=== PATIENT | female | born 1970 | race Caucasian/White ===

== ENCOUNTER 2020-03-01 10:09 | Emergency (ER) | payer SELFPAY ==
[2020-03-01 10:17] VITALS: BP 196/114; PULSE 119; RESP 18; TEMP 36.6; O2SAT 99; BMI 36.3
--- NOTE | 2020-03-01 10:23 | W.ED.BACK ---
HPI - Back Pain/Injury General: Chief Complaint: Back Pain/Injury Stated Complaint: back pain Time Seen by Provider: 03/01/20 10:15 History of Present Illness: HPI Narrative: 49 yo femae with complaint of back pain. Patient has been helping her daughter move lifted some heavy objects and strained her back she is tried several [id number] pain medications some CBD oil and Gummies with no significant relief of pain she does not have any radicular pain. No other symptoms no recent illness MD elicited complaint: back pain Associated symptoms: Deny abdominal pain, chills, dysuria, fatigue, fever(s), nausea, urinary urgency or vomiting Review of Systems Const: Denies: fever(s), chills, body aches, change in appetite, fatigue or malaise ENMT: Denies: throat pain, ear or mastoid pain, nasal discharge or nasal congestion Card: Denies: chest pain, edema, dyspnea on exertion or orthopnea Resp: Denies: dyspnea, productive cough or non-productive cough GI: Denies: abdominal pain, nausea, vomiting, hematemesis, coffee ground emesis, diarrhea, constipation, bloating, hematochezia or melena : Denies: flank pain, difficulty voiding, dysuria, urinary frequency or urinary urgency Skin/Breast: Denies: rash or pruritus PFSH ED PFSH: Social History Smoking and tobacco status: current every day smoker Physical Exam Const: COMMON NORMALS: no acute distress GENERAL APPEARANCE: cooperative and comfortable ORIENTATION/CONSCIOUSNESS: Yes awake, Yes oriented to person, Yes oriented to place and Yes oriented to time HENMT: COMMON NORMALS: normocephalic, atraumatic, hearing grossly normal bilaterally, external ears normal, EAC's normal, TM's normal bilaterally, Normal nasal mucous membranes and turbinates present, moist oral mucous membranes and oropharynx normal HEAD & SCALP: normocephalic and atraumatic NOSE: Normal nasal mucous membranes and turbinates present EXTERNAL EAR: Yes external ears normal EXTERNAL AUDITORY CANAL: EAC's normal TYMPANIC MEMBRANE: TM's normal bilaterally Eye: COMMON NORMALS: Equal, round and reactive pupils present, EOMs intact bilaterally, conjunctivae normal and no scleral icterus CONJUNCTIVA: Yes conjunctivae normal PUPIL: Yes Equal, round and reactive pupils present Neck/C-Spine: COMMON NORMALS: full ROM, no lymphadenopathy, supple and no JVD Lymph: LYMPHATIC: no lymphadenopathy noted and no lymphedema noted Resp: COMMON NORMALS: normal respiratory effort, No retractions, No use of accessory muscles and clear to auscultation bilaterally AUSCULTATION: clear to auscultation bilaterally Cardio: COMMON NORMALS: no JVD, regular rate, regular rhythm and No murmurs present (Cardio) RATE: regular rate RHYTHM: regular rhythm GI: COMMON NORMALS: Soft to palpation and No hepatosplenomegaly present AUSCULTATION: Yes normoactive bowel sounds PALPATION: Yes Soft to palpation, No Tenderness to palpation present (GI), No Guarding due to palpation present (GI) and Yes No hepatosplenomegaly present Extremity: COMMON NORMALS: normal to inspection, capillary refill normal, no clubbing, cyanosis or edema, no calf tenderness and no pedal edema Neuro: SENSORIUM/ORIENTATION: Yes oriented to person, Yes oriented to place and Yes oriented to time Skin: COMMON NORMALS: no rashes or lesions noted GENERAL SKIN EXAM: no rashes or lesions noted Course Vital Signs: Vital signs: Vital Signs Temperature 97.8 F 03/01/20 10:17 Pulse Rate 71 03/01/20 12:10 Respiratory Rate 16 03/01/20 12:10 Blood Pressure 144/86 03/01/20 12:10 Pulse Oximetry 95 03/01/20 12:10 MDM - Back Pain/Injury MDM Narrative: Medical decision making narrative: Discharge home with pain medications and Medrol Dosepak denies any symptoms return unable to control pain return. Follow-up with primary care doctor if persists. Discharge Plan Discharge Patient Disposition: Home, Self-Care Clinical Impression: Strain of lumbar region Condition: Stable Prescriptions: New hydrocodone-acetaminophen 5-325 mg tablet 1 tab PO Q6H PRN (Reason: pain) Qty: 20 RF: 0 Medrol (Royce) 4 mg tablets,dose pack See Rx Instructions .ROUTE .COMPLEX Qty: 21 RF: 0 tizanidine 4 mg capsule 4 mg PO Q6H PRN (Reason: muscle spasticity) Qty: 20 RF: 0 diclofenac sodium 75 mg tablet,delayed release (DR/EC) 75 mg PO Q12H PRN (Reason: pain) Qty: 20 RF: 0 Discharge Orders: Discharge Order (Routine); Ordered 03/01/20 Ordered By: Shayne Freeman Discharge Diet: Usual diet Discharge Activity: Increase activity as tolerated Activity Restrictions/Additional Instructions: Follow-up with your primary care doctor for further evaluation of your back possible referral to PT or other medications. Discharge Date/Time: 03/01/20 12:10 Coding Level of Care Code ED Maintainer [employer] for Tayla Wooten
[2020-03-01] MEDS: ondansetron 2 mg/ML SDV 2 mL 4 MG IVP (11:14)
[2020-03-01] MEDS: ketorolac 30 mg/mL INJ IVP (11:15)
[2020-03-01] MEDS: orphenadrine 30 mg/mL Inj 2 mL 60 MG IVP (11:16)
[2020-03-01 11:17] VITALS: RESP 18; O2SAT 97
[2020-03-01] MEDS: morphine 4 mg/mL SDV 1 mL 6 MG IVP (11:17)
[2020-03-01 11:22] VITALS: BP 162/94; PULSE 101; RESP 16; O2SAT 96
[2020-03-01 12:10] VITALS: BP 144/86; PULSE 71; RESP 16; O2SAT 95
== END 2020-03-01 12:10 | disposition home or self-care (01) ==
PROVIDERS: Absent Provider Nurse Practitioner Family; Emergency Provider Family Medicine
DX: S39.012A Strain of muscle, fascia and tendon of lower back, initial encounter (principal); X50.0XXA Overexertion from strenuous movement or load, initial encounter; F17.210 Nicotine dependence, cigarettes, uncomplicated
CPT/HCPCS: 12345; 96374; 96375; 99282; 99283; J1885; J2270; J2360; J2405

== ENCOUNTER 2020-09-24 11:38 | Emergency (ER) | payer SELFPAY ==
--- NOTE | 2020-09-24 11:42 | ED_ITS ---
HPI - Back Pain/Injury General: Chief Complaint: Back Pain/Injury Stated Complaint: Back Pain Time Seen by Provider: 09/24/20 11:41 History of Present Illness: HPI Narrative: 50-year-old female presents emergency room with complaint of low back pain that began after she is doing some heavy lifting this morning. She has not had any loss of bowel control she still been able to urinate she has severe left back pain with numbness going into her right leg. She still is able to stand and walk. She is not really taken anything for prior to arrival. She was here in the emergency room in February 2020 for similar complaint. MD elicited complaint: back pain Pertinent past history: prior back pain Onset (ago): minute(s) Timing: constant Severity: severe Similar Symptoms Previously: Yes Quality: sharp and tingling Location: lumbar spine and right lower back Radiation: right upper leg Exacerbating factors: none Associated symptoms: Deny abdominal pain, chills, dysuria, fatigue, fever(s), nausea, urinary urgency or vomiting Review of Systems Const: Denies: fever(s), chills, body aches, change in appetite, fatigue or malaise ENMT: Denies: throat pain, ear or mastoid pain, nasal discharge or nasal congestion Card: Denies: chest pain, edema, dyspnea on exertion or orthopnea Resp: Denies: dyspnea, productive cough or non-productive cough GI: Denies: abdominal pain, nausea, vomiting, hematemesis, coffee ground emesis, diarrhea, constipation, bloating, hematochezia or melena : Denies: flank pain, difficulty voiding, dysuria, urinary frequency or uri nary urgency Skin/Breast: Denies: rash or pruritus PFSH ED PFSH: Social History Smoking and tobacco status: current every day smoker Physical Exam Const: COMMON NORMALS: no acute distress GENERAL APPEARANCE: cooperative and comfortable ORIENTATION/CONSCIOUSNESS: Yes awake, Yes oriented to person, Yes oriented to place and Yes oriented to time HENMT: COMMON NORMALS: normocephalic, atraumatic and hearing grossly normal bilaterally HEAD & SCALP: normocephalic and atraumatic Neck/C-Spine: COMMON NORMALS: no JVD Resp: COMMON NORMALS: normal respiratory effort, No retractions, No use of accessory muscles and clear to auscultation bilaterally AUSCULTATION: clear to auscultation bilaterally Cardio: COMMON NORMALS: no JVD, regular rate, regular rhythm and No murmurs present (Cardio) RATE: regular rate RHYTHM: regular rhythm GI: COMMON NORMALS: Soft to palpation and No hepatosplenomegaly present AUSCULTATION: Yes normoactive bowel sounds PALPATION: Yes Soft to palpation, No Tenderness to palpation present (GI), No Guarding due to palpation present (GI) and Yes No hepatosplenomegaly present Extremity: COMMON NORMALS: normal to inspection, capillary refill normal, no clubbing, cyanosis or edema, no calf tenderness and no pedal edema Neuro: SENSORIUM/ORIENTATION: Yes oriented to person, Yes oriented to place and Yes oriented to time OTHER: Straight leg raising negative dorsum plantar flex strength 4/4, deep tendon reflexes +2/4 at the patellar tendon Course Vital Signs: Vital signs: Vital Signs Temperature 97.8 F 09/24/20 11:43 Pulse Rate 81 09/24/20 13:32 Respiratory Rate 16 09/24/20 13:32 Blood Pressure 161/92 09/24/20 13:32 Pulse Oximetry 98 09/24/20 13:32 MDM - Back Pain/Injury MDM Narrative: Medical decision making narrative: Pain improved. Will discharge home on muscle relaxer steroid taper anti-inflammatories and hydrocodo ne as needed set her up for an outpatient MRI and referral to Dr. Soares. Discharge Plan Discharge Patient Disposition: Home Clinical Impression: Lumbar radiculopathy Condition: Stable Prescriptions: New hydrocodone-acetaminophen 5-325 mg tablet 1 tab PO Q6H PRN (Reason: pain) Qty: 25 RF: 0 Medrol (Royce) 4 mg tablets,dose pack See Rx Instructions .ROUTE .COMPLEX Qty: 21 RF: 0 tizanidine 4 mg capsule 4 mg PO Q8H PRN (Reason: muscle spasticity) Qty: 30 RF: 0 diclofenac sodium 75 mg tablet,delayed release (DR/EC) 75 mg PO Q12H PRN (Reason: pain) Qty: 20 RF: 0 No Action hydrocodone-acetaminophen 5-325 mg tablet 1 tab PO Q6H PRN (Reason: pain) Qty: 20 RF: 0 Medrol (Royce) 4 mg tablets,dose pack See Rx Instructions .ROUTE .COMPLEX Qty: 21 RF: 0 tizanidine 4 mg capsule 4 mg PO Q6H PRN (Reason: muscle spasticity) Qty: 20 RF: 0 diclofenac sodium 75 mg tablet,delayed release (DR/EC) 75 mg PO Q12H PRN (Reason: pain) Qty: 20 RF: 0 Discharge Orders: Discharge ED (Routine); Ordered 09/24/20 Ordered By: Shayne Freeman Discharge Diet: Usual diet Discharge Activity: Increase activity as tolerated Activity Restrictions/Additional Instructions: Case management will call with an appointment for an MRI of your lumbar spine and then a follow-up appointment with Dr. Soares after that. Coding Level of Care Code ED Brim Shaper for Tavaresg Fwd Exam Detailed
[2020-09-24 11:43] VITALS: BP 185/108; PULSE 99; RESP 18; TEMP 36.6; O2SAT 100; BMI 28.3
[2020-09-24 12:19] VITALS: RESP 20; O2SAT 99
[2020-09-24] MEDS: morphine 4 mg/mL SDV 1 mL 6 MG IVP (12:19)
[2020-09-24] MEDS: orphenadrine 30 mg/mL Inj 2 mL 60 MG IVP (12:26)
[2020-09-24] MEDS: dexamethasone 4 mg/mL INJ 10 MG IVP (12:29)
[2020-09-24 13:32] VITALS: BP 161/92; PULSE 81; RESP 16; O2SAT 98
--- NOTE | 2020-09-26 14:55 | DCPLANNER ---
project manager interior design had message to schedule an outpatient MRI, mattress spring encaser faxed order for MRI to centralized scheduling. After MRI is scheduled, mattress spring encaser will schedule a follow up appointment for patient with Dr. Soares at [facility].
--- NOTE | 2020-10-04 07:44 | DCPLANNER ---
Addendum entered by Patricia Whalen 10/04/20 09:46: testing manager called the ortho clinic, spoke with Crorie, gave patients information and date of the MRI so that a follow up appointment can be scheduled for patient. Original Note: Patient has an outpatient MRI scheduled for Saturday, October 18, 2020 at 8:45. testing manager will call the ortho clinic and get a followup appointment scheduled for patient after the MRI.
--- NOTE | 2020-10-05 09:45 | DCPLANNER ---
Patient has a follow up appointment scheduled for October at 1:[address] at [facility]. Clinic will call patient with appointment information.
--- NOTE | 2020-12-07 11:27 | DCPLANNER ---
Patient had an outpatient MRI scheduled for 10.17.20 - patient did attend appointment Patient also had an appointment with ortho scheduled for 10.20.[address] Soares - patient did attend appointment.
== END 2020-09-24 13:35 | disposition home or self-care (01) ==
PROVIDERS: Emergency Provider Family Medicine
DX: M54.16 Radiculopathy, lumbar region (principal); F17.210 Nicotine dependence, cigarettes, uncomplicated
CPT/HCPCS: 12345; 96374; 96375; 99282; 99283; J1100; J2270; J2360

== ENCOUNTER 2020-10-01 13:31 | Emergency (ER) | payer SELFPAY ==
[2020-10-01 13:35] VITALS: BP 166/114; PULSE 120; RESP 22; TEMP 37.1; O2SAT 98; BMI 31.8
--- NOTE | 2020-10-01 13:47 | W.ED.BACK ---
HPI - Back Pain/Injury General: Chief Complaint: Back Pain/Injury Stated Complaint: SEVERE BACK PAIN Time Seen by Provider: 10/01/20 13:38 History of Present Illness: HPI Narrative: Patient complaining of severe low back pain consistent with what she had at her previous visit. She lifted a tree earlier and this is what caused her pain originally hydrocodone was helps some but the pain is back again. Scheduled for MRI on the 12th MD elicited complaint: back pain and back injury Pertinent past history: prior back pain Onset (ago): week(s) Timing: constant Severity: severe Similar Symptoms Previously: Yes Quality: dull and aching Location: lumbar spine Associated symptoms: Deny abdominal pain, chills, fever(s), nausea or vomiting Review of Systems Const: Denies: fever(s), chills or body aches Eyes: Denies: change in vision or blurry vision ENMT: Denies: throat pain or nasal congestion Card: Denies: chest pain or dyspnea on exertion Resp: Denies: dyspnea, productive cough or non-productive cough GI: Denies: abdominal pain, nausea or vomiting Musc: Reports: back pain; Denies: extremity pain Skin/Breast: Denies: rash Neuro: Denies: headache(s) Psych: Denies: anxiety or depression Isael/Lymph: Denies: easy bruising PFSH ED PFSH: Social History Smoking and tobacco status: current every day smoker Physical Exam Const: COMMON NORMALS: no acute distress, average body habitus and patient oriented x3 HENMT: COMMON NORMALS: normocephalic HEAD & SCALP: normal to inspection and normocephalic FACE & SINUS: normal facial exam Eye: COMMON NORMALS: conjunctivae normal GENERAL EYE: appearance normal, both eyes and all related structures CONJUNCTIVA: Yes conjunctivae normal Neck/C-Spine: COMMON NORMALS: no JVD Chest: COMMONS NORMALS: normal inspection of the chest Resp: COMMON NORMALS: normal respiratory effort Cardio: COMMON NORMALS: no JVD and regular rhythm RATE: tachycardic RHYTHM: regular rhythm GI: COMMON NORMALS: Normal to inspection, nondistended, normoactive bowel sounds present Back/Pelvis: LUMBAR SPINE/LOWER BACK: Yes ROM limited (Limited due to pain), No lumbar spinal tenderness and Yes bend over test abnormal (Helps relieve pain in back when bent over the bed) Extremity: COMMON NORMALS: normal to inspection and full ROM Neuro: COMMON NORMALS: patient oriented x3 Course Vital Signs: Vital signs: Vital Signs Temperature 98.7 F 10/01/20 14:30 Pulse Rate 120 H 10/01/20 13:35 Respiratory Rate 22 H 10/01/20 14:30 Blood Pressure 166/114 10/01/20 13:35 Pulse Oximetry 98 10/01/20 14:30 MDM - Back Pain/Injury MDM Narrative: Medical decision making narrative: Patient has a history of low back pain consistent with what she had a day. Patient is scheduled for MRI. Patient instructed not to do any heavy lifting ice and heat to the low back and follow-up for her scheduled MRI Discharge Plan Discharge Patient Disposition: Home Clinical Impression: Lumbar radiculopathy Condition: Stable Prescriptions: New tramadol 50 mg tablet 50 mg PO TID PRN (Reason: pain) Qty: 20 RF: 0 Neurontin 300 mg capsule 300 mg PO TID Qty: 21 RF: 0 No Action hydrocodone-acetaminophen 5-325 mg tablet 1 tab PO Q6H PRN (Reason: pain) Qty: 20 RF: 0 Medrol (Royce) 4 mg tablets,dose pack See Rx Instructions .ROUTE .COMPLEX Qty: 21 RF: 0 tizanidine 4 mg capsule 4 mg PO Q6H PRN (Reason: muscle spasticity) Qty: 20 RF: 0 diclofenac sodium 75 mg tablet,delayed release (DR/EC) 75 mg PO Q12H PRN (Reason: pain) Qty: 20 RF: 0 hydrocodone-acetaminophen 5-325 mg tablet 1 tab PO Q6H PRN (Reason: pain) Qty: 25 RF: 0 Medrol (Royce) 4 mg tablets,dose pack See Rx Instructions .ROUTE .COMPLEX Qty: 21 RF: 0 tizanidine 4 mg capsule 4 mg PO Q8H PRN (Reason: muscle spasticity) Qty: 30 RF: 0 diclofenac sodium 75 mg tablet,delayed release (DR/EC) 75 mg PO Q12H PRN (Reason: pain) Qty: 20 RF: 0 Discharge Orders: Discharge ED (Routine); Ordered 10/01/20 Ordered By: Aung Miles Discharge Diet: Usual diet Discharge Activity: Limit activity as instructed Patient Instructions: Lumbar Radiculopathy (ED) Activity Restrictions/Additional Instructions: Follow-up with medical provider as directed. Take medications as prescribed. Return to the ER or your medical provider if condition worsens. Please read and understand discharge instructions. If any questions ask please. Coding Level of Care Code ED Bundle Tier And Labeler for Tayla Fwd Exam Comprehensive
[2020-10-01] MEDS: ketorolac 60 mg/2 mL INJ IM (14:22)
[2020-10-01 14:30] VITALS: RESP 22; TEMP 37.1; O2SAT 98
== END 2020-10-01 14:30 | disposition home or self-care (01) ==
PROVIDERS: Emergency Provider Nurse Practitioner Family
DX: M54.16 Radiculopathy, lumbar region (principal); F17.210 Nicotine dependence, cigarettes, uncomplicated
CPT/HCPCS: 12345; 96372; 99281; 99283; J1885

== ENCOUNTER 2020-10-17 08:28 | Outpatient (CLI) | payer SELFPAY ==
--- NOTE | 2020-10-17 08:32 | MR_ITS ---
WS: [id number] MRI LUMBAR SPINE NONCONTRAST HISTORY: BACK Pain; right LEG RADICULOPATHY COMPARISON: 02/25/2016 CT lumbar spine. MRI lumbar spine 07/25/2015. TECHNIQUE: Sagittal and axial multisequence imaging is submitted. Patient was unable to tolerate post contrast imaging. Mild encroachment upon the ventral cervical cord at C5-C6 due to disc osteophyte disease. There is an additional small disc protrusion at T6-7 which is encroaching upon the ventral to RIGHT thecal sac. No severe compression of the cord. T11 hemangioma. Very mild straightening of the normal lumbar lordosis. No marrow edema or fracture. Disc spaces and vertebral body heights are well-preserved. Conus terminates normally at L1. L1-L2: Normal. L2-L3: Very minimal facet and ligamentum flavum hypertrophy. No stenosis. L3-L4: Very mild osteophytic ridging with mild ligamentum flavum disease and facet arthritis. No sten osis. L4-L5: Mild annular disc bulging with mild facet and ligamentum flavum hypertrophy. No significant st enosis. L5-S1: No stenosis or disc protrusions. Mild facet and ligamentum flavum arthritis. LEFT renal cysts. The largest measures 2.4 cm. MR/MR lumbar spine wo con* [id number] IMPRESSION: 1. Patient was unable to tolerate postcontrast imaging due to pain. 2. No significant stenosis or disc protrusions or canal contact on the nerve r oots. 3. 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 4. Disc protrusion at T6-7 seen on the survey image may be contacting the RIGH T lateral thecal sac.
== END 2020-10-17 08:29 | disposition home or self-care (01) ==
LOC: RADSHAW 08:29
PROVIDERS: Visit Provider Family Medicine
DX: M54.16 Radiculopathy, lumbar region (principal); M51.24 Other intervertebral disc displacement, thoracic region; M47.816 Spondylosis without myelopathy or radiculopathy, lumbar region; M47.817 Spondylosis without myelopathy or radiculopathy, lumbosacral region
CPT/HCPCS: 72148

== ENCOUNTER → 2020-10-20 13:08 | Outpatient (BNVA) | payer SELFPAY | PROVIDERS: Referring Provider Nurse Practitioner Family; Visit Provider Orthopaedic Surgery | DX: M54.9 Dorsalgia, unspecified (principal) | CPT/HCPCS: 72110 ==

== ENCOUNTER 2020-11-05 12:22 | Emergency (ER) | payer SELFPAY ==
[2020-11-05 12:54] VITALS: BP 162/95; PULSE 105; RESP 15; TEMP 36.7; O2SAT 99; BMI 32.1
--- NOTE | 2020-11-05 13:14 | W.ED.BACK ---
HPI - Back Pain/Injury General: Chief Complaint: Back Pain/Injury Stated Complaint: chronic back pain Time Seen by Provider: 11/05/20 13:07 Source: patient Mode of arrival: ambulatory Limitations: no limitations History of Present Illness: HPI Narrative: Patient comes in for increasing low back pain. Patient has been to Dr. Soares for evaluation and has been recommended to have injections in the back. Review of the MRI noted no significant spinal stenosis but did question there may be a nerve impingement in the lower lumbar. Patient comes in due to aggravating pain in in distress from the pain. Patient appears well. Patient appears in moderate pain. Review of Systems General: Reports: 10 or more systems reviewed and unremarkable except in HPI and below Musc: Reports: back pain PFS ED PFSH: Social History (Updated 11/05/20 @ 13:00 by Nahun Naranjo RN) Smoking and tobacco status: current every day smoker Alcohol intake: never Substance/Drug Use: never Physical Exam Const: COMMON NORMALS: no acute distress and patient oriented x3 GENERAL APPEARANCE: cooperative HENMT: COMMON NORMALS: normocephalic and Normal external nose present HEAD & SCALP: normal to inspection and normocephalic NOSE: Normal external nose present MOUTH: Normal oral and palatal mucosa present Eye: GENERAL EYE: appearance normal, both eyes and all related structures Neck/C-Spine: COMMON NORMALS: full ROM Chest: COMMONS NORMALS: normal inspection of the chest Resp: COMMON NORMALS: normal respiratory effort EFFORT & INSPECTION: Yes able to speak in complete sentences Cardio: COMMON NORMALS: regular rate and regular rhythm RATE: regular rate RHYTHM: regular rhythm GI: COMMON NORMALS: non-tender Back/Pelvis: OTHER: Soft tissue tenderness of the left lower back. Extremity: COMMON NORMALS: normal to inspection Neuro: COMMON NORMALS: patient oriented x3 and moves all extremities Psych: COMMON NORMALS: mental status grossly normal and cooperative Skin: COMMON NORMALS: no rashes or lesions noted GENERAL SKIN EXAM: no rashes or lesions noted Course Vital Signs: Vital signs: Vital Signs Temperature 98.1 F 11/05/20 12:54 Pulse Rate 105 H 11/05/20 12:54 Respiratory Rate 15 11/05/20 12:54 Blood Pressure 162/95 11/05/20 12:54 Pulse Oximetry 99 11/05/20 12:54 MDM - Back Pain/Injury MDM Narrative: Medical decision making narrative: Patient presents with acute exacerbation of chronic back pain. On exam patient has muscle tenderness to the left lower back. Patient moves all extremities well. No signs of cauda equina syndrome. Differential diagnosis includes muscle strain, acute on chronic back pain, intervertebral disc disease, facet arthropathy. Reviewed exam with patient with recommendations for treatment and follow-up. Patient reported understanding agreed to plan. Discharge Plan Discharge Patient Disposition: Home Clinical Impression: Low back pain Qualifiers: Chronicity: unspecified Back pain laterality: left Sciatica presence: without sciatica Qualified Code(s): M54.5 - Low back pain Condition: Stable Prescriptions: New hydrocodone-acetaminophen 5-325 mg tablet 1 tab PO Q6H PRN (Reason: pain) Qty: 14 RF: 0 naproxen 500 mg tablet 500 mg PO BID Qty: 20 RF: 0 Discontinued tramadol 50 mg tablet 50 mg PO Q6H PRN (Reason: pain) Qty: 30 RF: 0 diclofenac sodium 75 mg tablet,delayed release (DR/EC) 75 mg PO Q12H PRN (Reason: pain) Qty: 20 RF: 0 Discharge Orders: Discharge ED (Routine); Ordered 11/05/20 Ordered By: Jann Thurston Discharge Diet: Usual diet Discharge Activity: Increase activity as tolerated Patient Instructions: Back Pain (ED), Opioid Safety Activity Restrictions/Additional Instructions: It is best to maintain activity as much as possible. Gentle stretching and range of motion exercises. Drink plenty of water with medication. Do not use hydrocodone when operating a vehicle or when you may harm yourself or others with use of equipment or machinery. Follow-up with primary care for further treatment. Return to the emergency department for new concerns. Coding Level of Care Code ED Cylinder Press Feeder for Tayla Wooten
[2020-11-05] MEDS: ketorolac 30 mg/mL INJ IM (13:19)
[2020-11-05] MEDS: HYDROcodone-acetaminophen 7.5-325 mg Tablet 1 TAB PO (13:19)
== END 2020-11-05 13:50 | disposition home or self-care (01) ==
PROVIDERS: Emergency Provider Nurse Practitioner Family
DX: M54.5 Low back pain (principal); F17.210 Nicotine dependence, cigarettes, uncomplicated
CPT/HCPCS: 96372; 99283; J1885

== ENCOUNTER 2021-02-24 17:47 | Emergency (ER) | payer SELFPAY ==
[2021-02-24 17:57] VITALS: BP 180/94; PULSE 94; RESP 18; TEMP 36.9; O2SAT 97; BMI 33.8
--- NOTE | 2021-02-24 22:45 | CTR_ITS ---
PROCEDURE INFORMATION: Exam: CT Head Without Contrast Exam date and time: 02/24/2021 10:45 PM Age: 50 years old Clinical indication: Pain; Headache; Vascular; Patient HX: Occipital WHEELER with hypertension. TECHNIQUE: Imaging protocol: Computed tomography of the head without contrast. Radiation optimization: All CT scans at this facility use at least one of these dose optimization techniques: automated exposure control; mA and/or kV adjustment per patient size (includes targeted exams where dose is matched to clinical indication); or iterative reconstruction. COMPARISON: No relevant prior studies available. RADIATION DOSE METRICS: Total DLP (mGy-cm): 836.23 FINDINGS: Brain: Normal. No hemorrhage. Unremarkable white matter. No mass effect. Cerebral ventricles: No ventriculomegaly. Paranasal sinuses: Visualized sinuses are unremarkable. No fluid levels. Mastoid air cells: Visualized mastoid air cells are well aerated. Bones/joints: Unremarkable. No acute fracture. Soft tissues: Unremarkable. CT/CT head wo con* [id number] IMPRESSION: No acute intracranial abnormality. Radiation Dose CTDIVOL = (mGy): DLP = 836.23 (mGy-cm)
[2021-02-24 22:46] VITALS: BP 180/113; PULSE 72; RESP 16; TEMP 36.9; O2SAT 98
--- NOTE | 2021-02-24 23:00 | W.ED.HA ---
HPI - Headache General: Chief Complaint: Headache Stated Complaint: Head Pain, Numb/Tingly Feeling in Head Time Seen by Provider: 02/24/21 22:34 Source: patient Mode of arrival: ambulatory Limitations: no limitations History of Present Illness: HPI Narrative: 50-year-old female states she been having intermittent headaches over the last 4 days. States it is along her posterior scalp and some tenderness along her occipital region as well. States the headache is sharp and rates it a 6 out of 10. She denies any nausea or vomiting. She denies this being the worst headache of her life. She denies any fevers. Denies any pain with movement of her neck. Denies any photophobia. MD elicited complaint: headache Associated symptoms: Deny chest pain, fever(s), nausea, rash or vomiting Review of Systems Const: Denies: fever(s), chills, body aches or change in appetite Eyes: Denies: blurry vision or eye discomfort ENMT: Denies: throat pain or dental pain Card: Denies: chest pain Resp: Denies: dyspnea GI: Denies: abdominal pain, nausea, vomiting or diarrhea : Denies: dysuria Musc: Denies: neck pain or back pain Skin/Breast: Denies: rash Neuro: Reports: headache(s) Psych: Denies: depression Isael/Lymph: Denies: easy bruising All/Imm: Denies: urticaria PFSH ED PFSH: Social History (Updated 11/05/20 @ 13:00 by Nahun Naranjo RN) Smoking and tobacco status: current every day smoker Alcohol intake: never Physical Exam Const: COMMON NORMALS: no acute distress, patient oriented x3 and healthy appearing HENMT: COMMON NORMALS: normocephalic and atraumatic HEAD & SCALP: normocephalic and atraumatic Eye: COMMON NORMALS: Equal, round and reactive pupils present and EOMs intact bilaterally PUPIL: Yes Equal, round and reactive pupils present Neck/C-Spine: COMMON NORMALS: full ROM and supple Chest: COMMONS NORMALS: normal inspection of the chest and normal palpation of entire chest wall Resp: COMMON NORMALS: normal respiratory effort, No retractions, No use of accessory muscles and clear to auscultation bilaterally AUSCULTATION: clear to auscultation bilaterally Cardio: COMMON NORMALS: regular rate, regular rhythm and No murmurs present (Cardio) RATE: regular rate RHYTHM: regular rhythm GI: COMMON NORMALS: Normal to inspection, nondistended, normoactive bowel sounds present, Soft to palpation, non-tender and no masses PALPATION: Yes Soft to palpation Extremity: COMMON NORMALS: normal to inspection and full ROM Neuro: COMMON NORMALS: patient oriented x3, moves all extremities and no focal motor deficits Psych: COMMON NORMALS: mental status grossly normal, Normal thought process present and cooperative THOUGHT PROCESS: Normal thought process present Skin: COMMON NORMALS: no rashes or lesions noted and no wounds GENERAL SKIN EXAM: no rashes or lesions noted Course Vital Signs: Vital signs: Vital Signs Temperature 98.5 F 02/24/21 22:46 Pulse Rate 65 02/25/21 00:09 Respiratory Rate 17 02/25/21 00:09 Blood Pressure 150/94 02/25/21 00:09 Pulse Oximetry 98 02/25/21 00:09 MDM - Headache MDM Narrative: Medical decision making narrative: Patient presents here with headache that is likely tension headache. She is well-appearing here no signs of meningitis or subarachnoid hemorrhage or aortic dissection. Patient's head CT here is normal and her headache is resolved. She is stable for discharge and she is return if worsening. Lab Data: Labs: Lab Results 02/24/21 02/24/21 Range/Units 23:01 23:01 WBC 8.4 (4.0-10.0) 10^3/ uL RBC 4.71 (4.1-5.3) 10^6/u L Hgb 14.7 (11.5-15.3) g/dL Hct 42.2 (37.0-47.0) % MCV 89.6 (81-99) fL MCH 31.2 (28.0-34.0) pg MCHC 34.8 (30.0-36.0) g/dL RDW 11.9 L (12.1-15.1) % Plt Count 291 (130-400) 10^3/c mm MPV 10.0 (7.4-10.4) fL Neut % (Auto) 51.6 % Lymph % (Auto) 40.1 % [place] % (Auto) 5.1 % Eos % (Auto) 2.3 % Baso % (Auto) 0.7 % Neut # (Auto) 4.32 (1.8-7.7) 10^3/u L Lymph # (Auto) 3.4 (0.8-4.8) 10^3/u L [place] # (Auto) 0.4 (0.2-0.9) 10^3/u L Eos # (Auto) 0.2 (0.0-0.8) 10^3/u L Baso # (Auto) 0.1 (0.0-0.1) 10^3/u L Nucleated RBC % (a uto) 0 % Nucleated RBCs # 0.0 /100WBC Sodium 139 (136-145) mmol/L Potassium 3.4 L (3.5-5.1) mmol/L Chloride 101 (98-107) mmol/L Carbon Dioxide 25 (22-29) mmol/L Anion Gap 16.4 (5-19) BUN 8 (6-20) mg/dL Creatinine 0.5 (0.5-0.9) mg/dL GFR Calculation 129.6 (90-130) mL/min Glucose 104 (65-115) mg/dL Calculated Osmolal ity 287 (285-295) mOsm/k g Calcium 8.9 (8.5-10.5) mg/dL Total Bilirubin 0.3 (0.15-1.2) mg/dL AST 11 (0-32) U/L ALT 8 (0-33) U/L Alkaline Phosphata se 68 (35-105) IU/L Total Protein 7.2 (6.6-8.7) g/dL Albumin 4.6 (3.5-5.2) g/dL Globulin 2.6 (1.3-4.6) g/dL Discharge Plan Discharge Patient Disposition: Home Clinical Impression: Headache Qualifiers: Headache type: unspecified Headache chronicity pattern: unspecified pattern Intractability: not intractable Qualified Code(s): R51.9 - Headache, unspecified Condition: Stable Prescriptions: No Action hydrocodone-acetaminophen 5-325 mg tablet 1 tab PO Q6H PRN (Reason: pain) Qty: 14 RF: 0 naproxen 500 mg tablet 500 mg PO BID Qty: 20 RF: 0 Discharge Orders: Discharge ED (Routine); Ordered 02/24/21 Ordered By: Tayla Nazario Referrals: [facility], [Primary Care Provider] - Discharge Diet: Advance as tolerated Discharge Activity: Resume usual activity Patient Instructions: Headache Coding Level of Care Code ED [place] Attendant for Chg Fwd Exam Comprehensive
[2021-02-24] MEDS: metoclopramide 5 mg/mL SDV 2 mL 10 MG IVP (23:07)
[2021-02-24] MEDS: ketorolac 30 mg/mL INJ 15 MG IVP (23:07)
[2021-02-24 23:09] LABS: Basophils # 0.1 10^3/uL (0.0-0.1); Basophils % 0.7 %; Eosinophils # 0.2 10^3/uL (0.0-0.8); Eosinophils % 2.3 %; Hematocrit 42.2 % (37.0-47.0); Hemoglobin 14.7 g/dL (11.5-15.3); Lymphocytes # 3.4 10^3/uL (0.8-4.8); Lymphocytes % 40.1 %; Mean Corpuscular HGB Conc 34.8 g/dL (30.0-36.0); Mean Corpuscular Hemoglobin 31.2 pg (28.0-34.0); Mean Corpuscular Volume 89.6 fL (81-99); Monocytes # 0.4 10^3/uL (0.2-0.9); Monocytes % 5.1 %; Neutrophils # 4.32 10^3/uL (1.8-7.7); Neutrophils % 51.6 %; Nucleated Red Blood Cells % 0 %; Platelet Count 291 10^3/cmm (130-400); Red Blood Count 4.71 10^6/uL (4.1-5.3); Red Cell Distribution Width 11.9 % (12.1-15.1); White Blood Count 8.4 10^3/uL (4.0-10.0)
[2021-02-24] MEDS: diphenhydrAMINE 50 mg/mL SDV 1mL IVP (23:26)
[2021-02-24 23:34] LABS: Alanine Aminotransferase 8 U/L (0-33); Albumin Level 4.6 g/dL (3.5-5.2); Alkaline Phosphatase 68 IU/L (35-105); Anion Gap 16.4 (5-19); Aspartate Amino Transferase 11 U/L (0-32); Blood Urea Nitrogen 8 mg/dL (6-20); Calcium 8.9 mg/dL (8.5-10.5); Carbon Dioxide 25 mmol/L (22-29); Chloride 101 mmol/L (98-107); Globulin 2.6 g/dL (1.3-4.6); Glomerular Filtration Rate 129.6 mL/min (90-130); Glucose 104 mg/dL (65-115); Osmolality Calculated 287 mOsm/kg (285-295); Potassium 3.4 mmol/L (3.5-5.1); Sodium 139 mmol/L (136-145); Total Bilirubin 0.3 mg/dL (0.15-1.2); Total Protein 7.2 g/dL (6.6-8.7)
[2021-02-25 00:09] VITALS: BP 150/94; PULSE 65; RESP 17; O2SAT 98
== END 2021-02-25 00:09 | disposition home or self-care (01) ==
PROVIDERS: Emergency Provider Emergency Medicine
DX: R51.9 Headache, unspecified (principal); F17.210 Nicotine dependence, cigarettes, uncomplicated
CPT/HCPCS: 70450; 80053; 85025; 96374; 96375; 99284; J1200; J1885; J2765

== ENCOUNTER 2021-06-11 10:20 | Emergency (ER) | payer SELFPAY ==
--- NOTE | 2021-06-11 10:32 | ED_ITS ---
HPI - Back Pain/Injury General: Chief Complaint: Back Pain/Injury Stated Complaint: BACK PAIN, LIFTING STRAW Time Seen by Provider: 06/11/21 10:32 Source: patient Mode of arrival: ambulatory Limitations: no limitations History of Present Illness: HPI Narrative: 50-year-old female with a history of back problems presents to the ER today for worsening symptoms x3 days. Patient reports she was lifting straw jose about 3 days ago and felt a pull in her left low back. She reports pain has persisted since that time, radiating down to the knee in the anterior thigh. Patient denies any sciatic radiation at this time. She has seen Ortho recently for the back pain and was recommended she see a painter set for injections however has not had the insurance to get seen. Patient denies any loss of bowel or bladder control. She reports being unable to get comfortable in any position. She is able to go from sitting to standing to walking but unable to do anything for any extended period of time. Patient rates pain a 10 out of 10 today in the ER. She has been alternating Tylenol and Motrin for pain at home. Most recently she had ibuprofen this amichelle JOSHI elicited complaint: back pain Pertinent past history: neurological deficit and incontinence Onset (ago): day(s) (3) Timing: constant Severity: severe Similar Symptoms Previously: Yes Quality: sharp and aching Location: lumbar spine and left lower back Radiation: left upper leg Exacerbating factors: movement and walking Relieving factors: none Context: while lifting (hay jose) Associated symptoms: Deny abdominal pain, chills, change in bowel habits, fatigue, fever(s), nausea or vomiting Treatments prior to arrival: NSAIDS and acetaminophen Review of Systems Const: Denies: fever(s), chills or fatigue ENMT: Denies: throat pain, nasal discharge or nasal congestion Card: Denies: chest pain or palpitations Resp: Denies: dyspnea, productive cough or wheezing GI: Denies: abdominal pain, nausea, vomiting, diarrhea, constipation or change in bowel habits : Denies: flank pain Musc: Reports: back pain (left low back) and limited range of motion Skin/Breast: Denies: rash Neuro: Denies: headache(s) or numbness in extremities PFS ED PFSH: Social History Smoking and tobacco status: current every day smoker Alcohol intake: never Physical Exam Const: COMMON NORMALS: average body habitus and patient oriented x3; apparent distress (pt is in moderate distress, unable to find a comfortable position) GENERAL APPEARANCE: cooperative and in distress; not comfortable Neck/C-Spine: COMMON NORMALS: full ROM Resp: COMMON NORMALS: normal respiratory effort, No retractions and clear to auscultation bilaterally AUSCULTATION: clear to auscultation bilaterally Cardio: COMMON NORMALS: regular rate, regular rhythm and No murmurs present (Cardio) RATE: regular rate RHYTHM: regular rhythm GI: COMMON NORMALS: Normal to inspection, nondistended, normoactive bowel sounds present, Soft to palpation and non-tender PALPATION: Yes Soft to palpation Back/Pelvis: COMMON NORMALS: thoracic and lumbar spine normal to inspection LUMBAR SPINE/LOWER BACK: Yes ROM limited (secondary to pain), Yes pain with ROM, Yes paraspinal muscle spasm (left side) and Yes straight leg raise positive right SACROILIAC JOINTS: Yes SI joints normal Extremity: COMMON NORMALS: normal to inspection and full ROM Neuro: COMMON NORMALS: patient oriented x3 and moves all extremities Psych: COMMON NORMALS: mental status grossly normal and Normal thought process present THOUGHT PROCESS: Normal thought process present Skin: COMMON NORMALS: no rashes or lesions noted GENERAL SKIN EXAM: no rashes or lesions noted Course ED course: Patient presents to the ER today for new onset left low back pain with a history of chronic back pain. Patient was lifting a heavy bale and likely twisted wrong. She has been alternating Tylenol Motrin at home with no improvement. We will do hydrocodone, Norflex, and Kenalog here for the pain. Unlikely needs no imaging as she has had imaging recently. Patient is supposed to be seeing pain management at this time. Reevaluation(s): Reevaluation #1: Patient reports significant improvement in pain with the hydrocodone and muscle relaxer. She reports the edge has been taken off but she still appears uncomfortable. Her blood pressure has slightly improved along with heart rate. Waiting on the steroid to be given and then patient can go home. Time: 11:44 Vital Signs: Vital signs: Vital Signs Pulse Rate 122 H 06/11/21 10:55 Respiratory Rate 22 H 06/11/21 10:55 Blood Pressure 155/111 06/11/21 10:55 Pulse Oximetry 98 06/11/21 10:55 MDM - Back Pain/Injury MDM Narrative: Medical decision making narrative: 50-year-old female presents to the ER today for new onset left low back pain however has a history of chronic back pain. Patient has been seeing Ortho and has been referred to pain management for possible injections but is awaiting insurance. Patient has been alternating Tylenol Motrin at home with no improvement. Patient given [place], Norflex, and steroid here in ER. Will send patient home with anti-inflammatory and muscle relaxer at this time. Patient should follow-up this week with PCP or specialist if pain not improving in 3 to 5 days. Patient has no neuro deficits, no loss of bowel or bladder control. I do not feel imaging will change the course of this treatment as patient has had recent imaging. Patient's blood pressure is elevated in ER however she reports this is due to pain and anxiety. Patient reports a history of this. Patient will be sent home with hydrocodone, Robaxin, and Toradol. Patient reports she is able to follow-up on with the [facility], [place] in [facility]. Critical Care Time Critical Care Time: Critical Care Time: No Discharge Plan Discharge Patient Disposition: Home Clinical Impression: Acute exacerbation of chronic low back pain Strain of lumbar region Qualifiers: Encounter type: initial encounter Qualified Code(s): S39.012A - Strain of muscle, fascia and tendon of lower back, initial encounter Condition: Stable Prescriptions: New ketorolac 10 mg tablet 10 mg PO Q8H PRN (Reason: pain) 3 Days Qty: 9 RF: 0 methocarbamol 750 mg tablet 750 mg PO Q8H Qty: 21 RF: 0 hydrocodone-acetaminophen 5-325 mg tablet 1 tab PO Q8H PRN (Reason: pain) Qty: 9 RF: 0 Held naproxen 500 mg tablet 500 mg PO BID Qty: 20 RF: 0 Hold Instructions: Resume on 06/15/21. hold until finished with Toradol No Action hydrocodone-acetaminophen 5-325 mg tablet 1 tab PO Q6H PRN (Reason: pain) Qty: 14 RF: 0 Discharge Orders: Discharge ED (Routine); Ordered 06/11/21 Ordered By: Matilda Agosto Referrals: [facility], [Primary Care Provider] - Discharge Diet: Usual diet Discharge Activity: Increase activity as tolerated Patient Instructions: Opioid Safety Activity Restrictions/Additional Instructions: Take hydrocodone as needed for severe pain. Take Toradol as prescribed. Take Robaxin as prescribed. Follow-up with PCP in 3 to 5 days if no improvement. Warm heat alternating with ice, topical muscle rubs, and stretching recommended. Return to the ER with any new or worsening symptoms. Coding Level of Care Code ED Paintings Conservator for Tayla Fwjose a Exam Comprehensive
[2021-06-11 10:47] VITALS: BP 155/111; PULSE 122; RESP 22; O2SAT 98; BMI 32.9
[2021-06-11 10:55] VITALS: BP 155/111; PULSE 122; RESP 22; O2SAT 98
[2021-06-11] MEDS: HYDROcodone-acetaminophen 5-325 mg Tablet 1 TAB PO (11:09)
[2021-06-11] MEDS: orphenadrine 30 mg/mL Inj 2 mL 60 MG IM (11:10)
== END 2021-06-11 12:21 | disposition home or self-care (01) ==
PROVIDERS: Emergency Provider Physician Assistant
DX: S39.012A Strain of muscle, fascia and tendon of lower back, initial encounter (principal); G89.29 Other chronic pain; X50.0XXA Overexertion from strenuous movement or load, initial encounter; F17.210 Nicotine dependence, cigarettes, uncomplicated
CPT/HCPCS: 96372; 99283; J2360

== ENCOUNTER 2021-07-12 16:35 | Emergency (ER) | payer SELFPAY ==
[2021-07-12 17:04] VITALS: BP 166/105; PULSE 113; RESP 16; TEMP 36.6; O2SAT 97; BMI 31.8
--- NOTE | 2021-07-12 17:09 | ED_ITS ---
HPI - Back Pain/Injury General: Chief Complaint: Back Pain/Injury Stated Complaint: LOWER BACK PAIN Time Seen by Provider: 07/12/21 17:08 History of Present Illness: HPI Narrative: 50-year-old female comes in today for complaints of low back pain. Patient has a history of chronic back pain. Patient states that usually she does not have to use pain relievers for her pain. Patient states that 3 days ago before it was starting to range he moved some lumbar off the back of her pickup into a dry area. Patient stated that evening she started having worsening pain. Over the last 3 days she has had persistent discomfort. She comes in today for treatment of her exacerbation of chronic back pain. Patient denies any falls or new injury, fever, or difficulty with urination or bowel movements. MD elicited complaint: back pain Review of Systems General: Reports: 10 or more systems reviewed and unremarkable except in HPI and below Musc: Reports: back pain [facility] ED PFSH: Social History Smoking and tobacco status: current every day smoker Alcohol intake: never Physical Exam Const: COMMON NORMALS: no acute distress and patient oriented x3 GENERAL APPEARANCE: cooperative HENMT: COMMON NORMALS: normocephalic and Normal external nose present HEAD & SCALP: normal to inspection and normocephalic NOSE: Normal external nose present Eye: GENERAL EYE: appearance normal, both eyes and all related structures Neck/C-Spine: COMMON NORMALS: full ROM Lymph: LYMPHATIC: no lymphadenopathy noted Chest: COMMONS NORMALS: normal inspection of the chest Resp: COMMON NORMALS: normal respiratory effort EFFORT & INSPECTION: Yes able to speak in complete sentences Cardio: COMMON NORMALS: regular rate and regular rhythm RATE: regular rate RHYTHM: regular rhythm GI: COMMON NORMALS: non-tender : COMMON NORMALS: Yes no CVA tenderness BLADDER/KIDNEY EXAM: Yes no CVA tenderness Back/Pelvis: COMMON NORMALS: no CVA tenderness THORACIC SPINE/UPPER BACK: Yes normal to inspection LUMBAR SPINE/LOWER BACK: Yes lumbar spinal tenderness Lumbar spinal tenderness location: L5 and Yes paraspinal muscle tenderness Lumbar paraspinal muscle tenderness: bilateral Bilateral lumbar paraspinal muscle tenderness: L4 and L5 Extremity: COMMON NORMALS: normal to inspection Neuro: COMMON NORMALS: patient oriented x3 and moves all extremities Psych: COMMON NORMALS: mental status grossly normal and cooperative Skin: COMMON NORMALS: no rashes or lesions noted GENERAL SKIN EXAM: no rashes or lesions noted Course Vital Signs: Vital signs: Vital Signs Temperature 97.8 F 07/12/21 17:04 Pulse Rate 118 H 07/12/21 17:13 Respiratory Rate 16 07/12/21 17:04 Blood Pressure 173/85 07/12/21 17:13 Pulse Oximetry 97 07/12/21 17:13 MDM - Back Pain/Injury MDM Narrative: Medical decision making narrative: 50-year-old female with history of chronic back pain comes in today for complaints exacerbation of low back pain. Patient states that 3 days ago she had to move some lumbar into a dry area before it drained. Patient states that during this time she exacerbated her low back pain. Patient states no falls or other injury. On exam patient is in moderate pain. Vital signs noted some elevation in blood pressure and pulse. Skin is warm and dry. No edema is noted in the extremities. Tenderness is noted along L5-S1 area of the lumbar back. Patient does also have some muscle tightness and tenderness in the same area. Differential diagnosis includes intervertebral disc disease, facet arthropathy, muscle strain. Patient was given a dose of dexamethasone 10 mg, 30 mg ketorolac, and 60 mg orphenadrine in the ER for her pain. Patient was written prescriptions for hydrocodone 5/325 number 9 tablets, methocarbamol 750, and naproxen 500. Review of the record notes that patient has had a prescription of hydrocodone acetaminophen prescribed in May of this year for 14 tablets. Reviewed exam with patient with recommendations for follow-up with primary care for further instruction. Patient reported understanding and agreed to plan. Discharge Plan Discharge Patient Disposition: Home Clinical Impression: Strain of lumbar region Qualifiers: Encounter type: initial encounter Qualified Code(s): S39.012A - Strain of muscle, fascia and tendon of lower back, initial encounter Condition: Stable Prescriptions: Continued hydrocodone-acetaminophen 5-325 mg tablet 1 tab PO Q8H PRN (Reason: pain) Qty: 9 RF: 0 methocarbamol 750 mg tablet 750 mg PO Q8H Qty: 21 RF: 0 naproxen 500 mg tablet 500 mg PO BID Qty: 20 RF: 0 Discontinued hydrocodone-acetaminophen 5-325 mg tablet 1 tab PO Q6H PRN (Reason: pain) Qty: 14 RF: 0 Discharge Orders: Discharge ED (Routine); Ordered 07/12/21 Ordered By: Jann Thurston Referrals: [facility], [Primary Care Provider] - Discharge Diet: Usual diet Discharge Activity: Increase activity as tolerated Patient Instructions: Low Back Strain (ED), Opioid Safety Activity Restrictions/Additional Instructions: Home and rest. Activity as tolerated. Is important to stay as active as possible. Drink plenty of water with medication. Monitor for fever greater than 100.4 or loss of bowel or bladder control. Follow-up with primary care in 3 days for recheck. Return to the ED for new concerns or worsening symptoms. Coding Level of Care Code ED Digital Artist for Tayla Wooten
[2021-07-12 17:13] VITALS: BP 173/85; PULSE 118; O2SAT 97
[2021-07-12] MEDS: dexamethasone 10 mg/mL INJ IM (17:29)
[2021-07-12] MEDS: orphenadrine 30 mg/mL Inj 2 mL 60 MG IM (17:29)
[2021-07-12] MEDS: ketorolac 30 mg/mL INJ IM (17:29)
== END 2021-07-12 17:44 | disposition home or self-care (01) ==
PROVIDERS: Emergency Provider Nurse Practitioner Family
DX: S39.012A Strain of muscle, fascia and tendon of lower back, initial encounter (principal); X50.0XXA Overexertion from strenuous movement or load, initial encounter; F17.200 Nicotine dependence, unspecified, uncomplicated; Z79.891 Long term (current) use of opiate analgesic
CPT/HCPCS: 96372; 99283; J1100; J1885; J2360

== ENCOUNTER 2021-08-17 13:06 | Emergency (ER) | payer SELFPAY ==
[2021-08-17 13:26] VITALS: BP 158/88; PULSE 104; RESP 22; TEMP 36.6; O2SAT 99; BMI 31.1
[2021-08-17 13:48] VITALS: BP 157/97; PULSE 114; RESP 18; O2SAT 97
[2021-08-17] MEDS: methylPREDNISolone (DEPO) 80 MG/ML INJ 1 mL IM (13:58)
--- NOTE | 2021-08-17 13:58 | W.ED.BACK ---
HPI - Back Pain/Injury General: Chief Complaint: Back Pain/Injury Stated Complaint: BACK PAIN/R LEG NUMBNESS Time Seen by Provider: 08/17/21 13:30 History of Present Illness: HPI Narrative: Patient complains about low back pain radiating down to the right hip after she carried a chair up some stairs yesterday. Patient's had a history of back pain has been seen by Dr. Soares recommended pain clinic evaluation for mild stenosis. MD elicited complaint: back pain Pertinent past history: prior back pain Onset (ago): hour(s) Timing: constant and progressively worsening Severity: moderate Quality: sharp Location: lumbar spine Radiation: right upper leg Exacerbating factors: movement Context: while lifting and turning/twisting Associated symptoms: Reports no associated symptoms; Deny abdominal pain, chills, fever(s), nausea or vomiting Review of Systems Const: Denies: fever(s), chills or body aches Eyes: Denies: change in vision or blurry vision ENMT: Denies: throat pain or nasal congestion Card: Denies: chest pain or dyspnea on exertion Resp: Denies: dyspnea, productive cough or non-productive cough GI: Denies: abdominal pain, nausea or vomiting Musc: Reports: back pain; Denies: extremity pain Skin/Breast: Denies: rash Neuro: Denies: headache(s) Psych: Denies: anxiety or depression Isael/Lymph: Denies: easy bruising PFSH ED PFSH: Social History Smoking and tobacco status: current every day smoker Alcohol intake: never Physical Exam Const: GENERAL APPEARANCE: cooperative Cardio: RATE: tachycardic (Patient crying) Back/Pelvis: LUMBAR SPINE/LOWER BACK: No lumbar spinal tenderness, Yes paraspinal muscle tenderness and No paraspinal muscle spasm OTHER: Sciatic nerve root tender right buttock Course Vital Signs: Vital signs: Vital Signs Temperature 97.9 F 08/17/21 13:26 Pulse Rate 114 H 08/17/21 13:48 Respiratory Rate 18 08/17/21 13:48 Blood Pressure 157/97 08/17/21 13:48 Pulse Oximetry 97 08/17/21 13:48 MDM - Back Pain/Injury MDM Narrative: Medical decision making narrative: Patient's ongoing intermittent radiculopathy was relieved with Toradol and Depo shot. Patient left her ambulating well. Discharge Plan Discharge Patient Disposition: Home Clinical Impression: Lumbar radiculopathy Condition: Stable Prescriptions: Discontinued hydrocodone-acetaminophen 5-325 mg tablet 1 tab PO Q8H PRN (Reason: pain) Qty: 9 RF: 0 naproxen 500 mg tablet 500 mg PO BID Qty: 20 RF: 0 No Action methocarbamol 750 mg tablet 750 mg PO Q8H Qty: 21 RF: 0 Discharge Orders: Discharge ED (Routine); Ordered 08/17/21 Ordered By: Aung Miles Discharge Diet: Usual diet Discharge Activity: Limit activity as instructed Patient Instructions: Lumbar Radiculopathy (ED) Activity Restrictions/Additional Instructions: Follow-up with medical provider as directed. Take medications as prescribed. Return to the ER or your medical provider if condition worsens. Please read and understand discharge instructions. If any questions ask please. No lifting over 10 pounds. Use proper lifting techniques. Can apply ice to your low back for the first 24 hours and alternate with heat and ice. Recommend possible visit with chiropractor. Coding Level of Care Code ED Lead Generation Specialist for Tayla Fwd Exam Expanded Problem Focused
[2021-08-17] MEDS: ketorolac 60 mg/2 mL INJ IM (13:59)
--- NOTE | 2021-08-17 15:24 | PC.SOCIAL ---
spoke with patient regarding establishing a pcp. pt states she doesn't have insurance until 09-16-21. she has to wait until open enrollment. pt is in extreme pain. she is getting her medication filled and currently has ice on her back. pt states i think i will have to come back to the ER pt reports she doesn't have the money for a chiropractor and doctor. signwriter will follow up with patient again tomorrow.
--- NOTE | 2021-08-18 12:07 | PC.SOCIAL ---
film writer called to check on patient since filling medications yesterday. pt reports she is some what better. the meds are working enough she doesn't have to return to the ED. film writer's # given to patient for any needs.
== END 2021-08-17 14:23 | disposition home or self-care (01) ==
PROVIDERS: Emergency Provider Nurse Practitioner Family
DX: M54.16 Radiculopathy, lumbar region (principal); F17.210 Nicotine dependence, cigarettes, uncomplicated
CPT/HCPCS: 96372; 99283; J1040; J1885

== ENCOUNTER 2021-10-06 09:20 | Emergency (ER) | payer SELFPAY ==
[2021-10-06 09:27] VITALS: BP 165/94; PULSE 98; RESP 14; TEMP 36.5; O2SAT 100; BMI 30.9
--- NOTE | 2021-10-06 10:09 | ED_ITS ---
Documented by User: NAZARIO Gomez 10/06/21 13:46 HPI - Extremity Problem General: Chief complaint: Extremity Injury, Lower Stated complaint: LEFT LEG AND FOOT INJURY Time Seen by Provider: 10/06/21 09:38 Source: patient Mode of arrival: ambulatory Limitations: no limitations History of Present Illness: HPI Narrative: Patient is a 51-year-old female presents to ED today with complaint of left lower leg and ankle pain. Patient states over the past few days she has noticed her left lower leg feeling achy mainly when she walks upstairs. She states this morning she woke up and noticed a small erythematous patch to her lateral left ankle and states ankle is very tender to the touch. Patient does not have a history of gout. She denies any injury or trauma. Has not noticed any swelling to the leg. No calf pain. She does state her legs/feet are always cold. MD Complaint: extremity pain and joint pain Location: left and lower extremity Radiation: none Relieving factors: rest Exacerbating factors: exertion Associated symptoms: Reports no associated symptoms; Deny chest pain or fever(s) Review of Systems Const: Denies: fever(s), chills, body aches, fatigue or malaise Card: Denies: chest pain Resp: Denies: dyspnea Musc: Reports: extremity pain (none now except to ankle; reports achiness with walking) and joint pain (L ankle); Denies: neck pain, back pain, extremity swelling, joint swelling, joint warmth, joint stiffness, limited range of motion or decrease in muscle mass Neuro: Denies: numbness in extremities, weakness in extremities or sensory changes [facility] ED PFSH: Medical History (Updated 10/09/21 @ 00:01 by ) Dyslipidemia Fibromyalgia HTN (hypertension) Migraine Surgical History H/O: hysterectomy Family History Other Rheumatoid arthritis Social History Smoking and tobacco status: current every day smoker Alcohol intake: never Housing: House Physical Exam Const: COMMON NORMALS: no acute distress, patient oriented x3, no limitations and alert GENERAL APPEARANCE: cooperative and anxious ORIENTATIO N/CONSCIOUSNESS: Yes awake, Yes oriented to person, Yes oriented to place and Yes oriented to time Extremity: LEFT LOWER EXTREMITY: Yes ankle joint OTHER: pt has a small area of erythema (about 1cm) to L lateral ankle overlying malleolus; no breaks in the skin; area does not appear like an insect bite or cellulitic; area is not swollen or warm; she does have some duskiness to distal tips of toes; bilateral feet/toes are equal temp; I am not readily able to palpate DP/PT pulses although I don't feel obvious pulses on R LE either and she is asymptomatic to that extremity Neuro: COMMON NORMALS: patient oriented x3, moves all extremities, no focal motor deficits, no sensory deficits noted and gait normal SENS ORIUM/ORIENTATION: Yes alert, Yes oriented to person, Yes oriented to place and Yes oriented to time Skin: NARRATIVE SKIN EXAM: see extremity assessment for pertinent skin findings Course Consultations: Consultation #1: Dr. Reynaga-will evaluate patient in ED, recommend CTA with run off, and heparin bolus/drip Vital Signs: Vital signs: Vital Signs Temperature 98.4 F 10/06/21 12:22 Pulse Rate 68 10/06/21 12:22 Respiratory Rate 18 10/06/21 12:22 Blood Pressure 156/94 10/06/21 12:22 Pulse Oximetry 98 10/06/21 12:22 MDM - Extremity (Nontraumatic) MDM Narrative Medical decision making narrative: Patient states she has a small dog in her truck and it is freezing temps outside and she must leave to go take her dog home. She states she will take dog home and immediately return to ED to be admitted. I tried to plead to see if patient had a friend/family/neighbor/acquaintance that could come and take the dog however patient states she does not have anybody she could call. Discussed with patient that the delay in care could cause further ischemia to her left lower leg and could increase the chance of complications including increased clot burden, muscle necrosis, amputation. Patient verbalized understanding but states she must leave shortly. Lab Data Result diagrams: 10/06/21 15:20 10/06/21 15:20 Labs: Lab Results 10/06/21 10/06/21 15:20 15:20 WBC Cancelled Corrected WBC Cancelled RBC Cancelled Hgb Cancelled Hct Cancelled MCV Cancelled MCH Cancelled MCHC Cancelled RDW Cancelled Plt Count Cancelled MPV Cancelled Gran % Cancelled Neut % (Auto) Cancelled Lymph % (Auto) Cancelled Long % (Auto) Cancelled Eos % (Auto) Cancelled Baso % (Auto) Cancelled Neut # (Auto) Cancelled Lymph # (Auto) Cancelled Long # (Auto) Cancelled Eos # (Auto) Cancelled Baso # (Auto) Cancelled Absolute Gran (auto) Cancelled Nucleated RBC % (auto) Cancelled Nucleated RBCs # Cancelled Sodium Cancelled Potassium Cancelled Chloride Cancelled Carbon Dioxide Cancelled Anion Gap Cancelled BUN Cancelled Creatinine Cancelled GFR Calculation Cancelled Glucose Cancelled Calculated Osmolality Cancelled Calcium Cancelled Total Bilirubin Cancelled AST Cancelled ALT Cancelled Alkaline Phosphatase Cancelled Total Protein Cancelled Albumin Cancelled Globulin Cancelled Imaging Data^ US arterial L LE: Radiologist's impression: [place], [place] [address]Ultrasound ReportSigned Patient: Wendy Calderon RUnit #: [id number]: [id number]#:[id number]/Sex: 51 / FADM Date: 10/06/21Loc: ERRoom/Bed:Attending Dr: Ordering Provider/Ordering MD: Beth Mancuso Date of Service: 10/06/21 Procedure(s): [place] [address] Accession Number(s): [id number] Report Number: [id number] Wendy Calderon Age: 51 Gender: F : 1970 Exam Date: 10/06/2021 11:02 Ordering Phys: Beth Mancuso Technologist: Miriam Santiago [place] [facility] [place] [facility] [place]: BRUISE ON LAT ANKLE. NO PULSES FELT Risk Factors: SMOKER Previous Vascular Surgery: None RIGHT LEFT BP: 150.0 / BP: 160.0/ 0 0 Waveform Velocity (cm/s) Velocity (cm/s) Waveform Iliac Prox 128.7 Triphasic Iliac Mid 95.0 Triphasic Iliac Distal Triphasic 87.3 DOCTOR OF NURSING PRACTICE 73.1 Triphasic SFA Prox 20.1 Monophasic POP 9.5 DIRECTOR OF AGRICULTURE 6.5 DPA 6.9 MARICRUZ 0.0 FINDINGS LT DIRECTOR OF AGRICULTURE 6.5 LT DPA 6.9 SO FAINT COULD NOT USE FOR MARICRUZ Mild to moderate diffuse plaques in the iliac and common femoral artery on the left side Normal Doppler flow signals in the left iliac and common femoral artery. Monophasic Doppler flow signals in the proximal to mid SFA. No Doppler flow signals were noted in the mid to distal SFA. Very faint low velocity Doppler signals were noted in the popliteal and infrapopliteal vessels. MARICRUZ could not be recorded. The mid to distal SFA was found to be hypoechoic CONCLUSIONS 1. Features of total occlusion of the mid to distal superficial femoral artery on the left side, possibly recent. 2. Very faint Doppler flow signals in the popliteal infrapopliteal vessels 3. Mild to moderate diffuse plaques in the iliac and common femoral artery on the left side NAZARIO Gomez was informed about these findings. Dr Rashi Melendrez MD [facility] (Electronically Signed) Final Date: 06 October 2021 12:51 S Discharge Plan Discharge Patient Disposition: Left Against Medical Advice Clinical Impression: Obstruction of artery of left lower extremity Condition: Stable Prescriptions: No Action Eliquis 5 mg tablet 5 mg PO BID@0900,2100 Qty: 60 3RF aspirin 325 mg tablet 325 mg PO DAILY Qty: 90 3RF atorvastatin 40 mg Tablet 80 mg PO DAILY Qty: 30 4RF Protonix 40 mg tablet,delayed release (DR/EC) 40 mg PO DAILY 56 Days Qty: 60 4RF Coding Level of Care Code ED Construction And Maintenance Inspector for Chg Fwd Exam Expanded Problem Focused Documented by User: Mauro Curry MD 10/11/21 21:59 HPI - Extremity Problem General: Chief complaint: Extremity Injury, Lower Stated complaint: LEFT LEG AND FOOT INJURY Time Seen by Provider: 10/06/21 09:38 PFS ED PFSH: Medical History (Updated 10/09/21 @ 00:01 by ) Dyslipidemia Fibromyalgia HTN (hypertension) Migraine Surgical History H/O: hysterectomy Family History Other Rheumatoid arthritis Social History Smoking and tobacco status: current every day smoker Alcohol intake: never Housing: House Course Vital Signs: Vital signs: Vital Signs Temperature 98.4 F 10/06/21 12:22 Pulse Rate 68 10/06/21 12:22 Respiratory Rate 18 10/06/21 12:22 Blood Pressure 156/94 10/06/21 12:22 Pulse Oximetry 98 10/06/21 12:22 MDM - Extremity (Nontraumatic) MDM Narrative Medical decision making narrative: I reviewed documentation regarding this patient's case. I discussed the case with NAZARIO Gomez. I reviewed laboratory studies and imaging due to computer error or recent update with integration problem this note appears blank however I reviewed Beth Mancuso's note is separate. Mauro Curry MD Emergency Medicine Lab Data Result diagrams: 10/06/21 15:20 10/06/21 15:20 Labs: Lab Results 10/06/21 10/06/21 15:20 15:20 WBC Cancelled Corrected WBC Cancelled RBC Cancelled Hgb Cancelled Hct Cancelled MCV Cancelled MCH Cancelled MCHC Cancelled RDW Cancelled Plt Count Cancelled MPV Cancelled Gran % Cancelled Neut % (Auto) Cancelled Lymph % (Auto) Cancelled Long % (Auto) Cancelled Eos % (Auto) Cancelled Baso % (Auto) Cancelled Neut # (Auto) Cancelled Lymph # (Auto) Cancelled Long # (Auto) Cancelled Eos # (Auto) Cancelled Baso # (Auto) Cancelled Absolute Gran (auto) Cancelled Nucleated RBC % (auto) Cancelled Nucleated RBCs # Cancelled Sodium Cancelled Potassium Cancelled Chloride Cancelled Carbon Dioxide Cancelled Anion Gap Cancelled BUN Cancelled Creatinine Cancelled GFR Calculation Cancelled Glucose Cancelled Calculated Osmolality Cancelled Calcium Cancelled Total Bilirubin Cancelled AST Cancelled ALT Cancelled Alkaline Phosphatase Cancelled Total Protein Cancelled Albumin Cancelled Globulin Cancelled Discharge Plan Discharge Patient Disposition: Left Against Medical Advice Clinical Impression: Obstruction of artery of left lower extremity Condition: Stable Prescriptions: No Action Eliquis 5 mg tablet 5 mg PO BID@0900,2100 Qty: 60 3RF aspirin 325 mg tablet 325 mg PO DAILY Qty: 90 3RF atorvastatin 40 mg Tablet 80 mg PO DAILY Qty: 30 4RF Protonix 40 mg tablet,delayed release (DR/EC) 40 mg PO DAILY 56 Days Qty: 60 4RF Coding Level of Care Code ED Construction And Maintenance Inspector for Tayla Fwjose a Exam Expanded Problem Focused
--- NOTE | 2021-10-06 10:51 | USCV_ITS ---
Wendy Calderon Age: 51 Gender: F : 1970 Exam Date: 10/06/2021 11:02 Ordering Phys: Beth Mancuso Technologist: Miriam Santiago [place] [facility] [place]: BRUISE ON LAT ANKLE. NO PULSES FELT Risk Factors: SMOKER Previous Vascular Surgery: None RIGHT LEFT BP: 150.0 / BP: 160.0/ 0 0 Waveform Velocity (cm/s) Velocity (cm/s) Waveform Iliac Prox 128.7 Triphasic Iliac Mid 95.0 Triphasic Iliac Distal Triphasic 87.3 AUTOMATIC LEHR OPERATOR 73.1 Triphasic SFA Prox 20.1 Monophasic POP 9.5 STORE SALES MANAGER 6.5 DPA 6.9 MARICRUZ 0.0 FINDINGS LT STORE SALES MANAGER 6.5 LT DPA 6.9 SO FAINT COULD NOT USE FOR MARICRUZ Mild to moderate diffuse plaques in the iliac and common femoral artery on the left side Normal Doppler flow signals in the left iliac and common femoral artery. Monophasic Doppler flow signals in the proximal to mid SFA. No Doppler flow signals were noted in the mid to distal SFA. Very faint low velocity Doppler signals were noted in the popliteal and infrapopliteal vessels. MARICRUZ could not be recorded. The mid to distal SFA was found to be hypoechoic CONCLUSIONS 1. Features of total occlusion of the mid to distal superficial femoral artery on the left side, possibly recent. 2. Very faint Doppler flow signals in the popliteal infrapopliteal vessels 3. Mild to moderate diffuse plaques in the iliac and common femoral artery on the left side NAZARIO Gomez was informed about these findings. Dr Rashi Melendrez MD [facility] (Electronically Signed) Final Date: 06 October 2021 12:51 S
--- NOTE | 2021-10-06 12:19 | PC.NURSE ---
Pt c/o pain in left ankle at this time that pt noticed 6 days ago. 156/94 BP 98.4 temp 68 HR and 18RR at this time.
[2021-10-06 12:22] VITALS: BP 156/94; PULSE 68; RESP 18; TEMP 36.9; O2SAT 98
== END 2021-10-06 14:00 | disposition left against medical advice (07) ==
PROVIDERS: Emergency Provider Physician Assistant
DX: I70.202 Unspecified atherosclerosis of native arteries of extremities, left leg (principal); L53.9 Erythematous condition, unspecified; E78.5 Hyperlipidemia, unspecified; I10 Essential (primary) hypertension; F17.200 Nicotine dependence, unspecified, uncomplicated; Z53.29 Procedure and treatment not carried out because of patient's decision for other reasons
CPT/HCPCS: 85025; 93926; 99282

== ENCOUNTER 2021-10-06 14:34 | Inpatient (IN) | payer OTHER, SELFPAY ==
[2021-10-06] VITALS (7 sets, daily range): BP systolic 106–174; BP diastolic 70–108; PULSE 62–110; RESP 14–24; TEMP 36.6–36.8; O2SAT 96–98; BMI 30.9
--- NOTE | 2021-10-06 14:35 | CTR_ITS ---
PROCEDURE INFORMATION: Exam: CTA Angiogram of the Abdominal Aorta and Bilateral Lower Extremities (Run-off) With IV Contrast Exam date and time: 10/06/2021 2:35 PM Age: 51 years old Clinical indication: Patient HX: C/O lle pain w abn doppler; Additional info: L le sfa occulsion TECHNIQUE: Imaging protocol: CT angiogram of the abdominal aorta, pelvis and bilateral lower extremities with IV iodinated contrast. 3D rendering (Not supervised by radiologist): MIP and/or 3D reconstructed images were created by the technologist. Total images: 1264 Radiation optimization: All CT scans at this facility use at least one of these dose optimization techniques: automated exposure control; mA and/or kV adjustment per patient size (includes targeted exams where dose is matched to clinical indication); or iterative reconstruction. Contrast material: OMNI 350; Contrast volume: 95 ml; Contrast route: INTRAVENOUS (IV); COMPARISON: CT abdomen pelvis wo con [id number] 11/26/2015 1:46 PM RADIATION DOSE METRICS: Total DLP (mGy-cm): 1621.58 FINDINGS: Aorta: The abdominal aorta is nonaneurysmal. No intimal flap or dissection. Mild to moderate in arterial sclerotic disease. Celiac trunk and mesenteric arteries: No occlusion or hemodynamically significant stenosis. Renal arteries: No occlusion or hemodynamically significant stenosis. Right iliac arteries: Moderate arterial sclerotic disease. No occlusion or hemodynamically significant stenosis. Right femoral/popliteal arteries: No occlusion or hemodynamically significant stenosis. Right infrapopliteal arteries: No occlusion or hemodynamically significant stenosis. Three-vessel runoff to the ankle. Left iliac arteries: No occlusion or hemodynamically significant stenosis. Moderate arterial sclerotic disease. Left femoral/popliteal arteries: Examination reveals complete occlusion of the left superficial femoral artery approximately 5.5 cm from its origin. Hemodynamically significant stenosis of the left superficial femoral artery of at least 80% occurs 12.6 mm from its ostium. Occlusion appears secondary to soft thrombus. Left profundal artery remains patent. Reconstitution of the distal left superficial femoral artery via geniculate and collaterals approximately 11.7 cm from the left knee joint. Left infrapopliteal arteries: No occlusion or hemodynamically significant stenosis. Three-vessel runoff to the ankles. Lungs: Limited assessment of the lung bases fails to reveal evidence for active cardiopulmonary process. Liver: No visible hepatic mass or cystic structure. Gallbladder and bile ducts: Status post cholecystectomy. Pancreas: Pancreas is unremarkable. No visible pancreatic ductal ectasia. Spleen: Spleen unremarkable. Adrenals: The adrenal glands unremarkable. Kidneys and ureters: No hydronephrosis or perinephric fluid. No visible nephrolithiasis or visible ureterolithiasis. Small bilateral simple renal cortical cysts the largest equator left kidney measuring 26 mm in diameter. No follow-up recommended. No visible renal mass. Stomach and bowel: Mild diverticulosis coli without visible evidence for acute diverticulitis. Nonobstructive bowel pattern. No visible significant adynamic or reactive ileus. Heavy fecal residue consistent with constipation. Appendix: The appendix is visualized and appears noninflamed. Urinary bladder: Urinary bladder unremarkable. Reproductive: Status post hysterectomy. Intraperitoneal space: No visible evidence of mesenteric lymphadenitis or active mesenteritis/panniculitis. No visible pneumoperitoneum or intraperitoneal ascites. Lymph nodes: No current visible evidence of active mesenteric or retroperitoneal lymphadenopathy. Bones/joints: No visible acute osseous abnormality. Mild scoliotic curvature of the spine. Soft tissues: Unremarkable. CT/CT angio abd aorta runof [id number] IMPRESSION: 1. 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 2. Hemodynamically significant stenosis of the left superficial femoral artery of at least 80% occurs 12.6 mm from its ostium. Occlusion appears secondary to soft thrombus. 3. Left profundal artery remains patent. 4. Reconstitution of the distal left superficial femoral artery via geniculate and collaterals approximately 11.7 cm from the left knee joint.
--- NOTE | 2021-10-06 14:50 | W.ED.EXTPRO ---
Documented by User: NAZARIO Gomez 10/10/21 07:08 HPI - Extremity Problem General: Chief complaint: ER Hold Stated complaint: left foot injury Time Seen by Provider: 10/06/21 14:35 Source: patient Mode of arrival: ambulatory Limitations: no limitations History of Present Illness: HPI Narrative: Patient is a 51-year-old female who returns to the ED after she left AMA briefly to take her dog home. Patient on her previous visit was found to have a left SFA occlusion and plan was to be admitted. She states she had a dog in the car that she could not get a family/friend to come get so had to run home. Please refer to previous documentation but essentially she has had left lower leg pain worse with exertion over the past 3 to 4 days and some concerns about some discoloration to the lateral aspect of her ankle. PMH is significant for untreated hypertension, hyperlipidemia, anxiety, and PTSD. Patient is an everyday smoker. MD Complaint: extremity pain and joint pain Onset (ago): day(s) Location: left and lower extremity Exacerbating factors: walking and exertion Associated symptoms: Reports no associated symptoms Review of Systems General: Reports: Other (please refer to documentation earlier today for same complaint) [facility] ED PFSH: Medical History (Updated 10/09/21 @ 00:01 by ) Dyslipidemia Fibromyalgia HTN (hypertension) Migraine Surgical History H/O: hysterectomy Family History Other Rheumatoid arthritis Social History Smoking and tobacco status: current every day smoker Alcohol intake: never Housing: House Physical Exam Narrative: EXAM NARRATIVE: please refer to documentation earlier today for same complaint Course Consultations: Consultation #1: Dr. Reynaga-will see pt in ED Dr. Duran-accepts hospitalization Vital Signs: Vital signs: Vital Signs Temperature 98.3 F 10/08/21 07:29 Pulse Rate 78 10/08/21 14:04 Respiratory Rate 25 H 10/08/21 14:04 Blood Pressure 118/75 10/08/21 14:04 Pulse Oximetry 94 10/08/21 14:04 MDM - Extremity (Nontraumatic) MDM Narrative Medical decision making narrative: Dr. Reynaga will come evaluate in ED and she will be an admit to the hospitalist. Would like CTA with runoff imaging and IV heparin started. Lab Data Result diagrams: 10/08/21 05:50 10/08/21 05:50 Labs: Lab Results 10/06/21 10/06/21 10/06/21 15:20 15:20 15:20 WBC 8.6 10^3/uL 10^3/uL (4.0-10.0) RBC 4.86 10^6/uL 10^6/uL (4.1-5.3) Hgb 15.3 g/dL g/dL (11.5-15.3) Hct 45.4 % % (37.0-47.0) MCV 93.4 fl fl (81-99) MCH 31.5 pg pg (28.0-34.0) MCHC 33.7 g/dL g/dL (30.0-36.0) RDW 12.0 % L % (12.1-15.1) Plt Count 316 10^3/cmm 10^3/cmm (130-400) MPV 9.9 fL fL (7.4-10.4) Neut % (Auto) 69.1 % % Lymph % (Auto) 24.5 % % [place] % (Auto) 4.9 % % Eos % (Auto) 0.7 % % Baso % (Auto) 0.5 % % Neut # (Auto) 5.95 10^3/uL 10^3/uL (1.8-7.7) Lymph # (Auto) 2.1 10^3/uL 10^3/uL (0.8-4.8) [place] # (Auto) 0.4 10^3/uL 10^3/uL (0.2-0.9) Eos # (Auto) 0.1 10^3/uL 10^3/uL (0.0-0.8) Baso # (Auto) 0.0 10^3/uL 10^3/uL (0.0-0.1) Nucleated RBC % (auto) 0 % % Nucleated RBCs # 0.0 /100WBC /100WBC Sodium 137 mmol/L mmol/L (136-145) Potassium 3.6 mmol/L mmol/L (3.5-5.1) Chloride 100 mmol/L mmol/L (98-107) Carbon Dioxide 26 mmol/L mmol/L (22-29) Anion Gap 14.6 (5-19) BUN 7 mg/dL mg/dL (6-20) Creatinine 0.5 mg/dL mg/dL (0.5-0.9) GFR Calculation 129.1 mL/min mL/min (90-130) Glucose 97 mg/dL mg/dL (65-115) Estimat Average Glucose 100 Hemoglobin A1c 5.1 % % (4.0-6.0) Calculated Osmolality 282 mOsm/kg L mOsm/kg (285-295) Calcium 8.8 mg/dL mg/dL (8.5-10.5) Total Bilirubin 0.5 mg/dL mg/dL (0.15-1.2) AST 14 U/L U/L (0-32) ALT 9 U/L U/L (0-33) Alkaline Phosphatase 86 IU/L IU/L (35-105) Total Protein 7.4 g/dL g/dL (6.6-8.7) Albumin 4.3 g/dL g/dL (3.5-5.2) Globulin 3.1 g/dL g/dL (1.3-4.6) Triglycerides Cholesterol LDL Cholesterol, Calc HDL Cholesterol LDL/HDL Ratio Cholesterol/HDL Ratio 10/06/21 15:20 WBC RBC Hgb Hct MCV MCH MCHC RDW Plt Count MPV Neut % (Auto) Lymph % (Auto) Col[place] % (Auto) Eos % (Auto) Baso % (Auto) Neut # (Auto) Lymph # (Auto) [place] # (Auto) Eos # (Auto) Baso # (Auto) Nucleated RBC % (auto) Nucleated RBCs # Sodium Potassium Chloride Carbon Dioxide Anion Gap BUN Creatinine GFR Calculation Glucose Estimat Average Glucose Hemoglobin A1c Calculated Osmolality Calcium Total Bilirubin AST ALT Alkaline Phosphatase Total Protein Albumin Globulin Triglycerides 241 mg/dL H mg/dL (0-150) Cholesterol 271 mg/dL H mg/dL (0-200) LDL Cholesterol, Calc 191 mg/dL H mg/dL (50-129) HDL Cholesterol 32 mg/dL L mg/dL (60-100) LDL/HDL Ratio 5.97 RATIO H RATIO (0.00-3.22) Cholesterol/HDL Ratio 8.47 mg/dL H mg/dL (0.0-4.40) Discharge Plan Discharge Patient Disposition: Admitted As Inpatient Admit Provider: Shelly Duran Clinical Impression: Acute occlusion of artery of lower extremity Condition: Stable Discharge Diet: Cardiac Discharge Activity: Increase activity as tolerated Coding Level of Care Code ED Sales Support Rep for [facility] Fwd Documented by User: Mauro Curry MD 10/11/21 22:00 HPI - Extremity Problem General: Chief complaint: ER Hold Stated complaint: left foot injury Time Seen by Provider: 10/06/21 14:35 [facility] ED PFSH: Medical History (Updated 10/09/21 @ 00:01 by ) Dyslipidemia Fibromyalgia HTN (hypertension) Migraine Surgical History H/O: hysterectomy Family History Other Rheumatoid arthritis Social History Smoking and tobacco status: current every day smoker Alcohol intake: never Housing: House Course Vital Signs: Vital signs: Vital Signs Temperature 98.3 F 10/08/21 07:29 Pulse Rate 78 10/08/21 14:04 Respiratory Rate 25 H 10/08/21 14:04 Blood Pressure 118/75 10/08/21 14:04 Pulse Oximetry 94 10/08/21 14:04 MDM - Extremity (Nontraumatic) MDM Narrative Medical decision making narrative: I reviewed documentation regarding this patient's case. I discussed the case with NAZARIO Gomez. I reviewed laboratory studies and imaging due to computer error or recent update with integration problem this note appears blank however I reviewed Beth Mancuso's note that is separate. This is a separate ED encounters the patient left AGAINST MEDICAL ADVICE as she had to let her dog out of her car prior to returning. Mauro Curry MD Emergency Medicine Lab Data Result diagrams: 10/08/21 05:50 10/08/21 05:50 Labs: Lab Results 10/06/21 10/06/21 10/06/21 15:20 15:20 15:20 WBC 8.6 10^3/uL 10^3/uL (4.0-10.0) RBC 4.86 10^6/uL 10^6/uL (4.1-5.3) Hgb 15.3 g/dL g/dL (11.5-15.3) Hct 45.4 % % (37.0-47.0) MCV 93.4 fl fl (81-99) MCH 31.5 pg pg (28.0-34.0) MCHC 33.7 g/dL g/dL (30.0-36.0) RDW 12.0 % L % (12.1-15.1) Plt Count 316 10^3/cmm 10^3/cmm (130-400) MPV 9.9 fL fL (7.4-10.4) Neut % (Auto) 69.1 % % Lymph % (Auto) 24.5 % % [place] % (Auto) 4.9 % % Eos % (Auto) 0.7 % % Baso % (Auto) 0.5 % % Neut # (Auto) 5.95 10^3/uL 10^3/uL (1.8-7.7) Lymph # (Auto) 2.1 10^3/uL 10^3/uL (0.8-4.8) [place] # (Auto) 0.4 10^3/uL 10^3/uL (0.2-0.9) Eos # (Auto) 0.1 10^3/uL 10^3/uL (0.0-0.8) Baso # (Auto) 0.0 10^3/uL 10^3/uL (0.0-0.1) Nucleated RBC % (auto) 0 % % Nucleated RBCs # 0.0 /100WBC /100WBC Sodium 137 mmol/L mmol/L (136-145) Potassium 3.6 mmol/L mmol/L (3.5-5.1) Chloride 100 mmol/L mmol/L (98-107) Carbon Dioxide 26 mmol/L mmol/L (22-29) Anion Gap 14.6 (5-19) BUN 7 mg/dL mg/dL (6-20) Creatinine 0.5 mg/dL mg/dL (0.5-0.9) GFR Calculation 129.1 mL/min mL/min (90-130) Glucose 97 mg/dL mg/dL (65-115) Estimat Average Glucose 100 Hemoglobin A1c 5.1 % % (4.0-6.0) Calculated Osmolality 282 mOsm/kg L mOsm/kg (285-295) Calcium 8.8 mg/dL mg/dL (8.5-10.5) Total Bilirubin 0.5 mg/dL mg/dL (0.15-1.2) AST 14 U/L U/L (0-32) ALT 9 U/L U/L (0-33) Alkaline Phosphatase 86 IU/L IU/L (35-105) Total Protein 7.4 g/dL g/dL (6.6-8.7) Albumin 4.3 g/dL g/dL (3.5-5.2) Globulin 3.1 g/dL g/dL (1.3-4.6) Triglycerides Cholesterol LDL Cholesterol, Calc HDL Cholesterol LDL/HDL Ratio Cholesterol/HDL Ratio 10/06/21 15:20 WBC RBC Hgb Hct MCV MCH MCHC RDW Plt Count MPV Neut % (Auto) Lymph % (Auto) [place] % (Auto) Eos % (Auto) Baso % (Auto) Neut # (Auto) Lymph # (Auto) [place] # (Auto) Eos # (Auto) Baso # (Auto) Nucleated RBC % (auto) Nucleated RBCs # Sodium Potassium Chloride Carbon Dioxide Anion Gap BUN Creatinine GFR Calculation Glucose Estimat Average Glucose Hemoglobin A1c Calculated Osmolality Calcium Total Bilirubin AST ALT Alkaline Phosphatase Total Protein Albumin Globulin Triglycerides 241 mg/dL H mg/dL (0-150) Cholesterol 271 mg/dL H mg/dL (0-200) LDL Cholesterol, Calc 191 mg/dL H mg/dL (50-129) HDL Cholesterol 32 mg/dL L mg/dL (60-100) LDL/HDL Ratio 5.97 RATIO H RATIO (0.00-3.22) Cholesterol/HDL Ratio 8.47 mg/dL H mg/dL (0.0-4.40) Discharge Plan Discharge Patient Disposition: Admitted As Inpatient Admit Provider: Shelly Duran Clinical Impression: Acute occlusion of artery of lower extremity Condition: Stable Discharge Diet: Cardiac Discharge Activity: Increase activity as tolerated Coding Level of Care Code ED Sales Support Rep for Tayla Wooten
--- NOTE | 2021-10-06 15:19 | PM.CONSULT ---
Providers/Reason For Consult Consulting Physician/Specialty*: Interventional cardiology Reason for Consult*: Critical limb ischemia History of Present Illness History of Present Illness Wendy Calderon is a 51 year old female past medical history significant tobacco abuse hypertension with prior history of claudication for the last 1 week has been getting progressively worse in her left leg and foot. Now she is to the point whenever she walks she can barely put her foot on the floor as she started hurting. She denies any pain at rest she has faint dopplerable AT and PT of the left foot. She has good palpable right foot and leg pulses. She came to the ER but then left AMA as she has to drop her dog home she came back again. She is being getting admitted. CTA with runoff was suggestive of occlusion of left SFA in its proximal segment with possible thrombus, left SFA reconstitute in his distal segment she has been admitted we will continue IV heparin. We will proceed with peripheral angiogram and angioplasty if requires tomorrow. If he gets worse in the night we can always proceed with early invasive strategy. Her left foot is warm and moist. Left foot color is normal. Patient has dopplerable faint anterior posterior tibial pulse in the left foot. Review of Systems General: Reports: Other (please refer to documentation earlier today for same complaint) Const: Denies: chills Eyes: Denies: change in vision ENMT: Denies: throat pain Card: Denies: chest pain Resp: Denies: dyspnea GI: Denies: abdominal pain : Denies: flank pain Musc: Denies: joint warmth Skin/Breast: Reports: rash, skin swelling and sores Neuro: Denies: headache(s) Psych: Denies: anxiety Endo: Denies: polyuria Isael/Lymph: Denies: easy bruising All/Imm: Denies: urticaria Medications/Allergies Home Medications Medication Instructions Recorded Confirmed Last Taken Type ibuprofen [Advil] 200 mg PO Q6H PRN 10/06/21 10/06/21 10/06/21 History Allergies Allergy/AdvReac Type Severity Reaction Status Date / Time naproxen [From Aleve] Allergy ADR-Vomitin Verified 10/06/21 17:20 g PFSH Acute PFSH: Medical History (Updated 10/06/21 @ 19:05 by Shelly Reynaga MD) Dyslipidemia Fibromyalgia HTN (hypertension) Migraine Surgical History H/O: hysterectomy Family History Other Rheumatoid arthritis Social History Smoking and tobacco status: current every day smoker Alcohol intake: never Substance/Drug Use: never Housing: House Vitals/I&O/Wt Last Vital Signs Temp 98.2 F 10/06/21 14:51 Pulse 110 H 10/06/21 14:51 Resp 14 10/06/21 14:51 BP 174/108 10/06/21 14:51 Pulse Ox 96 10/06/21 14:51 Weight last 48 hrs Weight 175 lb Physical Exam Narrative: EXAM NARRATIVE: GENERAL: Patient is alert, awake and oriented x3. NECK: No jugular vein distension. HEENT: No cyanosis. No icterus. No pallor. HEART: Regular S1 and S2. No murmur, rub or gallop. LUNGS: Clear to auscultate bilaterally. ABDOMEN: Soft, nontender and nondistended. Positive bowel sounds. No guarding, rebound or tenderness. CENTRAL NERVOUS SYSTEM: Grossly nonfocal. EXTREMITIES: Lower extremities without edema bilaterally. Pulses dopplerable in the left foot which is faint, left foot and leg appear to be warm, no discoloration A&P Assessment and plan (1) Critical lower limb ischemia: Patient underwent peripheral angiogram noted to have thrombotically occluded proximal SFA while mid to distal SFA has highly calcified chronic occlusion. Patient has faint collaterals no significant flow was noted below the left knee. After crossing with a Glidewire and seeker multiple balloon angioplasty was performed in the SFA which did not restore the flow. Due to thrombus burden in the proximal segment multiple passes of penumbra was used which restore the flow. Mid to distal SFA was noted to have ulcerated plaque distal to it was calcified chronic occlusion. We then took short balloon and performed angioplasty of the mid to distal lesion. After balloon angioplasty of mid to distal left SFA reocclusion of distal vessel was noted at the same time we noted profundofemoral artery has thrombus. Primary catheter was used to extract clot from the profundofemoral. During an movement of the catheter some of the clot went into SFA. We then performed thrombectomy of SFA and all the way to tibioperoneal trunk. Repeat angiogram showed that still we have ulcerated plaque in the mid to distal left SFA, I then decided to perform stenting. Due to nonavailability of the size I have to overlap 3 stents measuring 6.0 x 100 mm, 6.0 x 60 mm and 6.0 x 60 mm. Repeat angiogram showed excellent angiographic result with good flow all the way to the foot. We will load patient with Plavix Aggrastat was given. I will keep ACT on the higher side. I am planning to start patient on Eliquis as well once complete the bedrest. Patient has been advised to quit smoking Status: Acute (2) HTN (hypertension): Well-controlled continue medicine. Status: Acute Qualifiers: Hypertension type: primary hypertension Qualified Code(s): I10 - Essential (primary) hypertension (3) Dyslipidemia: Patient is on statin will continue Status: Acute Consult Attestations Medical Necessity Statement: Patient require continuation hospitalization for above defined care Coding Level of Care Code Established Pt Acute Tariff Inspector for [facility] Fwd Patient Type Established History Detailed Exam Detailed Medical Decision Making Moderate Complexity Diagnoses Critical lower limb ischemia I70.229 HTN (hypertension) I10 Hypertension type: primary hypertension Dyslipidemia E78.5
[2021-10-06 15:38] LABS: Basophils % 0.5 %; Eosinophils # 0.1 10^3/uL (0.0-0.8); Eosinophils % 0.7 %; Hematocrit 45.4 % (37.0-47.0); Hemoglobin 15.3 g/dL (11.5-15.3); Lymphocytes # 2.1 10^3/uL (0.8-4.8); Lymphocytes % 24.5 %; Mean Corpuscular HGB Conc 33.7 g/dL (30.0-36.0); Mean Corpuscular Hemoglobin 31.5 pg (28.0-34.0); Mean Corpuscular Volume 93.4 fl (81-99); Mean Platelet Volume 9.9 fL (7.4-10.4); Monocytes # 0.4 10^3/uL (0.2-0.9); Monocytes % 4.9 %; Neutrophils # 5.95 10^3/uL (1.8-7.7); Neutrophils % 69.1 %; Nucleated Red Blood Cells % 0 %; Platelet Count 316 10^3/cmm (130-400); Red Blood Count 4.86 10^6/uL (4.1-5.3); White Blood Count 8.6 10^3/uL (4.0-10.0)
--- NOTE | 2021-10-06 15:47 | P.HP_ITS ---
Providers/Chief Complaint Chief Complaint: left foot injury History of Present Illness Wendy Calderon is a 51 year old female who has been smoking 1 pack/day since she was 14 years old, has history of hypertension, dyslipidemia presented today with chief complaint of left leg pain. Patient is stating that her pain started roughly 10 days ago when she was trying to climb up stairs. At that time she did not fall or suffer from any injury. In next 1 week or so her pain was intermittent, this pain got worse after bruise appeared around her left ankle, it was red and very tender to touch, pain would get worse on ambulation and slightly get better on rest. She is not vaccinated for COVID-19. She was seen twice in the ER she left AMA earlier today stating that her dog was in the car and she wanted to drop her dog off She came back to the ER because of worsening of pain, arterial duplex as follows CONCLUSIONS 1. Features of total occlusion of the mid to distal superficial femoral artery on the left side, possibly recent. 2. Very faint Doppler flow signals in the popliteal infrapopliteal vessels 3. Mild to moderate diffuse plaques in the iliac and common femoral artery on the left side Heparin started Abdominal aorta with runoff requested, Dr. Reynaga consulted Review of Systems Const: Denies: chills Eyes: Denies: change in vision ENMT: Denies: throat pain Card: Denies: chest pain Resp: Denies: dyspnea GI: Denies: abdominal pain : Denies: flank pain Musc: Denies: neck pain Skin/Breast: Reports: rash, skin swelling and sores Neuro: Denies: headache(s) Psych: Denies: anxiety Endo: Denies: polyuria Isael/Lymph: Denies: easy bruising All/Imm: Denies: urticaria Medications/Allergies Home Medications Medication Instructions Recorded Confirmed Last Taken Type methocarbamol 750 mg PO Q8H #21 tab 07/12/21 Unknown Rx Allergies Allergy/AdvReac Type Severity Reaction Status Date / Time naproxen [From Aleve] Allergy ADR-Vomitin Verified 10/06/21 14:51 g PFSH Acute PFSH: Medical History Dyslipidemia Fibromyalgia HTN (hypertension) Migraine Surgical History H/O: hysterectomy Family History Other Rheumatoid arthritis Social History Smoking and tobacco status: current every day smoker Alcohol intake: never Substance/Drug Use: never Housing: House Vitals/I&O/Wt Last Vital Signs Temp 98.2 F 10/06/21 14:51 Pulse 110 H 10/06/21 14:51 Resp 14 10/06/21 14:51 BP 174/108 10/06/21 14:51 Pulse Ox 96 10/06/21 14:51 Weight last 48 hrs Weight 79.379 kg Physical Exam Narrative: EXAM NARRATIVE: Patient is sitting comfortably in her chair Saturating well on room air S1, S2 Abdomen soft No audible stridor or wheezing Hypertensive Patient's conjunctive are hyperemic No signs of edema of legs bilaterally Left ankle swollen with hyperemic area, tender to touch, mild dusky appearance around left great toe, ingrown nail Faint pulses Data : 10/06/21 15:20 10/06/21 15:20 A&P Assessment and plan (1) Obstruction of artery of left lower extremity: Status: Acute (2) Acute occlusion of artery of lower extremity: Status: Acute Additional A&P Information Subacute limb ischemia Start heparin drip Dr. Reynaga is consulted She is going for abdominal aorta/angiogram with runoff Aspirin, high-dose statin Will check A1c level and lipid profile Patient counseled We will keep her n.p.o. until she is evaluated by Dr. Reynaga Full code N.p.o. for now DVT prophylaxis currently on heparin gtt For hypertension: Amlodipine, hydrochlorothiazide and lisinopril combination will be used for her hypertensive urgency, at this point I would allow slightly high blood pressure to allow perfusion of her leg, I will control her pain first and then recheck blood pressure to optimize antihypertensive Attestations Medical Necessity Statement*: More than 2 midnights Time Spent in Patient Care: Greater than 35 minutes Coding Level of Care Code Acute Auricular Detoxification Specialist for [facility] Fwd Diagnoses Obstruction of artery of left lower extremity I70.202 Acute occlusion of artery of lower extremity I70.209
[2021-10-06] MEDS: LORazepam 2 mg/mL INJ 1 mL 1 MG IVP (15:50)
[2021-10-06] MEDS: morphine 4 mg/mL SDV 1 mL IVP ×2 (15:51→19:33)
[2021-10-06] MEDS: ondansetron 2 mg/ML SDV 2 mL 4 MG IVP ×2 (15:52→19:33)
[2021-10-06 15:54] LABS: Alanine Aminotransferase 9 U/L (0-33); Albumin Level 4.3 g/dL (3.5-5.2); Alkaline Phosphatase 86 IU/L (35-105); Anion Gap 14.6 (5-19); Aspartate Amino Transferase 14 U/L (0-32); Blood Urea Nitrogen 7 mg/dL (6-20); Calcium 8.8 mg/dL (8.5-10.5); Carbon Dioxide 26 mmol/L (22-29); Chloride 100 mmol/L (98-107); Creatinine Clr Calc Pharmacy 129.8061; Globulin 3.1 g/dL (1.3-4.6); Glomerular Filtration Rate 129.1 mL/min (90-130); Glucose 97 mg/dL (65-115); Osmolality Calculated 282 mOsm/kg (285-295); Potassium 3.6 mmol/L (3.5-5.1); Sodium 137 mmol/L (136-145); Total Bilirubin 0.5 mg/dL (0.15-1.2); Total Protein 7.4 g/dL (6.6-8.7)
[2021-10-06] MEDS: iohexol 350 mg/mL 100 mL Btl IV (16:14)
[2021-10-06] MEDS: heparin 5,000 unit/mL INJ 1 mL 4000 UNIT IVP (16:33)
[2021-10-06 16:39] LABS: Chol HDL Ratio 8.47 mg/dL (0.0-4.40); Cholesterol 271 mg/dL (0-200); HDL Cholesterol 32 mg/dL (60-100); LDL Cholesterol Calculated 191 mg/dL (50-129); LDL HDL Ratio 5.97 RATIO (0.00-3.22); Triglycerides 241 mg/dL (0-150)
[2021-10-06 16:44] LABS: Estmated Average Glucose 100; Hemoglobin A1C 5.1 % (4.0-6.0)
[2021-10-06] MEDS: heparin drip 25,000 UNIT/500 ML PREMIX 34.93 UNIT IV (17:44)
[2021-10-06] MEDS: hyDRALAzine 20 mg/mL INJ 1 mL 5 MG IVP (17:57)
[2021-10-06] MEDS: sodium chloride 0.9% 1,000 ML 50 ML IV (20:21)
--- NOTE | 2021-10-06 20:30 | PC.NURSE ---
Pt. left foot at site of clot is cool to touch. From the ankle up , the leg is warm to the touch.
[2021-10-06] MEDS: sodium chloride 0.9% 1,000 ML 75 ML IV (22:34)
[2021-10-06 23:06] LABS: Glucose Point of Care 120 mg/dL (70-110)
[2021-10-07] VITALS (36 sets, daily range): BP systolic 57–136; BP diastolic 40–89; PULSE 59–96; RESP 8–22; TEMP 36.7–36.9; O2SAT 86–98; BMI 31.5
--- NOTE | 2021-10-07 00:18 | PC.NURSE ---
Pt. complaint of left arm hurting around the iv site . I have removed coban dressing and stopped IV to see if the irritation goes away. No redness, or swelling noted.
[2021-10-07 00:20] LABS: SARS Covid-2 Antigen Negative (Negative)
--- NOTE | 2021-10-07 00:53 | PC.NURSE ---
2nd iv site on left AC removed due to patient irritation.
--- NOTE | 2021-10-07 01:52 | PC.NURSE ---
During report it was noticed that the patient's initial PTT/INR was not drawn when heparin was started. PTT/INR ordered and incident report filed.
[2021-10-07 01:59] LABS: INR 1.08 (0.8-1.2)
[2021-10-07 02:00] LABS: Partial Thromboplastin Time 47.2 SECONDS (23.9-36.7)
--- NOTE | 2021-10-07 02:58 | PC.NURSE ---
ADMIT NOTE Pt received to floor from ER at 0220. Is alert and oriiented. Says she started having aching in her left calf about a week and half ago then 2 days ago she stopped being able to feel pulse and foot has been painful asim to touch or wt bearing. L foot is cold to touch. Says she was told was a trickle of blood flow to foot. Is to have peripheral angiogram this am. Is NPO for procedure. Has a Heparin Drip infusing from ER at 23ml/hr rate. Was initiated there around 3 in the afternoon. When nurse called report I was told no PTT's had been drawn. He ordered one before bringing pt to room and drip was increased by result. Will continue drip per protocol starting now. VS check done and RN completing admission assessment
--- NOTE | 2021-10-07 05:33 | PC.NURSE ---
PULSES Left foot warm this morning compared to on arrival to floor. Tells me it usually is warmer in the mornings. Able to get dorsallis pedis as well as posterior tibial pulse easily with doppler this am for marking for procedure. Pt heard pulses and stated yesterday they were very hard to find and hear. Bilat groins shaved. Remains NPO. Heparin drip infusing.
[2021-10-07 06:28] LABS: Basophils # 0.1 10^3/uL (0.0-0.1); Basophils % 0.7 %; Eosinophils # 0.1 10^3/uL (0.0-0.8); Eosinophils % 1.7 %; Hematocrit 41.2 % (37.0-47.0); Hemoglobin 14.1 g/dL (11.5-15.3); Lymphocytes # 2.8 10^3/uL (0.8-4.8); Lymphocytes % 37.4 %; Mean Corpuscular HGB Conc 34.2 g/dL (30.0-36.0); Mean Corpuscular Hemoglobin 32.3 pg (28.0-34.0); Mean Corpuscular Volume 94.5 fl (81-99); Monocytes # 0.5 10^3/uL (0.2-0.9); Monocytes % 6.1 %; Neutrophils # 4.06 10^3/uL (1.8-7.7); Neutrophils % 53.8 %; Nucleated Red Blood Cells % 0 %; Platelet Count 282 10^3/cmm (130-400); Red Blood Count 4.36 10^6/uL (4.1-5.3); Red Cell Distribution Width 12.2 % (12.1-15.1); White Blood Count 7.5 10^3/uL (4.0-10.0)
[2021-10-07 06:50] LABS: Glucose Point of Care 103 mg/dL (70-110)
[2021-10-07 06:53] LABS: Anion Gap 14.7 (5-19); Blood Urea Nitrogen 8 mg/dL (6-20); Calcium 8.1 mg/dL (8.5-10.5); Carbon Dioxide 26 mmol/L (22-29); Chloride 102 mmol/L (98-107); Glomerular Filtration Rate 129.1 mL/min (90-130); Glucose 89 mg/dL (65-115); Osmolality Calculated 286 mOsm/kg (285-295); Potassium 3.7 mmol/L (3.5-5.1); Sodium 139 mmol/L (136-145)
[2021-10-07] MEDS: diphenhydrAMINE 50 mg Capsule PO (07:56)
[2021-10-07] MEDS: LORazepam 0.5 mg Tablet PO (08:06)
[2021-10-07] MEDS: HYDROmorphone 1 mg/mL INJ 1 mL 0.4 MG IVP (08:06)
--- NOTE | 2021-10-07 08:35 | P.PN_ITS ---
Subjective Subjective: Interval history: Patient is n.p.o., complaining of anxiety and pain at rest Family at the bedside Going for angiogram this morning Vitals/I&O/Wt Last Vital Signs Temp 98.2 F 10/07/21 07:15 Pulse 76 10/07/21 07:15 Resp 18 10/07/21 08:06 BP 124/79 10/07/21 07:15 Pulse Ox 98 10/07/21 07:15 10/06/21 10/07/21 10/07/21 22:59 06:59 14:59 Intake Total 289.337 / 289.337 Balance 289.337 / 289.337 Weight last 48 hrs Weight 80.694 kg Weight 79.379 kg Physical Exam Narrative: EXAM NARRATIVE: Patient was awake and alert S1, S2 Family at the bedside Looks euvolemic Weak dorsalis pedis pulse of left foot No active exam ischemic ulcer Hyperemia of left ankle slightly improved Abdomen soft No audible stridor or wheezing Saturating well on room air Data : 10/07/21 06:05 10/07/21 06:05 A&P Assessment and plan (1) Dyslipidemia: Status: Acute (2) HTN (hypertension): Status: Acute Qualifiers: Hypertension type: primary hypertension Qualified Code(s): I10 - Essential (primary) hypertension (3) Critical lower limb ischemia: Status: Acute (4) Obstruction of artery of left lower extremity: Status: Acute (5) Acute occlusion of artery of lower extremity: Status: Acute Additional A&P Information Peripheral vascular disease Subacute occlusion Dyslipidemia Hemoglobin A1c 5.1 Plan for angiogram today We will give her 1 dose of Xanax and opioids before surgery COVID antigen negative Patient is n.p.o. going for angiogram Heparin drip Patient was started on Imdur along lisinopril for hypertension and hydrochlorothiazide Continue Doc senna APTT is pending this morning Glucose 89, will give her 1 amp of D50 Attestations Medical Necessity Statement*: Angiogram today Time Spent in Patient Care: less than 15 minutes Coding Level of Care Code Acute Knowledge Manager for [facility] Fwd Diagnoses Dyslipidemia E78.5 HTN (hypertension) I10 Hypertension type: primary hypertension Critical lower limb ischemia I70.229 Obstruction of artery of left lower extremity I70.202 Acute occlusion of artery of lower extremity I70.209
[2021-10-07 08:48] LABS: Partial Thromboplastin Time 55.4 SECONDS (23.9-36.7)
[2021-10-07] MEDS: hydroCHLOROthiazide 25 mg Tablet PO (09:09)
[2021-10-07] MEDS: atorvastatin 40 mg Tablet 80 MG PO (09:09)
[2021-10-07] MEDS: isosorbide mononitrate ER 30 mg Tablet PO (09:10)
[2021-10-07] MEDS: amlodipine 10 mg Tablet PO (09:10)
[2021-10-07] MEDS: aspirin 81 mg EC Tablet PO (09:10)
[2021-10-07] MEDS: sennosides-docusate Tablet 1 TAB PO (09:10)
--- NOTE | 2021-10-07 09:17 | XACV_ITS ---
Ht: 157 cm Wt: 79 kg BSA: 1.90 m2 Gender: Female : 1970 Exam Type: Invasive Peripheral Vascular Procedure(s): Procedure Description: Diagnostic procedure Procedure Description: Peripheral Cath Diagnostic Procedure Procedure Description: Abdominal aortic angiography Procedure Description: Lower extremities' angiography Procedure Description: Peripheral vascular Intervention Procedure Description: PV Balloon Procedure Description: PV Stent Procedure Description: Miscellaneous Procedure Description: Perclose Procedure Description: ACT Procedure Description: PV Thrombectomy Exam Priority: Routine Ronnell WARD; Lower Extremity Interventional Findings Intervention of left SFA, popliteal artery and anterior tibial posterior tibial vessels. After difficulty we were able to cross the mid calcified chronically occluded SFA. It also appeared to me that proximal to mid SFA there is a ruptured plaque. Balloon angioplasty was performed in the SFA. We were not able to restore the flow, widespread thrombus were seen in the SFA and below the knee. CAT 8 penumbra was taken. Multiple runs of thrombectomy were performed in the left SFA tibioperoneal trunk up to anterior and posterior tibial vessels upto proximal segment. After that we were able to restore the flow however mid to distal left SFA despite of multiple balloon angioplasty were noted to have significant stenosis and ruptured plaque. It was treated with stent placement. With the help of command wire posterior tibial was treated with balloon angioplasty in the distal segment. Multiple injection of IV nitro glycerin were performed. Thrombus was noted in left profunda femoris. It was also treated with penumbra CAT 8 thrombectomy catheter. At the end excellent flow was noted in the proximal SFA all the way to the left foot. Three-vessel runoff was noted. Clinically left foot leg was improved. Good anterior posterior pulses noted in the foot.. Conclusions Indication for peripheral angiogram and percutaneous angioplasty/atherectomy. Critical limb ischemia.Due to worsening of left leg pain from lifestyle limiting claudication to critical limb ischemia patient presented with pain in left foot upon walking. She was not able to put her left foot on the floor. Motor and sensory are intact. Patient was placed on IV heparin and taken to the Dermatology Specialist next morning. She was noted to have occluded proximal to distal SFA no significant supply except faint collaterals was seen below the knee.. Abdominal aortogram: Abdominal aorta no significant stenosis or aneurysm noted. Bilateral common external and internal iliac no significant stenosis or thrombus noted. Bilateral common femoral no significant stenosis or thrombus is noted, right profunda femoral and SFA no significant stenosis or thrombus noted. Left profunda femoris no significant stenosis or thrombus noted. Left SFA occluded in the proximal segment reconstituted faintly towards popliteal. Sluggish flow noted in the tibioperoneal trunk and faint filling of proximal anterior tibial and posterior tibial vessels. No flow was noted in left lower leg. . For inventory please see the main body of the note. null was treated with three Balloon and three Undefined. Recommendations Continue current medical management and risk factor modification. Follow up with PCP as directed. Hemodynamic Data Phase:Rest AO : 143.0 / 81.0 ( 101.0 ) @ 8:59:00 AM 153.0 / 85.0 ( 112.0 ) @ 9:06:00 AM 128.0 / 72.0 ( 94.0 ) @ 9:26:00 AM 103.0 / 70.0 ( 83.0 ) @ 9:56:00 AM Access Site Site: Right Femoral artery Sheath Size: 6 Fr Hemost... Method: Suture Hemost... Success: Successful Procedure Details Findings Procedure Consent Obtained. Admit Source: In Patient. Pre-Procedure Time Out. Identified patient by full name and date of as verbalized by the patient/guarantor. Does the consent match the physician's order: Yes. Accurate & Complete Informed Consent: Yes. Inpatient/Outpatient History & Physical on Chart: Yes. Visualize and Verify Site with Patient/Guarantor: N/A. Relevant Radiology Images available: N/A. Pre-op teaching completed and patient verbalized understanding. The risks, benefits, and alternatives of sedation and/or procedure were discussed by physician. The patient agrees to continue. Procedure started. Current diagnosis: Critical Limb ischemia. PERRLA. 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 Lungs clear x 5 lobes. IV Site on Arrival: 20 gauge in the right anticubital. IV Fluids: 0.9% NaCl at KVO. 0 mL infused prior to pathology laboratory technologist. Pre Procedural Pulses: bilateral dorsalis pedis was Doppled. Oxygen started at 2liters/min via nasal canula. left groin was prepped with chloroprep then draped in the usual sterile fashion. right groin was prepped with chloroprep then draped in the usual sterile fashion. Physician notified. Baseline sample Acquired. HR: 105 BPM. Physician arrived. Physician scrubbed in. Time out performed with cath team. Lidocaine 1% infiltrated to the right groin. Arterial access obtained with micropuncture set. A 5F UF catheter in over wire. Abdominal aortogram performed in HERNANDEZ @ 10 mL/sec for a total of 30 mL. Glidewire inserted. 6Fr short sheath exchanged for 6Fr 45cm Flexor sheath. Catheter out. Seeker catheter inserted over the wire. Glidewire removed. Support catheter positioned in the popliteal to better visualize the distal vessels. ACT drawn. Results 175 seconds. Therapeutic limits - pre-heparin administration 90-150 seconds and monitoring heparin during a vascular procedure >250 seconds. Seeker catheter removed. Balloon inserted over the wire to the superficial femoral. Inflation number : 1 A AB Natalia 35 NEONATAL DOCTOR Catheter [id number] was prepped and advanced across the Mid Superficial Femoral, Left , then inflated to 8 MICHEAL for 1:00 seconds. Inflation number: 2 The AB Natalia 35 NEONATAL DOCTOR Catheter [id number] was reinflated across the Mid Superficial Femoral, Left, to 8 MICHEAL for 1:00 seconds. Balloon out over wire. Results checked. 6Fr Flexor Sheath removed and 8Fr Terumo Desination sheath inserted. Lightning 7 thrombectomy catheter inserted to ostial SFA. Thrombectomy performed. Glidewire removed. Glidewire inserted. Thrombectomy device removed. Lightning 7 device reinserted to osial SFA. Glidewire removed. Thrombectomy performed. Thrombectomy device removed. Glidewire inserted. Seeker catheter inserted over the wire. Glidewire removed. Glidewire inserted. Seeker removed over the Glidewire. Balloon inserted over the wire to the superficial femoral. Inflation number : 3 A AB ARMADA 35 OTW [id number] was prepped and advanced across the Mid Superficial Femoral, Left , then inflated to 12 MICHEAL for 2:00 seconds. Balloon out. Results checked. Glidewire redirected to the profunda. Glidewire removed. Lightning 7 thrombectomy device inserted into the profunda. Thrombectomy performed. Thrombectomy device removed. Results checked. Glidewire inserted. Lightning 7 catheter inserted to the proximal SFA. Glidewire removed. Thrombectomy performed to ostial SFA. Thrombectomy device removed. Results checked. ACT drawn. Results 241 seconds. Therapeutic limits - pre-heparin administration 90-150 seconds and monitoring heparin during a vascular procedure >250 seconds. Glidewire inserted. Lightning 7 thrombectomy device inserted into posterior tibial. Glidewire removed. Thrombectomy performed. Thrombectomy device removed. Results checked. Glidewire inserted. AB ABSOLUTE PRO SE STENT [id number] was deployed across Mid Superficial Femoral, Left. Lot # [id number] Exp 05/16/2024. AB ABSOLUTE PRO SE STENT [id number] was deployed across Mid Superficial Femoral, Left. Lot # [id number] Exp 10/26/2020. AB ABSOLUTE PRO SE STENT [id number] was deployed across Mid Superficial Femoral, Left. Lot #[id number] Exp 06/16/2021. Balloon inserted over the wire to the superficial femoral. Inflation number : 4 A [employer] Natalia 35 NEONATAL DOCTOR Catheter [id number] was prepped and advanced across the Mid Superficial Femoral, Left , then inflated to 8 MICHEAL for 1:00 seconds. Balloon out over wire. Results checked. Glidewire removed. Digital subtraction image taken. Glidewire inserted. 8F Destination sheath exchanged for 8Fr short sheath. A Left femoral angiogram was performed to determine safe placement of closure device. Lidocaine 1% infiltrated to the left groin. A Suture was successful obtaining hemostatsis at the Right Femoral artery insertion site. Perclose partially successful. 8Fr Short sheath reinserted into L femoral access. 8Fr short sheath exchanged for 9Fr Pennicle sheath due to oozing at insertion site. Post Procedure: left dorsalis pedis pulse 1+. PERRLA. 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 No VTE prophylaxis required. Medication's Wasted: Nitro = 48.2 mg. Total IV fluids: 500 mL. Post-op diagnosis: Critical limb ischemia. Complications: none. Estimated blood loss: 400 ml. Responsiveness - Normal response to verbal stimuli; alert and oriented, PERRLA. Airway - Unaffected, no intervention required; spontaneous ventilation. Circulation: W/N/L, pulses unchanged. Nausea/Vomiting: No. Procedure completed. Patient transferred by bed to 1st floor. Sheath upsized to a 9 Fr, sutured to pressure bag. Vital chart was stopped. Procedure Medications Start: 9:53 AM Stop: 9:53 AM Medication: Versed Amount: 1 mg Route: I.V. Start: 9:53 AM Stop: 9:53 AM Medication: Fentanyl Amount: 50 mcg Route: I.V. Start: 9:58 AM Stop: 9:58 AM Medication: Versed Amount: 1 mg Route: I.V. Start: 9:58 AM Stop: 9:58 AM Medication: Fentanyl Amount: 50 mcg Route: I.V. Start: 10:00 AM Stop: 10:00 AM Medication: Versed Amount: 1 mg Route: I.V. Start: 10:00 AM Stop: 10:00 AM Medication: Fentanyl Amount: 50 mcg Route: I.V. Start: 10:13 AM Stop: 10:13 AM Medication: Versed Amount: 1 mg Route: I.V. Start: 10:14 AM Stop: 10:14 AM Medication: Fentanyl Amount: 50 mcg Route: I.V. Start: 10:25 AM Stop: 10:25 AM Medication: Heparin Amount: 5000 units Route: I.V. Start: 10:26 AM Stop: 10:26 AM Medication: Versed Amount: 1 mg Route: I.V. Start: 10:26 AM Stop: 10:26 AM Medication: Fentanyl Amount: 50 mcg Route: I.V. Start: 10:30 AM Stop: 10:30 AM Medication: Nitrogylcerin Amount: 500 mcg Route: I.A. Start: 10:46 AM Stop: 10:46 AM Medication: Versed Amount: 1 mg Route: I.V. Start: 10:46 AM Stop: 10:46 AM Medication: Fentanyl Amount: 50 mcg Route: I.V. Start: 10:53 AM Stop: 10:53 AM Medication: Nitrogylcerin Amount: 500 mcg Route: I.A. Start: 10:58 AM Stop: 10:58 AM Medication: Diphendryamine Amount: 50 mg Route: I.V. Start: 11:02 AM Stop: 11:02 AM Medication: Aggrastat 12.5 mg/250 mL Amount: 40 ml Start: 11:05 AM Stop: 11:05 AM Medication: Heparin Amount: 3000 units Route: I.V. Start: 11:21 AM Stop: 11:21 AM Medication: Heparin Amount: 2000 units Route: I.V. Start: 11:41 AM Stop: 11:41 AM Medication: Nitrogylcerin Amount: 400 mcg Route: I.A. Start: 11:44 AM Stop: 11:44 AM Medication: Versed Amount: 2 mg Route: I.V. Start: 11:53 AM Stop: 11:53 AM Medication: Aggrastat 12.5 mg/250 mL Amount: 14.4 ml/hr Route: I.V. drip Start: 11:54 AM Stop: 11:54 AM Medication: Fentanyl Amount: 50 mcg Route: I.V. Start: 11:54 AM Stop: 11:54 AM Medication: Nitrogylcerin Amount: 400 mcg Route: I.A. Start: 12:03 PM Stop: 12:03 PM Medication: Fentanyl Amount: 50 mcg Route: I.V. Start: 12:08 PM Stop: 12:08 PM Medication: Heparin Amount: 4000 units Route: I.V. I, the attending physician, have reviewed and verified all procedure medications. Yes, all medications given per verbal order History/Risk Factors Hypertension: Yes Dyslipidemia: Yes Peripheral Arterial Disease (PAD): Yes Obesity: Yes Renal Disease: No Tobacco Use: Current/Recent(w/in 1 year) Prior Interventions PCI: No CABG: No Valve Surgery: No Report Signatures Finalized by Shelly Reynaga MD on 10/22/2021 07:07 PM
[2021-10-07 14:11] LABS: Hematocrit 35.4 % (37.0-47.0); Hemoglobin 11.7 g/dL (11.5-15.3)
[2021-10-07] MEDS: clopidogrel 300 mg Tablet 600 MG PO (14:26)
[2021-10-07] MEDS: morphine 4 mg/mL SDV 1 mL 2 MG IVP (14:26)
--- NOTE | 2021-10-07 15:55 | PC.NURSE ---
blood glucose 165
[2021-10-07 16:12] LABS: Glucose Point of Care 165 mg/dL (70-110)
[2021-10-07 16:38] LABS: Partial Thromboplastin Time 57.6 SECONDS (23.9-36.7)
[2021-10-07] MEDS: sodium chloride 0.9% 1,000 ML 100 ML IV (18:41)
[2021-10-07 20:20] LABS: Glucose Point of Care 151 mg/dL (70-110)
[2021-10-07] MEDS: temazepam 15 mg Capsule PO (20:54)
--- NOTE | 2021-10-07 22:12 | PC.NURSE ---
Received report from AMAN Dosih. Patient is s/p peripheral angiogram with right femoral access. Dressing in place at this time. Dressing remains c,d,i with no s/s of bleeding or hematoma formation observed. Instructed patient on site care and restrictions. Patient verbalized complete understanding. Patient c/o mild tenderness to groin site with touch. Patient denies other needs or discomforts. No distress observed. Will continue to monitor.
--- NOTE | 2021-10-07 23:18 | PC.NURSE ---
Patient up to bathroom x2 assist. Dressing to right groin remains c,d,i with no s/s of bleeding or hematoma formation observed. Patient reports feeling stiff all over from lying in bed all day in one position. No other complaints or needs. No distress observed.
[2021-10-08] VITALS (7 sets, daily range): BP systolic 99–126; BP diastolic 52–75; PULSE 63–95; RESP 15–27; TEMP 36.8; O2SAT 93–99
--- NOTE | 2021-10-08 00:05 | PC.NURSE ---
Unable to keep patient's O2 greater than 85%. She has gone from room air at shift change to a non-rebreather and holding at 87%. She is also abdominal breathing at about 40 bpm. Respiratory in to assist patient. Informed Dr Perkins. Doctor to come visit with patient.
[2021-10-08] MEDS: apixaban 5 mg Tablet 2.5 MG PO ×2 (00:57→08:59)
[2021-10-08] MEDS: HYDROcodone-acetaminophen 5-325 mg Tablet 1 TAB PO ×3 (03:24→14:09)
--- NOTE | 2021-10-08 03:27 | PC.NURSE ---
Patient up to bathroom. Dressing to right groin remains c,d,i with no s/s of bleeding or hematoma formation observed. Patient does c/o pain to bilateral legs. Instructed on re-perfusion to affected extremity. Patient verbalized complete understanding. Administered pain medication as ordered and documented. Patient expressed thanks. Denies other needs. No distress observed. Will continue to monitor.
--- NOTE | 2021-10-08 05:25 | PC.NURSE ---
Dressing to right groin remains c,d,i with no s/s of bleeding or hematoma formation observed. Site spinning machine tender to palpation. Patient denies other needs. No distress observed. Will continue to monitor.
[2021-10-08 06:27] LABS: Basophils # 0.1 10^3/uL (0.0-0.1); Basophils % 0.5 %; Eosinophils # 0.1 10^3/uL (0.0-0.8); Eosinophils % 0.9 %; Hematocrit 36.1 % (37.0-47.0); Hemoglobin 12.1 g/dL (11.5-15.3); Lymphocytes # 1.9 10^3/uL (0.8-4.8); Lymphocytes % 18.3 %; Mean Corpuscular HGB Conc 33.5 g/dL (30.0-36.0); Mean Corpuscular Hemoglobin 31.8 pg (28.0-34.0); Mean Corpuscular Volume 94.8 fl (81-99); Mean Platelet Volume 10.2 fL (7.4-10.4); Monocytes # 0.6 10^3/uL (0.2-0.9); Monocytes % 5.9 %; Neutrophils # 7.89 10^3/uL (1.8-7.7); Neutrophils % 74.2 %; Nucleated Red Blood Cells % 0 %; Platelet Count 289 10^3/cmm (130-400); Red Blood Count 3.81 10^6/uL (4.1-5.3); Red Cell Distribution Width 12.2 % (12.1-15.1); White Blood Count 10.6 10^3/uL (4.0-10.0)
[2021-10-08 06:41] LABS: Glucose Point of Care 111 mg/dL (70-110)
[2021-10-08 06:56] LABS: Anion Gap 14.5 (5-19); Blood Urea Nitrogen 6 mg/dL (6-20); Calcium 8.1 mg/dL (8.5-10.5); Carbon Dioxide 26 mmol/L (22-29); Chloride 99 mmol/L (98-107); Glomerular Filtration Rate 129.1 mL/min (90-130); Glucose 105 mg/dL (65-115); Osmolality Calculated 280 mOsm/kg (285-295); Potassium 3.5 mmol/L (3.5-5.1); Sodium 136 mmol/L (136-145)
--- NOTE | 2021-10-08 08:32 | PM.PN ---
Subjective Subjective: Interval history: Patient is feeling pain in her left groin as well as right groin area however no swelling or signs of hematoma development hemoglobin stable this morning, hemodynamically stable, she is afebrile Left leg pain has improved Vitals/I&O/Wt Last Vital Signs Temp 98.3 F 10/08/21 07:29 Pulse 95 10/08/21 07:29 Resp 27 H 10/08/21 07:29 BP 114/72 10/08/21 07:29 Pulse Ox 99 10/08/21 07:29 10/07/21 10/08/21 10/08/21 22:59 06:59 14:59 Intake Total 1000 / 2210.663 1000 / 3210.663 Balance 1000 / 2210.663 1000 / 3210.663 Weight last 48 hrs Weight 80.694 kg Weight 79.379 kg Physical Exam Narrative: EXAM NARRATIVE: Patient was sitting at the bedside I did not see any swelling or signs of hematoma or petechiae around the groin area Good dorsalis pedis pulses 2+ no sign of ischemic ulcer Left ankle not tender S1, S2 Hemodynamically stable Satting well on room air Nonfocal neuro exam Data : 10/08/21 05:50 10/08/21 05:50 A&P Assessment and plan (1) Dyslipidemia: Status: Acute (2) HTN (hypertension): Status: Acute Qualifiers: Hypertension type: primary hypertension Qualified Code(s): I10 - Essential (primary) hypertension (3) Critical lower limb ischemia: Status: Acute (4) Obstruction of artery of left lower extremity: Status: Acute (5) Acute occlusion of artery of lower extremity: Status: Acute Additional A&P Information Artery occlusion of left leg Status post intervention, postop day 1 Continue aspirin and Plavix Eliquis 2.5 twice daily for DVT prophylaxis Blood pressure stable No drop in hemoglobin no sign of hematoma however patient is complaining of bilateral groin pain No swelling around the groin area Plan to keep her here 1 more day for monitoring and possible discharge her tomorrow Smoking cessation counseling Cardiac diet Full code Attestations Medical Necessity Statement*: Discharge tomorrow morning Time Spent in Patient Care: less than 15 minutes Coding Level of Care Code Acute Bit Setter for Tayla Fwd Diagnoses Dyslipidemia E78.5 HTN (hypertension) I10 Hypertension type: primary hypertension Critical lower limb ischemia I70.229 Obstruction of artery of left lower extremity I70.202 Acute occlusion of artery of lower extremity I70.209
[2021-10-08] MEDS: aspirin 81 mg EC Tablet PO (08:55)
[2021-10-08] MEDS: pantoprazole DR 40 mg Tablet PO (08:55)
[2021-10-08] MEDS: clopidogrel 75 mg Tablet PO (08:55)
[2021-10-08] MEDS: hydroCHLOROthiazide 25 mg Tablet PO (08:55)
[2021-10-08] MEDS: atorvastatin 40 mg Tablet 80 MG PO (08:59)
--- NOTE | 2021-10-08 09:41 | PC.NURSE ---
Asking when Dr. Reynaga will come see her so she can go home.
--- NOTE | 2021-10-08 11:04 | PC.NURSE ---
blood glucose 128
[2021-10-08 11:31] LABS: Glucose Point of Care 128 mg/dL (70-110)
--- NOTE | 2021-10-08 13:33 | PM.PN ---
Subjective Subjective: Interval history: Denies any complaint except left groin mild tenderness in right groin tenderness where she was placed. No hematoma no bruising. Patient has good palpable anterior posterior tibial pulses in both feet. Vitals/I&O/Wt Last Vital Signs Temp 98.3 F 10/08/21 07:29 Pulse 78 10/08/21 11:03 Resp 25 H 10/08/21 11:03 BP 99/52 10/08/21 11:03 Pulse Ox 94 10/08/21 11:03 10/07/21 10/08/21 10/08/21 22:59 06:59 14:59 Intake Total 1000 / 2210.663 1000 / 3210.663 480 / 480 Balance 1000 / 2210.663 1000 / 3210.663 480 / 480 Weight last 48 hrs Weight 177 lb 14.4 oz Weight 175 lb Physical Exam Narrative: EXAM NARRATIVE: GENERAL: Patient is alert, awake and oriented x3. NECK: No jugular vein distension. HEENT: No cyanosis. No icterus. No pallor. HEART: Regular S1 and S2. No murmur, rub or gallop. LUNGS: Clear to auscultate bilaterally. ABDOMEN: Soft, nontender and nondistended. Positive bowel sounds. No guarding, rebound or tenderness. CENTRAL NERVOUS SYSTEM: Grossly nonfocal. EXTREMITIES: Lower extremities without edema bilaterally. Pulses palpable in both legs and feet. Good color both feet are warm. Data : 10/08/21 05:50 10/08/21 05:50 A&P Assessment and plan (1) Critical lower limb ischemia: Patient underwent peripheral angiogram noted to have thrombotically occluded proximal SFA while mid to distal SFA has highly calcified chronic occlusion. Patient has faint collaterals no significant flow was noted below the left knee. After crossing with a Glidewire and seeker multiple balloon angioplasty was performed in the SFA which did not restore the flow. Due to thrombus burden in the proximal segment multiple passes of penumbra was used which restore the flow. Mid to distal SFA was noted to have ulcerated plaque distal to it was calcified chronic occlusion. We then took short balloon and performed angioplasty of the mid to distal lesion. After balloon angioplasty of mid to distal left SFA reocclusion of distal vessel was noted at the same time we noted profundofemoral artery has thrombus. Primary catheter was used to extract clot from the profundofemoral. During an movement of the catheter some of the clot went into SFA. We then performed thrombectomy of SFA and all the way to tibioperoneal trunk. Repeat angiogram showed that still we have ulcerated plaque in the mid to distal left SFA, I then decided to perform stenting. Due to nonavailability of the size I have to overlap 3 stents measuring 6.0 x 100 mm, 6.0 x 60 mm and 6.0 x 60 mm. Repeat angiogram showed excellent angiographic result with good flow all the way to the foot. We will load patient with Plavix Aggrastat was given. I will keep ACT on the higher side. I am planning to start patient on Eliquis as well once complete the bedrest. Patient has been advised to quit smoking. On today's visit dated 10/08/2021 Status post percutaneous angioplasty stenting of mid left SFA along with multiple passes for thrombectomy using penumbra , excellent angiographic result with good flow was restored all the way to the left foot. 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 Due to high clot burden I will consider to discharge patient on Plavix Eliquis and aspirin. Eliquis will be 2.5 mg twice a day and plan needing to continue all these 3 medicines for next 1 month. Then we will drop aspirin after 1 month we will continue Eliquis and Plavix for next 3-month. After that we will continue Plavix for 3 more month along with aspirin 81 mg. Patient has been advised quitting smoking. Patient need to be assessed for coronary artery disease. Patient has been given instruction for groin care. Status: Acute (2) HTN (hypertension): Well-controlled continue medicine. Status: Acute Qualifiers: Hypertension type: primary hypertension Qualified Code(s): I10 - Essential (primary) hypertension (3) Dyslipidemia: Patient is on statin will continue Status: Acute Attestations Medical Necessity Statement*: From a vascular perspective patient can be discharged home Coding Level of Care Code Established Pt Acute Ingot Buggy Operator for Tayla Wooten Patient Type Established History Detailed Exam Detailed Medical Decision Making Moderate Complexity Diagnoses Critical lower limb ischemia I70.229 HTN (hypertension) I10 Hypertension type: primary hypertension Dyslipidemia E78.5
--- NOTE | 2021-10-08 14:09 | PM.DCS ---
Discharge Providers Date of Admission: 10/06/21 16:39 Date of Discharge: October 08, 2021 Attending Provider at Admission: Shelly Duran MD Attending Provider at Discharge: Shelly Duran MD Diagnoses at Discharge Discharge Diagnosis (1) Critical lower limb ischemia: Status: Acute (2) HTN (hypertension): Status: Acute Qualifiers: Hypertension type: primary hypertension Qualified Code(s): I10 - Essential (primary) hypertension (3) Dyslipidemia: Status: Acute Reason for Visit Reason for Visit: left foot injury Hospital Course Hospital Course 51-year-old female who was admitted to the hospital with chief complaint of left leg pain. She was diagnosed with ischemic limb. Heparin drip was started in the ER, patient went for the angiogram next day , status post percutaneous angioplasty stenting of mid left SFA along with multiple passes for thrombectomy using penumbra , excellent angiographic result with good flow was restored all the way to the left foot. Patient symptoms improved after the procedure, she was discharged on aspirin, Plavix and Eliquis. Dr. Reynaga is planning to keep this regimen for at least 1 month and then continuing Plavix and Eliquis along with GI protective PPI. Patient was counseled to quit smoking. Please see cardiology note from 10/08 for further details. Patient does have dyslipidemia, her other medical history is significant for hypertension. Considering multiple risk factors for coronary disease she will need close follow-up with cardiology. CT/CT angio abd aorta runof [id number] IMPRESSION: 1. 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 2. Hemodynamically significant stenosis of the left superficial femoral artery of at least 80% occurs 12.6 mm from its ostium. Occlusion appears secondary to soft thrombus. 3. Left profundal artery remains patent. 4. Reconstitution of the distal left superficial femoral artery via geniculate and collaterals approximately 11.7 cm from the left knee joint. Physical Exam Narrative: EXAM NARRATIVE: Patient was sitting at the bedside I did not see any swelling or signs of hematoma or petechiae around the groin area Good dorsalis pedis pulses 2+ no sign of ischemic ulcer Left ankle not tender S1, S2 Hemodynamically stable Satting well on room air Nonfocal neuro exam Discharge Data Data Completed and Pending: Completed Studies During Hospitalization Category Date Time Status CT angio abd aort a runof [id number] Urge nt Cat Scan 10/06/21 14:35 Completed Pending at discharge Category Date Time Status [employer] MANAGER request for service Routin e Exams 10/07/21 09:17 Taken Basic Metabolic P alexey AM LABS Lab 10/09/21 04:00 Ordered Complete Blood Co unt w/Auto AM LABS Lab 10/09/21 04:00 Ordered Labs from last 24 hours 10/08/21 10/08/21 10/08/21 11:01 06:33 05:50 WBC RBC Hgb Hct MCV MCH MCHC RDW Plt Count MPV Neut % (Auto) Lymph % (Auto) [place] % (Auto) Eos % (Auto) Baso % (Auto) Neut # (Auto) Lymph # (Auto) [place] # (Auto) Eos # (Auto) Baso # (Auto) Nucleated RBC % (a uto) Nucleated RBCs # APTT Sodium 136 Potassium 3.5 Chloride 99 Carbon Dioxide 26 Anion Gap 14.5 BUN 6 Creatinine 0.5 GFR Calculation 129.1 Glucose 105 POC Glucose 128 H 111 H Calculated Osmolal ity 280 L Calcium 8.1 L 10/08/21 10/07/21 10/07/21 05:50 19:59 16:19 WBC 10.6 H RBC 3.81 L Hgb 12.1 Hct 36.1 L MCV 94.8 MCH 31.8 MCHC 33.5 RDW 12.2 Plt Count 289 MPV 10.2 Neut % (Auto) 74.2 Lymph % (Auto) 18.3 [place] % (Auto) 5.9 Eos % (Auto) 0.9 Baso % (Auto) 0.5 Neut # (Auto) 7.89 H Lymph # (Auto) 1.9 [place] # (Auto) 0.6 Eos # (Auto) 0.1 Baso # (Auto) 0.1 Nucleated RBC % (a uto) 0 Nucleated RBCs # 0.0 APTT 57.6 H Sodium Potassium Chloride Carbon Dioxide Anion Gap BUN Creatinine GFR Calculation Glucose POC Glucose 151 H Calculated Osmolal ity Calcium 10/07/21 10/07/21 15:52 13:59 WBC RBC Hgb 11.7 Hct 35.4 L MCV MCH MCHC RDW Plt Count MPV Neut % (Auto) Lymph % (Auto) [place] % (Auto) Eos % (Auto) Baso % (Auto) Neut # (Auto) Lymph # (Auto) [place] # (Auto) Eos # (Auto) Baso # (Auto) Nucleated RBC % (a uto) Nucleated RBCs # APTT Sodium Potassium Chloride Carbon Dioxide Anion Gap BUN Creatinine GFR Calculation Glucose POC Glucose 165 H Calculated Osmolal ity Calcium Vitals: Last Vital Signs Temp 98.3 F 10/08/21 07:29 Pulse 78 10/08/21 14:04 Resp 25 H 10/08/21 14:04 BP 118/75 10/08/21 14:04 Pulse Ox 94 10/08/21 14:04 Discharge Plan Discharge Patient Disposition: Home Condition: Stable Prescriptions: New atorvastatin 40 mg Tablet 80 mg PO DAILY Qty: 30 RF: 4 clopidogrel 75 mg Tablet 75 mg PO DAILY Qty: 90 RF: 4 aspirin 81 mg Tablet,Delayed Release (Dr/Ec) 81 mg PO DAILY Qty: 30 RF: 0 Eliquis 5 mg Tablet 2.5 mg PO BID@0900,2100 Qty: 60 RF: 3 Protonix 40 mg tablet,delayed release (DR/EC) 40 mg PO DAILY 56 Days Qty: 60 RF: 4 Discontinued ibuprofen [Advil] 200 mg Tablet 200 mg PO Q6H PRN (Reason: Pain) RF: 0 Discharge Orders: Discharge Order (Routine); Ordered 10/08/21 Ordered By: Shelly Reynaga Referrals: Rashi Melendrez MD [Physician] - 6 Weeks ([facility] will contact you to schedule an follow-up appointment in 4 to 6 weeks. If you haven't heard from them by Saturday. Please call ) Radha Napoles FNP [Nurse Practitioner] - 1 week ([facility] will contact you to schedule an follow-up an appointment in 7 to 10 days. If you haven't heard from them by . Please call ) Discharge Diet: Cardiac Discharge Activity: Increase activity as tolerated Patient Instructions: Clopidogrel (By mouth) (Plavix), Pantoprazole (By mouth) (Protonix), Apixaban (By mouth) (Eliquis), Opioid Safety, Post Angiogram Home Care Instructions Activity Restrictions/Additional Instructions: No lifting of more than a gallon of milk for next 3 days. No driving for next 3 days no more than few steps of stairs for next 3 to 4 days. Follow-up with Ms. Radha Napoles in 7 days. Follow-up with Dr. Melendrez at patient request in 4 to 6 weeks. Discharge Attestations Time Spent in Discharge Care*: less than 30 min Quality Metrics Clinical Quality Measures During this hospital stay, did patient experience: None Coding Level of Care Code Acute g FW DC note Diagnoses Critical lower limb ischemia I70.229 HTN (hypertension) I10 Hypertension type: primary hypertension Dyslipidemia E78.5
== END 2021-10-08 15:00 | disposition home or self-care (01) | DRG 272 ==
LOC: ER 19:14 → MEDSURG 10-07 01:12 → CSU 10-07 11:22
PROVIDERS: Emergency Medicine; Internal Medicine Cardiovascular Disease; Admitting Provider Internal Medicine; Emergency Provider Physician Assistant; Visit Provider Internal Medicine
DX: I70.222 Atherosclerosis of native arteries of extremities with rest pain, left leg (principal); I10 Essential (primary) hypertension; E78.5 Hyperlipidemia, unspecified; F41.9 Anxiety disorder, unspecified; F43.10 Post-traumatic stress disorder, unspecified; F17.210 Nicotine dependence, cigarettes, uncomplicated; M79.7 Fibromyalgia
CPT/HCPCS: 36415; 36416; 37184; 37226; 75625; 75635; 75710; 80048; 80053; 80061; 82962; 83036; 85014; 85018; 85025; 85347; 85610; 85730; 87426; 96365; 96375; 96376; 99285; C1725; C1757; C1760; C1769; C1876; C1887; C1894; J0360; J1170; J1200; J1644; J2060; J2250; J2270; J2405; J3010; J3490; J7030; Q0163; Q9967

== ENCOUNTER → 2021-10-27 09:43 | Outpatient (BNVA) | payer OTHER, SELFPAY | PROVIDERS: PCP Family Medicine; Visit Provider Nurse Practitioner Family | DX: I73.9 Peripheral vascular disease, unspecified (principal) | CPT/HCPCS: 80048 ==

== ENCOUNTER 2021-10-30 22:33 | Emergency (ER) | payer OTHER, SELFPAY ==
[2021-10-30 22:50] VITALS: BP 123/79; PULSE 100; RESP 18; TEMP 36.9; O2SAT 96; BMI 30.9
[2021-10-31 02:55] LABS: Basophils # 0.1 10^3/uL (0.0-0.1); Basophils % 0.5 %; Eosinophils # 0.1 10^3/uL (0.0-0.8); Eosinophils % 1.3 %; Hematocrit 40.1 % (37.0-47.0); Hemoglobin 13.1 g/dL (11.5-15.3); Lymphocytes # 2.9 10^3/uL (0.8-4.8); Lymphocytes % 27.2 %; Mean Corpuscular HGB Conc 32.7 g/dL (30.0-36.0); Mean Corpuscular Hemoglobin 31.1 pg (28.0-34.0); Mean Corpuscular Volume 95.2 fl (81-99); Mean Platelet Volume 9.3 fL (7.4-10.4); Monocytes # 0.5 10^3/uL (0.2-0.9); Monocytes % 4.8 %; Neutrophils % 65.8 %; Nucleated Red Blood Cells % 0 %; Platelet Count 395 10^3/cmm (130-400); Red Blood Count 4.21 10^6/uL (4.1-5.3); Red Cell Distribution Width 12.4 % (12.1-15.1); White Blood Count 10.8 10^3/uL (4.0-10.0)
--- NOTE | 2021-10-31 03:00 | CTR_ITS ---
PROCEDURE INFORMATION: Exam: CT Abdomen And Pelvis With Contrast Exam date and time: 10/31/2021 3:00 AM Age: 51 years old Clinical indication: Other: Bright red blood in stool; Abdominal pain; Periumbilical; Prior surgery; Surgery date: 6+ months; Surgery type: Gb, hyst; Additional info: Abd pain TECHNIQUE: Imaging protocol: Computed tomography of the abdomen and pelvis with contrast. Radiation optimization: All CT scans at this facility use at least one of these dose optimization techniques: automated exposure control; mA and/or kV adjustment per patient size (includes targeted exams where dose is matched to clinical indication); or iterative reconstruction. Contrast material: VISI; Contrast volume: 95 ml; Contrast route: INTRAVENOUS (IV); COMPARISON: CT abdomen pelvis wo con [id number] 11/26/2015 1:46 PM RADIATION DOSE METRICS: Total DLP (mGy-cm): 1743.55 FINDINGS: Lungs: The lung bases are clear. No effusion Liver: Normal. No mass. Gallbladder and bile ducts: There has been a cholecystectomy. Pancreas: Normal. No ductal dilation. Spleen: Normal. No splenomegaly. Adrenal glands: Normal. No mass. Kidneys and ureters: There are multiple bilateral renal cysts, largest measures 2.5 cm Stomach and bowel: There is wall thickening and pericolonic fat stranding of the distal transverse and descending colon consistent with infectious/inflammatory colitis. Appendix: No evidence of appendicitis. Intraperitoneal space: Unremarkable. No free air. No significant fluid collection. Vasculature: There is mild atherosclerotic disease. Lymph nodes: Unremarkable. No enlarged lymph nodes. Urinary bladder: Unremarkable as visualized. Reproductive: There has been a hysterectomy. Bones/joints: Unremarkable. No acute fracture. Soft tissues: Unremarkable. CT/CT abdomen pelvis w con* [id number] IMPRESSION: There is wall thickening and pericolonic fat stranding of the distal transverse and descending colon consistent with infectious/inflammatory colitis. COMMENTS: Consistent with the [employer]'s Incidental Findings Committee white paper (J Am Magdy Radiol 2018): Any incidental renal lesion less than 1 cm or classified as too small to characterize, or any incidental cystic renal lesion characterized as simple-appearing, is likely benign. No follow-up imaging is recommended for these lesions per consensus recommendations based on imaging criteria.
--- NOTE | 2021-10-31 03:01 | ED_ITS ---
HPI - Abdominal Pain General: Chief Complaint: Abdominal Pain Stated Complaint: ABD Bleeding Rectum Time Seen by Provider: 10/31/21 02:48 Source: patient Mode of arrival: ambulatory Limitations: no limitations History of Present Illness: 51-year-old female states that she is having some cramping abdominal pain last night and went had a bowel movement at 8 and states that bowel movement was hard stool that was normal but then states that roughly an hour later she started having bloody bowel movements states she had a 3-4 bowel movements been bright red in nature has not had one last 2 hours states she does some lower abdominal cramping she rates a 4 out of 10 she is on Xarelto no black stool no vomiting. She denies any history of GI bleeds in the past. No history of hemorrhoids. Associated Symptoms: Reports hematochezia; Denies chills, diarrhea, dysuria, fever(s), nausea and vomiting Review of Systems Const: Denies: fever(s), chills, body aches or change in appetite Eyes: Denies: blurry vision or eye discomfort ENMT: Denies: throat pain or dental pain Card: Denies: chest pain Resp: Denies: dyspnea GI: Reports: abdominal pain and hematochezia; Denies: nausea, vomiting or diarrhea : Denies: dysuria Musc: Denies: neck pain or back pain Skin/Breast: Denies: rash Neuro: Denies: headache(s) Psych: Denies: depression Isael/Lymph: Denies: easy bruising All/Imm: Denies: urticaria PFSH ED PFSH: Medical History Dyslipidemia Fibromyalgia HTN (hypertension) Migraine PAD (peripheral artery disease) Surgical History H/O: hysterectomy Family History Other Rheumatoid arthritis Social History Smoking and tobacco status: current every day smoker Alcohol intake: never Housing: House Physical Exam Const: COMMON NORMALS: no acute distress, patient oriented x3 and healthy appearing HENMT: COMMON NORMALS: normocephalic and atraumatic HEAD & SCALP: normocephalic and atraumatic Eye: COMMON NORMALS: Equal, round and reactive pupils present and EOMs intact bilaterally PUPIL: Yes Equal, round and reactive pupils present Neck/C-Spine: COMMON NORMALS: full ROM and supple Chest: COMMONS NORMALS: normal inspection of the chest and normal palpation of entire chest wall Resp: COMMON NORMALS: normal respiratory effort, No retractions, No use of accessory muscles and clear to auscultation bilaterally AUSCULTATION: clear to auscultation bilaterally Cardio: COMMON NORMALS: regular rate, regular rhythm and No murmurs present (Cardio) RATE: regular rate RHYTHM: regular rhythm GI: COMMON NORMALS: Normal to inspection, nondistended, normoactive bowel sounds present, Soft to palpation, non-tender and no masses PALPATION: Yes Soft to palpation RECTAL EXAM: visual inspection normal, normal sphincter tone, No heme positive stool, No External hemorrhoid(s) present and No Internal hemorrhoid(s) present Extremity: COMMON NORMALS: normal to inspection and full ROM Neuro: COMMON NORMALS: patient oriented x3, moves all extremities and no focal motor deficits Psych: COMMON NORMALS: mental status grossly normal, Normal thought process present and cooperative THOUGHT PROCESS: Normal thought process present Skin: COMMON NORMALS: no rashes or lesions noted and no wounds GENERAL SKIN EXAM: no rashes or lesions noted Course Vital Signs: Vital signs: Vital Signs Temperature 98.4 F 10/30/21 22:50 Pulse Rate 100 10/30/21 22:50 Respiratory Rate 18 10/30/21 22:50 Blood Pressure 123/79 10/30/21 22:50 Pulse Oximetry 96 10/30/21 22:50 MDM - Abdominal Pain Medical Decision Making Patient presents here with abdominal pain along with lower GI bleed rectal exam here showed no blood at this time CT scan did show colitis it could be causing some the bleeding will start her on Cipro and Flagyl have her follow-up with marion torres. Her blood count here is normal she is return if worsening she understands and agrees to plan. Lab Data : 10/31/21 02:50 10/31/21 02:50 Labs/Radiology: Radiology Impressions Abdomen/Pelvis CT 10/31/21 03:00 IMPRESSION: There is wall thickening and pericolonic fat stranding of the distal transverse and descending colon consistent with infectious/inflammatory colitis. COMMENTS: Consistent with the [employer]'s Incidental Findings Committee white paper (J Am Magdy Radiol 2018): Any incidental renal lesion less than 1 cm or classified as too small to characterize, or any incidental cystic renal lesion characterized as simple-appearing, is likely benign. No follow-up imaging is recommended for these lesions per consensus recommendations based on imaging criteria. Laboratory Results WBC 10.8 10^3/uL (4.0-10.0) H 10/31/21 02:50 RBC 4.21 10^6/uL (4.1-5.3) 10/31/21 02:50 Hgb 13.1 g/dL (11.5-15.3) 10/31/21 02:50 Hct 40.1 % (37.0-47.0) 10/31/21 02:50 MCV 95.2 fl (81-99) 10/31/21 02:50 MCH 31.1 pg (28.0-34.0) 10/31/21 02:50 MCHC 32.7 g/dL (30.0-36.0) 10/31/21 02:50 RDW 12.4 % (12.1-15.1) 10/31/21 02:50 Plt Count 395 10^3/cmm (130-400) 10/31/21 02:50 MPV 9.3 fL (7.4-10.4) 10/31/21 02:50 Neut % (Auto) 65.8 % 10/31/21 02:50 Lymph % (Auto) 27.2 % 10/31/21 02:50 [place] % (Auto) 4.8 % 10/31/21 02:50 Eos % (Auto) 1.3 % 10/31/21 02:50 Baso % (Auto) 0.5 % 10/31/21 02:50 Neut # (Auto) 7.10 10^3/uL (1.8-7.7) 10/31/21 02:50 Lymph # (Auto) 2.9 10^3/uL (0.8-4.8) 10/31/21 02:50 [place] # (Auto) 0.5 10^3/uL (0.2-0.9) 10/31/21 02:50 Eos # (Auto) 0.1 10^3/uL (0.0-0.8) 10/31/21 02:50 Baso # (Auto) 0.1 10^3/uL (0.0-0.1) 10/31/21 02:50 Nucleated RBC % (auto) 0 % 10/31/21 02:50 Nucleated RBCs # 0.0 /100WBC 10/31/21 02:50 PT 15.70 SECONDS (12.1-14.9) H 10/31/21 03:02 INR 1.21 (0.8-1.2) H 10/31/21 03:02 Sodium 136 mmol/L (136-145) 10/31/21 02:50 Potassium 3.8 mmol/L (3.5-5.1) 10/31/21 02:50 Chloride 99 mmol/L (98-107) 10/31/21 02:50 Carbon Dioxide 26 mmol/L (22-29) 10/31/21 02:50 Anion Gap 14.8 (5-19) 10/31/21 02:50 BUN 9 mg/dL (6-20) 10/31/21 02:50 Creatinine 0.5 mg/dL (0.5-0.9) 10/31/21 02:50 GFR Calculation 129.1 mL/min (90-130) 10/31/21 02:50 Glucose 105 mg/dL (65-115) 10/31/21 02:50 Calculated Osmolality 281 mOsm/kg (285-295) L 10/31/21 02:50 Calcium 9.2 mg/dL (8.5-10.5) 10/31/21 02:50 Total Bilirubin 0.6 mg/dL (0.15-1.2) 10/31/21 02:50 AST 14 U/L (0-32) 10/31/21 02:50 ALT 6 U/L (0-33) 10/31/21 02:50 Alkaline Phosphatase 90 IU/L (35-105) 10/31/21 02:50 Total Protein 7.8 g/dL (6.6-8.7) 10/31/21 02:50 Albumin 4.3 g/dL (3.5-5.2) 10/31/21 02:50 Globulin 3.5 g/dL (1.3-4.6) 10/31/21 02:50 Lipase 17 U/L (13-60) 10/31/21 02:50 Discharge Plan Discharge Patient Disposition: Home Clinical Impression: Colitis, Acute lower GI bleeding Condition: Stable Prescriptions: New Flagyl 500 mg tablet 500 mg PO Q8H 7 Days Qty: 21 0RF Cipro 500 mg tablet 500 mg PO BID Qty: 14 0RF No Action Eliquis 5 mg tablet 5 mg PO BID Qty: 60 3RF aspirin 325 mg tablet 325 mg PO DAILY Qty: 90 3RF Protonix 40 mg tablet,delayed release (DR/EC) 40 mg PO BID Qty: 60 4RF atorvastatin 40 mg Tablet 80 mg PO DAILY Qty: 30 4RF Discharge Orders: Discharge ED (Routine); Ordered 10/31/21 Ordered By: Tayla Nazario Referrals: Chuy Pulliam DO [Primary Care Provider] - Oscar Vera MD [Physician] - 1-3 days Discharge Diet: Advance as tolerated Discharge Activity: Resume usual activity Patient Instructions: Colitis (ED) Coding Level of Care Code ED Labor Economics Professor for Chg Fwd Exam Comprehensive
[2021-10-31 03:11] LABS: Alanine Aminotransferase 6 U/L (0-33); Albumin Level 4.3 g/dL (3.5-5.2); Alkaline Phosphatase 90 IU/L (35-105); Anion Gap 14.8 (5-19); Aspartate Amino Transferase 14 U/L (0-32); Blood Urea Nitrogen 9 mg/dL (6-20); Calcium 9.2 mg/dL (8.5-10.5); Carbon Dioxide 26 mmol/L (22-29); Chloride 99 mmol/L (98-107); Creatinine Clr Calc Pharmacy 129.8061; Globulin 3.5 g/dL (1.3-4.6); Glomerular Filtration Rate 129.1 mL/min (90-130); Glucose 105 mg/dL (65-115); Lipase 17 U/L (13-60); Osmolality Calculated 281 mOsm/kg (285-295); Potassium 3.8 mmol/L (3.5-5.1); Sodium 136 mmol/L (136-145); Total Bilirubin 0.6 mg/dL (0.15-1.2); Total Protein 7.8 g/dL (6.6-8.7)
[2021-10-31] MEDS: iodixanol 320 mg/mL 100mL Btl IV (03:28)
[2021-10-31 03:30] LABS: INR 1.21 (0.8-1.2)
--- NOTE | 2021-10-31 09:38 | DCPLANNER ---
Addendum entered by Patricia Whalen 11/10/21 13:15: Patient had a follow up appointment scheduled for 11.06.21 with general surgery - patient did attend appointment. Addendum entered by Patricia Whalen 11/03/21 13:26: Patient has a follow up appointment scheduled for Saturday, November 06, 2021 at 8:[address] Vera at [facility] General Surgery. Clinic will call patient with appointment information. Original Note: manager contact had message to schedule a follow up appointment for patient with general surgery. manager contact emailed patients information to Gunjan Guido and Angelica at [facility] General Surgery / ENT clinic. Patients information will be printed and reviewed. Clinic will call patient with appointment information.
== END 2021-10-31 04:56 | disposition home or self-care (01) ==
PROVIDERS: Emergency Provider Emergency Medicine; PCP Family Medicine
DX: K52.9 Noninfective gastroenteritis and colitis, unspecified (principal); Z79.01 Long term (current) use of anticoagulants; Z79.82 Long term (current) use of aspirin; E78.5 Hyperlipidemia, unspecified; I10 Essential (primary) hypertension; F17.210 Nicotine dependence, cigarettes, uncomplicated
CPT/HCPCS: 74177; 80053; 83690; 85025; 85610; 99283; Q9967

== ENCOUNTER → 2021-11-30 12:29 | Outpatient (BNVA) | payer OTHER, SELFPAY | PROVIDERS: PCP Family Medicine; Visit Provider Family Medicine | DX: I73.9 Peripheral vascular disease, unspecified (principal); E78.5 Hyperlipidemia, unspecified; Z76.89 Persons encountering health services in other specified circumstances; I74.3 Embolism and thrombosis of arteries of the lower extremities | CPT/HCPCS: 80053; 80061; 85025 ==

== ENCOUNTER 2021-12-07 17:23 | Emergency (ER) | payer OTHER, SELFPAY ==
[2021-12-07 19:12] VITALS: BP 176/87; PULSE 86; RESP 20; TEMP 36.7; O2SAT 98; BMI 31.8
--- NOTE | 2021-12-07 19:55 | W.ED.BACK ---
HPI - Back Pain/Injury General: Chief Complaint: Back Pain/Injury Stated Complaint: Severe lower Back pain Time Seen by Provider: 12/07/21 19:39 Source: patient Mode of arrival: ambulatory Limitations: no limitations History of Present Illness: Patient is a 51-year-old female who presents to ED today with a complaint of lower back pain. Patient states she has had back pain for decades. She states approximately 7 years ago she received some type of what sounds like nerve ablation procedure from pain management and she states this controlled her pain for several years. She states over the past 2 to 3 years it has slowly but gradually worsened. She recently contacted her PCP who placed a referral back into pain management but she has not been contacted regarding this appointment. She states her pain seems to radiate down into her bilateral legs. Patient was seen here at our facility several months ago secondary to an arterial occlusion to her leg. Patient has tremendous anxiety and states she has a fear that her leg pain is secondary to another occlusion. She is not complaining of any pallor, paresthesias, or color changes. She states pain is bilaterally. MD elicited complaint: back pain Pertinent past history: prior back pain Onset (ago): month(s) Timing: constant Severity: severe Pain scale (0-10): 10 Similar Symptoms Previously: Yes Location: lumbar spine Radiation: left leg below the knee and right leg below the knee Exacerbating factors: sitting upright, coughing/sneezing and lifting Associated symptoms: Deny abdominal pain, chills, dysuria, fatigue, fever(s), hematuria, nausea or vomiting Work related injury: No Review of Systems Const: Denies: fever(s), chills, body aches, fatigue or malaise Card: Denies: chest pain Resp: Denies: dyspnea GI: Denies: abdominal pain, nausea or vomiting : Denies: flank pain, dysuria or hematuria Musc: Reports: back pain and extremity pain; Denies: neck pain, extremity swelling, joint pain, joint swelling, joint redness, joint warmth or limited range of motion Skin/Breast: Denies: rash or changes in skin color Neuro: Denies: headache(s), numbness in extremities, weakness in extremities or sensory changes PFS ED PFSH: Medical History Dyslipidemia Fibromyalgia HTN (hypertension) Migraine PAD (peripheral artery disease) Psychiatric care Surgical History H/O: hysterectomy History of x2 History of laparoscopic cholecystectomy S/P peripheral artery angioplasty Left SFA Family History Other Cancer Dementia Diabetes Rheumatoid arthritis Stroke Denies family history of CAD (coronary artery disease) Chronic kidney disease (CKD) Social History Smoking and tobacco status: current every day smoker cigarettes Alcohol intake: never Lives independently: Yes Household members: children Housing: House Physical Exam Const: COMMON NORMALS: patient oriented x3, no limitations and alert GENERAL APPEARANCE: cooperative ORIENTATION/CONSCIOUSNESS: Yes awake, Yes oriented to person, Yes oriented to place and Yes oriented to time OTHER: very anxious HENMT: COMMON NORMALS: normocephalic and atraumatic HEAD & SCALP: normal to inspection, normocephalic and atraumatic Resp: COMMON NORMALS: normal respiratory effort and clear to auscultation bilaterally AUSCULTATION: clear to auscultation bilaterally Cardio: COMMON NORMALS: regular rate and regular rhythm RATE: regular rate RHYTHM: regular rhythm GI: COMMON NORMALS: Normal to inspection, nondistended, normoactive bowel sounds present, Soft to palpation, non-tender, No hepatosplenomegaly present and no masses PALPATION: Yes Soft to palpation and Yes No hepatosplenomegaly present : COMMON NORMALS: Yes no CVA tenderness BLADDER/KIDNEY EXAM: Yes no CVA tenderness Back/Pelvis: COMMON NORMALS: no CVA tenderness THORACIC SPINE/UPPER BACK: Yes normal to inspection, Yes thoracic ROM normal, No thoracic spinal tenderness, No paraspinal muscle tenderness and No paraspinal muscle spasm LUMBAR SPINE/LOWER BACK: Yes pain with ROM, Yes lumbar spinal tenderness (lower L spine), Yes paraspinal muscle tenderness (across lower back), No paraspinal muscle spasm and No mass present PELVIS: Yes buttocks normal SACROILIAC JOINTS: Yes SI joint(s) abnormal SI joint details: tender to palpation (left) Extremity: COMMON NORMALS: normal to inspection, full ROM, capillary refill normal, no joint enlargement, no clubbing, cyanosis or edema, no calf tenderness and no pedal edema GENERAL: Yes normal exam except as noted OTHER: pt has palpable DP/PT pulses bilaterally with normal cap refill; bilateral legs are warm to the touch; sensation normal Neuro: COMMON NORMALS: patient oriented x3, moves all extremities, no focal motor deficits, no sensory deficits noted and gait normal SENSORIUM/ORIENTATION: Yes alert, Yes oriented to person, Yes oriented to place and Yes oriented to time MOTOR EXAM: 5/5 motor strength present throughout Skin: COMMON NORMALS: no rashes or lesions noted GENERAL SKIN EXAM: no rashes or lesions noted TRAUMA: no lacerations or abrasions Course Vital Signs: Vital signs: Vital Signs Temperature 98.0 F 12/07/21 19:12 Pulse Rate 86 12/07/21 19:12 Respiratory Rate 16 12/07/21 20:28 Blood Pressure 176/87 12/07/21 19:12 Pulse Oximetry 98 12/07/21 19:12 MDM - Back Pain/Injury Medical Decision Making Patient here with progressively worsening lower back pain. She has no acute neurologic deficits on today's exam. Back pain is reproducible with palpation. There is no need for emergent imaging today. She already has a referral placed to pain management. As documented in her HPI patient is very anxious as she had some lumbar radiculopathy to her lower extremities. She has a previous history of arterial occlusion and was concerned that her leg pain could be secondary to another occlusion. I saw patient personally during that last visit and diagnosed her with the arterial occlusion. She did not have palpable pulses on that visit. Today she has clearly palpable DP/PT pulses bilaterally. Her bilateral lower extremities are warm to the touch with brisk cap refill. Absolutely no suspicion for acute arterial occlusion on this visit. Patient's pain upon arrival was 10/10. She is down to 4/10 with IM medications and states she feels comfortable going home. Strict return to ED precautions. Recommend she follow-up with PCP in the meantime until she can get her appointment with pain management. Discharge Plan Discharge Patient Disposition: Home Clinical Impression: Acute exacerbation of chronic low back pain Condition: Stable Prescriptions: New ibuprofen 800 mg tablet 800 mg PO Q8H PRN (Reason: pain) Qty: 20 0RF methocarbamol 750 mg tablet 1,500 mg PO Q8H Qty: 30 0RF Medrol (Royce) 4 mg tablets,dose pack See Rx Instructions .ROUTE .COMPLEX Qty: 21 0RF Rx Instructions: orally per package directions No Action gabapentin 800 mg tablet 400 mg PO DAILY PRN0RF Eliquis 5 mg tablet 5 mg PO BID Qty: 60 1RF aspirin 325 mg tablet 325 mg PO DAILY Qty: 90 3RF Protonix 40 mg tablet,delayed release (DR/EC) 40 mg PO BID Qty: 60 4RF atorvastatin 40 mg Tablet 80 mg PO DAILY Qty: 30 4RF Discharge Orders: Discharge ED (Routine); Ordered 12/07/21 Ordered By: Beth Mancuso Referrals: Chuy Pulliam DO [Primary Care Provider] - Coding Level of Care Code ED Central Office Associate for Chg Fwd Exam Comprehensive
[2021-12-07] MEDS: dexamethasone 10 mg/mL INJ 8 MG IM (20:27)
[2021-12-07] MEDS: ketorolac 60 mg/2 mL INJ IM (20:27)
[2021-12-07 20:28] VITALS: RESP 16
[2021-12-07] MEDS: orphenadrine 30 mg/mL Inj 2 mL 60 MG IM (20:28)
[2021-12-07] MEDS: morphine 4 mg/mL SDV 1 mL IM (20:28)
== END 2021-12-07 21:10 | disposition home or self-care (01) ==
PROVIDERS: Emergency Provider Physician Assistant; PCP Family Medicine
DX: G89.29 Other chronic pain (principal); M54.50 Low back pain, unspecified; I73.9 Peripheral vascular disease, unspecified; F17.210 Nicotine dependence, cigarettes, uncomplicated; I10 Essential (primary) hypertension; Z98.62 Peripheral vascular angioplasty status; Z79.01 Long term (current) use of anticoagulants; Z79.82 Long term (current) use of aspirin
CPT/HCPCS: 96372; 99283; J1100; J1885; J2270; J2360

== ENCOUNTER 2021-12-08 13:56 | Emergency (ER) | payer OTHER, SELFPAY ==
[2021-12-08 14:04] VITALS: BP 181/116; PULSE 118; RESP 16; TEMP 37; O2SAT 100; BMI 31.8
--- NOTE | 2021-12-08 14:33 | W.ED.BACK ---
Documented by User: GIOVANA Wynn 12/08/21 15:29 HPI - Back Pain/Injury General: Chief Complaint: Back Pain/Injury Stated Complaint: Back pain, headache, vomiting Time Seen by Provider: 12/08/21 14:10 History of Present Illness: She presents with chronic low back pain exacerbated over the last 2 years. Patient seen in the ER last night given prescription and patient says she left ibuprofen prescription here because she is unable to take ibuprofen due to being on blood thinners. She said the pain was bad enough that she vomited x1. Also has a headache. Denies any other illness. Denies any fever, chills, urinary problems. Is upset that she cannot get in pain clinic for 4 weeks. She needs some stronger for pain. Associated symptoms: Reports vomiting (X1 due to pain); Deny abdominal pain, chills, fever(s) or nausea Review of Systems Const: Denies: fever(s), chills or body aches Eyes: Denies: eye discomfort ENMT: Denies: throat pain Card: Denies: chest pain Resp: Denies: dyspnea GI: Reports: vomiting (X1 due to pain); Denies: abdominal pain or nausea Musc: Reports: back pain Skin/Breast: Denies: rash Neuro: Reports: headache(s) Psych: Denies: depression or suicidal ideation PFSH ED PFSH: Medical History Dyslipidemia Fibromyalgia HTN (hypertension) Migraine PAD (peripheral artery disease) Psychiatric care Surgical History H/O: hysterectomy History of x2 History of laparoscopic cholecystectomy S/P peripheral artery angioplasty Left SFA Family History Other Cancer Dementia Diabetes Rheumatoid arthritis Stroke Denies family history of CAD (coronary artery disease) Chronic kidney disease (CKD) Social History Smoking and tobacco status: current every day smoker cigarettes Alcohol intake: never Lives independently: Yes Household members: children Housing: House Physical Exam Const: COMMON NORMALS: no acute distress, patient oriented x3 and alert HENMT: COMMON NORMALS: normocephalic and external ears normal HEAD & SCALP: normocephalic EXTERNAL EAR: Yes external ears normal Eye: COMMON NORMALS: EOMs intact bilaterally Neck/C-Spine: COMMON NORMALS: no JVD Resp: COMMON NORMALS: normal respiratory effort and No use of accessory muscles Cardio: COMMON NORMALS: no JVD GI: INSPECTION: Yes normal to inspection Back/Pelvis: OTHER: Patient is up ambulating around the room. Says her back hurts for her to lay down. And she does not want to lay down. Extremity: COMMON NORMALS: normal to inspection and full ROM Neuro: COMMON NORMALS: patient oriented x3 SENSORIUM/ORIENTATION: Yes alert Psych: COMMON NORMALS: mental status grossly normal Skin: COMMON NORMALS: no rashes or lesions noted GENERAL SKIN EXAM: no rashes or lesions noted Course Vital Signs: Vital signs: Vital Signs Temperature 98.6 F 12/08/21 14:04 Pulse Rate 74 12/08/21 15:05 Respiratory Rate 16 12/08/21 15:05 Blood Pressure 165/91 12/08/21 15:05 Pulse Oximetry 96 12/08/21 15:05 MDM - Back Pain/Injury Medical Decision Making Patient presents with ongoing chronic low back pain. Patient was in here last night and did not take medication she was given because she said she was on blood thinner. She has an follow-up appointment with [facility] but cannot get in she said for 4 weeks. Would like some stronger for back pain. Patient has a history of hypertension not currently taking medications. Discharge Plan Discharge Patient Disposition: Home Clinical Impression: Chronic low back pain Condition: Stable Prescriptions: New tramadol 50 mg tablet 50 mg PO TID PRN (Reason: pain) Qty: 20 0RF No Action methocarbamol 750 mg tablet 1,500 mg PO Q8H Qty: 30 0RF methylprednisolone [Medrol (Royce)] 4 mg tablets,dose pack See Rx Instructions .ROUTE .COMPLEX Qty: 21 0RF Rx Instructions: orally per package directions atorvastatin 40 mg tablet 80 mg PO DAILY@09 0RF aspirin 325 mg tablet 325 mg PO DAILY@09 0RF Protonix 40 mg tablet,delayed release (DR/EC) 40 mg PO BID@, 0RF Eliquis 5 mg tablet 5 mg PO BID@, 0RF Discharge Orders: Discharge ED (Routine); Ordered 12/08/21 Ordered By: Aung Miles Referrals: Chuy Pulliam, [Primary Care Provider] - Discharge Diet: Usual diet Discharge Activity: Increase activity as tolerated Patient Instructions: Chronic Back Pain (DC), Opioid Safety Activity Restrictions/Additional Instructions: Follow-up with medical provider as directed. Take medications as prescribed. Return to the ER or your medical provider if condition worsens. Please read and understand discharge instructions. If any questions ask please. Coding Level of Care Code ED Electronic Integrated Systems Mechanic for Chg Fwd Exam Comprehensive
[2021-12-08 15:01] VITALS: BP 165/91; PULSE 74; RESP 16; O2SAT 96
[2021-12-08 15:05] VITALS: BP 165/91; PULSE 74; RESP 16; O2SAT 96
== END 2021-12-08 15:01 | disposition home or self-care (01) ==
PROVIDERS: Emergency Provider Nurse Practitioner Family; PCP Family Medicine
DX: G89.29 Other chronic pain (principal); M54.50 Low back pain, unspecified; Z79.82 Long term (current) use of aspirin; Z79.01 Long term (current) use of anticoagulants; E78.5 Hyperlipidemia, unspecified; I10 Essential (primary) hypertension; F17.210 Nicotine dependence, cigarettes, uncomplicated
CPT/HCPCS: 99282

== ENCOUNTER 2021-12-15 18:30 | Emergency (ER) | payer OTHER, MEDICAID, SELFPAY ==
[2021-12-15 18:36] VITALS: BP 167/80; PULSE 96; RESP 16; TEMP 36.7; O2SAT 98; BMI 31.8
[2021-12-15 19:17] LABS: Basophils # 0.1 10^3/uL (0.0-0.1); Basophils % 0.7 %; Eosinophils # 0.2 10^3/uL (0.0-0.8); Eosinophils % 1.7 %; Hematocrit 44.7 % (37.0-47.0); Hemoglobin 14.6 g/dL (11.5-15.3); Lymphocytes # 4.2 10^3/uL (0.8-4.8); Lymphocytes % 33.5 %; Mean Corpuscular HGB Conc 32.7 g/dL (30.0-36.0); Mean Corpuscular Hemoglobin 30.8 pg (28.0-34.0); Mean Corpuscular Volume 94.3 fl (81-99); Mean Platelet Volume 10.4 fL (7.4-10.4); Monocytes # 0.8 10^3/uL (0.2-0.9); Monocytes % 5.9 %; Neutrophils % 57.8 %; Nucleated Red Blood Cells % 0 %; Platelet Count 339 10^3/cmm (130-400); Red Blood Count 4.74 10^6/uL (4.1-5.3); Red Cell Distribution Width 12.5 % (12.1-15.1); White Blood Count 12.6 10^3/uL (4.0-10.0)
[2021-12-15 19:29] LABS: Anion Gap 15.3 (5-19); Blood Urea Nitrogen 15 mg/dL (6-20); Calcium 9.3 mg/dL (8.5-10.5); Carbon Dioxide 26 mmol/L (22-29); Chloride 102 mmol/L (98-107); Glomerular Filtration Rate 87.5 mL/min (90-130); Glucose 107 mg/dL (65-115); Osmolality Calculated 289 mOsm/kg (285-295); Potassium 4.3 mmol/L (3.5-5.1); Sodium 139 mmol/L (136-145)
--- NOTE | 2021-12-15 19:36 | CTR_ITS ---
PROCEDURE INFORMATION: Exam: CT Head Without Contrast Exam date and time: 12/15/2021 8:20 PM Age: 51 years old Clinical indication: Pain; Patient HX: C/O headache with dizziness and n/v. ; Additional info: Headache, dizzy TECHNIQUE: Imaging protocol: Computed tomography of the head without contrast. Radiation optimization: All CT scans at this facility use at least one of these dose optimization techniques: automated exposure control; mA and/or kV adjustment per patient size (includes targeted exams where dose is matched to clinical indication); or iterative reconstruction. COMPARISON: CT head wo con* [id number] 02/24/2021 11:07 PM RADIATION DOSE METRICS: Total DLP (mGy-cm): 813.73 FINDINGS: Brain: Normal. No hemorrhage. Unremarkable white matter. No mass effect. Cerebral ventricles: No ventriculomegaly. Paranasal sinuses: Visualized sinuses are unremarkable. No fluid levels. Mastoid air cells: Visualized mastoid air cells are well aerated. Bones/joints: Unremarkable. No acute fracture. Soft tissues: Unremarkable. CT/CT head wo con* [id number] IMPRESSION: No acute intracranial abnormality.
[2021-12-15 19:38] LABS: INR 1.05 (0.8-1.2)
[2021-12-15 19:57] VITALS: RESP 20
[2021-12-15] MEDS: fentaNYL 50 mcg/mL INJ 2mL 75 MCG IVP (19:57)
[2021-12-15] MEDS: ondansetron 2 mg/ML SDV 2 mL 4 MG IVP (19:58)
[2021-12-15] MEDS: valproic acid inj 500 MG in sodium chloride 0.9% 50 ML 55 MG IV (19:59)
[2021-12-15 20:53] LABS: Bilirubin Urine Neg (Negative); Blood Urine Neg (Negative); Glucose Urine UA Norm (Normal); Ketones Urine Negative (Negative); Nitrate Urine Negative (Negative); Protein Urine Neg (Negative); Urine Appearance SL Hazy (CLEAR); Urine Color Yellow (Yellow); Urobilinogen Urine Norm (Negative); pH Urine 5 (5-7)
[2021-12-15 20:54] LABS: Add Urine Microscopic? YES; Leukocyte Esterase Urine 2+ (Negative)
[2021-12-15 20:55] LABS: Add Urine Culture? No; Bacteria Urine 1+ /hpf; RBC Urine 0-4 /hpf (0-2); WBC Urine 15-25 /hpf (0-5)
[2021-12-15 21:06] VITALS: BP 137/63; PULSE 88; RESP 18; O2SAT 98
--- NOTE | 2021-12-15 21:37 | W.ED.HA ---
HPI - Headache General: Chief Complaint: Headache Stated Complaint: dizzy, weak Time Seen by Provider: 12/15/21 19:08 Source: patient and family History of Present Illness: 51-year-old female with 8 days of symptoms. She complains of left-sided parietal headache, with some light sensitivity. She has a history of migraine, but notes that this is not her normal migraine type of headache. She has been generally weak and fatigued. She has been nauseated. She is trying to hold down liquids. Daughter notes that she was recently put on blood pressure medications, for blood pressures over 200 systolic. Patient notes she felt like this prior to being placed on blood pressure medication. She is on Eliquis, as she has peripheral vascular disease with a stent, and is concerned about bleeding in her brain. MD elicited complaint: headache Pertinent past history: migraines and hypertension Onset (ago): day(s) Onset description: gradually Location: left Severity: moderate Quality & Timing: throbbing Exacerbating factors: movement of head/neck Relieving factors: nothing Context: occurred at rest Associated symptoms: Reports lightheadedness, nausea, photophobia, vomiting and weakness (generalized); Deny chest pain, confusion, cough, diaphoresis, eye pain, eye redness, fever(s), loss of vision, neck stiffness, numbness, paresthesias, seizures, short of breath or syncope Review of Systems Const: Denies: fever(s) or diaphoresis Eyes: Denies: change in vision ENMT: Denies: throat pain Card: Reports: lightheadedness; Denies: chest pain or syncope Resp: Denies: dyspnea, productive cough or non-productive cough GI: Reports: nausea and vomiting Musc: Reports: back pain ( which is normal ); Denies: neck pain Neuro: Reports: headache(s), weakness in extremities (generalized) and dizziness; Denies: numbness in extremities, vertigo, confusion or behavioral changes Psych: Reports: anxiety PFSH ED PFSH: Medical History Dyslipidemia Fibromyalgia HTN (hypertension) Migraine Nicotine dependence, cigarettes, uncomplicated PAD (peripheral artery disease) Post-traumatic stress disorder, chronic Psychiatric care Surgical History H/O: hysterectomy History of x2 History of laparoscopic cholecystectomy S/P peripheral artery angioplasty Left SFA Family History Other Cancer Dementia Diabetes Rheumatoid arthritis Stroke Denies family history of CAD (coronary artery disease) Chronic kidney disease (CKD) Social History Smoking and tobacco status: never smoked Alcohol intake: never Lives independently: Yes Household members: children Housing: House Physical Exam Const: COMMON NORMALS: patient oriented x3 GENERAL APPEARANCE: cooperative; not frail appearing ORIENTATION/CONSCIOUSNESS: Yes oriented to person, Yes oriented to place and Yes oriented to time HENMT: COMMON NORMALS: normocephalic, atraumatic and Normal external nose present HEAD & SCALP: normocephalic and atraumatic; no Temporal artery tenderness present FACE & SINUS: normal facial exam NOSE: Normal external nose present Eye: COMMON NORMALS: Equal, round and reactive pupils present and EOMs intact bilaterally PUPIL: Yes Equal, round and reactive pupils present and Yes Pupil accommodation reflex normal DIRECT OPHTHALMOSCOPY: Yes photophobia Chest: COMMONS NORMALS: normal inspection of the chest Resp: COMMON NORMALS: normal respiratory effort, No use of accessory muscles and clear to auscultation bilaterally AUSCULTATION: clear to auscultation bilaterally Cardio: COMMON NORMALS: regular rate and regular rhythm RATE: regular rate RHYTHM: regular rhythm GI: COMMON NORMALS: Normal to inspection, nondistended, normoactive bowel sounds present and Soft to palpation PALPATION: Yes Soft to palpation Neuro: COMMON NORMALS: patient oriented x3 and no focal motor deficits SENSORIUM/ORIENTATION: Yes oriented to person, Yes oriented to place and Yes oriented to time CRANIAL NERVES: Yes CN normal except as noted COORDINATION/BALANCE: [id number] test normal and [id number]-[id number] test normal SPEECH: speech normal SENSORY EXAM: Yes extremities MOTOR EXAM: Pronator motor function not present COORDINATION: [id number] test normal and [id number] test normal Course Vital Signs: Vital signs: Vital Signs Temperature 98.1 F 12/15/21 18:36 Pulse Rate 88 12/15/21 22:04 Respiratory Rate 18 12/15/21 22:04 Blood Pressure 137/63 12/15/21 21:06 Pulse Oximetry 98 12/15/21 21:06 MDM - Headache Medical Decision Making Symptoms of generalized weakness with headache. Temporal arteries are nontender. She does have some mild left parietal tenderness. Her blood cell count is 12. BMP is normal. Urinalysis is slightly contaminated but does show 50-25 white blood cells 2+ leukocyte esterase and 1+ bacteria. We will treat accordingly. She was counseled on diagnosis, and negative head CT result. She is pleased. She was treated for migraine here, with mild improvement Lab Data : 12/15/21 18:50 12/15/21 18:[address] 12/15/21 19:36 IMPRESSION: No acute intracranial abnormality. Laboratory Results WBC 12.6 10^3/uL (4.0-10.0) H 12/15/21 18:50 RBC 4.74 10^6/uL (4.1-5.3) 12/15/21 18:50 Hgb 14.6 g/dL (11.5-15.3) 12/15/21 18:50 Hct 44.7 % (37.0-47.0) 12/15/21 18:50 MCV 94.3 fl (81-99) 12/15/21 18:50 MCH 30.8 pg (28.0-34.0) 12/15/21 18:50 MCHC 32.7 g/dL (30.0-36.0) 12/15/21 18:50 RDW 12.5 % (12.1-15.1) 12/15/21 18:50 Plt Count 339 10^3/cmm (130-400) 12/15/21 18:50 MPV 10.4 fL (7.4-10.4) 12/15/21 18:50 Neut % (Auto) 57.8 % 12/15/21 18:50 Lymph % (Auto) 33.5 % 12/15/21 18:50 [place] % (Auto) 5.9 % 12/15/21 18:50 Eos % (Auto) 1.7 % 12/15/21 18:50 Baso % (Auto) 0.7 % 12/15/21 18:50 Neut # (Auto) 7.30 10^3/uL (1.8-7.7) 12/15/21 18:50 Lymph # (Auto) 4.2 10^3/uL (0.8-4.8) 12/15/21 18:50 [place] # (Auto) 0.8 10^3/uL (0.2-0.9) 12/15/21 18:50 Eos # (Auto) 0.2 10^3/uL (0.0-0.8) 12/15/21 18:50 Baso # (Auto) 0.1 10^3/uL (0.0-0.1) 12/15/21 18:50 Nucleated RBC % (auto) 0 % 12/15/21 18:50 Nucleated RBCs # 0.0 /100WBC 12/15/21 18:50 PT 14.00 SECONDS (12.1-14.9) 12/15/21 19:17 INR 1.05 (0.8-1.2) 12/15/21 19:17 Sodium 139 mmol/L (136-145) 12/15/21 18:50 Potassium 4.3 mmol/L (3.5-5.1) 12/15/21 18:50 Chloride 102 mmol/L (98-107) 12/15/21 18:50 Carbon Dioxide 26 mmol/L (22-29) 12/15/21 18:50 Anion Gap 15.3 (5-19) 12/15/21 18:50 BUN 15 mg/dL (6-20) 12/15/21 18:50 Creatinine 0.7 mg/dL (0.5-0.9) 12/15/21 18:50 GFR Calculation 87.5 mL/min (90-130) L 12/15/21 18:50 Glucose 107 mg/dL (65-115) 12/15/21 18:50 Calculated Osmolality 289 mOsm/kg (285-295) 12/15/21 18:50 Calcium 9.3 mg/dL (8.5-10.5) 12/15/21 18:50 Urine Color Yellow (Yellow) 12/15/21 20:34 Urine Appearance Sl hazy (CLEAR) 12/15/21 20:34 Urine pH 5 (5-7) 12/15/21 20:34 Ur Specific [place] 1.010 (1.005-1.030) 12/15/21 20:34 Urine Protein Neg (Negative) 12/15/21 20:34 Urine Glucose (UA) Norm (Normal) 12/15/21 20:34 Urine Ketones Negative (Negative) 12/15/21 20:34 Urine Blood Neg (Negative) 12/15/21 20:34 Urine Nitrate Negative (Negative) 12/15/21 20:34 Urine Bilirubin Neg (Negative) 12/15/21 20:34 Urine Urobilinogen Norm mg/dL (Negative) 12/15/21 20:34 Ur Leukocyte Esterase 2+ (Negative) H 12/15/21 20:34 Urine RBC 0-4 /hpf (0-2) H 12/15/21 20:34 Urine WBC 15-25 /hpf (0-5) H 12/15/21 20:34 Ur Squamous Epith Cells 10-15 /hpf (0-5) H 12/15/21 20:34 Amorphous Sediment Not Reportable 12/15/21 20:34 Urine Bacteria 1+ /hpf (NONE) H 12/15/21 20:34 Discharge Plan Discharge Patient Disposition: Home Clinical Impression: Headache, Urinary tract infection Condition: Stable Prescriptions: No Action lisinopril 40 mg tablet 40 mg PO DAILY Qty: 30 2RF gabapentin 300 mg capsule 300 mg PO TID 0RF Label Comments: pt not taking gabapentin 800 mg tablet 400 mg PO BID 0RF Tylenol Sinus Headache 5-325 mg tablet 1 tab PO Q4H 0RF clonazepam 0.5 mg tablet 0.5 mg PO DAILY PRN (Reason: anxiety) Qty: 30 0RF sertraline [Zoloft] 50 mg tablet 50 mg PO DAILY Qty: 30 1RF tizanidine 4 mg tablet 4 mg PO BID PRN (Reason: muscle spasticity) Qty: 60 0RF atorvastatin 40 mg tablet 80 mg PO DAILY@09 0RF aspirin 325 mg tablet 325 mg PO DAILY@09 0RF pantoprazole [Protonix] 40 mg tablet,delayed release (DR/EC) 40 mg PO BID@, 0RF Eliquis 5 mg tablet 5 mg PO BID@,21 0RF Discharge Orders: Discharge ED (Routine); Ordered 12/15/21 Ordered By: Domingo Bai Referrals: Chuy Pulliam DO [Primary Care Provider] - 4-7 days Patient Instructions: Urinary Tract Infection in Women (ED), General Headache (ED), Opioid Safety Activity Restrictions/Additional Instructions: Return for worsening mental status, weakness to 1 side, vision changes, worsening dizziness, any other concerning symptoms. Coding Level of Care Code ED Content Production Specialist for Chg Fwd Exam Comprehensive
[2021-12-15] MEDS: cefTRIAXone 1,000 MG in sodium chloride 0.9% (plus) 50 ML 100 MG IV (21:39)
[2021-12-15] MEDS: oxyCODONE-APAP 5-325 mg Tablet 2 TAB PO (22:03)
[2021-12-15 22:04] VITALS: PULSE 88; RESP 18
== END 2021-12-15 22:05 | disposition home or self-care (01) ==
PROVIDERS: Emergency Provider Emergency Medicine; PCP Family Medicine
DX: N39.0 Urinary tract infection, site not specified (principal); R51.9 Headache, unspecified; Z79.01 Long term (current) use of anticoagulants; F17.210 Nicotine dependence, cigarettes, uncomplicated
CPT/HCPCS: 70450; 80048; 81001; 85025; 85610; 96365; 96367; 96375; 99284; J0696; J2405; J3010

== ENCOUNTER 2021-12-26 17:41 | Emergency (ER) | payer OTHER, SELFPAY ==
[2021-12-26 18:36] VITALS: BP 147/86; PULSE 97; RESP 20; TEMP 36.7; O2SAT 99; BMI 32.5
--- NOTE | 2021-12-26 18:47 | USR_ITS ---
PROCEDURE INFORMATION: Exam: US Duplex Left Lower Extremity Arteries Or Arterial Bypass Grafts Exam date and time: 12/26/2021 7:12 PM Age: 51 years old Clinical indication: Pain; Leg, lower; Left; Additional info: HX of occlusion, pain TECHNIQUE: Imaging protocol: Left Real-time duplex scan of the arteries or arterial bypass grafts of the left lower extremity with 2-D hennessy scale, color Doppler flow and spectral waveform analysis. Images documented and saved. COMPARISON: CT angio abd aorta runof [id number] 10/06/2021 4:15 PM FINDINGS: Left common femoral artery: Lower extremity arterial system appears patent with largely monophasic blood flow seen throughout the lower extremity vessels suggesting a degree of stenosis. Scattered atherosclerotic plaque throughout the lower extremity system. Left superficial femoral artery: See above. Left popliteal artery: See above. Left calf/foot arteries: See above. Other arteries: US/CV arterial duplex [facility] [id number] IMPRESSION: 1. Lower extremity arterial system appears patent with largely monophasic blood flow seen throughout the lower extremity vessels suggesting a degree of stenosis. 2. Scattered atherosclerotic plaque throughout the lower extremity system.
--- NOTE | 2021-12-26 18:50 | ED_ITS ---
Documented by User: GIOVANA Wynn 12/26/21 20:25 HPI - Extremity Problem General: Chief complaint: Extremity Injury, Lower Stated complaint: severe pain on left leg Time Seen by Provider: 12/26/21 18:42 History of Present Illness: Patient presents with a weeklong history of pain to her left lower extremity. Patient was sent here from the cardiology office for ultrasound to rule out possible occlusion of the left lower extremity. Patient is currently on Eliquis. Patient did have stents placed left lower extremity 3 months ago. Patient has no ischemia, does have positive pulses but pain is centered above the left knee and radiates down the lateral aspect of the left calf patient has history chronic low back pain with sciatica more the right than the left. Patient currently under treatment by pain clinic. Associated symptoms: Deny chest pain, fever(s) or rash Review of Systems Const: Denies: fever(s), chills or body aches Eyes: Denies: eye discomfort ENMT: Denies: throat pain Card: Denies: chest pain Resp: Denies: dyspnea GI: Denies: abdominal pain, nausea or vomiting Musc: Reports: extremity pain (Left leg pain evaluated cardiology office today sent here for ultrasound.) Skin/Breast: Denies: rash Neuro: Denies: headache(s) Psych: Denies: depression or suicidal ideation PFSH ED PFSH: Medical History Dyslipidemia Fibromyalgia HTN (hypertension) Migraine Nicotine dependence, cigarettes, uncomplicated PAD (peripheral artery disease) Post-traumatic stress disorder, chronic Psychiatric care Surgical History H/O: hysterectomy History of x2 History of laparoscopic cholecystectomy S/P peripheral artery angioplasty Left SFA Family History Other Cancer Dementia Diabetes Rheumatoid arthritis Stroke Denies family history of CAD (coronary artery disease) Chronic kidney disease (CKD) Social History Smoking and tobacco status: current every day smoker cigarettes [ Other cigarette details: smokes 6 cig's per day] Alcohol intake: never Lives independently: Yes Household members: children Housing: House Physical Exam Const: COMMON NORMALS: no acute distress, patient oriented x3 and alert HENMT: COMMON NORMALS: normocephalic HEAD & SCALP: normocephalic Eye: COMMON NORMALS: EOMs intact bilaterally Neck/C-Spine: COMMON NORMALS: no JVD Resp: COMMON NORMALS: normal respiratory effort and No use of accessory muscles Cardio: COMMON NORMALS: no JVD GI: INSPECTION: Yes normal to inspection Extremity: COMMON NORMALS: normal to inspection and full ROM LEFT LOWER EXTREMITY: Yes upper leg (Tenderness above the knee area. No redness swelling or ischemia noted.), Yes lower leg (Tenderness lateral aspect calf. No swelling are ischemia noted.) and Yes foot & digits Left foot and digits: Yes neurovascular exam (Tach) and Yes other (Distal pulses intact.) Neuro: COMMON NORMALS: patient oriented x3 SENSORIUM/ORIENTATION: Yes alert Psych: COMMON NORMALS: mental status grossly normal Skin: COMMON NORMALS: no rashes or lesions noted GENERAL SKIN EXAM: no rashes or lesions noted Course Vital Signs: Vital signs: Vital Signs Temperature 98.1 F 12/26/21 18:36 Pulse Rate 97 12/26/21 18:36 Respiratory Rate 20 H 12/26/21 18:36 Blood Pressure 147/86 12/26/21 18:36 Pulse Oximetry 99 12/26/21 18:36 MDM - Extremity (Nontraumatic) Medical Decision Making Patient with a left leg pain. Most likely sciatica. Arterial duplex was negative. Patient currently taking Eliquis anyway. Patient said she was sent over here by cardiology but after talk with patient in the visit she was not sent here but chose to come here to get test done sooner. This might have been the suggestions of provider. Patient has a history of chronic low back pain plus sciatica. 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 Lab Data Radiology Impressions Duplex Scan Lower Extremity Artery 12/26/21 18:47 IMPRESSION: 1. Lower extremity arterial system appears patent with largely monophasic blood flow seen throughout the lower extremity vessels suggesting a degree of stenosis. 2. Scattered atherosclerotic plaque throughout the lower extremity system. Discharge Plan Discharge Patient Disposition: Home Clinical Impression: Left leg pain Condition: Stable Prescriptions: New hydrocodone-acetaminophen 5-325 mg tablet 1 tab PO TID PRN (Reason: pain) Qty: 14 0RF prednisone 20 mg tablet 20 mg PO DAILY Qty: 7 0RF No Action lisinopril 40 mg tablet 40 mg PO DAILY Qty: 30 2RF gabapentin 300 mg capsule 300 mg PO TID 0RF Label Comments: pt not taking gabapentin 800 mg tablet 400 mg PO BID 0RF Tylenol Sinus Headache 5-325 mg tablet 1 tab PO Q4H 0RF clonazepam 0.5 mg tablet 0.5 mg PO DAILY PRN (Reason: anxiety) Qty: 30 0RF sertraline [Zoloft] 50 mg tablet 50 mg PO DAILY Qty: 30 1RF tizanidine 4 mg tablet 4 mg PO BID PRN (Reason: muscle spasticity) Qty: 60 0RF atorvastatin 40 mg tablet 80 mg PO DAILY@09 0RF aspirin 325 mg tablet 325 mg PO DAILY@09 0RF pantoprazole [Protonix] 40 mg tablet,delayed release (DR/EC) 40 mg PO BID@, 0RF Eliquis 5 mg tablet 5 mg PO BID@,21 0RF Discharge Orders: Discharge ED (Routine); Ordered 12/26/21 Ordered By: Aung Miles Referrals: Chuy Pulliam DO [Primary Care Provider] - Discharge Diet: Usual diet Discharge Activity: Increase activity as tolerated Patient Instructions: Sciatica (ED) Activity Restrictions/Additional Instructions: Follow-up with medical provider as directed. Take medications as prescribed. Return to the ER or your medical provider if condition worsens. Please read and understand discharge instructions. If any questions ask please. Coding Level of Care Code ED [facility] for Chg Fwd Exam Comprehensive Documented by User: Satya Langford MD 12/30/21 12:31 HPI - Extremity Problem General: Chief complaint: Extremity Injury, Lower Stated complaint: severe pain on left leg Time Seen by Provider: 12/26/21 18:42 PFSH ED PFSH: Medical History Dyslipidemia Fibromyalgia HTN (hypertension) Migraine Nicotine dependence, cigarettes, uncomplicated PAD (peripheral artery disease) Post-traumatic stress disorder, chronic Psychiatric care Surgical History H/O: hysterectomy History of x2 History of laparoscopic cholecystectomy S/P peripheral artery angioplasty Left SFA Family History Other Cancer Dementia Diabetes Rheumatoid arthritis Stroke Denies family history of CAD (coronary artery disease) Chronic kidney disease (CKD) Social History Smoking and tobacco status: current every day smoker cigarettes [ Other cigarette details: smokes 6 cig's per day] Alcohol intake: never Lives independently: Yes Household members: children Housing: House Course Vital Signs: Vital signs: Vital Signs Temperature 98.1 F 12/26/21 18:36 Pulse Rate 97 12/26/21 18:36 Respiratory Rate 20 H 12/26/21 18:36 Blood Pressure 147/86 12/26/21 18:36 Pulse Oximetry 99 12/26/21 18:36 MDM - Extremity (Nontraumatic) Medical Decision Making Patient with a left leg pain. Most likely sciatica. Arterial duplex was negative. Patient currently taking Eliquis anyway. Patient said she was sent over here by cardiology but after talk with patient in the visit she was not sent here but chose to come here to get test done sooner. This might have been the suggestions of provider. Patient has a history of chronic low back pain plus sciatica. 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 Dr. Langford - Patient evaluation, diagnosis, and management was performed independently by Aung Miles. I did not personally see the patient nor staff the patient with patient's provider. I did review the patient's note today and I believe this note is consistent. Lab Data Radiology Impressions Duplex Scan Lower Extremity Artery 12/26/21 18:47 IMPRESSION: 1. Lower extremity arterial system appears patent with largely monophasic blood flow seen throughout the lower extremity vessels suggesting a degree of stenosis. 2. Scattered atherosclerotic plaque throughout the lower extremity system. Discharge Plan Discharge Patient Disposition: Home Clinical Impression: Left leg pain Condition: Stable Prescriptions: New hydrocodone-acetaminophen 5-325 mg tablet 1 tab PO TID PRN (Reason: pain) Qty: 14 0RF prednisone 20 mg tablet 20 mg PO DAILY Qty: 7 0RF No Action lisinopril 40 mg tablet 40 mg PO DAILY Qty: 30 2RF gabapentin 300 mg capsule 300 mg PO TID 0RF Label Comments: pt not taking gabapentin 800 mg tablet 400 mg PO BID 0RF Tylenol Sinus Headache 5-325 mg tablet 1 tab PO Q4H 0RF clonazepam 0.5 mg tablet 0.5 mg PO DAILY PRN (Reason: anxiety) Qty: 30 0RF sertraline [Zoloft] 50 mg tablet 50 mg PO DAILY Qty: 30 1RF tizanidine 4 mg tablet 4 mg PO BID PRN (Reason: muscle spasticity) Qty: 60 0RF atorvastatin 40 mg tablet 80 mg PO DAILY@09 0RF aspirin 325 mg tablet 325 mg PO DAILY@09 0RF pantoprazole [Protonix] 40 mg tablet,delayed release (DR/EC) 40 mg PO BID@09,21 0RF Eliquis 5 mg tablet 5 mg PO BID@,21 0RF Discharge Orders: Discharge ED (Routine); Ordered 12/26/21 Ordered By: Aung Miles Referrals: Chuy Pulliam DO [Primary Care Provider] - Discharge Diet: Usual diet Discharge Activity: Increase activity as tolerated Patient Instructions: Sciatica (ED) Activity Restrictions/Additional Instructions: Follow-up with medical provider as directed. Take medications as prescribed. Return to the ER or your medical provider if condition worsens. Please read and understand discharge instructions. If any questions ask please. Coding Level of Care Code ED [facility] for Tayla Fwd Exam Comprehensive
[2021-12-26] MEDS: HYDROcodone-acetaminophen 7.5-325 mg Tablet 1 TAB PO (19:30)
== END 2021-12-26 20:45 | disposition home or self-care (01) ==
PROVIDERS: Emergency Provider Nurse Practitioner Family; PCP Family Medicine
DX: M79.605 Pain in left leg (principal); I10 Essential (primary) hypertension; I73.9 Peripheral vascular disease, unspecified; F17.210 Nicotine dependence, cigarettes, uncomplicated
CPT/HCPCS: 93926; 99283

== ENCOUNTER 2021-12-27 09:50 | Outpatient (CLI) | payer OTHER, SELFPAY ==
--- NOTE | 2021-12-27 10:15 | USCV_ITS ---
Wendy Calderon Age: 51 Gender: F : 1970 Exam Date: 12/27/2021 10:07 Ordering Phys: Radha Napoles Technologist: [email or web address] Exam Location: [facility] – [place]_ Indication: LLE PAIN HISTORY: Lower extremity pain. PROCEDURES: Venous duplex imaging was performed in only the left lower extremity. The following venous structures were evaluated: common femoral vein, profunda vein, proximal portion of the greater saphenous vein, superficial femoral vein, and the popliteal vein. In addition, the posterior tibial and peroneal trunk were evaluated. Serial compression, augmentation maneuvers, and spectral Doppler flow evaluation were performed. FINDINGS: Normal 2-D Doppler and augmentation and compressibility throughout the lower extremity venous structures. Additional imaging through the proximal calf veins also reveals no thrombus. Limited evaluation of the greater saphenous vein is patent with no thrombus.. CONCLUSIONS No DVT left lower extremity. Dr. Ani Mcgill DO (Electronically Signed) Final Date: 27 December 2021 13:05 S
== END 2021-12-27 09:51 | disposition home or self-care (01) ==
LOC: RAD 09:51
PROVIDERS: PCP Family Medicine; Visit Provider Nurse Practitioner Family
DX: M79.652 Pain in left thigh (principal)
CPT/HCPCS: 93971

== ENCOUNTER 2022-02-20 14:34 | Outpatient (CLI) | payer OTHER, SELFPAY ==
--- NOTE | 2022-02-20 14:30 | USCV_ITS ---
Wendy Calderon Age: 51 Gender: F : 1970 Exam Date: 02/20/2022 14:52 Ordering Phys: Chuy Pulliam DO Technologist: KALEY [place]am [place] [facility] [place] Indication: Lt leg tenderness HISTORY: Lower extremity pain. PROCEDURES: Venous duplex imaging was performed in only the left lower extremity. The following venous structures were evaluated: common femoral vein, profunda vein, proximal portion of the greater saphenous vein, superficial femoral vein, and the popliteal vein. In addition, the posterior tibial and peroneal trunk were evaluated. FINDINGS: Normal 2-D Doppler and augmentation and compressibility throughout the lower extremity venous structures. Additional imaging through the proximal calf veins also reveals no thrombus. Limited evaluation of the greater saphenous vein is patent with no thrombus. CONCLUSIONS No evidence of left lower extremity DVT. James oYon MD (Electronically Signed) Final Date: 20 February 2022 16:12 S
== END 2022-02-20 14:35 | disposition home or self-care (01) ==
LOC: RAD 14:37
PROVIDERS: PCP Family Medicine; Visit Provider Family Medicine
DX: M79.662 Pain in left lower leg (principal); M79.89 Other specified soft tissue disorders
CPT/HCPCS: 93971

== ENCOUNTER → 2022-03-08 15:18 | Outpatient (BNVA) | payer OTHER, SELFPAY | PROVIDERS: PCP Family Medicine; Visit Provider Internal Medicine Cardiovascular Disease | DX: M79.662 Pain in left lower leg (principal); R09.89 Other specified symptoms and signs involving the circulatory and respiratory systems; I70.202 Unspecified atherosclerosis of native arteries of extremities, left leg | CPT/HCPCS: 93926 ==

== ENCOUNTER 2022-04-01 15:17 | Emergency (ER) | payer OTHER, SELFPAY ==
[2022-04-01 15:28] VITALS: BP 175/100; PULSE 99; RESP 16; TEMP 36.8; O2SAT 97
--- NOTE | 2022-04-01 16:19 | CTR_ITS ---
PROCEDURE INFORMATION: Exam: CTA Head With Contrast, Arteries Exam date and time: 04/01/2022 5:15 PM Age: 51 years old Clinical indication: Dizziness and giddiness; Additional info: Vertigo TECHNIQUE: Imaging protocol: Computed tomographic angiography of the head with contrast. 3D rendering (Not supervised by radiologist): MIP and/or 3D reconstructed images were created by the technologist. Radiation optimization: All CT scans at this facility use at least one of these dose optimization techniques: automated exposure control; mA and/or kV adjustment per patient size (includes targeted exams where dose is matched to clinical indication); or iterative reconstruction. Contrast material: OMNI 350; Contrast volume: 95 ml; Contrast route: INTRAVENOUS (IV); COMPARISON: CT head wo con* [id number] 04/01/2022 5:13 PM RADIATION DOSE METRICS: Total DLP (mGy-cm): 435.8 FINDINGS: ANTERIOR CIRCULATION: Right internal carotid artery: Calcified plaque in the cavernous right internal carotid artery without significant stenosis. Right middle cerebral artery: Unremarkable. No occlusion or significant stenosis. No aneurysm. Right anterior cerebral artery: Unremarkable. No occlusion or significant stenosis. No aneurysm. Left internal carotid artery: Calcified plaque in the cavernous left internal carotid artery without significant stenosis. Left middle cerebral artery: Unremarkable. No occlusion or significant stenosis. No aneurysm. 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 No stenosis. POSTERIOR CIRCULATION: Right vertebral artery: Unremarkable. No occlusion or significant stenosis. No aneurysm. Left vertebral artery: Unremarkable. No occlusion or significant stenosis. No aneurysm. Basilar artery: Unremarkable. No occlusion or significant stenosis. No aneurysm. Right posterior cerebral artery: Unremarkable. No occlusion or significant stenosis. No aneurysm. Left posterior cerebral artery: Unremarkable. No occlusion or significant stenosis. No aneurysm. Brain: No definite mass, mass effect, or midline shift. Cerebral ventricles: No ventriculomegaly. Bones/joints: Unremarkable. No acute fracture. Soft tissues: Unremarkable. PROCEDURE INFORMATION: Exam: CTA Neck With Contrast Exam date and time: 04/01/2022 5:15 PM Age: 51 years old Clinical indication: Dizziness and giddiness; Additional info: Vertigo TECHNIQUE: Imaging protocol: Computed tomographic angiography of the neck with contrast. 3D rendering (Not supervised by radiologist): MIP and/or 3D reconstructed images were created by the technologist. Radiation optimization: All CT scans at this facility use at least one of these dose optimization techniques: automated exposure control; mA and/or kV adjustment per patient size (includes targeted exams where dose is matched to clinical indication); or iterative reconstruction. Contrast material: OMNI 350; Contrast volume: 95 ml; Contrast route: INTRAVENOUS (IV); COMPARISON: CT head wo con* [id number] 04/01/2022 5:13 PM RADIATION DOSE METRICS: Total DLP (mGy-cm): 435.8 FINDINGS: Right common carotid artery: No stenosis. No dissection or occlusion. Right internal carotid artery: Calcified plaque in the proximal right internal carotid artery with 40-50% stenosis. Right external carotid artery: No occlusion or stenosis of the origin. Left common carotid artery: No stenosis. No dissection or occlusion. Left internal carotid artery: Calcified plaque in the proximal left internal carotid artery with 40-50% stenosis. Left external carotid artery: No occlusion or stenosis of the origin. Right vertebral artery: No stenosis. No dissection or occlusion. Left vertebral artery: Calcified plaque in the proximal left vertebral artery without significant stenosis. Lymph nodes: Prominent mediastinal and hilar lymph nodes are most likely reactive. Soft tissues: Normal. No significant soft tissue swelling. Bones/joints: No acute fracture. Lungs: Mosaic attenuation in the upper lobes. CT/CT angio headneck* [id number] IMPRESSION: 1. No large artery occlusion or stenosis. IMPRESSION: 1. Calcified plaque in the bilateral proximal internal carotid arteries with 40-50% bilateral stenosis. REFERENCES: NASCET CRITERIA. The degree of internal carotid artery stenosis is based on NASCET criteria. Normal is no stenosis. Mild is less than 50% stenosis. Moderate is 50-69% stenosis. Severe is 70% to 99% stenosis. Total occlusion is no detectable patent lumen.
--- NOTE | 2022-04-01 16:19 | CTR_ITS ---
PROCEDURE INFORMATION: Exam: CT Head Without Contrast Exam date and time: 04/01/2022 5:13 PM Age: 51 years old Clinical indication: Dizziness; Additional info: Vertigo TECHNIQUE: Imaging protocol: Computed tomography of the head without contrast. Radiation optimization: All CT scans at this facility use at least one of these dose optimization techniques: automated exposure control; mA and/or kV adjustment per patient size (includes targeted exams where dose is matched to clinical indication); or iterative reconstruction. COMPARISON: CT head wo con* [id number] 12/15/2021 8:20 PM RADIATION DOSE METRICS: Total DLP (mGy-cm): 1026.76 FINDINGS: Brain: Normal. No hemorrhage. Unremarkable white matter. No mass effect. Cerebral ventricles: No ventriculomegaly. Paranasal sinuses: Visualized sinuses are unremarkable. No fluid levels. Mastoid air cells: Visualized mastoid air cells are well aerated. Bones/joints: Unremarkable. No acute fracture. Soft tissues: Unremarkable. CT/CT head wo con* [id number] IMPRESSION: No acute intracranial abnormality.
--- NOTE | 2022-04-01 16:21 | ED_ITS ---
Documented by User: Arnav Duke DO 04/01/22 18:06 HPI - Dizziness General: Chief Complaint: Dizziness Stated Complaint: stroke like symptoms Time Seen by Provider: 04/01/22 16:03 Source: patient and family Mode of arrival: ambulatory History of Present Illness: HPI Narrative: This patient presents to our emergency department because of concerns about a possible stroke. She apparently was referred here from the urgent care clinic. She states that she was in her normal state of health yesterday and this morning when she rolled over and got a bed and and set up she had persistent lightheadedness and unsteadiness. She also had abnormal gait and is unable to stand or walk normally. She states she has a history of recurrent vertigo but this seems to be a bit different than no symptoms. She has had recent congestion which is thought to be more allergic based. She has been getting a house during remodeling and has a lot of dust and dirt and she seems to have inc reased congestion when she is in that environment. She denies headache. She denies falls or trauma. She denies difficulty with speech, weakness numbness or other associated focal symptoms. She does take antiplatelet medications because of a history of blood clot in her left leg. She denies shortness of breath, chest pain etc. She denies any change in her hearing, change in vision. MD elicited complaint: lightheadedness and disequilibrium Timing: sudden onset Severity: moderate Description: off-balance and difficulty walking Exacerbating factors: movement/ambulation and change in body position Associated symptoms: Reports nasal congestion; Denies change in hearing, chest pain, chills, headache(s), nausea, palpitations or vomiting Associated neuro symptoms: Deny numbness in extremities Review of Systems Const: Denies: fever(s) or chills Eyes: Denies: change in vision, blurry vision or blind spots ENMT: Reports: disequilibrium and nasal congestion; Denies: throat pain, odynophagia, ear or mastoid pain or change in hearing Card: Denies: chest pain, palpitations, irregular heart rhythm or edema Resp: Denies: dyspnea, productive cough or non-productive cough GI: Denies: abdominal pain, nausea or vomiting : Denies: flank pain, difficulty voiding, dysuria or urinary frequency Musc: Denies: neck pain, back pain, extremity pain or extremity swelling Skin/Breast: Denies: rash or pruritus Neuro: Reports: difficulty walking and dizziness; Denies: headache(s), numbness in extremities, weakness in extremities, lack of coordination, frequent falls or Slurred speech present Psych: Reports: anxiety; Denies: depression or mood swings PFSH ED PFSH: Medical History Dyslipidemia Fibromyalgia HTN (hypertension) Migraine PAD (peripheral artery disease) Post-traumatic stress disorder, chronic Psychiatric care Surgical History H/O: hysterectomy History of x2 History of laparoscopic cholecystectomy S/P peripheral artery angioplasty Left SFA Family History Family/Other Anesthesia complication Diabetes Sister CAD (coronary artery disease), Onset Age: 40 triple bypass Diabetes Father CAD (coronary artery disease), Onset Age: 50 Cancer Diabetes Stroke Mother Dementia Brother Diabetes Stroke Other Rheumatoid arthritis Denies family history of Clotting disorder Chronic kidney disease (CKD) Suicide Bleeding disorder Lung disease Social History Smoking and tobacco status: current every day smoker cigarettes Packs smoked per day: 0.5 [ Other cigarette details: smokes 6 cig's per day] Alcohol intake: never Lives independently: Yes Household members: children Housing: House Physical Exam Narrative: EXAM NARRATIVE: The patient is anxious but alert and cooperative. Speaks in a goal-directed f ashion. Const: COMMON NORMALS: no acute distress, no limitations, healthy appearing and alert GENERAL APPEARANCE: anxious NUTRITIONAL APPEARANCE: overweight ORIENTATION/CONSCIOUSNESS: Yes awake HENMT: COMMON NORMALS: normocephalic, atraumatic, EAC's normal, TM's normal bilaterally, Normal external nose present, Normal nasal mucous membranes and turbinates present and oropharynx normal HEAD & SCALP: normocephalic and atraumatic FACE & SINUS: normal facial exam, sinuses nontender and face symmetric NOSE: Normal external nose present and Normal nasal mucous membranes and turbinates present EXTERNAL AUDITORY CANAL: EAC's normal TYMPANIC MEMBRANE: TM's normal bilaterally Eye: COMMON NORMALS: Equal, round and reactive pupils present, EOMs intact bilaterally and conjunctivae normal CONJUNCTIVA: Yes conjunctivae normal PUPIL: Yes Equal, round and reactive pupils present EOM: No Nystagmus present Neck/C-Spine: COMMON NORMALS: full ROM, supple, no meningeal signs, no JVD and No carotid bruits Chest: COMMONS NORMALS: normal inspection of the chest Resp: COMMON NORMALS: normal respiratory effort, No retractions, No use of accessory muscles and clear to auscultation bilaterally AUSCULTATION: clear to auscultation bilaterally Cardio: COMMON NORMALS: no JVD, regular rate, regular rhythm, No murmurs present (Cardio) and Peripheral pulses 2+ throughout RATE: regular rate RHYTHM: regular rhythm PERIPHERAL PULSES: Peripheral pulses 2+ throughout GI: COMMON NORMALS: Soft to palpation and non-tender PALPATION: Yes Soft to palpation : COMMON NORMALS: Yes no CVA tenderness BLADDER/KIDNEY EXAM: Yes no CVA tenderness Back/Pelvis: COMMON NORMALS: no CVA tenderness, thoracic and lumbar spine normal to inspection, no thoracic nor lumbar tenderness and thoraco-lumbar ROM normal Extremity: COMMON NORMALS: normal to inspection, full ROM, no calf tenderness and no pedal edema Neuro: COMMON NORMALS: moves all extremities, no focal motor deficits and no sensory deficits noted SENSORIUM/ORIENTATION: Yes alert MENINGEAL SIGNS: Yes no meningeal signs CRANIAL NERVES: Yes CN normal except as noted COORDINATION/BALANCE: [id number] test normal, [id number]-wc-[id number] test normal, s ways with eyes open and Romberg test positive SPEECH: speech normal COORDINATION: [id number]-[id number] test normal and vehh-ja-lzpe test normal Psych: COMMON NORMALS: mental status grossly normal, Normal thought process present and cooperative MOOD & AFFECT: Yes anxious THOUGHT PROCESS: Normal thought process present Skin: COMMON NORMALS: no rashes or lesions noted and turgor normal GENERAL SKIN EXAM: no rashes or lesions noted and turgor normal Course Reevaluation(s): Reevaluation #1: checked out to DR Bai for dispo after imaging. Time: 18:05 Vital Signs: Vital signs: Vital Signs Temperature 98.3 F 04/01/22 15:28 Pulse Rate 67 04/01/22 20:31 Respiratory Rate 16 04/01/22 20:31 Blood Pressure 127/67 04/01/22 20:31 Pulse Oximetry 96 04/01/22 20:31 [facility] - Dizziness Medical Decision Making Patient who has a history of recurrent vertigo presents with gait abnormality and associated ataxia. 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 She has no other no other focal findings however we will proceed with noncontrasted CT to rule out hemorrhage as well as a CTA head and neck to ensure that there is no other cute vascular changes contributing to her symptoms. Lab Data : 04/01/22 16:50 04/01/22 16:[address] 04/01/22 16:19 IMPRESSION: No acute intracranial abnormality. Head/Neck CTA 04/01/22 16:19 IMPRESSION: 1. No large artery occlusion or stenosis. IMPRESSION: 1. Calcified plaque in the bilateral proximal internal carotid arteries with 40-50% bilateral stenosis. REFERENCES: NASCET CRITERIA. The degree of internal carotid artery stenosis is based on NASCET criteria. Normal is no stenosis. Mild is less than 50% stenosis. Moderate is 50-69% stenosis. Severe is 70% to 99% stenosis. Total occlusion is no detectable patent lumen. Laboratory Results WBC 7.5 10^3/uL (4.0-10.0) 04/01/22 16:50 RBC 3.87 10^6/uL (4.1-5.3) L 04/01/22 16:50 Hgb 12.4 g/dL (11.5-15.3) 04/01/22 16:50 Hct 34.8 % (37.0-47.0) L 04/01/22 16:50 MCV 89.9 fl (81-99) 04/01/22 16:50 MCH 32.0 pg (28.0-34.0) 04/01/22 16:50 MCHC 35.6 g/dL (30.0-36.0) 04/01/22 16:50 RDW 13.1 % (12.1-15.1) 04/01/22 16:50 Plt Count 236 10^3/cmm (130-400) 04/01/22 16:50 MPV 9.8 fL (7.4-10.4) 04/01/22 16:50 Neut % (Auto) 64.5 % 04/01/22 16:50 Lymph % (Auto) 26.7 % 04/01/22 16:50 [place] % (Auto) 6.3 % 04/01/22 16:50 Eos % (Auto) 1.5 % 04/01/22 16:50 Baso % (Auto) 0.7 % 04/01/22 16:50 Neut # (Auto) 4.82 10^3/uL (1.8-7.7) 04/01/22 16:50 Lymph # (Auto) 2.0 10^3/uL (0.8-4.8) 04/01/22 16:50 [place] # (Auto) 0.5 10^3/uL (0.2-0.9) 04/01/22 16:50 Eos # (Auto) 0.1 10^3/uL (0.0-0.8) 04/01/22 16:50 Baso # (Auto) 0.1 10^3/uL (0.0-0.1) 04/01/22 16:50 Nucleated RBC % (auto) 0 % 04/01/22 16:50 Nucleated RBCs # 0.0 /100WBC 04/01/22 16:50 ESR 2 mm/hr (0-15) 04/01/22 16:50 PT 15.80 SECONDS (12.1-14.9) H 04/01/22 16:50 INR 1.23 (0.8-1.2) H 04/01/22 16:50 APTT 29.8 SECONDS (23.9-36.7) 04/01/22 16:50 Sodium 143 mmol/L (136-145) 04/01/22 16:50 Potassium 3.0 mmol/L (3.5-5.1) L 04/01/22 16:50 Chloride 111 mmol/L (98-107) H 04/01/22 16:50 Carbon Dioxide 22 mmol/L (22-29) 04/01/22 16:50 Anion Gap 13.0 (5-19) 04/01/22 16:50 BUN 7 mg/dL (6-20) 04/01/22 16:50 Creatinine 0.5 mg/dL (0.5-0.9) 04/01/22 16:50 GFR Calculation 129.1 mL/min (90-130) 04/01/22 16:50 Glucose 96 mg/dL (65-115) 04/01/22 16:50 POC Glucose 102 mg/dL (70-110) 04/01/22 16:47 Calculated Osmolality 294 mOsm/kg (285-295) 04/01/22 16:50 Calcium 7.7 mg/dL (8.5-10.5) L 04/01/22 16:50 Total Bilirubin 0.3 mg/dL (0.15-1.2) 04/01/22 16:50 AST 11 U/L (0-32) 04/01/22 16:50 ALT 8 U/L (0-33) 04/01/22 16:50 Alkaline Phosphatase 71 IU/L (35-105) 04/01/22 16:50 Total Protein 6.1 g/dL (6.6-8.7) L 04/01/22 16:50 Albumin 3.4 g/dL (3.5-5.2) L 04/01/22 16:50 Globulin 2.7 g/dL (1.3-4.6) 04/01/22 16:50 EKG Data EKG 1: I personally reviewed and interpreted this EKG as follows: EKG interpretation time: 17:08 Interpretation: Resting EKG shows a ventricular rate of 78 bpm. Normal IA interval. QRS duration is normal. Normal cures TC intervals. Normal axis. No acute ST-T wave changes noted. Occasional unifocal PVC is noted. Discharge Plan Discharge Patient Disposition: Home Clinical Impression: Hypokalemia, Acute vestibular neuronitis Condition: Stable Prescriptions: No Action rivaroxaban 2.5 mg tablet 2.5 mg PO BID Qty: 180 3RF amlodipine 5 mg tablet 5 mg PO DAILY Qty: 30 5RF lisinopril 40 mg tablet 40 mg PO DAILY Qty: 90 2RF nicotine 14 mg/24 hr patch 24 hour 1 patch transdermal DAILY Qty: 28 0RF nicotine (polacrilex) 4 mg gum 4 mg buccal Q2H Qty: 100 0RF gabapentin 300 mg capsule 300 mg PO TID 0RF Label Comments: pt not taking Tylenol Sinus Headache 5-325 mg tablet 1 tab PO Q4H 0RF lorazepam 1 mg tablet 1 mg PO ONCE PRN (Reason: anxiety) Qty: 1 0RF Rx Instructions: Please take one hour prior to stress test. sertraline [Zoloft] 100 mg tablet 100 mg PO DAILY Qty: 30 1RF clonazepam 0.5 mg tablet 0.5 mg PO BID PRN (Reason: anxiety) Qty: 60 1RF nicotine (polacrilex) 4 mg lozenge 4 mg buccal Q6H PRN (Reason: nicotine cravings) Qty: 108 1RF atorvastatin 40 mg tablet 80 mg PO DAILY@09 Qty: 180 3RF aspirin 325 mg tablet 325 mg PO DAILY@09 0RF pantoprazole [Protonix] 40 mg tablet,delayed release (DR/EC) 40 mg PO DAILY 0RF Discharge Orders: Discharge ED (Routine); Ordered 04/01/22 Ordered By: Domingo Bai Referrals: Chuy Pulliam DO [Primary Care Provider] - 1-3 days Patient Instructions: Vertigo (ED), Hypokalemia (ED) Activity Restrictions/Additional Instructions: You should have your potassium rechecked by Saturday. Call your doctor tomorrow and let them know you are seen in the ER with vertigo. Medication as directed. Return for worsening vertigo, vomiting liquids, weakness to extremity, vision problems, trouble with language, or any other concerning symptoms. Coding Level of Care Code ED Customer Service Associate for Chg Fwd Exam Comprehensive Documented by User: Domingo Bai DO 04/02/22 01:47 HPI - Dizziness General: Chief Complaint: Dizziness Stated Complaint: stroke like symptoms Time Seen by Provider: 04/01/22 16:03 [facility] ED PFSH: Medical History Dyslipidemia Fibromyalgia HTN (hypertension) Migraine PAD (peripheral artery disease) Post-traumatic stress disorder, chronic Psychiatric care Surgical History H/O: hysterectomy History of x2 History of laparoscopic cholecystectomy S/P peripheral artery angioplasty Left SFA Family History Family/Other Anesthesia complication Diabetes Sister CAD (coronary artery disease), Onset Age: 40 triple bypass Diabetes Father CAD (coronary artery disease), Onset Age: 50 Cancer Diabetes Stroke Mother Dementia Brother Diabetes Stroke Other Rheumatoid arthritis Denies family history of Clotting disorder Chronic kidney disease (CKD) Suicide Bleeding disorder Lung disease Social History Smoking and tobacco status: current every day smoker cigarettes Packs smoked per day: 0.5 [ Other cigarette details: smokes 6 cig's per day] Alcohol intake: never Lives independently: Yes Household members: children Housing: House Course Vital Signs: Vital signs: Vital Signs Temperature 98.3 F 04/01/22 15:28 Pulse Rate 67 04/01/22 20:31 Respiratory Rate 16 04/01/22 20:31 Blood Pressure 127/67 04/01/22 20:31 Pulse Oximetry 96 04/01/22 20:31 MDM - Dizziness Medical Decision Making Patient who has a history of recurrent vertigo presents with gait abnormality and associated ataxia. 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 She has no other no other focal findings however we will proceed with noncontrasted CT to rule out hemorrhage as well as a CTA head and neck to ensure that there is no other cute vascular changes contributing to her symptoms. 51-year-old lady checked out to me at shift change by Dr. Duke. This lady is now resting comfortably. Her daughter notes that anxiety medication has helped her significantly. Her potassium was 3.0, and was repleted. CBC is normal. CT of the head noncontrast is nonacute. CTA shows 40 to 50% internal carotid stenosis bilaterally. No critical stenosis. Differential diagnosis remains peripheral vertigo versus posterior circulation stroke. The patient is already on rivaroxaban for anticoagulation as well as aspirin and atorvastatin. Without any critical narrowing, there is essentially no other treatment if this is a posterior circulation stroke. This was reviewed with the family who understands. They were offered observation admission with MRI and echo, but declined at this point. They will follow-up as an outpatient. They were told she needs her potassium checked in 48 hours or so. Lab Data : 04/01/22 16:50 04/01/22 16:[address] 04/01/22 16:19 IMPRESSION: No acute intracranial abnormality. Head/Neck CTA 04/01/22 16:19 IMPRESSION: 1. No large artery occlusion or stenosis. IMPRESSION: 1. Calcified plaque in the bilateral proximal internal carotid arteries with 40-50% bilateral stenosis. REFERENCES: NASCET CRITERIA. The degree of internal carotid artery stenosis is based on NASCET criteria. Normal is no stenosis. Mild is less than 50% stenosis. Moderate is 50-69% stenosis. Severe is 70% to 99% stenosis. Total occlusion is no detectable patent lumen. Laboratory Results WBC 7.5 10^3/uL (4.0-10.0) 04/01/22 16:50 RBC 3.87 10^6/uL (4.1-5.3) L 04/01/22 16:50 Hgb 12.4 g/dL (11.5-15.3) 04/01/22 16:50 Hct 34.8 % (37.0-47.0) L 04/01/22 16:50 MCV 89.9 fl (81-99) 04/01/22 16:50 MCH 32.0 pg (28.0-34.0) 04/01/22 16:50 MCHC 35.6 g/dL (30.0-36.0) 04/01/22 16:50 RDW 13.1 % (12.1-15.1) 04/01/22 16:50 Plt Count 236 10^3/cmm (130-400) 04/01/22 16:50 MPV 9.8 fL (7.4-10.4) 04/01/22 16:50 Neut % (Auto) 64.5 % 04/01/22 16:50 Lymph % (Auto) 26.7 % 04/01/22 16:50 [place] % (Auto) 6.3 % 04/01/22 16:50 Eos % (Auto) 1.5 % 04/01/22 16:50 Baso % (Auto) 0.7 % 04/01/22 16:50 Neut # (Auto) 4.82 10^3/uL (1.8-7.7) 04/01/22 16:50 Lymph # (Auto) 2.0 10^3/uL (0.8-4.8) 04/01/22 16:50 [place] # (Auto) 0.5 10^3/uL (0.2-0.9) 04/01/22 16:50 Eos # (Auto) 0.1 10^3/uL (0.0-0.8) 04/01/22 16:50 Baso # (Auto) 0.1 10^3/uL (0.0-0.1) 04/01/22 16:50 Nucleated RBC % (auto) 0 % 04/01/22 16:50 Nucleated RBCs # 0.0 /100WBC 04/01/22 16:50 ESR 2 mm/hr (0-15) 04/01/22 16:50 PT 15.80 SECONDS (12.1-14.9) H 04/01/22 16:50 INR 1.23 (0.8-1.2) H 04/01/22 16:50 APTT 29.8 SECONDS (23.9-36.7) 04/01/22 16:50 Sodium 143 mmol/L (136-145) 04/01/22 16:50 Potassium 3.0 mmol/L (3.5-5.1) L 04/01/22 16:50 Chloride 111 mmol/L (98-107) H 04/01/22 16:50 Carbon Dioxide 22 mmol/L (22-29) 04/01/22 16:50 Anion Gap 13.0 (5-19) 04/01/22 16:50 BUN 7 mg/dL (6-20) 04/01/22 16:50 Creatinine 0.5 mg/dL (0.5-0.9) 04/01/22 16:50 GFR Calculation 129.1 mL/min (90-130) 04/01/22 16:50 Glucose 96 mg/dL (65-115) 04/01/22 16:50 POC Glucose 102 mg/dL (70-110) 04/01/22 16:47 Calculated Osmolality 294 mOsm/kg (285-295) 04/01/22 16:50 Calcium 7.7 mg/dL (8.5-10.5) L 04/01/22 16:50 Total Bilirubin 0.3 mg/dL (0.15-1.2) 04/01/22 16:50 AST 11 U/L (0-32) 04/01/22 16:50 ALT 8 U/L (0-33) 04/01/22 16:50 Alkaline Phosphatase 71 IU/L (35-105) 04/01/22 16:50 Total Protein 6.1 g/dL (6.6-8.7) L 04/01/22 16:50 Albumin 3.4 g/dL (3.5-5.2) L 04/01/22 16:50 Globulin 2.7 g/dL (1.3-4.6) 04/01/22 16:50 Discharge Plan Discharge Patient Disposition: Home Clinical Impression: Hypokalemia, Acute vestibular neuronitis Condition: Stable Prescriptions: No Action rivaroxaban 2.5 mg tablet 2.5 mg PO BID Qty: 180 3RF amlodipine 5 mg tablet 5 mg PO DAILY Qty: 30 5RF lisinopril 40 mg tablet 40 mg PO DAILY Qty: 90 2RF nicotine 14 mg/24 hr patch 24 hour 1 patch transdermal DAILY Qty: 28 0RF nicotine (polacrilex) 4 mg gum 4 mg buccal Q2H Qty: 100 0RF gabapentin 300 mg capsule 300 mg PO TID 0RF Label Comments: pt not taking Tylenol Sinus Headache 5-325 mg tablet 1 tab PO Q4H 0RF lorazepam 1 mg tablet 1 mg PO ONCE PRN (Reason: anxiety) Qty: 1 0RF Rx Instructions: Please take one hour prior to stress test. sertraline [Zoloft] 100 mg tablet 100 mg PO DAILY Qty: 30 1RF clonazepam 0.5 mg tablet 0.5 mg PO BID PRN (Reason: anxiety) Qty: 60 1RF nicotine (polacrilex) 4 mg lozenge 4 mg buccal Q6H PRN (Reason: nicotine cravings) Qty: 108 1RF atorvastatin 40 mg tablet 80 mg PO DAILY@09 Qty: 180 3RF aspirin 325 mg tablet 325 mg PO DAILY@09 0RF pantoprazole [Protonix] 40 mg tablet,delayed release (DR/EC) 40 mg PO DAILY 0RF Discharge Orders: Discharge ED (Routine); Ordered 04/01/22 Ordered By: Domingo Bai Referrals: Chuy Pulliam DO [Primary Care Provider] - 1-3 days Patient Instructions: Vertigo (ED), Hypokalemia (ED) Activity Restrictions/Additional Instructions: You should have your potassium rechecked by Saturday. Call your doctor tomorrow and let them know you are seen in the ER with vertigo. Medication as directed. Return for worsening vertigo, vomiting liquids, weakness to extremity, vision problems, trouble with language, or any other concerning symptoms. Coding Level of Care Code ED Customer Service Associate for Tayla Wooten Exam Comprehensive
--- NOTE | 2022-04-01 16:30 | ECG_ITS ---
[facility] Test Date: 2022-04-01 Pat Name: Wendy Calderon Department: Room: Gender: Female Staff Counselor: : 1970 Requested By: Arnav Duke Order Number: [id number] Ryan MD: Jeff Ramirez M.D. Measurements Intervals [place] Rate: 78 P: 41 MO: 168 QRS: 15 QRSD: 89 T: 34 QT: 391 QTc: 446 Interpretive Statements SINUS RHYTHM WITH OCCASIONAL VENTRICULAR PREMATURE COMPLEXES NONSPECIFIC T-WAVE ABNORMALITY Compared to ECG 12/21/2017 19:00:17 T-wave abnormality now present Electronically Signed On 04-02-2022 18:13:35 CDT by Jeff Ramirez M.D. [id number]
[2022-04-01] MEDS: LORazepam 2 mg/mL INJ 1 mL 1 MG IVP (16:39)
[2022-04-01] MEDS: sodium chloride 0.9% 1,000 ML 999 ML IV (16:39)
[2022-04-01 16:58] LABS: Basophils # 0.1 10^3/uL (0.0-0.1); Basophils % 0.7 %; Eosinophils # 0.1 10^3/uL (0.0-0.8); Eosinophils % 1.5 %; Hematocrit 34.8 % (37.0-47.0); Hemoglobin 12.4 g/dL (11.5-15.3); Lymphocytes % 26.7 %; Mean Corpuscular HGB Conc 35.6 g/dL (30.0-36.0); Mean Corpuscular Volume 89.9 fl (81-99); Mean Platelet Volume 9.8 fL (7.4-10.4); Monocytes # 0.5 10^3/uL (0.2-0.9); Monocytes % 6.3 %; Neutrophils # 4.82 10^3/uL (1.8-7.7); Neutrophils % 64.5 %; Nucleated Red Blood Cells % 0 %; Platelet Count 236 10^3/cmm (130-400); Red Blood Count 3.87 10^6/uL (4.1-5.3); Red Cell Distribution Width 13.1 % (12.1-15.1); White Blood Count 7.5 10^3/uL (4.0-10.0)
[2022-04-01 17:00] LABS: Glucose Point of Care 102 mg/dL (70-110)
[2022-04-01 17:14] LABS: Erythrocyte Sedimentation Rate 2 mm/hr (0-15)
[2022-04-01 17:16] LABS: INR 1.23 (0.8-1.2)
[2022-04-01 17:17] LABS: Partial Thromboplastin Time 29.8 SECONDS (23.9-36.7)
[2022-04-01 17:24] LABS: Alanine Aminotransferase 8 U/L (0-33); Albumin Level 3.4 g/dL (3.5-5.2); Alkaline Phosphatase 71 IU/L (35-105); Aspartate Amino Transferase 11 U/L (0-32); Blood Urea Nitrogen 7 mg/dL (6-20); Calcium 7.7 mg/dL (8.5-10.5); Carbon Dioxide 22 mmol/L (22-29); Chloride 111 mmol/L (98-107); Globulin 2.7 g/dL (1.3-4.6); Glomerular Filtration Rate 129.1 mL/min (90-130); Glucose 96 mg/dL (65-115); Osmolality Calculated 294 mOsm/kg (285-295); Sodium 143 mmol/L (136-145); Total Bilirubin 0.3 mg/dL (0.15-1.2); Total Protein 6.1 g/dL (6.6-8.7)
[2022-04-01] MEDS: iohexol 350 mg/mL 100 mL Btl IV (17:25)
[2022-04-01] MEDS: diazePAM 5 mg Tablet PO (18:04)
[2022-04-01] MEDS: potassium bicarb 25 mEq Tablet 50 MEQ PO (18:05)
--- NOTE | 2022-04-01 19:11 | PC.NURSE ---
REPORT GIVEN TO [facility]ARE.
[2022-04-01 20:31] VITALS: BP 127/67; PULSE 67; RESP 16; O2SAT 96
== END 2022-04-01 20:33 | disposition home or self-care (01) ==
PROVIDERS: Emergency Medicine; Emergency Provider Emergency Medicine; PCP Family Medicine
DX: H81.20 Vestibular neuronitis, unspecified ear (principal); E87.6 Hypokalemia; Z79.82 Long term (current) use of aspirin; E78.5 Hyperlipidemia, unspecified; I10 Essential (primary) hypertension; F17.210 Nicotine dependence, cigarettes, uncomplicated
CPT/HCPCS: 36416; 70450; 70496; 70498; 80053; 82962; 85025; 85610; 85651; 85730; 93005; 96374; 99285; J2060; J7030; Q9967

== ENCOUNTER → 2022-04-03 10:27 | Outpatient (BNVA) | payer OTHER, SELFPAY | PROVIDERS: PCP Family Medicine; Visit Provider Family Medicine | DX: F41.8 Other specified anxiety disorders (principal); E87.6 Hypokalemia; K21.9 Gastro-esophageal reflux disease without esophagitis; M79.662 Pain in left lower leg; M47.817 Spondylosis without myelopathy or radiculopathy, lumbosacral region; M54.50 Low back pain, unspecified; F41.1 Generalized anxiety disorder | CPT/HCPCS: 80048 ==

== ENCOUNTER 2022-04-25 11:59 | Emergency (ER) | payer MEDICAID, SELFPAY ==
[2022-04-25 13:08] VITALS: BP 163/89; PULSE 79; RESP 14; TEMP 36.6; O2SAT 97; BMI 31.8
--- NOTE | 2022-04-25 13:55 | ECG_ITS ---
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 Measurements Intervals [place] Rate: 64 P: 43 NM: 163 QRS: 30 QRSD: 98 T: 47 QT: 406 QTc: 419 Interpretive Statements SINUS RHYTHM Compared to ECG 04/01/2022 17:01:41 Ventricular premature complex(es) no longer present T-wave abnormality no longer present Electronically Signed On 04-26-2022 18:46:00 CDT by Mariola Dee M.D. [id number]
--- NOTE | 2022-04-25 13:55 | XR_ITS ---
WS: [id number] XR chest 1V portable [id number] REASON FOR EXAM: dizziness FINDINGS: The chest is unchanged compared to 06/27/2017. Heart and mediastinum are within normal limits. Calcified granulomatous disease in both hemithoraces. No lung mass or significant lung nodule. No acute pulmonary parenchymal or pleural abnormality. Moderate changes of degenerative spondylosis in the mid and lower thoracic spine. XR/XR chest 1V portable [id number] IMPRESSION: No acute chest abnormality.
[2022-04-25 14:04] VITALS: BP 163/89; PULSE 79; RESP 14; TEMP 36.6; O2SAT 97
[2022-04-25 14:14] LABS: Basophils # 0.1 10^3/uL (0.0-0.1); Basophils % 0.7 %; Eosinophils # 0.2 10^3/uL (0.0-0.8); Hematocrit 47.1 % (37.0-47.0); Hemoglobin 15.8 g/dL (11.5-15.3); Lymphocytes # 2.7 10^3/uL (0.8-4.8); Lymphocytes % 35.4 %; Mean Corpuscular HGB Conc 33.5 g/dL (30.0-36.0); Mean Corpuscular Hemoglobin 31.4 pg (28.0-34.0); Mean Corpuscular Volume 93.6 fl (81-99); Mean Platelet Volume 10.2 fL (7.4-10.4); Monocytes # 0.4 10^3/uL (0.2-0.9); Neutrophils # 4.29 10^3/uL (1.8-7.7); Neutrophils % 56.6 %; Nucleated Red Blood Cells % 0 %; Platelet Count 290 10^3/cmm (130-400); Red Blood Count 5.03 10^6/uL (4.1-5.3); Red Cell Distribution Width 12.6 % (12.1-15.1); White Blood Count 7.6 10^3/uL (4.0-10.0)
--- NOTE | 2022-04-25 14:36 | CTR_ITS ---
PROCEDURE INFORMATION: Exam: CT Head Without Contrast Exam date and time: 04/25/2022 3:53 PM Age: 51 years old Clinical indication: Dizziness TECHNIQUE: Imaging protocol: Computed tomography of the head without contrast. Radiation optimization: All CT scans at this facility use at least one of these dose optimization techniques: automated exposure control; mA and/or kV adjustment per patient size (includes targeted exams where dose is matched to clinical indication); or iterative reconstruction. COMPARISON: CT head wo con* [id number] 04/01/2022 5:13 PM RADIATION DOSE METRICS: Total DLP (mGy-cm): 1022.24 FINDINGS: Brain: Subtle hyperdensity in the right frontal lobe (series 3, image 31) suspicious for trace acute subarachnoid hemorrhage. Cerebral ventricles: No ventriculomegaly. Paranasal sinuses: Visualized sinuses are unremarkable. No fluid levels. Mastoid air cells: Visualized mastoid air cells are well aerated. Bones/joints: Unremarkable. No acute fracture. Soft tissues: Unremarkable. Vascular calcifications. There is calcification of the basilar artery. CT/CT head wo con* [id number] IMPRESSION: Subtle hyperdensity in the right frontal lobe suspicious for trace acute subarachnoid hemorrhage. Short-term follow-up is recommended for stability. Vascular calcifications. Calcification of the basilar artery. Atherosclerotic narrowing of the basilar artery is a possibility.
[2022-04-25 14:38] LABS: Alanine Aminotransferase 13 U/L (0-33); Albumin Level 4.5 g/dL (3.5-5.2); Alkaline Phosphatase 103 IU/L (35-105); Anion Gap 18.6 (5-19); Aspartate Amino Transferase 16 U/L (0-32); Blood Urea Nitrogen 9 mg/dL (6-20); Calcium 9.5 mg/dL (8.5-10.5); Carbon Dioxide 26 mmol/L (22-29); Chloride 102 mmol/L (98-107); Globulin 3.2 g/dL (1.3-4.6); Glomerular Filtration Rate 104.6 mL/min (90-130); Glucose 96 mg/dL (65-115); Osmolality Calculated 295 mOsm/kg (285-295); Potassium 3.6 mmol/L (3.5-5.1); Sodium 143 mmol/L (136-145); Total Bilirubin 0.5 mg/dL (0.15-1.2); Total Protein 7.7 g/dL (6.6-8.7)
[2022-04-25 14:57] LABS: Troponin(5th) Baseline 6 ng/L (0-10)
--- NOTE | 2022-04-25 14:59 | ED_ITS ---
Documented by User: NAZARIO Worthington 04/26/22 07:11 HPI - Dizziness General: Chief Complaint: Dizziness Stated Complaint: DIZZY, NAUSEA Time Seen by Provider: 04/25/22 13:51 History of Present Illness: HPI Narrative: Patient is a 51-year-old female comes to the ED with dizziness. Symptoms started last night when she was laying in bed. Dizziness is described as an feeling wobbly and off balance. She denies any room spinning. Symptoms worsen when she gets up and starts walking around. Earlier today she said when she would turn her head a certain way her symptoms would get worse as well but that has resolved. She saw her PCP 3 weeks ago and he told her that she had some fluid behind her ears. She denies any chest pain, shortness of breath, fevers, chills, vomiting. She does endorse feeling some nausea today. She admits to not drinking a lot of water and fluids daily. Denies any recent alcohol use. Denies any headaches, vision changes, numbness or tingling to face or extremities, weakness to 1 side of her body. Associated symptoms: Denies chest pain, chills, headache(s), nausea, nasal congestion, palpitations or vomiting Associated neuro symptoms: Deny numbness in extremities Review of Systems Const: Denies: fever(s), chills or fatigue Eyes: Denies: change in vision or eye discomfort ENMT: Denies: throat pain, odynophagia, nasal discharge or nasal congestion Card: Denies: chest pain, palpitations, edema, swelling of feet/ankles, dyspnea on exertion or orthopnea Resp: Denies: dyspnea, productive cough or non-productive cough GI: Denies: abdominal pain, nausea, vomiting, diarrhea, constipation or hematochezia : Denies: flank pain, dysuria or hematuria Musc: Denies: neck pain, back pain or extremity swelling Skin/Breast: Denies: rash or new lesions Neuro: Reports: dizziness; Denies: headache(s), numbness in extremities or weakness in extremities PFS ED PFSH: Medical History (Updated 04/30/22 @ 11:58 by Danielle Garcia RN) Dyslipidemia Fibromyalgia HTN (hypertension) Migraine PAD (peripheral artery disease) Post-traumatic stress disorder, chronic Psychiatric care Surgical History H/O: hysterectomy History of x2 History of laparoscopic cholecystectomy S/P peripheral artery angioplasty Left SFA Family History Family/Other Anesthesia complication Diabetes Sister CAD (coronary artery disease), Onset Age: 40 triple bypass Diabetes Father CAD (coronary artery disease), Onset Age: 50 Cancer Diabetes Stroke Mother Dementia Brother Diabetes Stroke Other Rheumatoid arthritis Denies family history of Clotting disorder Chronic kidney disease (CKD) Suicide Bleeding disorder Lung disease Social History Smoking and tobacco status: never smoked Alcohol intake: never Lives independently: Yes Household members: children Housing: House Physical Exam Const: COMMON NORMALS: patient oriented x3 HENMT: COMMON NORMALS: normocephalic HEAD & SCALP: normocephalic MOUTH: Normal oral and palatal mucosa present THROAT: posterior oropharynx normal and uvula midline Eye: COMMON NORMALS: Equal, round and reactive pupils present and EOMs intact bilaterally GENERAL EYE: appearance normal, both eyes and all related structures PUPIL: Yes Equal, round and reactive pupils present Neck/C-Spine: COMMON NORMALS: supple GENERAL: Yes normal visual inspection Lymph: LYMPHATIC: no lymphadenopathy noted Resp: COMMON NORMALS: normal respiratory effort, No retractions, No use of accessory muscles and clear to auscultation bilaterally AUSCULTATION: clear to auscultation bilaterally Cardio: COMMON NORMALS: regular rate, regular rhythm, S1 normal heart sound present, S2 normal heart sound present, No gallops present (Cardio), No clicks present (Cardio), No murmurs present (Cardio) and Peripheral pulses 2+ throughout RATE: regular rate RHYTHM: regular rhythm HEART SOUNDS: S1 normal heart sound present and S2 normal heart sound present PERIPHERAL PULSES: Peripheral pulses 2+ throughout GI: COMMON NORMALS: Normal to inspection, nondistended, normoactive bowel sounds present, Soft to palpation, non-tender and no masses PALPATION: Yes Soft to palpation : COMMON NORMALS: Yes no CVA tenderness BLADDER/KIDNEY EXAM: Yes no CVA tenderness Back/Pelvis: COMMON NORMALS: no CVA tenderness Extremity: GENERAL: Yes normal exam except as noted Neuro: COMMON NORMALS: patient oriented x3, CN's II-XII intact bilaterally, moves all extremities, no focal motor deficits and no sensory deficits noted SENSORY EXAM: Yes extremities (intact) MOTOR EXAM: 5/5 motor strength present throughout Skin: COMMON NORMALS: no rashes or lesions noted GENERAL SKIN EXAM: no rashes or lesions noted and dry skin Course Vital Signs: Vital signs: Vital Signs Temperature 97.8 F 04/25/22 14:04 Pulse Rate 79 04/25/22 14:04 Respiratory Rate 14 04/25/22 14:04 Blood Pressure 163/89 04/25/22 14:04 Pulse Oximetry 97 04/25/22 14:04 Oxygen Delivery Me thod 04/25/22 14:04 MDM - Dizziness Lab Data I reviewed the patient's lab results. : 04/25/22 11:47 04/25/22 11:47 Radiology Impressions Chest X-Ray 04/25/22 13:55 IMPRESSION: No acute chest abnormality. Head CT 04/25/22 14:36 IMPRESSION: Subtle hyperdensity in the right frontal lobe suspicious for trace acute subarachnoid hemorrhage. Short-term follow-up is recommended for stability. Vascular calcifications. Calcification of the basilar artery. Atherosclerotic narrowing of the basilar artery is a possibility. ADDENDUM: 04/25/22 1703 This is an addendum to prior report on CT head without contrast dated 04/25/2022 at 3:53 p.m.. Comparison was made with prior CTA head dated 04/01/2022. CTA head demonstrates no basilar artery stenosis at that time with no significant change from prior study. THIS REPORT CONTAINS FINDINGS THAT MAY BE CRITICAL TO PATIENT CARE. The findings were verbally communicated via telephone conference with SUMIT ABDUL at 5:01 PM CDT on 04/25/2022. The findings were acknowledged and understood. Laboratory Results WBC 7.6 10^3/uL (4.0-10.0) 04/25/22 11:47 RBC 5.03 10^6/uL (4.1-5.3) 04/25/22 11:47 Hgb 15.8 g/dL (11.5-15.3) H 04/25/22 11:47 Hct 47.1 % (37.0-47.0) H 04/25/22 11:47 MCV 93.6 fl (81-99) 04/25/22 11:47 MCH 31.4 pg (28.0-34.0) 04/25/22 11:47 MCHC 33.5 g/dL (30.0-36.0) 04/25/22 11:47 RDW 12.6 % (12.1-15.1) 04/25/22 11:47 Plt Count 290 10^3/cmm (130-400) 04/25/22 11:47 MPV 10.2 fL (7.4-10.4) 04/25/22 11:47 Neut % (Auto) 56.6 % 04/25/22 11:47 Lymph % (Auto) 35.4 % 04/25/22 11:47 Elk % (Auto) 5.0 % 04/25/22 11:47 Eos % (Auto) 2.0 % 04/25/22 11:47 Baso % (Auto) 0.7 % 04/25/22 11:47 Neut # (Auto) 4.29 10^3/uL (1.8-7.7) 04/25/22 11:47 Lymph # (Auto) 2.7 10^3/uL (0.8-4.8) 04/25/22 11:47 Elk # (Auto) 0.4 10^3/uL (0.2-0.9) 04/25/22 11:47 Eos # (Auto) 0.2 10^3/uL (0.0-0.8) 04/25/22 11:47 Baso # (Auto) 0.1 10^3/uL (0.0-0.1) 04/25/22 11:47 Nucleated RBC % (auto) 0 % 04/25/22 11:47 Nucleated RBCs # 0.0 /100WBC 04/25/22 11:47 PT 14.70 SECONDS (12.1-14.9) 04/25/22 17:57 INR 1.11 (0.8-1.2) 04/25/22 17:57 APTT 24.1 SECONDS (23.9-36.7) 04/25/22 17:57 Sodium 143 mmol/L (136-145) 04/25/22 11:47 Potassium 3.6 mmol/L (3.5-5.1) 04/25/22 11:47 Chloride 102 mmol/L (98-107) 04/25/22 11:47 Carbon Dioxide 26 mmol/L (22-29) 04/25/22 11:47 Anion Gap 18.6 (5-19) 04/25/22 11:47 BUN 9 mg/dL (6-20) 04/25/22 11:47 Creatinine 0.6 mg/dL (0.5-0.9) 04/25/22 11:47 GFR Calculation 104.6 mL/min (90-130) 04/25/22 11:47 Glucose 96 mg/dL (65-115) 04/25/22 11:47 Calculated Osmolality 295 mOsm/kg (285-295) 04/25/22 11:47 Calcium 9.5 mg/dL (8.5-10.5) 04/25/22 11:47 Total Bilirubin 0.5 mg/dL (0.15-1.2) 04/25/22 11:47 AST 16 U/L (0-32) 04/25/22 11:47 ALT 13 U/L (0-33) 04/25/22 11:47 Alkaline Phosphatase 103 IU/L (35-105) 04/25/22 11:47 Troponin T Baseline 6 ng/L (0-10) 04/25/22 11:47 Troponin T 120 Minute 6.00 ng/L (0-10) 04/25/22 14:19 Delta Troponin T 0 ABS# (0-10) 04/25/22 14:19 Total Protein 7.7 g/dL (6.6-8.7) 04/25/22 11:47 Albumin 4.5 g/dL (3.5-5.2) 04/25/22 11:47 Globulin 3.2 g/dL (1.3-4.6) 04/25/22 11:47 EKG Data EKG 1: EKG interpretation date: 04/25/22 Interpretation: Sinus rhythm, no ST segment elevation or depression seen, 64 bpm Discharge Plan Discharge Patient Disposition: Transfer to ED Clinical Impression: Subarachnoid bleed, Light headedness, Bleeding in brain Condition: Stable Prescriptions: No Action amlodipine 5 mg tablet 5 mg PO DAILY Qty: 30 5RF lisinopril 40 mg tablet 40 mg PO DAILY Qty: 90 2RF nicotine 14 mg/24 hr patch 24 hour 1 patch transdermal DAILY Qty: 28 0RF nicotine (polacrilex) 4 mg lozenge 4 mg buccal Q6H PRN (Reason: nicotine cravings) Qty: 108 1RF atorvastatin 40 mg tablet 80 mg PO DAILY@09 Qty: 180 3RF propranolol 10 mg tablet 10 mg PO BID Qty: 60 5RF pantoprazole [Protonix] 40 mg tablet,delayed release (DR/EC) 40 mg PO DAILY Qty: 30 5RF gabapentin 600 mg tablet 600 mg PO TID Qty: 90 5RF Tylenol Sinus Headache 5-325 mg tablet 1 tab PO Q4H sertraline [Zoloft] 100 mg tablet 100 mg PO DAILY Qty: 30 1RF clonazepam 0.5 mg tablet 0.5 mg PO BID PRN (Reason: anxiety) Qty: 60 1RF Hold Instructions: Adverse Reaction prednisone 20 mg tablet See Rx Instructions .Route .COMPLEX Qty: 20 0RF Rx Instructions: 3 tabs x 3 days, then 2 tabs x 3 days, then 1 tab x 3 days, then 1/2 tab x 3 days. hydrocodone-acetaminophen 5-325 mg tablet 1 tab PO Q8H PRN (Reason: pain) 5 Days Qty: 10 0RF Referrals: Chuy Pulliam DO [Primary Care Provider] - Coding Level of Care Code ED Drill Press Hand for Chg Fwd Exam Comprehensive Documented by User: Satya Langford MD 05/02/22 11:10 HPI - Dizziness General: Chief Complaint: Dizziness Stated Complaint: DIZZY, NAUSEA Time Seen by Provider: 04/25/22 13:51 PFSH ED PFSH: Medical History (Updated 04/30/22 @ 11:58 by Danielle Garcia RN) Dyslipidemia Fibromyalgia HTN (hypertension) Migraine PAD (peripheral artery disease) Post-traumatic stress disorder, chronic Psychiatric care Surgical History H/O: hysterectomy History of x2 History of laparoscopic cholecystectomy S/P peripheral artery angioplasty Left SFA Family History Family/Other Anesthesia complication Diabetes Sister CAD (coronary artery disease), Onset Age: 40 triple bypass Diabetes Father CAD (coronary artery disease), Onset Age: 50 Cancer Diabetes Stroke Mother Dementia Brother Diabetes Stroke Other Rheumatoid arthritis Denies family history of Clotting disorder Chronic kidney disease (CKD) Suicide Bleeding disorder Lung disease Social History Smoking and tobacco status: never smoked Alcohol intake: never Lives independently: Yes Household members: children Housing: House Course Vital Signs: Vital signs: Vital Signs Temperature 97.8 F 04/25/22 14:04 Pulse Rate 79 04/25/22 14:04 Respiratory Rate 14 04/25/22 14:04 Blood Pressure 163/89 04/25/22 14:04 Pulse Oximetry 97 04/25/22 14:04 Oxygen Delivery Me thod 04/25/22 14:04 MDM - Dizziness Medical Decision Making 51-year-old female presents emergency room with sensation of lightheadedness. On CT scan, patient found to have trace subarachnoid bleed. Patient is hemodynamically stable. Blood pressure appears to be mildly elevated at 163 systolic. Patient is currently on a Cardizem drip. Status post Keppra 1 g. Head of bed elevation 30 degrees. Patient will need to be transferred out of for further management of brain bleed. Patient was on xarelto yesterday. Patient received Indexa in the ED for reversal of xarelto. Last dose was 2.5mg yesterday night. Case was discussed with Dr. Weber and Dr. Poole who agreed with the transfer to [facility] for subarachnoid bleed. Disposition: Transfer to outside hospital Lab Data : 04/25/22 11:47 04/25/22 11:47 Radiology Impressions Chest X-Ray 04/25/22 13:55 IMPRESSION: No acute chest abnormality. Head CT 04/25/22 14:36 IMPRESSION: Subtle hyperdensity in the right frontal lobe suspicious for trace acute subarachnoid hemorrhage. Short-term follow-up is recommended for stability. Vascular calcifications. Calcification of the basilar artery. Atherosclerotic narrowing of the basilar artery is a possibility. ADDENDUM: 04/25/22 1703 This is an addendum to prior report on CT head without contrast dated 04/25/2022 at 3:53 p.m.. Comparison was made with prior CTA head dated 04/01/2022. CTA head demonstrates no basilar artery stenosis at that time with no significant change from prior study. THIS REPORT CONTAINS FINDINGS THAT MAY BE CRITICAL TO PATIENT CARE. The findings were verbally communicated via telephone conference with SUMIT ABDUL at 5:01 PM CDT on 04/25/2022. The findings were acknowledged and understood. Laboratory Results WBC 7.6 10^3/uL (4.0-10.0) 04/25/22 11:47 RBC 5.03 10^6/uL (4.1-5.3) 04/25/22 11:47 Hgb 15.8 g/dL (11.5-15.3) H 04/25/22 11:47 Hct 47.1 % (37.0-47.0) H 04/25/22 11:47 MCV 93.6 fl (81-99) 04/25/22 11:47 MCH 31.4 pg (28.0-34.0) 04/25/22 11:47 MCHC 33.5 g/dL (30.0-36.0) 04/25/22 11:47 RDW 12.6 % (12.1-15.1) 04/25/22 11:47 Plt Count 290 10^3/cmm (130-400) 04/25/22 11:47 MPV 10.2 fL (7.4-10.4) 04/25/22 11:47 Neut % (Auto) 56.6 % 04/25/22 11:47 Lymph % (Auto) 35.4 % 04/25/22 11:47 Elk % (Auto) 5.0 % 04/25/22 11:47 Eos % (Auto) 2.0 % 04/25/22 11:47 Baso % (Auto) 0.7 % 04/25/22 11:47 Neut # (Auto) 4.29 10^3/uL (1.8-7.7) 04/25/22 11:47 Lymph # (Auto) 2.7 10^3/uL (0.8-4.8) 04/25/22 11:47 Elk # (Auto) 0.4 10^3/uL (0.2-0.9) 04/25/22 11:47 Eos # (Auto) 0.2 10^3/uL (0.0-0.8) 04/25/22 11:47 Baso # (Auto) 0.1 10^3/uL (0.0-0.1) 04/25/22 11:47 Nucleated RBC % (auto) 0 % 04/25/22 11:47 Nucleated RBCs # 0.0 /100WBC 04/25/22 11:47 PT 14.70 SECONDS (12.1-14.9) 04/25/22 17:57 INR 1.11 (0.8-1.2) 04/25/22 17:57 APTT 24.1 SECONDS (23.9-36.7) 04/25/22 17:57 Sodium 143 mmol/L (136-145) 04/25/22 11:47 Potassium 3.6 mmol/L (3.5-5.1) 04/25/22 11:47 Chloride 102 mmol/L (98-107) 04/25/22 11:47 Carbon Dioxide 26 mmol/L (22-29) 04/25/22 11:47 Anion Gap 18.6 (5-19) 04/25/22 11:47 BUN 9 mg/dL (6-20) 04/25/22 11:47 Creatinine 0.6 mg/dL (0.5-0.9) 04/25/22 11:47 GFR Calculation 104.6 mL/min (90-130) 04/25/22 11:47 Glucose 96 mg/dL (65-115) 04/25/22 11:47 Calculated Osmolality 295 mOsm/kg (285-295) 04/25/22 11:47 Calcium 9.5 mg/dL (8.5-10.5) 04/25/22 11:47 Total Bilirubin 0.5 mg/dL (0.15-1.2) 04/25/22 11:47 AST 16 U/L (0-32) 04/25/22 11:47 ALT 13 U/L (0-33) 04/25/22 11:47 Alkaline Phosphatase 103 IU/L (35-105) 04/25/22 11:47 Troponin T Baseline 6 ng/L (0-10) 04/25/22 11:47 Troponin T 120 Minute 6.00 ng/L (0-10) 04/25/22 14:19 Delta Troponin T 0 ABS# (0-10) 04/25/22 14:19 Total Protein 7.7 g/dL (6.6-8.7) 04/25/22 11:47 Albumin 4.5 g/dL (3.5-5.2) 04/25/22 11:47 Globulin 3.2 g/dL (1.3-4.6) 04/25/22 11:47 Imaging Data Other Imaging: Radiologist's impression: [address] [place] [address] CT Scan Report Signed with Danie Patient: Wendy Calderon Unit #: [id number] : 1970 Age/Sex: 51 / F ADM Date: 04/25/22 Loc: ER Room/Bed: Attending Dr: Ordering Provider/Ordering MD: Sumit Abdul Date of Service: 04/25/22 Procedure(s): CT head wo con* [id number] Accession Number(s): [id number] Report Number: [id number]/CT head wo con* [id number] This is an addendum to prior report on CT head without contrast dated 04/25/2022 at 3:53 p.m.. Comparison was made with prior CTA head dated 04/01/2022. CTA head demonstrates no basilar artery stenosis at that time with no significant change from prior study. THIS REPORT CONTAINS FINDINGS THAT MAY BE CRITICAL TO PATIENT CARE. The findings were verbally communicated via telephone conference with SUMIT ABDUL at 5:01 PM CDT on 04/25/2022. The findings were acknowledged and understood. ? Addendum Dictated By: ?Gordo Leon MD Addendum Signed By: ?Gordo Leon MD Signed Date/Time: 04/25/221702 Addendum Cosigned By: ? PROCEDURE INFORMATION: Exam: CT Head Without Contrast Exam date and time: 04/25/2022 3:53 PM Age: 51 years old Clinical indication: Dizziness TECHNIQUE: Imaging protocol: Computed tomography of the head without contrast. Radiation optimization: All CT scans at this facility use at least one of these dose optimization techniques: automated exposure control; mA and/or kV adjustment per patient size (includes targeted exams where dose is matched to clinical indication); or iterative reconstruction. COMPARISON: CT head wo con* [id number] 04/01/2022 5:13 PM RADIATION DOSE METRICS: Total DLP (mGy-cm): 1022.24 FINDINGS: Brain: Subtle hyperdensity in the right frontal lobe (series 3, image 31) suspicious for trace acute subarachnoid hemorrhage. Cerebral ventricles: No ventriculomegaly. Paranasal sinuses: Visualized sinuses are unremarkable. No fluid levels. Mastoid air cells: Visualized mastoid air cells are well aerated. Bones/joints: Unremarkable. No acute fracture. Soft tissues: Unremarkable. Vascular calcifications.? There is calcification of the basilar artery. CT/CT head wo con* [id number] IMPRESSION: Subtle hyperdensity in the right frontal lobe suspicious for trace acute subarachnoid hemorrhage. Short-term follow-up is recommended for stability. Vascular calcifications. Calcification of the basilar artery.? Atherosclerotic narrowing of the basilar artery is a possibility. ? Dictated By: Gordo Leon MD Signed By: Gordo Leon MD Signed Date/Time: 04/25/22 1645 DD/ [address] [address] XRay Report Signed Patient: Wendy Calderon Unit #: [id number] : 1970 Age/Sex: 51 / F ADM Date: 04/25/22 Loc: ER Room/Bed: Attending Dr: Ordering Provider/Ordering MD: Sumit Abdul Date of Service: 04/25/22 Procedure(s): XR chest 1V portable [id number] Accession Number(s): [id number] Report Number: [id number] WS: [id number] XR chest 1V portable [id number] REASON FOR EXAM: dizziness FINDINGS: The chest is unchanged compared to 06/27/2017. Heart and mediastinum are within normal limits. Calcified granulomatous disease in both hemithoraces. No lung mass or significant lung nodule. No acute pulmonary parenchymal or pleural abnormality. Moderate changes of degenerative spondylosis in the mid and lower thoracic spine. XR/XR chest 1V portable [id number] IMPRESSION: No acute chest abnormality. ? ? Dictated By: Ivan Steven Jr, MD Signed By: Ivan Steven Jr, MD Signed Date/Time: 04/25/221428 DD/ 26 Critical Care Time Critical Care Time: Critical Care Time: Yes Total Critical Care Time: 35 Attestation: The high probability of a clinically significant, sudden or life threatening deterioration of the patient's neurological system(s) required my full and direct attention, intervention and personal management. The critical care time is as shown. This time is in addition to time spent performing any reported procedures but includes the following: [x] Data and vital sign review and interpretation [x] Patient assessment, examination and intervention [x] Documentation [x] Medication orders and management Discharge Plan Discharge Patient Disposition: Transfer to ED Clinical Impression: Subarachnoid bleed, Light headedness, Bleeding in brain Condition: Stable Prescriptions: No Action amlodipine 5 mg tablet 5 mg PO DAILY Qty: 30 5RF lisinopril 40 mg tablet 40 mg PO DAILY Qty: 90 2RF nicotine 14 mg/24 hr patch 24 hour 1 patch transdermal DAILY Qty: 28 0RF nicotine (polacrilex) 4 mg lozenge 4 mg buccal Q6H PRN (Reason: nicotine cravings) Qty: 108 1RF atorvastatin 40 mg tablet 80 mg PO DAILY@09 Qty: 180 3RF propranolol 10 mg tablet 10 mg PO BID Qty: 60 5RF pantoprazole [Protonix] 40 mg tablet,delayed release (DR/EC) 40 mg PO DAILY Qty: 30 5RF gabapentin 600 mg tablet 600 mg PO TID Qty: 90 5RF Tylenol Sinus Headache 5-325 mg tablet 1 tab PO Q4H sertraline [Zoloft] 100 mg tablet 100 mg PO DAILY Qty: 30 1RF clonazepam 0.5 mg tablet 0.5 mg PO BID PRN (Reason: anxiety) Qty: 60 1RF Hold Instructions: Adverse Reaction prednisone 20 mg tablet See Rx Instructions .Route .COMPLEX Qty: 20 0RF Rx Instructions: 3 tabs x 3 days, then 2 tabs x 3 days, then 1 tab x 3 days, then 1/2 tab x 3 days. hydrocodone-acetaminophen 5-325 mg tablet 1 tab PO Q8H PRN (Reason: pain) 5 Days Qty: 10 0RF Referrals: Chuy Pulliam DO [Primary Care Provider] - Coding Level of Care Code ED Drill Press Hand for Chg Fwd Exam Comprehensive
[2022-04-25] MEDS: meclizine 25 mg tablet 50 MG PO (15:27)
[2022-04-25 16:52] LABS: Troponin 5 2HR Delta 0 ABS# (0-10)
[2022-04-25] MEDS: LORazepam 1 mg Tablet PO (17:15)
[2022-04-25] MEDS: nicardipine 20 MG/200 ML PREMIX 50 MG IV (17:56)
[2022-04-25 18:17] LABS: INR 1.11 (0.8-1.2)
[2022-04-25 18:18] LABS: Partial Thromboplastin Time 24.1 SECONDS (23.9-36.7)
[2022-04-25] MEDS: factor xa, inactivated-zhzo 400 MG in empty flexible container 1 EACH, non-DEHP filter ... 180 MG IV (18:48)
[2022-04-25] MEDS: factor xa, inactivated-zhzo 480 MG in empty flexible container 1 EACH, non-DEHP filter ... 24 MG IV (19:27)
== END 2022-04-25 20:00 ==
PROVIDERS: Physician Assistant; Emergency Provider Emergency Medicine; PCP Family Medicine
DX: R42 Dizziness and giddiness (principal); I60.9 Nontraumatic subarachnoid hemorrhage, unspecified; E78.5 Hyperlipidemia, unspecified; I10 Essential (primary) hypertension
CPT/HCPCS: 70450; 71045; 80053; 84484; 85025; 85610; 85730; 93005; 96365; 96366; 96367; 99285; J1953; J7169; J8597

== ENCOUNTER 2022-07-20 17:53 | Emergency (ER) | payer MEDICAID, SELFPAY ==
[2022-07-20 17:55] VITALS: BP 155/88; PULSE 63; RESP 16; TEMP 36.8; O2SAT 97; BMI 33.6
--- NOTE | 2022-07-20 18:23 | W.ED.EXTPRO ---
Documented by User: GIOVANA Madden 07/20/22 19:10 HPI - Extremity Problem General: Chief complaint: Extremity Injury, Lower Stated complaint: swelling in abd Time Seen by Provider: 07/20/22 18:22 History of Present Illness: 51-year-old female comes in today with complaints of tenderness and swelling to the right inguinal area at the site of a Angiocath. Patient had catheterization to check artery stents in the left lower extremity on Saturday. Over the last 2 days patient noticed some tenderness and swelling to the right inguinal area. Patient takes Xarelto routinely, patient appears in nontoxic, patient has a history of atherosclerosis, anxiety, GERD, peripheral artery disease, and nicotine abuse. Associated symptoms: Deny fever(s) Review of Systems Const: Denies: fever(s) Musc: Reports: other (Right inguinal tenderness and swelling) [facility] ED PFSH: Medical History Dyslipidemia Fibromyalgia HTN (hypertension) Migraine PAD (peripheral artery disease) Post-traumatic stress disorder, chronic Psychiatric care Surgical History H/O: hysterectomy History of x2 History of laparoscopic cholecystectomy S/P peripheral artery angioplasty Left SFA Family History Family/Other Anesthesia complication Diabetes Sister CAD (coronary artery disease), Onset Age: 40 triple bypass Diabetes Father CAD (coronary artery disease), Onset Age: 50 Cancer Diabetes Stroke Mother Dementia Brother Diabetes Stroke Other Rheumatoid arthritis Denies family history of Clotting disorder Chronic kidney disease (CKD) Suicide Bleeding disorder Lung disease Social History Smoking and tobacco status: never smoked Alcohol intake: never Lives independently: Yes Household members: children Housing: House Female Reproductive History: Spontaneous abortions: No Physical Exam Const: COMMON NORMALS: alert HENMT: COMMON NORMALS: normocephalic HEAD & SCALP: normocephalic Neck/C-Spine: COMMON NORMALS: full ROM Resp: COMMON NORMALS: normal respiratory effort and clear to auscultation bilaterally AUSCULTATION: clear to auscultation bilaterally Cardio: COMMON NORMALS: regular rate and regular rhythm RATE: regular rate RHYTHM: regular rhythm Extremity: NARRATIVE EXTREMITY EXAM: Distal extremities have prompt capillary refill. RIGHT LOWER EXTREMITY: Yes upper leg (3 cm palpable hematoma right inguinal area) Right upper leg: Yes inspection, Yes palpation and Yes neurovascular exam Neuro: SENSORIUM/ORIENTATION: Yes alert Course Vital Signs: Vital signs: Vital Signs Temperature 97.7 F 07/20/22 19:19 Pulse Rate 60 07/20/22 19:19 Respiratory Rate 20 H 07/20/22 19:19 Blood Pressure 132/70 07/20/22 19:19 Pulse Oximetry 97 07/20/22 19:19 Oxygen Delivery Me thod 07/20/22 19:03 MDM - Extremity (Nontraumatic) Medical Decision Making 51-year-old female comes in today for complaints of right inguinal discomfort and swelling from insertion of Angiocath for procedure done on Saturday. On exam there is a hematoma noted to the right inguinal area. Differential diagnosis includes aneurysm, hematoma, anxiety, peripheral vascular disease. Ultrasound indicated no aneurysm and no leakage from the site. Reviewed exam with patient with recommendations for treatment and follow-up. Patient reported understanding agreed to plan. Lab Data Radiology Impressions Arterial/Peripheral Duplex 07/20/22 18:26 IMPRESSION: Right common femoral artery and posterior tibial arteries appear patent with color blood flow without pseudoaneurysm or abnormality. Discharge Plan Discharge Patient Disposition: Home Clinical Impression: Hematoma Condition: Stable Prescriptions: No Action lisinopril 40 mg tablet 40 mg PO DAILY Qty: 90 2RF nicotine 14 mg/24 hr patch 24 hour 1 patch transdermal DAILY Qty: 28 0RF nicotine (polacrilex) 4 mg lozenge 4 mg buccal Q6H PRN (Reason: nicotine cravings) Qty: 108 1RF atorvastatin 40 mg tablet 80 mg PO DAILY@09 Qty: 180 3RF pantoprazole [Protonix] 40 mg tablet,delayed release (DR/EC) 40 mg PO DAILY Qty: 30 5RF gabapentin 600 mg tablet 600 mg PO TID Qty: 90 5RF hydrocodone-acetaminophen 5-325 mg tablet 1 tab PO Q8H PRN (Reason: pain) 7 Days Qty: 20 0RF prednisone 20 mg tablet See Rx Instructions .Route .COMPLEX Qty: 20 0RF Rx Instructions: 3 tabs x 3 days, then 2 tabs x 3 days, then 1 tab x 3 days, then 1/2 tab x 3 days. tizanidine 4 mg tablet 4 mg PO Q8H PRN (Reason: muscle spasticity) Qty: 60 3RF aspirin 81 mg tablet,chewable 81 mg PO DAILY Xarelto 15 mg tablet 15 mg PO DAILY Rx Instructions: must administer with evening meal diazepam [Valium] 5 mg tablet 5 mg PO BID PRN (Reason: anxiety) Qty: 60 2RF sertraline [Zoloft] 100 mg tablet 100 mg PO DAILY Qty: 30 2RF Discharge Orders: Discharge ED (Routine); Ordered 07/20/22 Ordered By: Jann Thurston Referrals: Chuy Pulliam DO [Primary Care Provider] - Discharge Diet: Usual diet Discharge Activity: Limit activity as instructed Patient Instructions: Hematoma (ED) Activity Restrictions/Additional Instructions: Use ice or heat to the area for comfort. Avoid strenuous activity. Follow-up with primary care or specialist at next appointment. Return to ED for lightheadedness, increasing pain to the area, fever greater than 100.4, redness or warmth to the area. Coding Level of Care Code ED An Employee Sponsor Or Advocate And for Chg Fwd Exam Detailed Documented by User: Domingo Bai DO 07/21/22 02:46 HPI - Extremity Problem General: Chief complaint: Extremity Injury, Lower Stated complaint: swelling in abd Time Seen by Provider: 07/20/22 18:22 [facility] ED PFSH: Medical History Dyslipidemia Fibromyalgia HTN (hypertension) Migraine PAD (peripheral artery disease) Post-traumatic stress disorder, chronic Psychiatric care Surgical History H/O: hysterectomy History of x2 History of laparoscopic cholecystectomy S/P peripheral artery angioplasty Left SFA Family History Family/Other Anesthesia complication Diabetes Sister CAD (coronary artery disease), Onset Age: 40 triple bypass Diabetes Father CAD (coronary artery disease), Onset Age: 50 Cancer Diabetes Stroke Mother Dementia Brother Diabetes Stroke Other Rheumatoid arthritis Denies family history of Clotting disorder Chronic kidney disease (CKD) Suicide Bleeding disorder Lung disease Social History Smoking and tobacco status: never smoked Alcohol intake: never Lives independently: Yes Household members: children Housing: House Course Vital Signs: Vital signs: Vital Signs Temperature 97.7 F 07/20/22 19:19 Pulse Rate 60 07/20/22 19:19 Respiratory Rate 20 H 07/20/22 19:19 Blood Pressure 132/70 07/20/22 19:19 Pulse Oximetry 97 07/20/22 19:19 Oxygen Delivery Me thod 07/20/22 19:03 MDM - Extremity (Nontraumatic) Medical Decision Making 51-year-old female comes in today for complaints of right inguinal discomfort and swelling from insertion of Angiocath for procedure done on Saturday. On exam there is a hematoma noted to the right inguinal area. Differential diagnosis includes aneurysm, hematoma, anxiety, peripheral vascular disease. Ultrasound indicated no aneurysm and no leakage from the site. Reviewed exam with patient with recommendations for treatment and follow-up. Patient reported understanding agreed to plan. This patient was originally seen by GIOVANA Borrego.? I agree with his history, evaluation, and treatment. Lab Data Radiology Impressions Arterial/Peripheral Duplex 07/20/22 18:26 IMPRESSION: Right common femoral artery and posterior tibial arteries appear patent with color blood flow without pseudoaneurysm or abnormality. Discharge Plan Discharge Patient Disposition: Home Clinical Impression: Hematoma Condition: Stable Prescriptions: No Action lisinopril 40 mg tablet 40 mg PO DAILY Qty: 90 2RF nicotine 14 mg/24 hr patch 24 hour 1 patch transdermal DAILY Qty: 28 0RF nicotine (polacrilex) 4 mg lozenge 4 mg buccal Q6H PRN (Reason: nicotine cravings) Qty: 108 1RF atorvastatin 40 mg tablet 80 mg PO DAILY@09 Qty: 180 3RF pantoprazole [Protonix] 40 mg tablet,delayed release (DR/EC) 40 mg PO DAILY Qty: 30 5RF gabapentin 600 mg tablet 600 mg PO TID Qty: 90 5RF hydrocodone-acetaminophen 5-325 mg tablet 1 tab PO Q8H PRN (Reason: pain) 7 Days Qty: 20 0RF prednisone 20 mg tablet See Rx Instructions .Route .COMPLEX Qty: 20 0RF Rx Instructions: 3 tabs x 3 days, then 2 tabs x 3 days, then 1 tab x 3 days, then 1/2 tab x 3 days. tizanidine 4 mg tablet 4 mg PO Q8H PRN (Reason: muscle spasticity) Qty: 60 3RF aspirin 81 mg tablet,chewable 81 mg PO DAILY Xarelto 15 mg tablet 15 mg PO DAILY Rx Instructions: must administer with evening meal diazepam [Valium] 5 mg tablet 5 mg PO BID PRN (Reason: anxiety) Qty: 60 2RF sertraline [Zoloft] 100 mg tablet 100 mg PO DAILY Qty: 30 2RF Discharge Orders: Discharge ED (Routine); Ordered 07/20/22 Ordered By: Jann Thurston Referrals: Chuy Pulliam DO [Primary Care Provider] - Discharge Diet: Usual diet Discharge Activity: Limit activity as instructed Patient Instructions: Hematoma (ED) Activity Restrictions/Additional Instructions: Use ice or heat to the area for comfort. Avoid strenuous activity. Follow-up with primary care or specialist at next appointment. Return to ED for lightheadedness, increasing pain to the area, fever greater than 100.4, redness or warmth to the area. Coding Level of Care Code ED An Employee Sponsor Or Advocate And for Tayla Fwd Exam Detailed
--- NOTE | 2022-07-20 18:26 | USR_ITS ---
PROCEDURE INFORMATION: Exam: US Duplex Right Lower Extremity Arteries Or Arterial Bypass Grafts Exam date and time: 07/20/2022 6:37 PM Age: 51 years old Clinical indication: Pain; Leg, upper; Right; Additional info: Right inguinal probable hematoma, R/O out leaking vessel from angiocath TECHNIQUE: Imaging protocol: Right Real-time duplex scan of the arteries or arterial bypass grafts of the right lower extremity with 2-D hennessy scale, color Doppler flow and spectral waveform analysis. Images documented and saved. COMPARISON: CT angio abd aorta runof [id number] 10/06/2021 4:15 PM FINDINGS: Right common femoral artery and posterior tibial arteries appear patent with color blood flow without pseudoaneurysm or abnormality. Soft tissues: No hematoma or collection. [place] [id number] IMPRESSION: Right common femoral artery and posterior tibial arteries appear patent with color blood flow without pseudoaneurysm or abnormality.
[2022-07-20 19:03] VITALS: BP 134/70; PULSE 85; RESP 12; TEMP 36.5; O2SAT 97
[2022-07-20 19:19] VITALS: BP 132/70; PULSE 60; RESP 20; TEMP 36.5; O2SAT 97
== END 2022-07-20 19:22 | disposition home or self-care (01) ==
PROVIDERS: Emergency Provider Nurse Practitioner Family; PCP Family Medicine
DX: S30.1XXA Contusion of abdominal wall, initial encounter (principal); X58.XXXA Exposure to other specified factors, initial encounter; Z79.82 Long term (current) use of aspirin; E78.5 Hyperlipidemia, unspecified; I10 Essential (primary) hypertension
CPT/HCPCS: 93926; 99284

== ENCOUNTER → 2022-11-15 10:22 | Outpatient (BNVA) | payer MEDICAID, SELFPAY | PROVIDERS: PCP Family Medicine; Visit Provider Registered Nurse Neonatal Intensive Care | DX: M25.512 Pain in left shoulder (principal); S40.012A Contusion of left shoulder, initial encounter; W19.XXXA Unspecified fall, initial encounter; M65.28 Calcific tendinitis, other site | CPT/HCPCS: 73030 ==

== ENCOUNTER 2023-10-09 13:51 | Outpatient (CLI) | payer OTHER, SELFPAY ==
--- NOTE | 2023-10-09 14:45 | USR_ITS ---
PROCEDURE INFORMATION: Exam: US Duplex Left Lower Extremity Arteries Or Arterial Bypass Grafts Exam date and time: 10/09/2023 2:29 PM Age: 53 years old Clinical indication: Other: Worsening claudication, decreased pulse; Prior surgery; Surgery date: 6+ months; Surgery type: Bypass graft; Additional info: Previous vte, worsening claudication, decreased pulses [facility] - [id number] TECHNIQUE: Imaging protocol: Left Real-time duplex scan of the arteries or arterial bypass grafts of the left lower extremity with 2-D hennessy scale, color Doppler flow and spectral waveform analysis. Images documented and saved. COMPARISON: CT angio abd aorta runof [id number] 10/06/2021 4:15 PM FINDINGS: There is a patent left bypass graft extending from the common femoral artery into the peroneal artery. No areas of stenosis are visualized. There is flow in the posterior tibial artery including the dorsalis pedis artery. Left ankle brachial index is normal at 0.96. US/CV arterial duplex [facility] [id number] IMPRESSION: Patent left-sided bypass graft extending from the common femoral artery to the peroneal artery. There is no flow in the [place] vessels in the upper leg. Flow is seen in the posterior tibial artery and dorsalis pedis artery. Normal ankle brachial index.
== END 2023-10-09 13:52 | disposition home or self-care (01) ==
LOC: RAD 13:51
PROVIDERS: PCP Family Medicine; Visit Provider Family Medicine
DX: I74.3 Embolism and thrombosis of arteries of the lower extremities (principal); I73.9 Peripheral vascular disease, unspecified; Z95.820 Peripheral vascular angioplasty status with implants and grafts
CPT/HCPCS: 93926

== ENCOUNTER 2024-03-20 17:29 | Emergency (ER) | payer MEDICAID, SELFPAY ==
--- NOTE | 2024-03-20 17:35 | XRR_ITS ---
PROCEDURE INFORMATION: Exam: XR Left Foot Exam date and time: 03/20/2024 5:54 PM Age: 53 years old Clinical indication: Pain; Ankle and foot; Left; Pain, possible blood clot, leg/foot blue TECHNIQUE: Imaging protocol: Radiologic exam of the left foot. Views: 3 or more views. COMPARISON: CT angio abd aorta runof [id number] 10/06/2021 4:15 PM FINDINGS: Bones/joints: Enthesophytes are present off the os calcis at the Achilles insertion and plantar fascia origin. Soft tissues: There is edema in the soft tissues. There are benign-appearing soft tissue calcifications. XR/XR foot LT min 3V* [id number] IMPRESSION: There is edema in the soft tissues.
--- NOTE | 2024-03-20 17:35 | XRR_ITS ---
PROCEDURE INFORMATION: Exam: XR Left Ankle Exam date and time: 03/20/2024 5:54 PM Age: 53 years old Clinical indication: Pain; Ankle and foot; Left; Additional info: Pain, possible blood clot, leg/foot blue TECHNIQUE: Imaging protocol: Radiologic exam of the left ankle. Views: 3 or more views. COMPARISON: CT angio abd aorta runof [id number] 10/06/2021 4:15 PM FINDINGS: Bones/joints: Enthesophytes are present off the os calcis at the Achilles insertion and plantar fascia origin. Soft tissues: There is edema in the soft tissues. XR/XR ankle LT min 3V* [id number] IMPRESSION: There is edema in the soft tissues.
[2024-03-20 17:39] VITALS: BP 155/87; PULSE 125; RESP 18; TEMP 36.6; O2SAT 99
--- NOTE | 2024-03-20 18:13 | USR_ITS ---
PROCEDURE INFORMATION: Exam: US Duplex Left Lower Extremity Veins, Limited Exam date and time: 03/20/2024 6:57 PM Age: 53 years old Clinical indication: Pain; Leg, lower; Left; Additional info: Pain pallor ischemia HX of stents TECHNIQUE: Imaging protocol: Real-time duplex ultrasound of the left extremity with 2-D hennessy scale, color Doppler flow and spectral waveform analysis including responses to compression and other maneuvers (when performed) with image documentation. Limited exam focused on the left lower extremity veins. COMPARISON: CT angio abd aorta runof [id number] 10/06/2021 4:15 PM FINDINGS: Left deep veins: Unremarkable. The common femoral, femoral, proximal profunda femoral and popliteal veins are patent without thrombus. Normal Doppler waveforms. Normal compressibility and/or augmentation response. Superficial veins: Greater saphenous vein at the saphenofemoral junction is patent without thrombus. Soft tissues: Unremarkable. US/CV venous duplex [facility] [id number] IMPRESSION: No evidence of deep vein thrombosis.
--- NOTE | 2024-03-20 18:13 | USR_ITS ---
PROCEDURE INFORMATION: Exam: US Duplex Left Lower Extremity Arteries Or Arterial Bypass Grafts Exam date and time: 03/20/2024 7:07 PM Age: 53 years old Clinical indication: Pain; Leg, lower; Left; Prior surgery; Surgery date: 6+ months; Surgery type: Unsure of dates. Surgery history explained above. ; Additional info: Pain, pallor, ischemia HX of stents TECHNIQUE: Imaging protocol: Left Real-time duplex scan of the arteries or arterial bypass grafts of the left lower extremity with 2-D hennessy scale, color Doppler flow and spectral waveform analysis. Images documented and saved. COMPARISON: [place] [id number] 03/20/2024 6:57 PM FINDINGS: Left common femoral artery: The left common femoral, superficial femoral, popliteal, posterior tibialis, and dorsalis pedis arteries are occluded. Left superficial femoral artery: Occluded. Left popliteal artery: Occluded. Left calf/foot arteries: Posterior tibialis and dorsalis pedis arteries are occluded. Anterior tibialis and peroneal arteries not visualized. Other findings: The femoropopliteal bypass graft is occluded. US/[place] [id number] IMPRESSION: 1. The femoropopliteal bypass graft is occluded. 2. The left common femoral, superficial femoral, popliteal, posterior tibialis, and dorsalis pedis arteries are occluded.
--- NOTE | 2024-03-20 18:24 | ED_ITS ---
HPI - Extremity Problem 2 General: Chief complaint: Extremity Problem,Nontraumatic Stated complaint: left foot pain cant walk on it Time Seen by Provider: 03/20/24 17:58 History of Present Illness: Patient comes to the ER with complaints of left foot and ankle pain and coldness from the mid calf down. Patient does have a history of peripheral artery disease and needing stents in this leg. This started about the 30 minutes prior to arrival. Patient has had blood clots and is on Xarelto. Patient rates the pain 10 out of 10 and describes it as excruciating. Patient has seen Dr. Reed Hutchinson for the bypass and/or stents in [facility] Review of Systems 2 General: Reports: 10 or more systems reviewed and unremarkable except in HPI and below PFSH ED 2 PFSH: Medical History Post-traumatic stress disorder, chronic PAD (peripheral artery disease) Fibromyalgia Dyslipidemia Migraine HTN (hypertension) Surgical History S/P peripheral artery angioplasty Left SFA History of laparoscopic cholecystectomy History of x2 H/O: hysterectomy Family History Family/Other Anesthesia complication Diabetes Sister CAD (coronary artery disease), Onset Age: 40 triple bypass Diabetes Father CAD (coronary artery disease), Onset Age: 50 Cancer Diabetes Stroke Mother Dementia Brother Diabetes Stroke Other Rheumatoid arthritis Denies family history of Clotting disorder Chronic kidney disease (CKD) Suicide Bleeding disorder Lung disease Social History Smoking and tobacco/nicotine status: never used tobacco/nicotine Alcohol intake: never Substance/Drug Use: never Lives independently: Yes Household members: children Housing: House Female Reproductive History: Spontaneous abortions: No Physical Exam 2 Const: COMMON NORMALS: no acute distress, average body habitus, patient oriented x3, no limitations, healthy appearing, alert and well nourished HENMT: COMMON NORMALS: normocephalic, atraumatic, hearing grossly normal bilaterally, external ears normal, Normal external nose present and moist oral mucous membranes HEAD & SCALP: normocephalic and atraumatic NOSE: Normal external nose present EXTERNAL EAR: Yes external ears normal Neck/C-Spine: COMMON NORMALS: no JVD Chest: COMMONS NORMALS: normal inspection of the chest and normal palpation of entire chest wall Resp: COMMON NORMALS: normal respiratory effort, No retractions, No use of accessory muscles and clear to auscultation bilaterally AUSCULTATION: clear to auscultation bilaterally Cardio: COMMON NORMALS: no JVD, regular rhythm, S1 normal heart sound present, S2 normal heart sound present, No gallops present (Cardio), No clicks present (Cardio), No murmurs present (Cardio) and No rub (Cardio); negative for regular rate (Mildly tachycardic) RATE: abnormal rate (Mildly tachycardic) RHYTHM: regular rhythm HEART SOUNDS: S1 normal heart sound present and S2 normal heart sound present GI: COMMON NORMALS: Normal to inspection, nondistended, normoactive bowel sounds present, Soft to palpation, non-tender, No hepatosplenomegaly present and no masses PALPATION: Yes Soft to palpation and Yes No hepatosplenomegaly present Extremity: NARRATIVE EXTREMITY EXAM: Left lower extremity cool from the mid calf down, markedly increased capillary refill, arterial pulses unable to be dopplered. Very painful with palpation. 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 By ultrasound. Dr. K[facility] Boyce vascular was called he agreed she needed transferred there, he suggested ER to ER, Dr. Martinez ER doc was notified and accepted in transfer. Patient has been given morphine and Ativan and heparin bolus and drip. Patient will be flown weather permitting Differential Diagnosis Unlikely herpes zoster, gout, cellulitis, superficial thrombophlebitis, deep venous thrombosis of upper extremity, lower extremity edema or deep vein thrombosis of lower extremity Medical Records I reviewed the patient's medical records. Lab Data I reviewed the patient's lab results. 03/20/24 17:50 03/20/24 17:50 Radiology Impressions Ankle X-Ray 03/20/24 17:35 IMPRESSION: There is edema in the soft tissues. Foot X-Ray 03/20/24 17:35 IMPRESSION: There is edema in the soft tissues. Duplex Scan Lower Extremity Artery 03/20/24 18:13 IMPRESSION: 1. The femoropopliteal bypass graft is occluded. 2. The left common femoral, superficial femoral, popliteal, posterior tibialis, and dorsalis pedis arteries are occluded. ADDENDUM: 03/20/242003 CRITICAL RESULT: The study was personally discussed on the telephone with Obdulio Anthony on 03/20/2024 8:03 PM CDT. The results were understood and acknowledged. Venous Duplex 03/20/24 18:13 IMPRESSION: No evidence of deep vein thrombosis. Laboratory Results WBC 11.93 10^3/uL (3.29-11.43) H 03/20/24 17:50 RBC 4.93 10^6/uL (3.85-5.65) 03/20/24 17:50 Hgb 14.80 g/dL (11.27-16.99) 03/20/24 17:50 Hct 43.2 % (36-47) 03/20/24 17:50 MCV 87.6 fl (85-98) 03/20/24 17:50 MCH 30.0 pg (27-33) 03/20/24 17:50 MCHC 34.3 g/dL (30-55) 03/20/24 17:50 RDW 12.1 % (12.1-15.1) 03/20/24 17:50 Plt Count 316 10^3/cmm (157-399) 03/20/24 17:50 MPV 10.0 fL (7.4-10.4) 03/20/24 17:50 Neut % (Auto) 57.6 % 03/20/24 17:50 Lymph % (Auto) 32.9 % 03/20/24 17:50 [place] % (Auto) 6.7 % 03/20/24 17:50 Eos % (Auto) 1.6 % 03/20/24 17:50 Baso % (Auto) 0.8 % 03/20/24 17:50 Neut # (Auto) 6.87 10^3/uL (1.8-7.7) 03/20/24 17:50 Lymph # (Auto) 3.9 10^3/uL (0.8-4.8) 03/20/24 17:50 [place] # (Auto) 0.8 10^3/uL (0.2-0.9) 03/20/24 17:50 Eos # (Auto) 0.2 10^3/uL (0.0-0.8) 03/20/24 17:50 Baso # (Auto) 0.1 10^3/uL (0.0-0.1) 03/20/24 17:50 Nucleated RBC % (auto) 0 % 03/20/24 17:50 Nucleated RBCs # 0.0 /100WBC 03/20/24 17:50 PT 14.50 SECONDS (12.1-14.9) 03/20/24 17:50 INR 1.09 (0.8-1.2) 03/20/24 17:50 Sodium 141 mmol/L (136-145) 03/20/24 17:50 Potassium 3.5 mmol/L (3.5-5.1) 03/20/24 17:50 Chloride 102 mmol/L (98-107) 03/20/24 17:50 Carbon Dioxide 24 mmol/L (22-29) 03/20/24 17:50 Anion Gap 18.5 (5-19) 03/20/24 17:50 BUN 11 mg/dL (6-20) 03/20/24 17:50 Creatinine 0.8 mg/dL (0.5-0.9) 03/20/24 17:50 GFR Calculation 74.5 mL/min (90-130) L 03/20/24 17:50 Glucose 115 mg/dL (65-115) 03/20/24 17:50 Calculated Osmolality 292 mOsm/kg (285-295) 03/20/24 17:50 Lactic Acid 2.1 mmol/L (0.5-2.2) 03/20/24 17:50 Calcium 9.4 mg/dL (8.5-10.5) 03/20/24 17:50 Total Bilirubin 0.5 mg/dL (0.15-1.2) 03/20/24 17:50 AST 23 U/L (0-32) 03/20/24 17:50 ALT 22 U/L (0-33) 03/20/24 17:50 Alkaline Phosphatase 82 U/L (35-105) 03/20/24 17:50 Total Protein 8.1 g/dL (6.6-8.7) 03/20/24 17:50 Albumin 4.6 g/dL (3.5-5.2) 03/20/24 17:50 Globulin 3.5 g/dL (1.3-4.6) 03/20/24 17:50 All radiology interpretation(s) finalized by discharge Critical Care Time 2 Critical Care Time: Critical Care Time: Yes Total Critical Care Time: 60 Attestation: The patient was emergently evaluated this patient's presentation and case had a high probability of a clinically significant, sudden, or life-threatening deterioration of the patient's initial critical presentation or condition which required my full and direct attention, intervention and personal management. Discharge Plan Discharge Patient Disposition: Xfer Short-Term Hosp Clinical Impression: Arterial occlusion, lower extremity Condition: Stable Referrals: Chuy Pulliam DO [Primary Care Provider] - Coding Level of Care Code ED Cement Finisher for Tayla Wooten
[2024-03-20 18:25] LABS: Basophils # 0.1 10^3/uL (0.0-0.1); Basophils % 0.8 %; Eosinophils # 0.2 10^3/uL (0.0-0.8); Eosinophils % 1.6 %; Hematocrit 43.2 % (36-47); Lymphocytes # 3.9 10^3/uL (0.8-4.8); Lymphocytes % 32.9 %; Mean Corpuscular HGB Conc 34.3 g/dL (30-55); Mean Corpuscular Volume 87.6 fl (85-98); Monocytes # 0.8 10^3/uL (0.2-0.9); Monocytes % 6.7 %; Neutrophils # 6.87 10^3/uL (1.8-7.7); Neutrophils % 57.6 %; Nucleated Red Blood Cells % 0 %; Platelet Count 316 10^3/cmm (157-399); Red Blood Count 4.93 10^6/uL (3.85-5.65); Red Cell Distribution Width 12.1 % (12.1-15.1); White Blood Count 11.93 10^3/uL (3.29-11.43)
[2024-03-20 18:30] VITALS: BP 144/94; PULSE 104; O2SAT 96
[2024-03-20 18:34] LABS: Lactic Sepsis W/Reflex 2.1 mmol/L (0.5-2.2)
[2024-03-20 18:35] LABS: Alanine Aminotransferase 22 U/L (0-33); Albumin Level 4.6 g/dL (3.5-5.2); Alkaline Phosphatase 82 U/L (35-105); Anion Gap 18.5 (5-19); Aspartate Amino Transferase 23 U/L (0-32); Blood Urea Nitrogen 11 mg/dL (6-20); Calcium 9.4 mg/dL (8.5-10.5); Carbon Dioxide 24 mmol/L (22-29); Chloride 102 mmol/L (98-107); Creatinine Clr Calc Pharmacy 88.3668; Globulin 3.5 g/dL (1.3-4.6); Glomerular Filtration Rate 74.5 mL/min (90-130); Glucose 115 mg/dL (65-115); Osmolality Calculated 292 mOsm/kg (285-295); Potassium 3.5 mmol/L (3.5-5.1); Sodium 141 mmol/L (136-145); Total Bilirubin 0.5 mg/dL (0.15-1.2); Total Protein 8.1 g/dL (6.6-8.7)
[2024-03-20] MEDS: sodium chloride 0.9% 1,000 ML 999 ML IV (18:38)
[2024-03-20] MEDS: ondansetron 2 mg/ML SDV 2 mL 4 MG IVP (18:39)
[2024-03-20 18:43] LABS: INR 1.09 (0.8-1.2)
[2024-03-20] MEDS: morphine 4 mg/mL SDV 1 mL IVP ×3 (18:44→21:18)
[2024-03-20] MEDS: LORazepam 2 mg/mL INJ 1 mL 1 MG IVP ×3 (18:48→21:13)
[2024-03-20 19:39] VITALS: RESP 18
[2024-03-20] MEDS: heparin 5,000 unit/mL INJ 1 mL IV (19:50)
[2024-03-20] MEDS: heparin drip 25,000 UNIT/500 ML PREMIX 27.31 UNIT IV (19:52)
[2024-03-20 19:57] VITALS: BP 129/88; PULSE 92; RESP 18; O2SAT 97
[2024-03-20 20:09] LABS: Reflex Lactate Order REFLEX LACTIC ORDERD
[2024-03-20 20:57] LABS: Lactic Acid level (Lactate) 0.9 mmol/L (0.5-2.2)
[2024-03-20 21:18] VITALS: RESP 18; O2SAT 95
--- NOTE | 2024-03-20 21:24 | PC.NURSE ---
Pt's heparin drip was continued upon transfer to [facility] by [employer].
== END 2024-03-20 21:30 | disposition short-term general hospital (02) ==
PROVIDERS: Emergency Provider Emergency Medicine; PCP Family Medicine
DX: I77.1 Stricture of artery (principal); I73.9 Peripheral vascular disease, unspecified; I10 Essential (primary) hypertension; E78.5 Hyperlipidemia, unspecified; Z79.01 Long term (current) use of anticoagulants
CPT/HCPCS: 73610; 73630; 80053; 83605; 85025; 85610; 93926; 93971; 96361; 96365; 96375; 96376; 99285; J1644; J2060; J2270; J2405; J7030

== ENCOUNTER 2024-04-06 15:59 | Emergency (ER) | payer MEDICAID, SELFPAY ==
[2024-04-06 16:05] VITALS: BP 156/103; PULSE 94; TEMP 36.8; O2SAT 97; BMI 36.6
--- NOTE | 2024-04-06 16:16 | USR_ITS ---
PROCEDURE INFORMATION: Exam: US Duplex Left Lower Extremity Arteries Or Arterial Bypass Grafts Exam date and time: 04/06/2024 4:34 PM Age: 53 years old Clinical indication: Pain; Leg, lower; Left; Prior surgery; Surgery date: <1 month; Surgery type: Fem pop graft was cleaned out. Thrombolysis i assume, PT doesnt know; Additional info: Worsening foot pain and coldness, history of multiple periph TECHNIQUE: Imaging protocol: Left Real-time duplex scan of the arteries or arterial bypass grafts of the left lower extremity with 2-D hennessy scale, color Doppler flow and spectral waveform analysis. Images documented and saved. COMPARISON: [place] [id number] 03/20/2024 7:07 PM FINDINGS: Left common femoral artery: No occlusion or significant stenosis. Normal waveform. Left superficial femoral artery: Severe disease throughout the left superficial femoral artery with biphasic waveforms and diminished peak systolic velocities. Severe stenosis in the proximal superficial femoral artery stent. Left popliteal artery: Monophasic waveform in the left popliteal artery with decreased peak systolic velocity. Left calf/foot arteries: No occlusion or significant stenosis in the visualized arteries. Normal waveforms. Dorsalis pedis artery is patent. Left profunda femoral artery: Severe stenosis with elevated peak systolic velocity in the proximal profunda femoral artery, with a peak systolic velocity of 385.6 cm/s. Vascular graft: Occluded femoral-popliteal artery graft. Monophasic waveforms with decreased peak systolic velocities in the dorsalis pedis and posterior tibial arteries. US/[place] [id number] IMPRESSION: 1. Occluded left femoral-popliteal artery graft. 2. Severe stenosis in the proximal left superficial femoral artery stent. 3. Decreased peak systolic velocities throughout the left superficial femoral and popliteal arteries. This could relate to the severe stenosis in the stent or could also represent disease throughout these arteries. 4. Decreased peak systolic velocities in the left infrapopliteal arteries. This could relate to decreased inflow due to more proximal stenosis or could also represent disease throughout these arteries. 5. Severe stenosis in the proximal left profunda femoral artery.
--- NOTE | 2024-04-06 17:00 | ED_ITS ---
Documented by User: Margot Johnson MD 04/06/24 17:55 HPI - Extremity Problem 2 General: Chief complaint: Extremity Problem,Nontraumatic Stated complaint: Left foot pain had surgery two weeks ago Time Seen by Provider: 04/06/24 16:14 History of Present Illness: 53-year-old female with a history of tob acco dependence in remission for about 3 years now, hypertension, hyperlipidemia and peripheral vascular disease who was recently transferred to [facility] and had surgery to have multiple new occlusions in her stents in her legs opened. She is on Xarelto. She says over the last 24 hours she has had worsening pain in her left leg and it is become more cool to the touch in her left foot. She was told to return to the emergency room if she developed worsening pain. Review of Systems 2 Narrative: Constitutional symptoms: Negative except as documented in HPI. Skin symptoms: Negative except as documented in HPI. Eye symptoms: Negative except as documented in HPI. ENMT symptoms: Negative except as documented in HPI. Respiratory symptoms: Negative except as documented in HPI. Cardiovascular symptoms: Negative except as documented in HPI. Gastrointestinal symptoms: Negative except as documented in HPI. Genitourinary symptoms: Negative except as documented in HPI. Musculoskeletal symptoms: Negative except as documented in HPI. Neurologic symptoms: Negative except as documented in HPI. Psychiatric symptoms: Negative except as documented in HPI. Endocrine symptoms: Negative except as documented in HPI. PFSH ED 2 PFSH: Medical History Post-traumatic stress disorder, chronic PAD (peripheral artery disease) Fibromyalgia Dyslipidemia Migraine HTN (hypertension) Surgical History S/P peripheral artery angioplasty Left SFA History of laparoscopic cholecystectomy History of x2 H/O: hysterectomy Family History Family/Other Anesthesia complication Diabetes Sister CAD (coronary artery disease), Onset Age: 40 triple bypass Diabetes Father CAD (coronary artery disease), Onset Age: 50 Cancer Diabetes Stroke Mother Dementia Brother Diabetes Stroke Other Rheumatoid arthritis Denies family history of Clotting disorder Chronic kidney disease (CKD) Suicide Bleeding disorder Lung disease Social History Smoking and tobacco/nicotine status: never used tobacco/nicotine Alcohol intake: never Substance/Drug Use: never Lives independently: Yes Household members: children Housing: House Female Reproductive History: Spontaneous abortions: No Physical Exam 2 Narrative: EXAM NARRATIVE: General: Alert, no acute distress. Skin: Warm, dry. Head: Normocephalic, atraumatic. Neck: Supple, trachea midline. Eye: Extraocular movements are intact. Ears, nose, mouth and throat: mucosa moist. Cardiovascular: Regular, left foot is cool to the touch. I am unable to palpate or auscultate pulses in her feet Respiratory: Lungs are clear to auscultation, respirations are non-labored, breath sounds are equal, Symmetrical chest wall expansion. Gastrointestinal: Soft, Nontender, Non distended Musculoskeletal: Normal ROM, no deformity. Neurological: Alert and oriented, No focal neurological deficit observed. Psychiatric: Cooperative, appropriate mood & affect. Course 2 Vital Signs: Vital signs: Vital Signs Temperature 98.2 F 04/06/24 22:12 Pulse Rate 95 04/06/24 22:12 Respiratory Rate 19 H 04/06/24 22:12 Blood Pressure 152/99 04/06/24 22:12 Pulse Oximetry 97 04/06/24 22:12 Oxygen Delivery Me thod Room Air 04/06/24 17:15 MDM - Extremity (Nontraumatic) Medical Decision Making Medical decision making: Differential diagnosis including but not limited to and based on the above HPI, review of systems and physical exam: Pulses not palpable so an ultrasound was ordered. Ultrasound appears to show some new occlusive disease and given that her symptoms have changed I ordered lab work and a CT Afro. Orders placed to evaluate differential diagnosis based on the above differential, HPI and physical exam Ultrasound of the left lower extremity arterial duplex: Occluded left femoral?popliteal artery graft. Severe stenosis of the proximal left superficial femoral artery stent. Decreased peak systolic velocities. Severe stenosis in the proximal left profunda femoral artery. Lab Review: Laboratory results were reviewed and interpreted by myself the emergency room physician. Lab work is fairly unremarkable. No leukocytosis. No anemia. No renal failure. Patient care transition to Dr. Gotti at shift change. CT Afro was pending. Lab Data 04/06/24 16:59 04/06/24 16:59 Radiology Impressions Duplex Scan Lower Extremity Artery 04/06/24 16:16 IMPRESSION: 1. Occluded left femoral-popliteal artery graft. 2. Severe stenosis in the proximal left superficial femoral artery stent. 3. Decreased peak systolic velocities throughout the left superficial femoral and popliteal arteries. This could relate to the severe stenosis in the stent or could also represent disease throughout these arteries. 4. Decreased peak systolic velocities in the left infrapopliteal arteries. This could relate to decreased inflow due to more proximal stenosis or could also represent disease throughout these arteries. 5. Severe stenosis in the proximal left profunda femoral artery. Aorta w/Runoff CTA 04/06/24 17:00 IMPRESSION: 1. Partial filling defect in the left common femoral artery which extends into the occluded femoral-popliteal artery graft. This filling defect also extends into the origin of the left profunda femoral artery narrowing the origin. This may also extends to the origin the left superficial femoral artery stent which appears narrowed. 2. Occlusion of the left posterior tibial artery. 3. Severe disease in the distal left anterior tibial artery with no visible runoff to the foot. 4. Occlusion of the left tibioperoneal trunk with reconstituted flow distally via collaterals. 5. Scattered atherosclerotic disease in additional arteries as described. Laboratory Results WBC 8.97 10^3/uL (3.29-11.43) 04/06/24 16:59 RBC 4.82 10^6/uL (3.85-5.65) 04/06/24 16:59 Hgb 14.70 g/dL (11.27-16.99) 04/06/24 16:59 Hct 42.8 % (36-47) 04/06/24 16:59 MCV 88.8 fl (85-98) 04/06/24 16:59 MCH 30.5 pg (27-33) 04/06/24 16:59 MCHC 34.3 g/dL (30-55) 04/06/24 16:59 RDW 11.9 % (12.1-15.1) L 04/06/24 16:59 Plt Count 373 10^3/cmm (157-399) 04/06/24 16:59 MPV 9.2 fL (7.4-10.4) 04/06/24 16:59 Neut % (Auto) 70.6 % 04/06/24 16:59 Lymph % (Auto) 22.2 % 04/06/24 16:59 [place] % (Auto) 4.5 % 04/06/24 16:59 Eos % (Auto) 1.6 % 04/06/24 16:59 Baso % (Auto) 0.8 % 04/06/24 16:59 Neut # (Auto) 6.34 10^3/uL (1.8-7.7) 04/06/24 16:59 Lymph # (Auto) 2.0 10^3/uL (0.8-4.8) 04/06/24 16:59 [place] # (Auto) 0.4 10^3/uL (0.2-0.9) 04/06/24 16:59 Eos # (Auto) 0.1 10^3/uL (0.0-0.8) 04/06/24 16:59 Baso # (Auto) 0.1 10^3/uL (0.0-0.1) 04/06/24 16:59 Nucleated RBC % (auto) 0 % 04/06/24 16:59 Nucleated RBCs # 0.0 /100WBC 04/06/24 16:59 PT 15.30 SECONDS (12.1-14.9) H 04/06/24 16:59 INR 1.17 (0.8-1.2) 04/06/24 16:59 APTT 28.5 SECONDS (23.9-36.7) 04/06/24 16:59 Sodium 139 mmol/L (136-145) 04/06/24 16:59 Potassium 4.1 mmol/L (3.5-5.1) 04/06/24 16:59 Chloride 103 mmol/L (98-107) 04/06/24 16:59 Carbon Dioxide 21 mmol/L (22-29) L 04/06/24 16:59 Anion Gap 19.1 (5-19) H 04/06/24 16:59 BUN 12 mg/dL (6-20) 04/06/24 16:59 Creatinine 0.5 mg/dL (0.5-0.9) 04/06/24 16:59 GFR Calculation 128.1 mL/min (90-130) 04/06/24 16:59 Glucose 122 mg/dL (65-115) H 04/06/24 16:59 Calculated Osmolality 289 mOsm/kg (285-295) 04/06/24 16:59 Lactic Acid 2.3 mmol/L (0.5-2.2) H 04/06/24 18:22 Calcium 9.5 mg/dL (8.5-10.5) 04/06/24 16:59 Total Bilirubin 0.7 mg/dL (0.15-1.2) 04/06/24 16:59 AST 19 U/L (0-32) 04/06/24 16:59 ALT 16 U/L (0-33) 04/06/24 16:59 Alkaline Phosphatase 87 U/L (35-105) 04/06/24 16:59 Total Protein 8.1 g/dL (6.6-8.7) 04/06/24 16:59 Albumin 4.5 g/dL (3.5-5.2) 04/06/24 16:59 Globulin 3.6 g/dL (1.3-4.6) 04/06/24 16:59 Discharge Plan Discharge Patient Disposition: Xfer Short-Term Hosp Clinical Impression: Lower limb arterial embolus Condition: Stable Referrals: Chuy Pulliam DO [Primary Care Provider] - Coding Level of Care Code ED Manager Of [employer] for Chg Fwd Documented by User: Obdulio Gotti DO 04/06/24 23:52 HPI - Extremity Problem 2 General: Chief complaint: Extremity Problem,Nontraumatic Stated complaint: Left foot pain had surgery two weeks ago Time Seen by Provider: 04/06/24 16:14 PFSH ED 2 PFSH: Medical History Post-traumatic stress disorder, chronic PAD (peripheral artery disease) Fibromyalgia Dyslipidemia Migraine HTN (hypertension) Surgical History S/P peripheral artery angioplasty Left SFA History of laparoscopic cholecystectomy History of x2 H/O: hysterectomy Family History Family/Other Anesthesia complication Diabetes Sister CAD (coronary artery disease), Onset Age: 40 triple bypass Diabetes Father CAD (coronary artery disease), Onset Age: 50 Cancer Diabetes Stroke Mother Dementia Brother Diabetes Stroke Other Rheumatoid arthritis Denies family history of Clotting disorder Chronic kidney disease (CKD) Suicide Bleeding disorder Lung disease Social History Smoking and tobacco/nicotine status: never used tobacco/nicotine Alcohol intake: never Substance/Drug Use: never Lives independently: Yes Household members: children Housing: House Course 2 Vital Signs: Vital signs: Vital Signs Temperature 98.2 F 04/06/24 22:12 Pulse Rate 95 04/06/24 22:12 Respiratory Rate 19 H 04/06/24 22:12 Blood Pressure 152/99 04/06/24 22:12 Pulse Oximetry 97 04/06/24 22:12 Oxygen Delivery Me thod Room Air 04/06/24 17:15 MDM - Extremity (Nontraumatic) Medical Decision Making Medical decision making: Differential diagnosis including but not limited to and based on the above HPI, review of systems and physical exam: Pulses not palpable so an ultrasound was ordered. Ultrasound appears to show some new occlusive disease and given that her symptoms have changed I ordered lab work and a CT Afro. Orders placed to evaluate differential diagnosis based on the above differential, HPI and physical exam Ultrasound of the left lower extremity arterial duplex: Occluded left femoral?popliteal artery graft. Severe stenosis of the proximal left superficial femoral artery stent. Decreased peak systolic velocities. Severe stenosis in the proximal left profunda femoral artery. Lab Review: Laboratory results were reviewed and interpreted by myself the emergency room physician. Lab work is fairly unremarkable. No leukocytosis. No anemia. No renal failure. Patient care transition to Dr. Gotti at shift change. CT Afro was pending. CTA of aorta with runoff noted. These results was discussed with the patient. [facility] was called Dr. Huitron was on-call and said she needed to go back to the OR, he wanted to go ER to ER, Dr. Miguelangel Boyce was called and accepted patient in transfer. Lab Data 04/06/24 16:59 04/06/24 16:59 Radiology Impressions Duplex Scan Lower Extremity Artery 04/06/24 16:16 IMPRESSION: 1. Occluded left femoral-popliteal artery graft. 2. Severe stenosis in the proximal left superficial femoral artery stent. 3. Decreased peak systolic velocities throughout the left superficial femoral and popliteal arteries. This could relate to the severe stenosis in the stent or could also represent disease throughout these arteries. 4. Decreased peak systolic velocities in the left infrapopliteal arteries. This could relate to decreased inflow due to more proximal stenosis or could also represent disease throughout these arteries. 5. Severe stenosis in the proximal left profunda femoral artery. Aorta w/Runoff CTA 04/06/24 17:00 IMPRESSION: 1. Partial filling defect in the left common femoral artery which extends into the occluded femoral-popliteal artery graft. This filling defect also extends into the origin of the left profunda femoral artery narrowing the origin. This may also extends to the origin the left superficial femoral artery stent which appears narrowed. 2. Occlusion of the left posterior tibial artery. 3. Severe disease in the distal left anterior tibial artery with no visible runoff to the foot. 4. Occlusion of the left tibioperoneal trunk with reconstituted flow distally via collaterals. 5. Scattered atherosclerotic disease in additional arteries as described. Laboratory Results WBC 8.97 10^3/uL (3.29-11.43) 04/06/24 16:59 RBC 4.82 10^6/uL (3.85-5.65) 04/06/24 16:59 Hgb 14.70 g/dL (11.27-16.99) 04/06/24 16:59 Hct 42.8 % (36-47) 04/06/24 16:59 MCV 88.8 fl (85-98) 04/06/24 16:59 MCH 30.5 pg (27-33) 04/06/24 16:59 MCHC 34.3 g/dL (30-55) 04/06/24 16:59 RDW 11.9 % (12.1-15.1) L 04/06/24 16:59 Plt Count 373 10^3/cmm (157-399) 04/06/24 16:59 MPV 9.2 fL (7.4-10.4) 04/06/24 16:59 Neut % (Auto) 70.6 % 04/06/24 16:59 Lymph % (Auto) 22.2 % 04/06/24 16:59 [place] % (Auto) 4.5 % 04/06/24 16:59 Eos % (Auto) 1.6 % 04/06/24 16:59 Baso % (Auto) 0.8 % 04/06/24 16:59 Neut # (Auto) 6.34 10^3/uL (1.8-7.7) 04/06/24 16:59 Lymph # (Auto) 2.0 10^3/uL (0.8-4.8) 04/06/24 16:59 [place] # (Auto) 0.4 10^3/uL (0.2-0.9) 04/06/24 16:59 Eos # (Auto) 0.1 10^3/uL (0.0-0.8) 04/06/24 16:59 Baso # (Auto) 0.1 10^3/uL (0.0-0.1) 04/06/24 16:59 Nucleated RBC % (auto) 0 % 04/06/24 16:59 Nucleated RBCs # 0.0 /100WBC 04/06/24 16:59 PT 15.30 SECONDS (12.1-14.9) H 04/06/24 16:59 INR 1.17 (0.8-1.2) 04/06/24 16:59 APTT 28.5 SECONDS (23.9-36.7) 04/06/24 16:59 Sodium 139 mmol/L (136-145) 04/06/24 16:59 Potassium 4.1 mmol/L (3.5-5.1) 04/06/24 16:59 Chloride 103 mmol/L (98-107) 04/06/24 16:59 Carbon Dioxide 21 mmol/L (22-29) L 04/06/24 16:59 Anion Gap 19.1 (5-19) H 04/06/24 16:59 BUN 12 mg/dL (6-20) 04/06/24 16:59 Creatinine 0.5 mg/dL (0.5-0.9) 04/06/24 16:59 GFR Calculation 128.1 mL/min (90-130) 04/06/24 16:59 Glucose 122 mg/dL (65-115) H 04/06/24 16:59 Calculated Osmolality 289 mOsm/kg (285-295) 04/06/24 16:59 Lactic Acid 2.3 mmol/L (0.5-2.2) H 04/06/24 18:22 Calcium 9.5 mg/dL (8.5-10.5) 04/06/24 16:59 Total Bilirubin 0.7 mg/dL (0.15-1.2) 04/06/24 16:59 AST 19 U/L (0-32) 04/06/24 16:59 ALT 16 U/L (0-33) 04/06/24 16:59 Alkaline Phosphatase 87 U/L (35-105) 04/06/24 16:59 Total Protein 8.1 g/dL (6.6-8.7) 04/06/24 16:59 Albumin 4.5 g/dL (3.5-5.2) 04/06/24 16:59 Globulin 3.6 g/dL (1.3-4.6) 04/06/24 16:59 All radiology interpretation(s) finalized by discharge Discharge Plan Discharge Patient Disposition: Xfer Short-Term Hosp Clinical Impression: Lower limb arterial embolus Condition: Stable Referrals: Chuy Pulliam DO [Primary Care Provider] - Coding Level of Care Code ED Manager Of [employer] for Tayla Wooten
--- NOTE | 2024-04-06 17:00 | CTR_ITS ---
PROCEDURE INFORMATION: Exam: CTA Abdominal Aorta and Bilateral Lower Extremities (Run-off) With Contrast Exam date and time: 04/06/2024 5:58 PM Age: 53 years old Clinical indication: Pain; Other: See below; Other: Lower left leg; Prior surgery; Surgery date: <1 month; Surgery type: Stents to left leg two weeks ago; Additional info: Pvd, worsening pain, decreased pulses on left leg TECHNIQUE: Imaging protocol: Computed tomographic angiography of the of the abdominal aorta, pelvis and bilateral lower extremities with contrast. 3D rendering (Not supervised by radiologist): MIP and/or 3D reconstructed images were created by the technologist. Radiation optimization: All CT scans at this facility use at least one of these dose optimization techniques: automated exposure control; mA and/or kV adjustment per patient size (includes targeted exams where dose is matched to clinical indication); or iterative reconstruction. Contrast material: OMNI 350; Contrast volume: 100 ml; Contrast route: INTRAVENOUS (IV); COMPARISON: CT angio abd aorta runof [id number] 10/06/2021 4:15 PM RADIATION DOSE METRICS: Total DLP (mGy-cm): 1018.11 FINDINGS: Aorta: Mild calcified plaque in the abdominal aorta. No aneurysm or dissection. Celiac trunk and mesenteric arteries: No occlusion or significant stenosis. Renal arteries: No occlusion or significant stenosis. Right iliac arteries: Calcified plaque in the right common and external iliac arteries with multifocal [id number] stenoses. Right femoral/popliteal arteries: Calcified plaque with moderate stenosis in the right common femoral artery. Calcified plaque in the right superficial femoral artery with mild-moderate mid and distal stenoses. Moderate focal stenosis in the proximal right popliteal artery. Right infrapopliteal arteries: Severe disease in the right anterior tibial artery with faint runoff to the foot. Moderate disease in the right peroneal artery patent to the ankle. Mild disease in the right posterior tibial artery with runoff to the foot. Left iliac arteries: Calcified plaque in the left common and external iliac arteries with multifocal mild stenoses. Left femoral/popliteal arteries: Partial filling defect in the distal left common femoral artery which extends into the left fem popliteal graft. There is occlusion of the entire femoropopliteal artery graft. Multiple patent stents in the left superficial femoral artery with moderate-severe narrowing at the origin of the most proximal stent. The filling defect in the common femoral artery may partially extend into the origin of the stent. Filling defect in the left common femoral artery appears to extend into the origin the left profunda femoral artery, contributing to severe stenosis. Multiple patent stents in the left popliteal artery with no visible stenosis. Left infrapopliteal arteries: Occlusion of the left posterior tibial artery with no visible runoff to the foot. Mild disease in the proximal to mid left anterior tibial artery, with severe disease distally with no visible runoff to the foot. Occlusion of the tibioperoneal trunk with reconstituted flow via collaterals. Liver: No mass. Gallbladder and biliary ducts: Cholecystectomy. Prominence of the bile ducts is most likely chronic reservoir effect. Pancreas: Unremarkable. No mass. No ductal dilation. Spleen: Normal. No splenomegaly. Adrenal glands: Normal. No mass. Kidneys and ureters: Cysts in the left kidney, Hounsfield units less than 20. Additional hypodense lesions in both kidneys are too small to characterize and are most likely cysts. No follow-up imaging is recommended. No calculus or hydronephrosis. Stomach and bowel: Mild submucosal fatty deposition in the proximal colon. The stomach, small bowel, and colon are otherwise unremarkable. No wall thickening or obstruction. Appendix: The appendix is visualized and is normal. Urinary bladder: Unremarkable. No mass. Reproductive: Hysterectomy and oophorectomy. Intraperitoneal space: Unremarkable. No free air. No significant fluid collection. Lymph nodes: No lymphadenopathy. Bones/joints: No acute fracture. No dislocation. Soft tissues: Unremarkable. CT/CT angio abd aorta runof [id number] IMPRESSION: 1. Partial filling defect in the left common femoral artery which extends into the occluded femoral-popliteal artery graft. This filling defect also extends into the origin of the left profunda femoral artery narrowing the origin. This may also extends to the origin the left superficial femoral artery stent which appears narrowed. 2. Occlusion of the left posterior tibial artery. 3. Severe disease in the distal left anterior tibial artery with no visible runoff to the foot. 4. Occlusion of the left tibioperoneal trunk with reconstituted flow distally via collaterals. 5. Scattered atherosclerotic disease in additional arteries as described.
[2024-04-06 17:03] LABS: Basophils # 0.1 10^3/uL (0.0-0.1); Basophils % 0.8 %; Eosinophils # 0.1 10^3/uL (0.0-0.8); Eosinophils % 1.6 %; Hematocrit 42.8 % (36-47); Lymphocytes % 22.2 %; Mean Corpuscular HGB Conc 34.3 g/dL (30-55); Mean Corpuscular Hemoglobin 30.5 pg (27-33); Mean Corpuscular Volume 88.8 fl (85-98); Mean Platelet Volume 9.2 fL (7.4-10.4); Monocytes # 0.4 10^3/uL (0.2-0.9); Monocytes % 4.5 %; Neutrophils # 6.34 10^3/uL (1.8-7.7); Neutrophils % 70.6 %; Nucleated Red Blood Cells % 0 %; Platelet Count 373 10^3/cmm (157-399); Red Blood Count 4.82 10^6/uL (3.85-5.65); Red Cell Distribution Width 11.9 % (12.1-15.1); White Blood Count 8.97 10^3/uL (3.29-11.43)
[2024-04-06 17:15] VITALS: BP 140/77; PULSE 95; RESP 19; O2SAT 97
[2024-04-06 17:22] LABS: Alanine Aminotransferase 16 U/L (0-33); Albumin Level 4.5 g/dL (3.5-5.2); Alkaline Phosphatase 87 U/L (35-105); Anion Gap 19.1 (5-19); Aspartate Amino Transferase 19 U/L (0-32); Blood Urea Nitrogen 12 mg/dL (6-20); Calcium 9.5 mg/dL (8.5-10.5); Carbon Dioxide 21 mmol/L (22-29); Chloride 103 mmol/L (98-107); Creatinine Clr Calc Pharmacy 138.4744; Globulin 3.6 g/dL (1.3-4.6); Glomerular Filtration Rate 128.1 mL/min (90-130); Glucose 122 mg/dL (65-115); Osmolality Calculated 289 mOsm/kg (285-295); Potassium 4.1 mmol/L (3.5-5.1); Sodium 139 mmol/L (136-145); Total Bilirubin 0.7 mg/dL (0.15-1.2); Total Protein 8.1 g/dL (6.6-8.7)
[2024-04-06] MEDS: LORazepam 2 mg/mL INJ 1 mL 1 MG IV (17:30)
[2024-04-06] MEDS: iohexol 350 mg/mL 500 mL Btl (per mL) IV (18:17)
[2024-04-06 18:19] LABS: INR 1.17 (0.8-1.2)
[2024-04-06 18:20] LABS: Partial Thromboplastin Time 28.5 SECONDS (23.9-36.7)
[2024-04-06 18:42] LABS: Lactic Sepsis W/Reflex 2.3 mmol/L (0.5-2.2)
[2024-04-06] MEDS: heparin 5,000 unit/mL INJ 1 mL 4000 UNIT IVP (19:07)
[2024-04-06] MEDS: heparin drip 25,000 UNIT/500 ML PREMIX 22.54 UNIT IV (19:07)
[2024-04-06 20:11] LABS: Reflex Lactate Order REFLEX LACTIC ORDERD
[2024-04-06] MEDS: LORazepam 2 mg/mL INJ 1 mL 1 MG IVP (20:28)
[2024-04-06 20:30] VITALS: BP 152/99
[2024-04-06 22:12] VITALS: BP 152/99; PULSE 95; RESP 19; TEMP 36.8; O2SAT 97
== END 2024-04-06 22:11 | disposition short-term general hospital (02) ==
PROVIDERS: Emergency Medicine; Emergency Provider Emergency Medicine; PCP Family Medicine
DX: I74.3 Embolism and thrombosis of arteries of the lower extremities (principal); E78.5 Hyperlipidemia, unspecified; I10 Essential (primary) hypertension
CPT/HCPCS: 36415; 75635; 80053; 83605; 85025; 85610; 85730; 93926; 96374; 96375; 96376; 99285; J1644; J2060; Q9967

== ENCOUNTER 2024-07-17 16:34 | Emergency (ER) | payer SELFPAY ==
[2024-07-17 16:50] VITALS: BP 186/78; PULSE 82; RESP 18; TEMP 36.6; O2SAT 100
--- NOTE | 2024-07-17 20:11 | W.ED.GENADLT ---
HPI - General Adult General: Chief complaint: General Medical Stated complaint: toes turning purple Time Seen by Provider: 07/17/24 19:54 History of Present Illness: 53-year-old female with a history of extensive peripheral vascular disease and multiple procedures. She presents with left lower extremity pain, coolness. She says it is happening for the last 3 days. Severity has varied, but it is much worse today she feels numb and tingly from the knee down. No swelling. Related Data Previous Rx's Medication Instructions Recorded pantoprazole 40 mg tablet,delayed See Rx Instructions .Route 12/14/22 release .COMPLEX #30 tabs sertraline 100 mg tablet See Rx Instructions .Route 06/05/23 .COMPLEX #30 tabs diazepam 5 mg tablet 5 mg PO BID PRN anxiety #60 tabs 11/13/23 atorvastatin 40 mg tablet 80 mg (2 x 40 mg) PO DAILY@09 #180 03/24/24 tabs lisinopril 40 mg tablet See Rx Instructions .Route 03/25/24 .COMPLEX #90 tabs prasugrel 10 mg tablet (Effient) 10 mg PO DAILY #30 tabs 04/14/24 gabapentin 600 mg tablet See Rx Instructions .Route 04/30/24 .COMPLEX #90 tabs aspirin 81 mg chewable tablet 81 mg PO DAILY #90 tabs 05/20/24 rivaroxaban 15 mg tablet (Xarelto) See Rx Instructions .Route 05/20/24 .COMPLEX #30 tabs oxycodone-acetaminophen 7.5 mg-325 1 tab PO Q6H PRN pain 30 days #60 07/09/24 mg tablet tabs Allergies Allergy/AdvReac Type Severity Reaction Status Date / Time clopidogrel [From Plavix] Allergy hives Verified 05/20/24 11:08 fentanyl Allergy Unknown Verified 05/20/24 11:08 ketamine Allergy ADR-Anxiety Verified 07/18/24 04:22 methocarbamol Allergy ADR-Halluci Verified 05/20/24 11:08 nating methylprednisolone Allergy ADR-Itching Verified 05/20/24 11:08 [From Medrol] naproxen [From Aleve] Allergy ADR-Vomitin Verified 05/20/24 11:08 g tramadol Allergy ADR-Migrain Verified 05/20/24 11:08 e PFS ED PFS: Medical History Post-traumatic stress disorder, chronic PAD (peripheral artery disease) Fibromyalgia Dyslipidemia Migraine HTN (hypertension) Surgical History S/P peripheral artery angioplasty Left SFA History of laparoscopic cholecystectomy History of x2 H/O: hysterectomy Family History Family/Other Anesthesia complication Diabetes Sister CAD (coronary artery disease), Onset Age: 40 triple bypass Diabetes Father CAD (coronary artery disease), Onset Age: 50 Cancer Diabetes Stroke Mother Dementia Brother Diabetes Stroke Other Rheumatoid arthritis Denies family history of Clotting disorder Chronic kidney disease (CKD) Suicide Bleeding disorder Lung disease Social History Smoking and tobacco/nicotine status: former use of tobacco/nicotine Alcohol intake: never Substance/Drug Use: never Lives independently: Yes Household members: children Housing: House Female Reproductive History: Spontaneous abortions: No Physical Exam Const: COMMON NORMALS: no acute distress GENERAL APPEARANCE: cooperative; not ill appearing and not frail appearing HENMT: COMMON NORMALS: normocephalic, atraumatic and Normal external nose present HEAD & SCALP: normocephalic and atraumatic FACE & SINUS: normal facial exam and face symmetric NOSE: Normal external nose present Eye: COMMON NORMALS: Equal, round and reactive pupils present and EOMs intact bilaterally PUPIL: Yes Equal, round and reactive pupils present Neck/C-Spine: GENERAL: Yes trachea midline Chest: CHEST: Yes Symmetrical chest wall rise Resp: COMMON NORMALS: normal respiratory effort, No retractions and No use of accessory muscles Cardio: COMMON NORMALS: regular rate and regular rhythm RATE: regular rate RHYTHM: regular rhythm GI: COMMON NORMALS: Normal to inspection, nondistended, normoactive bowel sounds present Extremity: COMMON NORMALS: no pedal edema NARRATIVE EXTREMITY EXAM: Left lower extremity is cold to the touch. Sensation is grossly intact. Capillary refill is delayed. She is warm from the knee proximal. No deformity. Neuro: [place] COMA SCALE: document GCS findings [place] coma scale eye opening: Spontaneous [place] coma scale verbal response: Orientated [place] coma scale motor response: Obey commands [place] coma scale total score: 15 SENSORY EXAM: Yes extremities (intact) Psych: COMMON NORMALS: speech normal SPEECH: Yes normal speech Skin: COMMON NORMALS: no rashes or lesions noted GENERAL SKIN EXAM: no rashes or lesions noted Course Vital Signs: Vital signs: Vital Signs Temperature 97.9 F 07/17/24 16:50 Pulse Rate 77 07/18/24 04:23 Respiratory Rate 20 H 07/18/24 04:23 Blood Pressure 157/103 07/18/24 04:23 Pulse Oximetry 93 07/18/24 04:23 Oxygen Delivery Me thod Room Air 07/17/24 22:03 MDM - General Adult Medical Decision Making CK is normal. She is moderately hypertensive with 164/100. Lactic acid is normal at 1. White blood cell count is normal. CTA of the lower extremity and arterial Doppler are both pending. CTA reveals acute arterial occlusion. Doppler flow confirms. Appears flow halts at the long segment stent. Spoke with vascular surgery at [facility], where the patient been treated before. She agrees to take in admission after reviewing the images. Recommendations are heparin, which the patient is on. She will go by ground ambulance. She has required significant amount of pain medicine here to get comfortable. Lab Data 07/17/24 20:29 07/17/24 20:29 Radiology Impressions Lower Extremity CTA 07/17/24 20:19 IMPRESSION: 1. Long left femoropopliteal stent appears occluded with minimal if any residual flow, representing an interval change from 04/06/2024. Urgent vascular consultation recommended. 2. Minimal residual flow to the left calf with severely attenuated caliber of the peroneal and tibial arteries. 3. Chronic occlusion of left femoropopliteal graft and other chronic findings detailed above. ADDENDUM: 07/17/24 [id number] COMMENT: THIS REPORT CONTAINS FINDINGS THAT MAY BE CRITICAL TO PATIENT CARE. The exam findings were verbally communicated by me to DOMINGO Ramos via telephone conference at 11:19 PM CDT on 07/17/2024. The findings were acknowledged and understood. Duplex Scan Lower Extremity Artery 07/17/24 21:34 IMPRESSION: 1. Acute occlusion of the left femoropopliteal stent as described and communicated to the provider on the concurrent CT angiogram. Urgent vascular consultation as previously recommended. 2. Good flow is identified in the left iliac artery . No flow demonstrated in the common femoral, proximal and mid superficial femoral arteries. Minimal flow in the distal femoral to the dorsalis pedis level. 3. 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 Laboratory Results WBC 6.84 10^3/uL (3.29-11.43) 07/17/24: RBC 4.10 10^6/uL (3.85-5.65) 07/17/24 20: Hgb 12.00 g/dL (11.27-16.99) 07/17/24: Hct 36.9 % (36-47) 07/17/24: MCV 90.0 fl (85-98) 07/17/24 20: MCH 29.3 pg (27-33) 07/17/24: MCHC 32.5 g/dL (30-55) 07/17/24: RDW 12.6 % (12.1-15.1) 07/17/24: Plt Count 224 10^3/cmm (157-399) 07/17/24: MPV 10.4 fL (7.4-10.4) 07/17/24: Neut % (Auto) 49.2 % 07/17/24: Lymph % (Auto) 39.2 % 07/17/24: Chase % (Auto) 7.7 % 07/17/24: Eos % (Auto) 2.9 % 07/17/24: Baso % (Auto) 0.9 % 07/17/24: Neut # (Auto) 3.36 10^3/uL (1.8-7.7) 07/17/24: Lymph # (Auto) 2.7 10^3/uL (0.8-4.8) 07/17/24: Chase # (Auto) 0.5 10^3/uL (0.2-0.9) 07/17/24: Eos # (Auto) 0.2 10^3/uL (0.0-0.8) 07/17/24: Baso # (Auto) 0.1 10^3/uL (0.0-0.1) 07/17/24: Nucleated RBC % (auto) 0 % 11/01/24 20:29 Nucleated RBCs # 0.0 /100WBC 07/17/24 20: PT 16.00 SECONDS (12.1-14.9) H 07/17/24 20: INR 1.24 (0.8-1.2) H 07/17/24 20: APTT 25.1 SECONDS (23.9-36.7) 07/17/24 20:29 Sodium 137 mmol/L (136-145) 07/17/24 20: Potassium 3.5 mmol/L (3.5-5.1) 07/17/24 20: Chloride 102 mmol/L (98-107) 07/17/24 20: Carbon Dioxide 26 mmol/L (22-29) 07/17/24: Anion Gap 12.5 (5-19) 07/17/24 20: BUN 11 mg/dL (6-20) 07/17/24: Creatinine 0.7 mg/dL (0.5-0.9) 07/17/24: GFR Calculation 86.9 mL/min (90-130) L 07/17/24 20: Glucose 84 mg/dL (65-115) 07/17/24 20: Calculated Osmolality 283 mOsm/kg (285-295) L 07/17/24 20: Lactic Acid 1.0 mmol/L (0.5-2.2) 07/17/24 20: Calcium 7.7 mg/dL (8.5-10.5) L 07/17/24 20: Total Bilirubin 0.6 mg/dL (0.15-1.2) 07/17/24 20: AST 14 U/L (0-32) 07/17/24 20: ALT 16 U/L (0-33) 07/17/24 20: Alkaline Phosphatase 90 U/L (35-105) 07/17/24 20: Creatine Kinase 69 U/L (26-192) 07/17/24 20: Total Protein 6.2 g/dL (6.6-8.7) L 07/17/24 20: Albumin 4.1 g/dL (3.5-5.2) 07/17/24 20: Globulin 2.1 g/dL (1.3-4.6) 07/17/24 20:29 All radiology interpretation(s) finalized by discharge Discharge Plan Discharge Patient Disposition: Xfer Short-Term Hosp Condition: Stable Referrals: Chuy Pulliam DO [Primary Care Provider] - Coding Level of Care Code ED Hvac Service Manager for Tayla Wooten
[2024-07-17 20:16] VITALS: BP 164/100; PULSE 75; RESP 18; O2SAT 99
--- NOTE | 2024-07-17 20:19 | CTR_ITS ---
PROCEDURE INFORMATION: Exam: CTA Left Lower Extremity With Contrast Exam date and time: 07/17/2024 9:19 PM Age: 53 years old Clinical indication: Lower leg; Prior surgery; Surgery date: 6+ months; Patient HX: Patient's left lower extremity painful and cold to touch below the knee. History of arterial occlusions with extensive vascular stenting. ; Additional info: Left leg cold, painful, pale TECHNIQUE: Imaging protocol: Computed tomographic angiography of the left lower extremity with contrast. 3D rendering (Not supervised by radiologist): MIP and/or 3D reconstructed images were created by the technologist. Radiation optimization: All CT scans at this facility use at least one of these dose optimization techniques: automated exposure control; mA and/or kV adjustment per patient size (includes targeted exams where dose is matched to clinical indication); or iterative reconstruction. Contrast material: OMNI 350; Contrast volume: 100 ml; Contrast route: INTRAVENOUS (IV); COMPARISON: CT angio abd aorta runof [id number] 04/06/2024 5:58 PM RADIATION DOSE METRICS: Total DLP (mGy-cm): 794.17 FINDINGS: Aorta: Extensive atherosclerotic calcification of the visualized distal aorta, bifurcation and iliac arteries. Mild stenosis of the visualized common, internal and left external iliac arteries. Left femoral/popliteal arteries: Left common femoral artery is opacified. Left profundus femoris artery is opacified although mild proximal stenosis is present due to atherosclerotic plaque. The long stent extending from proximal left superficial femoral artery to the popliteal artery now appears occluded without significant residual flow when compared to 04/06/2024. Left infrapopliteal arteries: No occlusion or significant stenosis. Reproductive: Absent uterus. Bones/joints: A chronically occluded left femoral/popliteal graft again noted. Soft tissues: Surgical clips again noted in the anteromedial left proximal leg. Mild nonspecific subcutaneous edema in the distal leg. No fluid collection. Other findings: Minimal flow to the posterior tibial , peroneal and anterior tibial arteries in the leg image appear significantly attenuated in caliber compared to the prior study. The dorsalis pedis [place] opacified. CT/[place] [id number] IMPRESSION: 1. Long left femoropopliteal stent appears occluded with minimal if any residual flow, representing an interval change from 04/06/2024. Urgent vascular consultation recommended. 2. Minimal residual flow to the left calf with severely attenuated caliber of the peroneal and tibial arteries. 3. Chronic occlusion of left femoropopliteal graft and other chronic findings detailed above.
[2024-07-17 20:53] LABS: Basophils # 0.1 10^3/uL (0.0-0.1); Basophils % 0.9 %; Eosinophils # 0.2 10^3/uL (0.0-0.8); Eosinophils % 2.9 %; Hematocrit 36.9 % (36-47); Lymphocytes # 2.7 10^3/uL (0.8-4.8); Lymphocytes % 39.2 %; Mean Corpuscular HGB Conc 32.5 g/dL (30-55); Mean Corpuscular Hemoglobin 29.3 pg (27-33); Mean Platelet Volume 10.4 fL (7.4-10.4); Monocytes # 0.5 10^3/uL (0.2-0.9); Monocytes % 7.7 %; Neutrophils # 3.36 10^3/uL (1.8-7.7); Neutrophils % 49.2 %; Nucleated Red Blood Cells % 0 %; Platelet Count 224 10^3/cmm (157-399); Red Cell Distribution Width 12.6 % (12.1-15.1); White Blood Count 6.84 10^3/uL (3.29-11.43)
[2024-07-17] MEDS: diphenhydrAMINE 50 mg/mL SDV 1mL IVP (21:11)
[2024-07-17] MEDS: methylPREDNISolone sod succ 40 mg/mL INJ IVP (21:11)
[2024-07-17 21:20] LABS: Alanine Aminotransferase 16 U/L (0-33); Albumin Level 4.1 g/dL (3.5-5.2); Alkaline Phosphatase 90 U/L (35-105); Anion Gap 12.5 (5-19); Aspartate Amino Transferase 14 U/L (0-32); Blood Urea Nitrogen 11 mg/dL (6-20); Calcium 7.7 mg/dL (8.5-10.5); Carbon Dioxide 26 mmol/L (22-29); Chloride 102 mmol/L (98-107); Creatine Phosphokinase 69 U/L (26-192); Creatinine Clr Calc Pharmacy 98.1298; Globulin 2.1 g/dL (1.3-4.6); Glomerular Filtration Rate 86.9 mL/min (90-130); Glucose 84 mg/dL (65-115); Osmolality Calculated 283 mOsm/kg (285-295); Potassium 3.5 mmol/L (3.5-5.1); Sodium 137 mmol/L (136-145); Total Bilirubin 0.6 mg/dL (0.15-1.2); Total Protein 6.2 g/dL (6.6-8.7)
[2024-07-17] MEDS: iohexol 350 mg/mL 500 mL Btl (per mL) IV (21:24)
--- NOTE | 2024-07-17 21:34 | USR_ITS ---
PROCEDURE INFORMATION: Exam: US Duplex Left Lower Extremity Arteries Or Arterial Bypass Grafts Exam date and time: 07/17/2024 10:42 PM Age: 53 years old Clinical indication: Pain; Leg, lower; Left; Prior surgery; Surgery date: 1-6 months; Surgery type: Stents; Additional info: Cold painful lle TECHNIQUE: Imaging protocol: Left Real-time duplex scan of the arteries or arterial bypass grafts of the left lower extremity with 2-D hennessy scale, color Doppler flow and spectral waveform analysis. Images documented and saved. COMPARISON: [place] [id number] 03/20/2024 7:07 PM FINDINGS: Left common femoral artery: No significant flow. Left superficial femoral artery: Minimal flow in the distal superficial femoral artery. Otherwise no significant flow in the femoropopliteal stent or femoropopliteal graft. Left popliteal artery: Minimal flow. Left calf/foot arteries: Remote flow in the calf arteries. Mild residual flow in the dorsalis pedis [place]. US/[place] [id number] IMPRESSION: 1. Acute occlusion of the left femoropopliteal stent as described and communicated to the provider on the concurrent CT angiogram. Urgent vascular consultation as previously recommended. 2. Good flow is identified in the left iliac artery . No flow demonstrated in the common femoral, proximal and mid superficial femoral arteries. Minimal flow in the distal femoral to the dorsalis pedis level. 3. 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
[2024-07-17 21:44] LABS: INR 1.24 (0.8-1.2)
[2024-07-17 21:47] LABS: Partial Thromboplastin Time 25.1 SECONDS (23.9-36.7)
[2024-07-17 21:55] VITALS: RESP 16
[2024-07-17] MEDS: HYDROmorphone 1 mg/mL INJ 1 mL IVP (21:55)
[2024-07-17] MEDS: ondansetron 2 mg/ML SDV 2 mL 4 MG IVP (21:55)
[2024-07-17 22:03] VITALS: BP 135/71; PULSE 64; RESP 18; O2SAT 97
[2024-07-17] MEDS: heparin 5,000 unit/mL INJ 1 mL IVP (23:49)
[2024-07-17] MEDS: heparin drip 25,000 UNIT/500 ML PREMIX 26 UNIT IV (23:55)
[2024-07-18] MEDS: HYDROmorphone 1 mg/mL INJ 1 mL IVP ×2 (02:53→04:07)
[2024-07-18] MEDS: ondansetron 2 mg/ML SDV 2 mL 4 MG IVP (02:53)
[2024-07-18 02:55] VITALS: BP 177/114; PULSE 88; RESP 16; O2SAT 98
[2024-07-18] MEDS: ketamine 100 mg/mL Inj 5 mL 50 MG IVP (04:10)
[2024-07-18] MEDS: LORazepam 2 mg/mL INJ 1 mL 1 MG IVP (04:21)
[2024-07-18 04:23] VITALS: BP 157/103; PULSE 77; RESP 20; O2SAT 93
== END 2024-07-18 04:25 | disposition short-term general hospital (02) ==
PROVIDERS: Emergency Provider Emergency Medicine; PCP Family Medicine
DX: I70.8 Atherosclerosis of other arteries (principal); Z87.891 Personal history of nicotine dependence; I10 Essential (primary) hypertension
CPT/HCPCS: 36415; 73706; 80053; 82550; 83605; 85025; 85610; 85730; 93926; 96374; 96375; 96376; 99285; J1171; J1200; J1644; J2060; J2405; J2919; J3490

== ENCOUNTER 2024-11-21 14:38 | Emergency (ER) | payer MEDICAID, SELFPAY ==
[2024-11-21 15:00] VITALS: BP 173/85; PULSE 97; RESP 14; TEMP 36.4; O2SAT 99; BMI 37.2
[2024-11-21 15:07] VITALS: BP 159/107; PULSE 96; O2SAT 96
--- NOTE | 2024-11-21 15:32 | W.ED.SKABFB ---
HPI - Skin/Abscess/Foreign Bdy General: Chief complaint: Skin/Abscess/Foreign Body Stated complaint: spider bite behind left ear Time Seen by Provider: 11/21/24 15:01 History of Present Illness: This patient is a 54-year-old white female who presents to the emergency department concerned about swelling of the left earlobe. Patient states she noticed this last night. It is quite tender. There is some purulent drainage. She thought maybe she was bitten by a spider while she was working in her shed yesterday. Related Data Previous Rx's ?Medication ?Instructions ?Recorded sertraline 100 mg tablet See Rx Instructions .Route 06/05/23 .COMPLEX #30 tabs atorvastatin 40 mg tablet 80 mg (2 x 40 mg) PO DAILY@09 #180 03/24/24 tabs lisinopril 40 mg tablet See Rx Instructions .Route 03/25/24 .COMPLEX #90 tabs prasugrel HCl 10 mg tablet 10 mg PO DAILY #30 tabs 04/14/24 (Effient) gabapentin 600 mg tablet See Rx Instructions .Route 04/30/24 .COMPLEX #90 tabs aspirin 81 mg chewable tablet 81 mg PO DAILY #90 tabs 05/20/24 rivaroxaban 15 mg tablet (Xarelto) See Rx Instructions .Route 05/20/24 .COMPLEX #30 tabs diazepam 5 mg tablet 5 mg PO BID PRN anxiety #60 tabs 07/30/24 pantoprazole 40 mg tablet,delayed See Rx Instructions .Route 07/30/24 release .COMPLEX #30 tabs hydrocodone 5 mg-acetaminophen 325 1 tab PO Q8H PRN pain 30 days #90 10/29/24 mg tablet tabs cephalexin 500 mg capsule 500 mg PO QID 10 days #40 caps 11/21/24 sulfamethoxazole 800 1 tab PO BID 14 days #28 tabs 11/21/24 mg-trimethoprim 160 mg tablet (Bactrim DS) Allergies Allergy/AdvReac Type Severity Reaction Status Date / Time clopidogrel (From Plavix) Allergy hives Verified 05/20/24 11:08 fentanyl Allergy Unknown Verified 05/20/24 11:08 ketamine Allergy ADR-Anxiety Verified 07/18/24 04:22 methocarbamol Allergy ADR-Halluci Verified 05/20/24 11:08 nating methylprednisolone (From Allergy ADR-Itching Verified 05/20/24 11:08 Medrol) naproxen (From Aleve) Allergy ADR-Vomitin Verified 05/20/24 11:08 g tramadol Allergy ADR-Migrain Verified 05/20/24 11:08 e Review of Systems General: Reports: 10 or more systems reviewed and unremarkable except in HPI and below Skin/Breast: Reports: skin tenderness and skin swelling PFS ED PFSH: Medical History Post-traumatic stress disorder, chronic PAD (peripheral artery disease) Fibromyalgia Dyslipidemia Migraine HTN (hypertension) Surgical History S/P peripheral artery angioplasty Left SFA History of laparoscopic cholecystectomy History of x2 H/O: hysterectomy Family History Family/Other Anesthesia complication Diabetes Sister CAD (coronary artery disease), Onset Age: 40 triple bypass Diabetes Father CAD (coronary artery disease), Onset Age: 50 Cancer Diabetes Stroke Mother Dementia Brother Diabetes Stroke Other Rheumatoid arthritis Denies family history of Clotting disorder Chronic kidney disease (CKD) Suicide Bleeding disorder Lung disease Social History Smoking and tobacco/nicotine status: former use of tobacco/nicotine Alcohol intake: never Substance/Drug Use: never Lives independently: Yes Household members: children Housing: House Female Reproductive History: Spontaneous abortions: No Physical Exam Const: COMMON NORMALS: no acute distress, patient oriented x3 and no limitations GENERAL APPEARANCE: cooperative and comfortable HENMT: COMMON NORMALS: normocephalic, atraumatic, Normal nasal mucous membranes and turbinates present, moist oral mucous membranes and oropharynx normal HEAD & SCALP: normal to inspection, normocephalic and atraumatic FACE & SINUS: normal facial exam NOSE: Normal nasal mucous membranes and turbinates present EXTERNAL EAR: Yes external ear abnormal (Left earlobe is swollen, erythematous, tender 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) Eye: COMMON NORMALS: Equal, round and reactive pupils present, EOMs intact bilaterally and conjunctivae normal GENERAL EYE: appearance normal, both eyes and all related structures CONJUNCTIVA: Yes conjunctivae normal PUPIL: Yes Equal, round and reactive pupils present Neck/C-Spine: COMMON NORMALS: supple and no JVD Chest: COMMONS NORMALS: normal inspection of the chest Resp: COMMON NORMALS: normal respiratory effort and clear to auscultation bilaterally AUSCULTATION: clear to auscultation bilaterally Cardio: COMMON NORMALS: no JVD, regular rate, regular rhythm, No gallops present (Cardio), No murmurs present (Cardio) and No rub (Cardio) RATE: regular rate RHYTHM: regular rhythm GI: COMMON NORMALS: Normal to inspection, nondistended, normoactive bowel sounds present, Soft to palpation and non-tender AUSCULTATION: Yes normoactive bowel sounds PALPATION: Yes Soft to palpation : COMMON NORMALS: Yes no CVA tenderness BLADDER/KIDNEY EXAM: Yes no CVA tenderness Back/Pelvis: COMMON NORMALS: no CVA tenderness and thoracic and lumbar spine normal to inspection Extremity: COMMON NORMALS: normal to inspection Neuro: COMMON NORMALS: patient oriented x3 and CN's II-XII intact bilaterally Psych: COMMON NORMALS: mental status grossly normal, Normal thought process present and cooperative THOUGHT PROCESS: Normal thought process present Skin: COMMON NORMALS: no rashes or lesions noted, turgor normal and no jaundice GENERAL SKIN EXAM: no rashes or lesions noted and turgor normal Course Vital Signs: Vital signs: Vital Signs Temperature 97.6 F 11/21/24 15:00 Pulse Rate 96 11/21/24 15:07 Respiratory Rate 14 11/21/24 15:00 Blood Pressure 159/107 11/21/24 15:07 Pulse Oximetry 96 11/21/24 15:07 Oxygen Delivery Me thod Room Air 11/21/24 15:07 MDM - Skin/Abscess/Foreign Bdy Medicial Decision Making Patient was placed on Keflex and Bactrim. Recommended she apply wet-to-dry dressings and I did show her how to do this. Recommended she follow-up with her primary care provider in 7 to 10 days if this is not resolved. She was discharged in stable condition. No radiology studies performed this visit Discharge Plan Discharge Patient Disposition: Home Clinical Impression: Abscess Condition: Stable Prescriptions: New cephalexin 500 mg capsule 500 mg PO QID 10 Days Qty: 40 0RF sulfamethoxazole-trimethoprim [Bactrim DS] 800-160 mg tablet 1 tab PO BID 14 Days Qty: 28 0RF No Action prasugrel HCl [Effient] 10 mg tablet 10 mg PO DAILY Qty: 30 5RF Xarelto 15 mg tablet See Rx Instructions .ROUTE .COMPLEX Qty: 30 5RF Dose Instruction: TAKE 1 TABLET BY MOUTH EVERY DAY with SUPPER Rx Instructions: TAKE 1 TABLET BY MOUTH EVERY DAY with SUPPER aspirin 81 mg tablet,chewable 81 mg PO DAILY Qty: 90 3RF sertraline 100 mg tablet See Rx Instructions .ROUTE .COMPLEX Qty: 30 1RF Dose Instruction: TAKE ONE TABLET BY MOUTH DAILY Rx Instructions: TAKE ONE TABLET BY MOUTH DAILY atorvastatin 40 mg tablet 80 mg PO DAILY@09 Qty: 180 3RF lisinopril 40 mg tablet See Rx Instructions .ROUTE .COMPLEX Qty: 90 2RF Dose Instruction: TAKE 1 TABLET BY MOUTH EVERY DAY Rx Instructions: TAKE 1 TABLET BY MOUTH EVERY DAY gabapentin 600 mg tablet See Rx Instructions .ROUTE .COMPLEX Qty: 90 2RF Dose Instruction: TAKE 1 TABLET BY MOUTH THREE TIMES DAILY Rx Instructions: TAKE 1 TABLET BY MOUTH THREE TIMES DAILY pantoprazole 40 mg tablet,delayed release (DR/EC) See Rx Instructions .ROUTE .COMPLEX Qty: 30 5RF Dose Instruction: TAKE 1 TABLET BY MOUTH EVERY DAY Rx Instructions: TAKE 1 TABLET BY MOUTH EVERY DAY diazepam 5 mg tablet 5 mg PO BID PRN (Reason: anxiety) Qty: 60 5RF hydrocodone-acetaminophen 5-325 mg tablet 1 tab PO Q8H PRN (Reason: pain) 30 Days Qty: 90 0RF Discharge Orders: Discharge ED (Routine); Ordered 11/21/24 Ordered By: Jay Hugo Referrals: Chuy Pulliam DO [Primary Care Provider] - Patient Instructions: Abscess (ED) Activity Restrictions/Additional Instructions: Apply wet-to-dry dressings as we discussed. Follow-up with primary care provider in 7 to 10 days if this is not resolved. Print Language: Divehi Coding Level of Care Code ED Customer Counter Representative for Tayla Wooten
[2024-11-21 15:43] VITALS: BP 115/82; PULSE 85; O2SAT 95
== END 2024-11-21 15:44 | disposition home or self-care (01) ==
PROVIDERS: Emergency Provider Emergency Medicine; PCP Family Medicine
DX: H60.02 Abscess of left external ear (principal); Z79.82 Long term (current) use of aspirin; Z87.891 Personal history of nicotine dependence; I10 Essential (primary) hypertension; E78.5 Hyperlipidemia, unspecified
CPT/HCPCS: 99283

== ENCOUNTER 2025-01-29 16:21 | Emergency (ER) | payer MEDICAID, SELFPAY ==
[2025-01-29 16:41] VITALS: BP 165/83; PULSE 88; RESP 16; TEMP 36.7; O2SAT 100
--- NOTE | 2025-01-29 16:54 | PC.NURSE ---
Spoke with Dr Freeman re: pts symptoms during triage assessment. Stroke alert not called at this time per Provider.
[2025-01-29 17:10] LABS: Basophils # 0.1 10^3/uL (0.0-0.1); Basophils % 0.7 %; Eosinophils # 0.1 10^3/uL (0.0-0.8); Eosinophils % 1.2 %; Hematocrit 43.2 % (36-47); Lymphocytes # 1.4 10^3/uL (0.8-4.8); Lymphocytes % 19.6 %; Mean Corpuscular HGB Conc 33.3 g/dL (30-55); Mean Corpuscular Volume 87.1 fl (85-98); Mean Platelet Volume 9.6 fL (7.4-10.4); Monocytes # 0.2 10^3/uL (0.2-0.9); Monocytes % 3.5 %; Neutrophils # 5.15 10^3/uL (1.8-7.7); Neutrophils % 74.7 %; Nucleated Red Blood Cells % 0 %; Platelet Count 344 10^3/cmm (157-399); Red Blood Count 4.96 10^6/uL (3.85-5.65); Red Cell Distribution Width 13.1 % (12.1-15.1); White Blood Count 6.89 10^3/uL (3.29-11.43)
--- NOTE | 2025-01-29 17:14 | CTR_ITS ---
PROCEDURE INFORMATION: Exam: CT Head Without Contrast Exam date and time: 01/29/2025 5:32 PM Age: 54 years old Clinical indication: Dizziness TECHNIQUE: Imaging protocol: Computed tomography of the head without contrast. Radiation optimization: All CT scans at this facility use at least one of these dose optimization techniques: automated exposure control; mA and/or kV adjustment per patient size (includes targeted exams where dose is matched to clinical indication); or iterative reconstruction. COMPARISON: CT head wo con* [id number] 04/25/2022 3:53 PM RADIATION DOSE METRICS: Total DLP (mGy-cm): 1049.94 FINDINGS: Brain: Normal. No hemorrhage. Unremarkable white matter. No mass effect. Cerebral ventricles: No ventriculomegaly. Paranasal sinuses: Visualized sinuses are unremarkable. No fluid levels. Mastoid air cells: Visualized mastoid air cells are well aerated. Bones: Unremarkable. No acute fracture. Soft tissues: Unremarkable. CT/CT head wo con* [id number] IMPRESSION: No acute intracranial abnormality.
--- NOTE | 2025-01-29 17:14 | W.ED.DIZZY ---
HPI - Dizziness General: Chief Complaint: Dizziness Stated Complaint: dizzy Time Seen by Provider: 01/29/25 16:52 History of Present Illness: HPI Narrative: 54-year-old female presents emergency room complaining of feeling dizzy for the last 6 hours. She did not strike her head did not lose consciousness she has no weakness on the right compared to the left no other focal deficits. She notes when she moves her head to the right she gets consistently vertiginous. She is elicits very still she does not have any symptoms. Associated symptoms: Denies chest pain or chills Related Data Home Medications ?Medication ?Instructions ?Recorded ?Confirmed atorvastatin 80 mg tablet 80 mg PO .DAILY@9AM 11/21/24 12/23/24 lisinopril 40 mg tablet 40 mg PO DAILY 11/21/24 12/23/24 pantoprazole 40 mg tablet,delayed 40 mg PO DAILY 11/21/24 12/23/24 release rivaroxaban 2.5 mg tablet (Xarelto) 2.5 mg PO BID 11/21/24 12/23/24 Previous Rx's ?Medication ?Instructions ?Recorded prasugrel HCl 10 mg tablet 10 mg PO DAILY #30 tabs 04/14/24 (Effient) aspirin 81 mg chewable tablet 81 mg PO DAILY #90 tabs 05/20/24 gabapentin 600 mg tablet See Rx Instructions .Route 11/27/24 .COMPLEX #90 tabs lorazepam 2 mg tablet (Ativan) 2 mg PO Q6H PRN dizziness #20 tabs 01/29/25 oxycodone-acetaminophen 5 mg-325 1 tab PO Q8H PRN pain 30 days #90 02/04/25 mg tablet tabs Allergies Allergy/AdvReac Type Severity Reaction Status Date / Time clopidogrel (From Plavix) Allergy hives Verified 12/23/24 09:28 fentanyl Allergy Unknown Verified 12/23/24 09:28 ketamine Allergy ADR-Anxiety Verified 12/23/24 09:28 methocarbamol Allergy ADR-Halluci Verified 12/23/24 09:28 nating methylprednisolone (From Allergy ADR-Itching Verified 12/23/24 09:28 Medrol) naproxen (From Aleve) Allergy ADR-Vomitin Verified 12/23/24 09:28 g tramadol Allergy ADR-Migrain Verified 12/23/24 09:28 e Review of Systems Const: Denies: fever(s) or chills Card: Denies: chest pain Resp: Denies: dyspnea GI: Denies: abdominal pain : Denies: dysuria, urinary frequency or urinary urgency Musc: Denies: neck pain or back pain Skin/Breast: Denies: rash PFSH ED PFSH: Medical History Post-traumatic stress disorder, chronic PAD (peripheral artery disease) Fibromyalgia Dyslipidemia Migraine HTN (hypertension) Surgical History S/P peripheral artery angioplasty Left SFA History of laparoscopic cholecystectomy History of x2 H/O: hysterectomy Family History Family/Other Anesthesia complication Diabetes Sister CAD (coronary artery disease), Onset Age: 40 triple bypass Diabetes Father CAD (coronary artery disease), Onset Age: 50 Cancer Diabetes Stroke Mother Dementia Brother Diabetes Stroke Other Rheumatoid arthritis Denies family history of Clotting disorder Chronic kidney disease (CKD) Suicide Bleeding disorder Lung disease Social History Smoking and tobacco/nicotine status: former use of tobacco/nicotine Alcohol intake: never Substance/Drug Use: never Lives independently: Yes Household members: children Housing: House Female Reproductive History: Spontaneous abortions: No Physical Exam Const: COMMON NORMALS: no acute distress GENERAL APPEARANCE: cooperative and comfortable ORIENTATION/CONSCIOUSNESS: Yes awake, Yes oriented to person, Yes oriented to place and Yes oriented to time HENMT: COMMON NORMALS: normocephalic, atraumatic and hearing grossly normal bilaterally HEAD & SCALP: normocephalic and atraumatic Resp: COMMON NORMALS: normal respiratory effort, No retractions, No use of accessory muscles and clear to auscultation bilaterally AUSCULTATION: clear to auscultation bilaterally Cardio: COMMON NORMALS: regular rate, regular rhythm and No murmurs present (Cardio) RATE: regular rate RHYTHM: regular rhythm GI: COMMON NORMALS: Soft to palpation and No hepatosplenomegaly present AUSCULTATION: Yes normoactive bowel sounds PALPATION: Yes Soft to palpation, No Tenderness to palpation present (GI), No Guarding due to palpation present (GI) and Yes No hepatosplenomegaly present Extremity: COMMON NORMALS: normal to inspection, capillary refill normal, no clubbing, cyanosis or edema, no calf tenderness and no pedal edema Neuro: SENSORIUM/ORIENTATION: Yes oriented to person, Yes oriented to place and Yes oriented to time Skin: COMMON NORMALS: no rashes or lesions noted GENERAL SKIN EXAM: no rashes or lesions noted Course Vital Signs: Vital signs: Vital Signs Temperature 98.0 F 01/29/25 16:41 Pulse Rate 93 01/29/25 18:31 Respiratory Rate 16 01/29/25 16:41 Blood Pressure 129/91 01/29/25 18:31 Pulse Oximetry 95 01/29/25 18:31 Oxygen Delivery Me thod Room Air 01/29/25 16:41 MDM - Dizziness Medical Decision Making No focal neurologic deficits are noted brief exam does not show any lateralizing symptoms. She has nystagmus to the right reproducible dizziness with movement to the right. CT head negative. Reviewed findings with the patient will discharge home. Given Ativan to use as needed for dizziness return if has worsening or changes symptoms Medical Records I reviewed the patient's medical records. Lab Data I reviewed the patient's lab results. 01/29/25 17:01 01/29/25 17:[address] 01/29/25 17:14 IMPRESSION: No acute intracranial abnormality. Laboratory Results WBC 6.89 10^3/uL (3.29-11.43) 01/29/25 17:01 RBC 4.96 10^6/uL (3.85-5.65) 01/29/25 17:01 Hgb 14.40 g/dL (11.27-16.99) 01/29/25 17:01 Hct 43.2 % (36-47) 01/29/25 17:01 MCV 87.1 fl (85-98) 01/29/25 17:01 MCH 29.0 pg (27-33) 01/29/25 17:01 MCHC 33.3 g/dL (30-55) 01/29/25 17:01 RDW 13.1 % (12.1-15.1) 01/29/25 17:01 Plt Count 344 10^3/cmm (157-399) 01/29/25 17:01 MPV 9.6 fL (7.4-10.4) 01/29/25 17:01 Neut % (Auto) 74.7 % 01/29/25 17:01 Lymph % (Auto) 19.6 % 01/29/25 17:01 [place] % (Auto) 3.5 % 01/29/25 17:01 Eos % (Auto) 1.2 % 01/29/25 17:01 Baso % (Auto) 0.7 % 01/29/25 17:01 Neut # (Auto) 5.15 10^3/uL (1.8-7.7) 01/29/25 17:01 Lymph # (Auto) 1.4 10^3/uL (0.8-4.8) 01/29/25 17:01 [place] # (Auto) 0.2 10^3/uL (0.2-0.9) 01/29/25 17:01 Eos # (Auto) 0.1 10^3/uL (0.0-0.8) 01/29/25 17:01 Baso # (Auto) 0.1 10^3/uL (0.0-0.1) 01/29/25 17:01 Nucleated RBC % (auto) 0 % 01/29/25 17:01 Nucleated RBCs # 0.0 /100WBC 01/29/25 17:01 PT 14.60 SECONDS (12.1-14.9) 01/29/25 17:01 INR 1.06 (0.8-1.2) 01/29/25 17:01 Sodium 140 mmol/L (136-145) 01/29/25 17:01 Potassium 4.1 mmol/L (3.5-5.1) 01/29/25 17:01 Chloride 100 mmol/L (98-107) 01/29/25 17:01 Carbon Dioxide 23 mmol/L (22-29) 01/29/25 17:01 Anion Gap 21.1 (5-19) H 01/29/25 17:01 BUN 15 mg/dL (6-20) 01/29/25 17:01 Creatinine 0.6 mg/dL (0.5-0.9) 01/29/25 17:01 GFR Calculation 103.4 mL/min (90-130) 01/29/25 17:01 Glucose 177 mg/dL (65-115) H 01/29/25 17:01 Calculated Osmolality 295 mOsm/kg (285-295) 01/29/25 17:01 Calcium 9.3 mg/dL (8.5-10.5) 01/29/25 17:01 Total Bilirubin 1.2 mg/dL (0.15-1.2) 01/29/25 17:01 AST 14 U/L (0-32) 01/29/25 17:01 ALT 11 U/L (0-33) 01/29/25 17:01 Alkaline Phosphatase 102 U/L (35-105) 01/29/25 17:01 Total Protein 7.8 g/dL (6.6-8.7) 01/29/25 17:01 Albumin 4.3 g/dL (3.5-5.2) 01/29/25 17:01 Globulin 3.5 g/dL (1.3-4.6) 01/29/25 17:01 All radiology interpretation(s) finalized by discharge Discharge Plan Discharge Patient Disposition: Home Clinical Impression: Benign paroxysmal positional vertigo Condition: Stable Prescriptions: New lorazepam [Ativan] 2 mg tablet 2 mg PO Q6H PRN (Reason: dizziness) Qty: 20 0RF No Action prasugrel HCl [Effient] 10 mg tablet 10 mg PO DAILY Qty: 30 5RF aspirin 81 mg tablet,chewable 81 mg PO DAILY Qty: 90 3RF gabapentin 600 mg tablet See Rx Instructions .ROUTE .COMPLEX Qty: 90 2RF Dose Instruction: TAKE 1 TABLET BY MOUTH THREE TIMES DAILY Rx Instructions: TAKE 1 TABLET BY MOUTH THREE TIMES DAILY oxycodone-acetaminophen 5-325 mg tablet 1 tab PO Q8H PRN (Reason: pain) 30 Days Qty: 90 0RF atorvastatin 80 mg tablet 80 mg PO .DAILY@9AM Xarelto 2.5 mg tablet 2.5 mg PO BID pantoprazole 40 mg tablet,delayed release (DR/EC) 40 mg PO DAILY lisinopril 40 mg tablet 40 mg PO DAILY Discharge Orders: Discharge ED (Routine); Ordered 01/29/25 Ordered By: Shayne Freeman Referrals: Chuy Pulliam DO [Primary Care Provider, Family Practice] Discharge Diet: Usual diet Discharge Activity: Increase activity as tolerated Patient Instructions: Opioid Safety, Pain Management Activity Restrictions/Additional Instructions: Thank you for choosing [facility] for your healthcare needs today. It is very important that you follow up as instructed or that you return to the Emergency Department should you have concerns or if your condition changes or worsens in any way. You are seen in the emergency room with complaints of dizziness with movement of your head. Laboratory tests and CT were negative. Recommend use Ativan as needed for relief of your symptoms follow-up with primary care doctor. Print Language: Japanese Coding Level of Care Code ED Drafting Layout Man for Tayla Wooten
[2025-01-29 17:22] LABS: INR 1.06 (0.8-1.2)
[2025-01-29] MEDS: LORazepam 1 MG/0.5 ML injection IV (17:25)
[2025-01-29 17:28] LABS: Alanine Aminotransferase 11 U/L (0-33); Albumin Level 4.3 g/dL (3.5-5.2); Alkaline Phosphatase 102 U/L (35-105); Anion Gap 21.1 (5-19); Aspartate Amino Transferase 14 U/L (0-32); Blood Urea Nitrogen 15 mg/dL (6-20); Calcium 9.3 mg/dL (8.5-10.5); Carbon Dioxide 23 mmol/L (22-29); Chloride 100 mmol/L (98-107); Creatinine Clr Calc Pharmacy 110.1391; Globulin 3.5 g/dL (1.3-4.6); Glomerular Filtration Rate 103.4 mL/min (90-130); Glucose 177 mg/dL (65-115); Osmolality Calculated 295 mOsm/kg (285-295); Potassium 4.1 mmol/L (3.5-5.1); Sodium 140 mmol/L (136-145); Total Bilirubin 1.2 mg/dL (0.15-1.2); Total Protein 7.8 g/dL (6.6-8.7)
[2025-01-29 18:31] VITALS: BP 129/91; PULSE 93; O2SAT 95
== END 2025-01-29 18:33 | disposition home or self-care (01) ==
PROVIDERS: Emergency Provider Family Medicine; PCP Family Medicine
DX: H81.11 Benign paroxysmal vertigo, right ear (principal); Z79.82 Long term (current) use of aspirin; Z87.891 Personal history of nicotine dependence; E78.5 Hyperlipidemia, unspecified; I10 Essential (primary) hypertension
CPT/HCPCS: 36415; 70450; 80053; 85025; 85610; 96374; 99285; J2060

== ENCOUNTER 2025-05-01 20:44 | Emergency (ER) | payer MEDICAID, SELFPAY ==
--- OUTSIDE RECORDS SUMMARY | 2025-05-01 20:48 | XMS_ITS | Clinical Summary ---
Author Organization [facility] Address [address] [address] Care Team Providers Care Lead Blender Name Role Phone Unavailable Primary Care Provider Unavailabl e Allergies No known active allergies Medications lisinopril (PRINIVIL) 30 mg tablet Take 30 mg by mouth daily. Active aspirin (ECOTRIN EC) 81 mg Tablet, Delayed Release (E.C.) Take 81 mg by mouth daily. Active diclofenac sodium (VOLTAREN) 75 mg Tablet, Delayed Release (E.C.) Take 75 mg by mouth 1 time daily as needed. Active topiramate (TOPAMAX) 50 mg tablet Take 50 mg by mouth 1 time daily as needed. Active ALPRAZolam (XANAX) 0.5 mg tabletIndicati ons:anxiety Take 0.5 mg by mouth see administration instructions. Active traMADol (ULTRAM) 50 mg tablet Take 1 Tablet (50 mg) by mouth every 6 hours as needed for Pain. 20 Tablet 8 Active Active Problems Problem Noted Date Diagnosed Date Injury of right hand 02/04/2013 Social History Tobacco Use Types Packs/Day Years Used Date Smoking Tobacco: Every Day Cigarettes Smokeless Tobacco: Never Alcohol Use Standard Drinks/Week Comments No 0 (1 standard drink = 0.6 oz pur e alcohol) Comments No Sex and Gender Information Value Date Recorded Sex Assigned at Not on file Legal Sex Female 1:41 PM CDT Gender Identity Not on file Sexual Orientation Not on file Last Filed Vital Signs Vital Sign Reading Time Taken Comments Blood Pressure 157/93 12/21/2017 9:26 PM CDT Pulse 99 02/04/2013 3:50 PM CDT Temperature 36.7 C (98.1 F) 12/21/2017 9:26 PM CDT Respiratory Rate 16 12/21/2017 9:26 PM CDT Oxygen Saturation 97% 12/21/2017 9:26 PM CDT Inhaled Oxygen Concentration - - Weight 84.4 kg (186 lb) 12/21/2017 8:23 PM CDT Height 160 cm (5' 3 ) 12/21/2017 8:23 PM CDT Body Mass Index 32.95 12/21/2017 8:23 PM CDT Plan of Treatment Health Maintenance Due Date Last Done Comments DTAP/TDAP/TD VACCINES (1 - Tdap) 1987 HEPATITIS B VACCINES (1 of 3 - 19+ 3-dose series) 08/16 HPV/Cotest (21-29) 1989 CERVICAL CANCER SCREENING 1998 HPV/Cotest (30-65) 1998 PAP SMEAR 1998 BREAST CANCER SCREENING 2008 COLORECTAL SCREENING 2013 Colorectal Cancer Screening 2013 FIT-DNA Q 3 years 2013 FIT/FOBT Q 1 year 2013 Flex Sig/CT Colonography Q 5 years 2013 ZOSTER VACCINE (1 of 2) 2018 INFLUENZA VACCINE (#1) 2025 Insurance MEDICAID [place] [employer]
--- OUTSIDE RECORDS SUMMARY | 2025-05-01 20:49 | XMS_ITS | Clinical Summary ---
Author Organization [facility] Address [address] Santosn: Epic Prelude ADT [place] [address] Care Team Providers Care Web Production Artist Name Role Phone Unavailable Primary Care Provider Unavailabl e Allergies Active Allergy Reactions Criticality Noted Date Comments Clopidogrel Hives High 04/26/2022 Methylprednisolone Rash,Itching Low 04/26/2022 Can take prednisone. Naproxen Sodium Hives High 04/26/2022 Can take aspirin. Tramadol Other (See Comments) 04/26/2022 Triggers migraine headache Medications lisinopriL (PRINIVIL) 40 mg tablet Take 40 mg by mouth daily. Active pantoprazole (PROTONIX) 40 mg Tablet, Delayed Release (E.C.) Take 40 mg by mouth daily. Active sertraline (ZOLOFT) 100 mg tablet Take 100 mg by mouth daily. For depression with anxiety Active atorvastatin (LIPITOR) 80 mg tablet Take 80 mg by mouth daily. Active gabapentin (NEURONTIN) 600 mg tablet Take 300 mg by mouth 3 times daily. For low back pain Active clonazePAM (KlonoPIN) 0.5 mg Tablet Take 0.5 mg by mouth 2 times daily as needed for Anxiety. Active acetaminophen (TYLENOL) 500 mg tablet Take 500 mg by mouth every 6 hours as needed. Active HYDROcodone-acetam inophen (NORCO) 5-325 mg tabletIndications: Acute nonintractable headache, unspecified headache type Take 1 Tablet by mouth every 4 hours as needed for Pain. Max Daily Amount: 6 Tablets 10 Tablet 04/27/20 22 Active diclofenac sodium (VOLTAREN) 75 mg Tablet, Delayed Release (E.C.) Take 75 mg by mouth 1 time daily as needed. 12/22/19 18 Active traMADoL (ULTRAM) 50 mg tablet Take 1 Tablet (50 mg) by mouth every 6 hours as needed for Pain. 20 Tablet 0 12/22/19 18 Active lisinopriL (PRINIVIL) 30 mg tablet Take 30 mg by mouth daily. 12/22/19 18 Active topiramate (TOPAMAX) 50 mg tablet Take 50 mg by mouth 1 time daily as needed. 12/22/19 18 Active ALPRAZolam (XANAX) 0.5 mg tablet Take 0.5 mg by mouth see administration instructions. 12/22/19 18 Active aspirin (ECOTRIN EC) 81 mg Tablet, Delayed Release (E.C.) Take 81 mg by mouth daily. 12/22/19 18 Active Active Problems Problem Noted Date Diagnosed Date Cerebral hemorrhage 04/26/2022 Dizziness 04/26/2022 Disequilibrium 04/26/2022 Acute headache 04/26/2022 Chronic anticoagulation 04/26/2022 Overview (04/26/2022): Xarelto Peripheral artery disease 04/26/2022 History of arterial thrombosis of legs Primary hypertension 04/26/2022 Injury of right hand 02/04/2013 Family History Medical History Relation Name Comments Diabetes Brother 1 Hypertension Brother 1 Other Brother 1 Diabetes Brother 2 Hypertension Brother 2 Diabetes Brother 3 Hypertension Brother 3 Diabetes Brother 4 Hypertension Brother 4 Diabetes Brother 5 Hypertension Brother 5 Diabetes Brother 6 Hypertension Brother 6 Other Daughter Anxiety. [place] r [place] Cancer Father of some ty pe of cancer. Hypertension Father Stroke Father Kidney Disease Mother of kidne y failure Other Mother PICCs disease Diabetes Sister 1 Heart Disease Sister 1 CABG. CHF High Cholesterol Sister 1 Hypertension Sister 1 High Cholesterol Sister 2 Other Sister 2 Abdominal aorti c rupture Hypertension Sister 3 Other Sister 3 Hypoglycemia Other Son Crohn's disease , Ramirez's disease Relation Name Status Comments Brother 1 Alive Brother 2 Alive Brother 3 Alive Brother 4 Alive Brother 5 Alive Brother 6 Alive Daughter Alive Father Mother Sister 1 Alive Sister 2 Alive Sister 3 Alive Son Alive Social History Tobacco Use Types Packs/Day Years Used Date Smoking Tobacco: Every Day Cigarettes 0.5 40 Smokeless Tobacco: Never Alcohol Use Standard Drinks/Week Comments No 0 (1 standard drink = 0.6 oz pur e alcohol) Comments Unknown Sex and Gender Information Value Date Recorded Sex Assigned at Not on file Legal Sex Female 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 Gender Identity Not on file Sexual Orientation Not on file Last Filed Vital Signs Vital Sign Reading Time Taken Comments Blood Pressure 124/88 11/13/2022 1:28 PM GRAPHIC PRODUCTION ARTIST Pulse 70 11/13/2022 1:28 PM GRAPHIC PRODUCTION ARTIST Temperature 36.3 C (97.4 F) 04/27/2022 8:00 AM CDT Respiratory Rate 20 04/27/2022 8:00 AM CDT Oxygen Saturation 96% 11/13/2022 1:28 PM GRAPHIC PRODUCTION ARTIST Inhaled Oxygen Concentration - - Weight 84.4 kg (186 lb) 11/13/2022 1:28 PM GRAPHIC PRODUCTION ARTIST Height 162.6 cm (5' 4 ) 11/13/2022 1:28 PM GRAPHIC PRODUCTION ARTIST Body Mass Index 31.93 11/13/2022 1:28 PM GRAPHIC PRODUCTION ARTIST Plan of Treatment Health Maintenance Due Date [...] 2) 2018 INFLUENZA VACCINE (#1) [address] [place] [address] [employer] PLAN MEDICAID Advance Directives For more information, please contact: [phone] * Full Code (Latest Code Status on File) Date Activated Date Inactivated Comments 04/26/2022 2:53 AM 04/27/2022 2:58 PM
[2025-05-01 21:19] VITALS: BP 128/77; PULSE 72; RESP 18; TEMP 36.8; O2SAT 100; BMI 33.5
--- NOTE | 2025-05-01 21:51 | CTR_ITS ---
PROCEDURE INFORMATION: Exam: CTA Abdominal Aorta and Bilateral Lower Extremities (Run-off) With Contrast Exam date and time: 05/01/2025 10:28 PM Age: 54 years old Clinical indication: Other: Cold to touch; Foot pain; Left; Prior surgery; Surgery date: 6+ months; Surgery type: Multiple lle vascular stents; C/O lle pain. Cool to touch. No pedal pulse. History of severe pad. ; Additional info: Pain, decreased sensation, cool lle. HX pad TECHNIQUE: Imaging protocol: Computed tomographic angiography of the of the abdominal aorta, pelvis and bilateral lower extremities with contrast. 3D rendering (Not supervised by radiologist): MIP and/or 3D reconstructed images were created by the technologist. Radiation optimization: All CT scans at this facility use at least one of these dose optimization techniques: automated exposure control; mA and/or kV adjustment per patient size (includes targeted exams where dose is matched to clinical indication); or iterative reconstruction. Contrast material: OMNI 350; Contrast volume: 100 ml; Contrast route: INTRAVENOUS (IV); COMPARISON: CT angio abd aorta runof [id number] 04/06/2024 5:58 PM RADIATION DOSE METRICS: Total DLP (mGy-cm): 789.03 FINDINGS: Aorta: There is no aortic aneurysm. There is atherosclerotic disease. Celiac trunk and mesenteric arteries: The celiac artery is not visualized on this study. Renal arteries: The renal arteries are not visualized on this study. Right iliac arteries: Diseased but patent right iliac arteries. Right femoral/popliteal arteries: On the right, moderate disease of the right common femoral artery with calcification in its back wall causing approximately 30% stenosis. Origins of the SFA and profunda are patent. Popliteal artery is patent but diseased. Right infrapopliteal arteries: There is three-vessel runoff to the foot with the posterior tibial artery being dominant. Left iliac arteries: Diseased but patent left iliac arteries. Left femoral/popliteal arteries: Patent left common femoral artery, the origin of the right SFA stent is patent however, it occludes just below its origin. The femoropopliteal stent is occluded to the level of the knee. The tubular graft extending from the common femoral artery through to the popliteal artery is also occluded. The left profunda to posterior tibial bypass graft is patent however, there is high-grade stenosis in the distal anastomosis. Left infrapopliteal arteries: There is single vessel flow diseased posterior tibial artery to the foot. Liver: Not visualized on this study. Gallbladder and biliary ducts: Not visualized on this study. Pancreas: Not visualized on this study. Spleen: Not visualized on this study. Adrenal glands: Not visualized on this study. Kidneys and ureters: Limited evaluation of the kidneys is unremarkable. Left posterior renal cyst. Stomach and bowel: Small and large bowel are normal in caliber without evidence of obstruction. Appendix: Appendix is unremarkable. Urinary bladder: Bladder is distended with no focal wall thickening. Reproductive: There has been a hysterectomy. No adnexal cysts or masses are identified. Intraperitoneal space: No free intraperitoneal air. No significant fluid collection. Lymph nodes: No pathologically enlarged lymph nodes (by short axis size criteria). Bones/joints: No acute osseous abnormality. Soft tissues: Unremarkable. [place] [id number] IMPRESSION: 1. On the left, diseased but patent inflow, diseased but patent outflow via profunda to posterior tibial bypass graft. There is high-grade stenosis at the distal anastomosis. There is single-vessel runoff via the posterior tibial artery. The previously stented [place] femoral popliteal artery is occluded. The previous femoropopliteal bypass graft is also occluded. 2. On the right, diseased but patent inflow, diseased but patent outflow and three-vessel runoff with the posterior tibial artery being dominant.
[2025-05-01 21:59] VITALS: BP 138/91; PULSE 62; RESP 15; O2SAT 95
--- NOTE | 2025-05-01 22:05 | W.ED.EXTPRO ---
HPI - Extremity Problem General: Chief complaint: Extremity Problem,Nontraumatic Stated complaint: Clots in Lt leg Time Seen by Provider: 05/01/25 21:44 History of Present Illness: This 54-year-old female with an extensive history of peripheral arterial disease presents with acute onset left lower extremity pain and numbness that began yesterday. The patient describes the pain as different from her usual chronic pain, stating 'we always had pain and nothing like this.' The affected extremity demonstrates significant numbness with decreased sensation, and the patient reports being unable to get comfortable despite position changes. She notes that movement initially seems to provide some relief, but the pain persists. The patient denies fever and reports that the right leg remains asymptomatic. On examination, the left foot appears pale with some mottling noted, and no palpable pulse is detected in the affected extremity. Multiple vascular interventions in past including: - Seventeen stents (multiple locations, reportedly failed) - Two bypass procedures - Most recent bypass using vein graft with tunneling technique - Previous bypass procedure (older) - Additional stents placed in various locations Related Data Home Medications ?Medication ?Instructions ?Recorded ?Confirmed lisinopril 40 mg tablet 40 mg PO DAILY 11/21/24 04/22/25 pantoprazole 40 mg tablet,delayed 40 mg PO DAILY 11/21/24 04/22/25 release rivaroxaban 2.5 mg tablet (Xarelto) 2.5 mg PO BID 11/21/24 04/22/25 Previous Rx's ?Medication ?Instructions ?Recorded prasugrel HCl 10 mg tablet 10 mg PO DAILY #30 tabs 04/14/24 (Effient) aspirin 81 mg chewable tablet 81 mg PO DAILY #90 tabs 05/20/24 gabapentin 600 mg tablet See Rx Instructions .Route 11/27/24 .COMPLEX #90 tabs fluticasone propionate 50 1 spray intranasal DAILY PRN nasal 02/10/25 mcg/actuation nasal congestion #16 grams spray,suspension (Flonase Allergy Relief) [id number]-[id number]-[id number] 3.5 4 drp otic (ear) Q8H #10 mL 03/02/25 mg-10,000 unit/mL-1 % ear drops,susp atorvastatin 80 mg tablet See Rx Instructions .Route 04/05/25 .COMPLEX #30 tabs oxycodone-acetaminophen 5 mg-325 1 tab PO Q8H PRN pain 30 days #90 04/05/25 mg tablet tabs gabapentin 100 mg capsule 100 mg PO TID 7 days #21 caps 04/22/25 valacyclovir 1 gram tablet 1,000 mg PO TID 7 days #21 tabs 04/22/25 Allergies Allergy/AdvReac Type Severity Reaction Status Date / Time clopidogrel (From Plavix) Allergy hives Verified 04/22/25 11:38 fentanyl Allergy Unknown Verified 04/22/25 11:38 ketamine Allergy ADR-Anxiety Verified 04/22/25 11:38 methocarbamol Allergy ADR-Halluci Verified 04/22/25 11:38 nating methylprednisolone (From Allergy ADR-Itching Verified 04/22/25 11:38 Medrol) naproxen (From Aleve) Allergy ADR-Vomitin Verified 04/22/25 11:38 g tramadol Allergy ADR-Migrain Verified 04/22/25 11:38 e [facility] PFSH: Medical History (Updated 05/02/25 @ 02:06 by Domingo Bai DO) Arthralgia of left temporomandibular joint Post-traumatic stress disorder, chronic PAD (peripheral artery disease) Fibromyalgia Dyslipidemia Migraine HTN (hypertension) Surgical History S/P peripheral artery angioplasty Left SFA History of laparoscopic cholecystectomy History of x2 H/O: hysterectomy Family History Family/Other Anesthesia complication Diabetes Sister CAD (coronary artery disease), Onset Age: 40 triple bypass Diabetes Father CAD (coronary artery disease), Onset Age: 50 Cancer Diabetes Stroke Mother Dementia Brother Diabetes Stroke Other Rheumatoid arthritis Denies family history of Clotting disorder Chronic kidney disease (CKD) Suicide Bleeding disorder Lung disease Social History Smoking and tobacco/nicotine status: never used tobacco/nicotine Alcohol intake: never Substance/Drug Use: never Lives independently: Yes Household members: children Housing: House Female Reproductive History: Spontaneous abortions: No Physical Exam Const: GENERAL APPEARANCE: cooperative; not frail appearing HENMT: COMMON NORMALS: normocephalic, atraumatic and Normal external nose present HEAD & SCALP: normocephalic and atraumatic FACE & SINUS: normal facial exam and face symmetric NOSE: Normal external nose present Eye: COMMON NORMALS: Equal, round and reactive pupils present and EOMs intact bilaterally PUPIL: Yes Equal, round and reactive pupils present Neck/C-Spine: GENERAL: Yes trachea midline Chest: CHEST: Yes Symmetrical chest wall rise Resp: COMMON NORMALS: normal respiratory effort, No retractions, No use of accessory muscles and clear to auscultation bilaterally AUSCULTATION: clear to auscultation bilaterally Cardio: COMMON NORMALS: regular rate and regular rhythm RATE: regular rate RHYTHM: regular rhythm GI: COMMON NORMALS: Normal to inspection, nondistended, normoactive bowel sounds present Extremity: COMMON NORMALS: no pedal edema NARRATIVE EXTREMITY EXAM: Left lower extremity is cool to the touch below the mid lower leg. Dorsalis pedis pulses nonpalpable. Posterior tibialis pulses not palpable either. Sensation is grossly intact although diminished. The leg is diffusely tender. Neuro: [place] COMA SCALE: document GCS findings [place] coma scale eye opening: Spontaneous [place] coma scale verbal response: Orientated [place] coma scale motor response: Obey commands [place] coma scale total score: 15 SENSORY EXAM: Yes extremities (intact) Psych: COMMON NORMALS: speech normal SPEECH: Yes normal speech Course Vital Signs: Vital signs: Vital Signs Temperature 98.3 F 05/01/25 21:19 Pulse Rate 78 05/02/25 02:51 Respiratory Rate 17 05/02/25 02:51 Blood Pressure 123/85 05/02/25 02:51 Pulse Oximetry 98 05/02/25 02:51 Oxygen Delivery Me thod Room Air 05/02/25 01:30 MDM - Extremity (Nontraumatic) Medical Decision Making Acute limb ischemia in patient with extensive peripheral arterial disease: - Clinical presentation consistent with acute arterial occlusion of left lower extremity - Physical findings of pale, mottled extremity with absent pulse and decreased sensation concerning for critical limb ischemia - Plan for immediate vascular imaging to localize occlusion - Urgent vascular surgery consultation indicated - Patient counseled on severity of condition and risk of limb loss without prompt intervention - Will expedite imaging and specialist evaluation given time-sensitive nature of presentation Spoke with Austen Zamudio. They did page vascular surgery a couple of times without answer. They have bed limitations. Decided to send the patient ER to ER due to time sensitive limb threat related transfer. They have graciously agreed to accept. She will go by ground as air is not possible at this point. This patient adamantly declined ambulance transport. She states she wants to drive on her own. She has been on heparin. She elected to sign out AGAINST MEDICAL ADVICE to have her family drive her. Lab Data 05/01/25 22:16 05/01/25 22:16 Radiology Impressions Lower Extremity CTA 05/01/25 21:51 IMPRESSION: 1. On the left, diseased but patent inflow, diseased but patent outflow via profunda to posterior tibial bypass graft. There is high-grade stenosis at the distal anastomosis. There is single-vessel runoff via the posterior tibial artery. The previously stented [place] femoral popliteal artery is occluded. The previous femoropopliteal bypass graft is also occluded. 2. On the right, diseased but patent inflow, diseased but patent outflow and three-vessel runoff with the posterior tibial artery being dominant. ADDENDUM: 05/02/25 0023 ADDENDUM: THIS REPORT CONTAINS FINDINGS THAT MAY BE CRITICAL TO PATIENT CARE. The findings were verbally communicated via telephone conference with Dr. Bai at 12:15 AM CDT on 05/02/2025. The findings were acknowledged and understood. Laboratory Results WBC 5.98 10^3/uL (3.29-11.43) 05/01/25 22:16 RBC 4.28 10^6/uL (3.85-5.65) 05/01/25 22:16 Hgb 13.00 g/dL (11.27-16.99) 05/01/25 22:16 Hct 39.0 % (36-47) 05/01/25 22:16 MCV 91.1 fl (85-98) 05/01/25 22:16 MCH 30.4 pg (27-33) 05/01/25 22:16 MCHC 33.3 g/dL (30-55) 05/01/25 22:16 RDW 13.5 % (12.1-15.1) 05/01/25 22:16 Plt Count 279 10^3/cmm (157-399) 05/01/25 22:16 MPV 9.9 fL (7.4-10.4) 05/01/25 22:16 Neut % (Auto) 55.5 % 05/01/25 22:16 Lymph % (Auto) 34.8 % 05/01/25 22:16 [place] % (Auto) 6.0 % 05/01/25 22:16 Eos % (Auto) 2.7 % 05/01/25 22:16 Baso % (Auto) 0.5 % 05/01/25 22:16 Neut # (Auto) 3.32 10^3/uL (1.8-7.7) 05/01/25 22:16 Lymph # (Auto) 2.1 10^3/uL (0.8-4.8) 05/01/25 22:16 [place] # (Auto) 0.4 10^3/uL (0.2-0.9) 05/01/25 22:16 Eos # (Auto) 0.2 10^3/uL (0.0-0.8) 05/01/25 22:16 Baso # (Auto) 0.0 10^3/uL (0.0-0.1) 05/01/25 22:16 Nucleated RBC % (auto) 0 % 05/01/25 22:16 Nucleated RBCs # 0.0 /100WBC 05/01/25 22:16 PT 14.90 SECONDS (12.1-14.9) 05/01/25 22:16 INR 1.10 (0.8-1.2) 05/01/25 22:16 APTT 27.9 SECONDS (23.9-36.7) 05/01/25 22:16 Sodium 141 mmol/L (136-145) 05/01/25 22:16 Potassium 4.1 mmol/L (3.5-5.1) 05/01/25 22:16 Chloride 103 mmol/L (98-107) 05/01/25 22:16 Carbon Dioxide 26 mmol/L (22-29) 05/01/25 22:16 Anion Gap 16.1 (5-19) 05/01/25 22:16 BUN 13 mg/dL (6-20) 05/01/25 22:16 Creatinine 0.5 mg/dL (0.5-0.9) 05/01/25 22:16 GFR Calculation 127.6 mL/min (90-130) 05/01/25 22:16 Glucose 118 mg/dL (65-115) H 05/01/25 22:16 Calculated Osmolality 293 mOsm/kg (285-295) 05/01/25 22:16 Lactic Acid 1.2 mmol/L (0.5-2.2) 05/01/25 22:16 Calcium 9.4 mg/dL (8.5-10.5) 05/01/25 22:16 Total Bilirubin 0.9 mg/dL (0.15-1.2) 05/01/25 22:16 AST 20 U/L (0-32) 05/01/25 22:16 ALT 14 U/L (0-33) 05/01/25 22:16 Alkaline Phosphatase 95 U/L (35-105) 05/01/25 22:16 Creatine Kinase 89 U/L (26-192) 05/01/25 22:16 C-Reactive Protein 15.3 mg/L (0.0-4.9) H 05/01/25 22:16 Total Protein 8.0 g/dL (6.6-8.7) 05/01/25 22:16 Albumin 4.6 g/dL (3.5-5.2) 05/01/25 22:16 Globulin 3.4 g/dL (1.3-4.6) 05/01/25 22:16 All radiology interpretation(s) finalized by discharge Discharge Plan Discharge Patient Disposition: Left Against Medical Advice Clinical Impression: PAD (peripheral artery disease), Acute occlusion of artery of lower extremity Condition: Stable Prescriptions: No Action valacyclovir 1 gram tablet 1,000 mg PO TID 7 Days Qty: 21 0RF gabapentin 100 mg capsule 100 mg PO TID 7 Days Qty: 21 0RF prasugrel HCl [Effient] 10 mg tablet 10 mg PO DAILY Qty: 30 5RF aspirin 81 mg tablet,chewable 81 mg PO DAILY Qty: 90 3RF fluticasone propionate [Flonase Allergy Relief] 50 mcg/actuation spray,suspension 1 spray intranasal DAILY PRN (Reason: nasal congestion) Qty: 16 0RF Rx Instructions: administer into each nostril urzabudm-qreprwuud-EU 3.5-10,000-1 mg/mL-unit/mL-% drops,suspension 4 drp otic (ear) Q8H Qty: 10 0RF gabapentin 600 mg tablet See Rx Instructions .ROUTE .COMPLEX Qty: 90 2RF Dose Instruction: TAKE 1 TABLET BY MOUTH THREE TIMES DAILY Rx Instructions: TAKE 1 TABLET BY MOUTH THREE TIMES DAILY oxycodone-acetaminophen 5-325 mg tablet 1 tab PO Q8H PRN (Reason: pain) 30 Days Qty: 90 0RF atorvastatin 80 mg tablet See Rx Instructions .ROUTE .COMPLEX Qty: 30 0RF Dose Instruction: TAKE 1 TABLET BY MOUTH ONCE DAILY AT 9:00 AM Rx Instructions: TAKE 1 TABLET BY MOUTH ONCE DAILY AT 9:00 AM Xarelto 2.5 mg tablet 2.5 mg PO BID pantoprazole 40 mg tablet,delayed release (DR/EC) 40 mg PO DAILY lisinopril 40 mg tablet 40 mg PO DAILY Referrals: Chuy Pulliam DO [Primary Care Provider, Family Practice] Print Language: Slovenian Coding Level of Care Code ED Language And Literature Division Chair for Tayla Wooten
[2025-05-01] MEDS: ondansetron 2 mg/ML SDV 2 mL 4 MG IVP (22:20)
[2025-05-01] MEDS: HYDROmorphone 0.5 MG/0.5 ML INJ 1 MG IVP ×2 (22:21→23:58)
[2025-05-01] MEDS: iohexol 350 mg/mL 500 mL Btl (per mL) IV (22:29)
[2025-05-01 22:40] LABS: Hematocrit 39.0 % (36-47); Hemoglobin 13.00 g/dL (11.27-16.99); Mean Corpuscular HGB Conc 33.3 g/dL (30-55); Mean Corpuscular Hemoglobin 30.4 pg (27-33); Mean Corpuscular Volume 91.1 fl (85-98); Nucleated Red Blood Cells % 0 %; Platelet Count 279 10^3/cmm (157-399); Red Blood Count 4.28 10^6/uL (3.85-5.65); White Blood Count 5.98 10^3/uL (3.29-11.43)
[2025-05-01 22:53] LABS: INR 1.10 (0.8-1.2); Prothrombin Time 14.90 SECONDS (12.1-14.9)
[2025-05-01 22:54] LABS: Partial Thromboplastin Time 27.9 SECONDS (23.9-36.7)
[2025-05-01 23:00] LABS: Lactic Sepsis W/Reflex 1.2 mmol/L (0.5-2.2)
[2025-05-01 23:01] LABS: Alanine Aminotransferase 14 U/L (0-33); Albumin Level 4.6 g/dL (3.5-5.2); Alkaline Phosphatase 95 U/L (35-105); Anion Gap 16.1 (5-19); Aspartate Amino Transferase 20 U/L (0-32); Blood Urea Nitrogen 13 mg/dL (6-20); Calcium 9.4 mg/dL (8.5-10.5); Carbon Dioxide 26 mmol/L (22-29); Chloride 103 mmol/L (98-107); Creatinine Clr Calc Pharmacy 126.5509; Globulin 3.4 g/dL (1.3-4.6); Glucose 118 mg/dL (65-115); Osmolality Calculated 293 mOsm/kg (285-295); Potassium 4.1 mmol/L (3.5-5.1); Sodium 141 mmol/L (136-145); Total Protein 8.0 g/dL (6.6-8.7)
[2025-05-01] MEDS: heparin drip 25,000 UNIT/500 ML PREMIX 24 UNIT IV (23:18)
[2025-05-01 23:29] VITALS: BP 124/74; PULSE 83; RESP 17; O2SAT 98
[2025-05-02] VITALS: BP 124/74; PULSE 62; RESP 16; O2SAT 98
[2025-05-02 01:00] VITALS: BP 119/73; PULSE 74; RESP 17; O2SAT 98
[2025-05-02 01:30] VITALS: BP 104/70; PULSE 59; RESP 15; O2SAT 94
[2025-05-02 02:00] VITALS: BP 113/51; PULSE 76; RESP 16; O2SAT 98
[2025-05-02] MEDS: HYDROmorphone 0.5 MG/0.5 ML INJ 1 MG IVP (02:34)
--- NOTE | 2025-05-02 02:46 | PC.NURSE ---
patient agrees to transfer to [facility] but refuses Air Transport or Ground Ambulance transport. Dr Bai spoke in length with patient and advised her of the risk involved. She stated she understood but was adamant about her family driving her. She signed the AMA form. Transfer paperwork given to patient. Report was called to Demetra Langford RN @ [facility].
[2025-05-02 02:51] VITALS: BP 123/85; PULSE 78; RESP 17; O2SAT 98
== END 2025-05-02 02:50 | disposition left against medical advice (07) ==
PROVIDERS: Emergency Provider Emergency Medicine; PCP Family Medicine
DX: I74.3 Embolism and thrombosis of arteries of the lower extremities (principal); I73.9 Peripheral vascular disease, unspecified; Z79.82 Long term (current) use of aspirin; E78.5 Hyperlipidemia, unspecified
CPT/HCPCS: 36415; 73706; 80053; 82550; 83605; 85025; 85610; 85730; 86140; 96365; 96366; 96375; 96376; 99285; J1171; J1644; J2405

== ENCOUNTER 2025-05-07 21:54 | Emergency (ER) | payer MEDICAID, SELFPAY ==
[2025-05-07 21:56] VITALS: BP 151/82; PULSE 82; RESP 18; TEMP 36.9; O2SAT 98; BMI 32.3
--- NOTE | 2025-05-07 23:14 | W.ED.EXTPRO ---
Documented by User: NAZARIO Molina 05/07/25 23:18 HPI - Extremity Problem General: Chief complaint: Extremity Injury, Upper Stated complaint: Lt Back of hand has a big knot. Time Seen by Provider: 05/07/25 22:04 Source: patient Mode of arrival: ambulatory Limitations: no limitations History of Present Illness: Patient is a 54-year-old female who presents the emergency department complaining of swelling to dorsum of left hand. States that she noticed it just about an hour before arrival and does not recall bumping on anything. She is on blood thinners, recently seen in the emergency department for acute arterial occlusion in her leg and left AGAINST MEDICAL ADVICE when informed she needed to take an ambulance. She states that she has since followed up with vascular surgery in [place] and is set to undergo graft in her leg tomorrow. Swelling to the dorsum of left hand was improved minimally by ice, though she reports moderate amount of pain at this time. No other symptoms reported. MD Complaint: extremity pain and extremity swelling Onset (ago): hour(s) Pain Consistency: constant Location: left and upper extremity (Hand) Associated symptoms: Deny chest pain, fever(s) or rash Context: history of peripheral vascular disease and other (On blood thinners) Related Data Home Medications ?Medication ?Instructions ?Recorded ?Confirmed rivaroxaban 2.5 mg tablet (Xarelto) 2.5 mg PO BID 11/21/24 04/22/25 Previous Rx's ?Medication ?Instructions ?Recorded prasugrel HCl 10 mg tablet 10 mg PO DAILY #30 tabs 04/14/24 (Effient) aspirin 81 mg chewable tablet 81 mg PO DAILY #90 tabs 05/20/24 gabapentin 600 mg tablet See Rx Instructions .Route 11/27/24 .COMPLEX #90 tabs fluticasone propionate 50 1 spray intranasal DAILY PRN nasal 02/10/25 mcg/actuation nasal congestion #16 grams spray,suspension (Flonase Allergy Relief) [id number]-[id number] 3.5 4 drp otic (ear) Q8H #10 mL 03/02/25 mg-10,000 unit/mL-1 % ear drops,susp gabapentin 100 mg capsule 100 mg PO TID 7 days #21 caps 04/22/25 valacyclovir 1 gram tablet 1,000 mg PO TID 7 days #21 tabs 04/22/25 atorvastatin 80 mg tablet See Rx Instructions .Route 05/03/25 .COMPLEX #90 tabs lisinopril 40 mg tablet See Rx Instructions .Route 05/03/25 .COMPLEX #90 tabs oxycodone-acetaminophen 5 mg-325 1 tab PO Q8H PRN pain 30 days #90 05/03/25 mg tablet tabs pantoprazole 40 mg tablet,delayed See Rx Instructions .Route 05/03/25 release .COMPLEX #90 tabs Allergies Allergy/AdvReac Type Severity Reaction Status Date / Time clopidogrel (From Plavix) Allergy hives Verified 04/22/25 11:38 fentanyl Allergy Unknown Verified 04/22/25 11:38 ketamine Allergy ADR-Anxiety Verified 04/22/25 11:38 methocarbamol Allergy ADR-Halluci Verified 04/22/25 11:38 nating methylprednisolone (From Allergy ADR-Itching Verified 04/22/25 11:38 Medrol) naproxen (From Aleve) Allergy ADR-Vomitin Verified 04/22/25 11:38 g tramadol Allergy ADR-Migrain Verified 04/22/25 11:38 e Review of Systems General: Reports: 10 or more systems reviewed and unremarkable except in HPI and below Const: Denies: fever(s) or chills Card: Denies: chest pain Resp: Denies: dyspnea or productive cough GI: Denies: abdominal pain, nausea, vomiting or diarrhea : Denies: flank pain Musc: Reports: extremity pain (Left hand) and extremity swelling (Left hand); Denies: neck pain, back pain, joint pain, joint swelling, joint redness, joint warmth, limited range of motion or muscle weakness Skin/Breast: Denies: rash Neuro: Denies: headache(s), numbness in extremities or weakness in extremities PFSH ED PFSH: Medical History Arthralgia of left temporomandibular joint Post-traumatic stress disorder, chronic PAD (peripheral artery disease) Fibromyalgia Dyslipidemia Migraine HTN (hypertension) Surgical History S/P peripheral artery angioplasty Left SFA History of laparoscopic cholecystectomy History of x2 H/O: hysterectomy Family History Family/Other Anesthesia complication Diabetes Sister CAD (coronary artery disease), Onset Age: 40 triple bypass Diabetes Father CAD (coronary artery disease), Onset Age: 50 Cancer Diabetes Stroke Mother Dementia Brother Diabetes Stroke Other Rheumatoid arthritis Denies family history of Clotting disorder Chronic kidney disease (CKD) Suicide Bleeding disorder Lung disease Social History Smoking and tobacco/nicotine status: never used tobacco/nicotine Alcohol intake: never Substance/Drug Use: never Lives independently: Yes Household members: children Housing: House Female Reproductive History: Spontaneous abortions: No Physical Exam Const: COMMON NORMALS: no acute distress, patient oriented x3, no limitations, healthy appearing, alert and well nourished HENMT: COMMON NORMALS: normocephalic and atraumatic HEAD & SCALP: normocephalic and atraumatic Neck/C-Spine: COMMON NORMALS: full ROM, supple and no meningeal signs Resp: COMMON NORMALS: normal respiratory effort, No use of accessory muscles and clear to auscultation bilaterally AUSCULTATION: clear to auscultation bilaterally Cardio: COMMON NORMALS: regular rate and regular rhythm RATE: regular rate RHYTHM: regular rhythm Extremity: COMMON NORMALS: capillary refill normal NARRATIVE EXTREMITY EXAM: The dorsum of the left hand there is notable hematoma that is nonfluctuant and is not warm to the touch. Distal fingers with normal capillary refill and normal temperature to the touch. Her radial pulses palpable. There are no other concerning infectious signs of the hand. Full range of motion and good strength preserved in the hand and fingers. Neuro: COMMON NORMALS: patient oriented x3, moves all extremities, no focal motor deficits and no sensory deficits noted SENSORIUM/ORIENTATION: Yes alert MENINGEAL SIGNS: Yes no meningeal signs Skin: COMMON NORMALS: no rashes or lesions noted GENERAL SKIN EXAM: no rashes or lesions noted Course Vital Signs: Vital signs: Vital Signs Temperature 98.4 F 05/07/25 21:56 Pulse Rate 82 05/07/25 21:56 Respiratory Rate 18 05/07/25 21:56 Blood Pressure 151/82 05/07/25 21:56 Pulse Oximetry 98 05/07/25 21:56 Oxygen Delivery Me thod Room Air 05/07/25 21:56 MDM - Extremity (Nontraumatic) Medical Decision Making This patient with recent history of acute arterial occlusion treated with heparin and chronically takes Xarelto presents with large purple swelling to the dorsum of her left hand. On exam there is a well-perfused hand with intact sensations, motor function, and distal pulses. A bedside ultrasound with Dr. Bai confirms soft tissue hematoma with no evidence of abscess or vascular compromise. Given the reassuring neurovascular exam and imaging findings, hematoma managed conservatively at home. Patient was educated on RICE therapy, acetaminophen for analgesia, and return precautions for worsening pain, expanding hematoma, numbness, weakness, color changes in fingers, or signs of infection. Outpatient follow-up with primary care or hematology/vascular surgery recommended as she does have appointment tomorrow to undergo graft in her left lower extremity. Anticoagulation status reviewed and patient advised on risks of bleeding while on blood thinners to which she endorsed understanding. No radiology studies performed this visit Discharge Plan Discharge Patient Disposition: Home Clinical Impression: Hematoma, nontraumatic, soft tissue Condition: Stable Prescriptions: No Action valacyclovir 1 gram tablet 1,000 mg PO TID 7 Days Qty: 21 0RF gabapentin 100 mg capsule 100 mg PO TID 7 Days Qty: 21 0RF prasugrel HCl [Effient] 10 mg tablet 10 mg PO DAILY Qty: 30 5RF aspirin 81 mg tablet,chewable 81 mg PO DAILY Qty: 90 3RF fluticasone propionate [Flonase Allergy Relief] 50 mcg/actuation spray,suspension 1 spray intranasal DAILY PRN (Reason: nasal congestion) Qty: 16 0RF Rx Instructions: administer into each nostril gfujcfpx-cxqjubrju-MQ 3.5-10,000-1 mg/mL-unit/mL-% drops,suspension 4 drp otic (ear) Q8H Qty: 10 0RF gabapentin 600 mg tablet See Rx Instructions .ROUTE .COMPLEX Qty: 90 2RF Dose Instruction: TAKE 1 TABLET BY MOUTH THREE TIMES DAILY Rx Instructions: TAKE 1 TABLET BY MOUTH THREE TIMES DAILY oxycodone-acetaminophen 5-325 mg tablet 1 tab PO Q8H PRN (Reason: pain) 30 Days Qty: 90 0RF lisinopril 40 mg tablet See Rx Instructions .ROUTE .COMPLEX Qty: 90 1RF Dose Instruction: Take 1 tablet by mouth once daily Rx Instructions: Take 1 tablet by mouth once daily atorvastatin 80 mg tablet See Rx Instructions .ROUTE .COMPLEX Qty: 90 1RF Dose Instruction: TAKE 1 TABLET BY MOUTH ONCE DAILY AT 9:00 AM Rx Instructions: TAKE 1 TABLET BY MOUTH ONCE DAILY AT 9:00 AM pantoprazole 40 mg tablet,delayed release (DR/EC) See Rx Instructions .ROUTE .COMPLEX Qty: 90 1RF Dose Instruction: Take 1 tablet by mouth once daily Rx Instructions: Take 1 tablet by mouth once daily Xarelto 2.5 mg tablet 2.5 mg PO BID Discharge Orders: Discharge ED (Routine); Ordered 05/07/25 Ordered By: Tomasz Davila Referrals: Chuy Pulliam DO [Primary Care Provider, [facility]] Patient Instructions: Patient Portal & Nikhil Instructions Activity Restrictions/Additional Instructions: Soft Tissue Hematoma Discharge Discharge Instructions: Nontraumatic Soft Tissue Hematoma of the Left Hand in the Setting of Anticoagulation Diagnosis and Management Summary - 54-year-old female with a nontraumatic hematoma over the left hand, confirmed by bedside ultrasound to be confined to soft tissue and not involving joints. - Patient is on anticoagulant therapy. - Hematoma is nonmajor, without evidence of compartment syndrome, neurovascular compromise, or need for transfusion or invasive intervention. - Conservative management has been selected. Instructions and Follow-Up 1. Local Care - Advise rest and elevation of the affected hand to minimize swelling. - Apply intermittent ice packs (15?20 minutes every 2?3 hours for the first 48 hours) to reduce pain and edema, unless contraindicated by skin integrity. - Avoid massaging or manipulating the hematoma. 2. Anticoagulation Management - The [employer] recommends that routine reversal of oral anticoagulants (OAC) is not indicated for nonmajor bleeds. 3. Monitoring and Warning Signs - Monitor for increased pain, swelling, numbness, tingling, discoloration, or loss of function in the hand. - Advise immediate return for: - Rapid expansion of hematoma - Signs of neurovascular compromise (e.g., pallor, coolness, loss of pulse, severe pain, or motor/sensory deficits) - Signs of infection (fever, erythema, purulent drainage) - Systemic symptoms (lightheadedness, syncope, new bruising elsewhere) - Schedule follow-up within 3?7 days for clinical reassessment and consideration of anticoagulation resumption. 4. Laboratory and Imaging - No routine laboratory or imaging follow-up is required unless clinical status changes. 5. Patient Education - Turbine Attendant on the importance of medication adherence and avoidance of trauma to the affected area. - Reinforce the need for prompt reporting of any new or worsening symptoms. Summary of Evidence - Conservative management is appropriate for nonmajor soft tissue hematomas in anticoagulated patients, with local measures and temporary interruption of anticoagulation as needed. - Most hematomas are self-limiting and rarely require surgical intervention. - Early resumption of anticoagulation (median 4 days) is generally safe and may reduce thrombotic complications. Print Language: Greenlandic Coding Level of Care Code ED Shear Scrapman for Chg Fwd Documented by User: Domingo Bai DO 05/08/25 04:17 HPI - Extremity Problem General: Chief complaint: Extremity Injury, Upper Stated complaint: Lt Back of hand has a big knot. Time Seen by Provider: 05/07/25 22:04 Related Data Home Medications ?Medication ?Instructions ?Recorded ?Confirmed rivaroxaban 2.5 mg tablet (Xarelto) 2.5 mg PO BID 11/21/24 04/22/25 Previous Rx's ?Medication ?Instructions ?Recorded prasugrel HCl 10 mg tablet 10 mg PO DAILY #30 tabs 04/14/24 (Effient) aspirin 81 mg chewable tablet 81 mg PO DAILY #90 tabs 05/20/24 gabapentin 600 mg tablet See Rx Instructions .Route 11/27/24 .COMPLEX #90 tabs fluticasone propionate 50 1 spray intranasal DAILY PRN nasal 02/10/25 mcg/actuation nasal congestion #16 grams spray,suspension (Flonase Allergy Relief) cwsaedji-kfmjcetsi-ibnnlvqxh 3.5 4 drp otic (ear) Q8H #10 mL 03/02/25 mg-10,000 unit/mL-1 % ear drops,susp gabapentin 100 mg capsule 100 mg PO TID 7 days #21 caps 04/22/25 valacyclovir 1 gram tablet 1,000 mg PO TID 7 days #21 tabs 04/22/25 atorvastatin 80 mg tablet See Rx Instructions .Route 05/03/25 .COMPLEX #90 tabs lisinopril 40 mg tablet See Rx Instructions .Route 05/03/25 .COMPLEX #90 tabs oxycodone-acetaminophen 5 mg-325 1 tab PO Q8H PRN pain 30 days #90 05/03/25 mg tablet tabs pantoprazole 40 mg tablet,delayed See Rx Instructions .Route 05/03/25 release .COMPLEX #90 tabs Allergies Allergy/AdvReac Type Severity Reaction Status Date / Time clopidogrel (From Plavix) Allergy hives Verified 04/22/25 11:38 fentanyl Allergy Unknown Verified 04/22/25 11:38 ketamine Allergy ADR-Anxiety Verified 04/22/25 11:38 methocarbamol Allergy ADR-Halluci Verified 04/22/25 11:38 nating methylprednisolone (From Allergy ADR-Itching Verified 04/22/25 11:38 Medrol) naproxen (From Aleve) Allergy ADR-Vomitin Verified 04/22/25 11:38 g tramadol Allergy ADR-Migrain Verified 04/22/25 11:38 e PFSH ED PFSH: Medical History Arthralgia of left temporomandibular joint Post-traumatic stress disorder, chronic PAD (peripheral artery disease) Fibromyalgia Dyslipidemia Migraine HTN (hypertension) Surgical History S/P peripheral artery angioplasty Left SFA History of laparoscopic cholecystectomy History of x2 H/O: hysterectomy Family History Family/Other Anesthesia complication Diabetes Sister CAD (coronary artery disease), Onset Age: 40 triple bypass Diabetes Father CAD (coronary artery disease), Onset Age: 50 Cancer Diabetes Stroke Mother Dementia Brother Diabetes Stroke Other Rheumatoid arthritis Denies family history of Clotting disorder Chronic kidney disease (CKD) Suicide Bleeding disorder Lung disease Social History Smoking and tobacco/nicotine status: never used tobacco/nicotine Alcohol intake: never Substance/Drug Use: never Lives independently: Yes Household members: children Housing: House Course Vital Signs: Vital signs: Vital Signs Temperature 98.4 F 05/07/25 21:56 Pulse Rate 82 05/07/25 21:56 Respiratory Rate 18 05/07/25 21:56 Blood Pressure 151/82 05/07/25 21:56 Pulse Oximetry 98 05/07/25 21:56 Oxygen Delivery Me thod Room Air 05/07/25 21:56 MDM - Extremity (Nontraumatic) Medical Decision Making This patient with recent history of acute arterial occlusion treated with heparin and chronically takes Xarelto presents with large purple swelling to the dorsum of her left hand. On exam there is a well-perfused hand with intact sensations, motor function, and distal pulses. A bedside ultrasound with Dr. Bai confirms soft tissue hematoma with no evidence of abscess or vascular compromise. Given the reassuring neurovascular exam and imaging findings, hematoma managed conservatively at home. Patient was educated on RICE therapy, acetaminophen for analgesia, and return precautions for worsening pain, expanding hematoma, numbness, weakness, color changes in fingers, or signs of infection. Outpatient follow-up with primary care or hematology/vascular surgery recommended as she does have appointment tomorrow to undergo graft in her left lower extremity. Anticoagulation status reviewed and patient advised on risks of bleeding while on blood thinners to which she endorsed understanding. This patient was originally seen by Mr. Lola PA-C. I agree with his history, evaluation, and management. Discharge Plan Discharge Patient Disposition: Home Clinical Impression: Hematoma, nontraumatic, soft tissue Condition: Stable Prescriptions: No Action valacyclovir 1 gram tablet 1,000 mg PO TID 7 Days Qty: 21 0RF gabapentin 100 mg capsule 100 mg PO TID 7 Days Qty: 21 0RF prasugrel HCl [Effient] 10 mg tablet 10 mg PO DAILY Qty: 30 5RF aspirin 81 mg tablet,chewable 81 mg PO DAILY Qty: 90 3RF fluticasone propionate [Flonase Allergy Relief] 50 mcg/actuation spray,suspension 1 spray intranasal DAILY PRN (Reason: nasal congestion) Qty: 16 0RF Rx Instructions: administer into each nostril djcvhzlr-erltkxabv-AQ 3.5-10,000-1 mg/mL-unit/mL-% drops,suspension 4 drp otic (ear) Q8H Qty: 10 0RF gabapentin 600 mg tablet See Rx Instructions .ROUTE .COMPLEX Qty: 90 2RF Dose Instruction: TAKE 1 TABLET BY MOUTH THREE TIMES DAILY Rx Instructions: TAKE 1 TABLET BY MOUTH THREE TIMES DAILY oxycodone-acetaminophen 5-325 mg tablet 1 tab PO Q8H PRN (Reason: pain) 30 Days Qty: 90 0RF lisinopril 40 mg tablet See Rx Instructions .ROUTE .COMPLEX Qty: 90 1RF Dose Instruction: Take 1 tablet by mouth once daily Rx Instructions: Take 1 tablet by mouth once daily atorvastatin 80 mg tablet See Rx Instructions .ROUTE .COMPLEX Qty: 90 1RF Dose Instruction: TAKE 1 TABLET BY MOUTH ONCE DAILY AT 9:00 AM Rx Instructions: TAKE 1 TABLET BY MOUTH ONCE DAILY AT 9:00 AM pantoprazole 40 mg tablet,delayed release (DR/EC) See Rx Instructions .ROUTE .COMPLEX Qty: 90 1RF Dose Instruction: Take 1 tablet by mouth once daily Rx Instructions: Take 1 tablet by mouth once daily Xarelto 2.5 mg tablet 2.5 mg PO BID Discharge Orders: Discharge ED (Routine); Ordered 05/07/25 Ordered By: Tomasz Davila Referrals: Chuy uPlliam DO [Primary Care Provider, [facility]] Patient Instructions: Patient Portal & Nikhil Instructions Activity Restrictions/Additional Instructions: Soft Tissue Hematoma Discharge Discharge Instructions: Nontraumatic Soft Tissue Hematoma of the Left Hand in the Setting of Anticoagulation Diagnosis and Management Summary - 54-year-old female with a nontraumatic hematoma over the left hand, confirmed by bedside ultrasound to be confined to soft tissue and not involving joints. - Patient is on anticoagulant therapy. - Hematoma is nonmajor, without evidence of compartment syndrome, neurovascular compromise, or need for transfusion or invasive intervention. - Conservative management has been selected. Instructions and Follow-Up 1. Local Care - Advise rest and elevation of the affected hand to minimize swelling. - Apply intermittent ice packs (15?20 minutes every 2?3 hours for the first 48 hours) to reduce pain and edema, unless contraindicated by skin integrity. - Avoid massaging or manipulating the hematoma. 2. Anticoagulation Management - The [employer] recommends that routine reversal of oral anticoagulants (OAC) is not indicated for nonmajor bleeds. 3. Monitoring and Warning Signs - Monitor for increased pain, swelling, numbness, tingling, discoloration, or loss of function in the hand. - Advise immediate return for: - Rapid expansion of hematoma - Signs of neurovascular compromise (e.g., pallor, coolness, loss of pulse, severe pain, or motor/sensory deficits) - Signs of infection (fever, erythema, purulent drainage) - Systemic symptoms (lightheadedness, syncope, new bruising elsewhere) - Schedule follow-up within 3?7 days for clinical reassessment and consideration of anticoagulation resumption. 4. Laboratory and Imaging - No routine laboratory or imaging follow-up is required unless clinical status changes. 5. Patient Education - Turbine Attendant on the importance of medication adherence and avoidance of trauma to the affected area. - Reinforce the need for prompt reporting of any new or worsening symptoms. Summary of Evidence - Conservative management is appropriate for nonmajor soft tissue hematomas in anticoagulated patients, with local measures and temporary interruption of anticoagulation as needed. - Most hematomas are self-limiting and rarely require surgical intervention. - Early resumption of anticoagulation (median 4 days) is generally safe and may reduce thrombotic complications. Print Language: Greenlandic Coding Level of Care Code ED Shear Scrapman for Tayla Wooten
== END 2025-05-07 23:32 | disposition home or self-care (01) ==
PROVIDERS: Emergency Provider Physician Assistant; PCP Family Medicine
DX: S60.222A Contusion of left hand, initial encounter (principal); Z79.82 Long term (current) use of aspirin; E78.5 Hyperlipidemia, unspecified; I10 Essential (primary) hypertension; X58.XXXA Exposure to other specified factors, initial encounter
CPT/HCPCS: 99281

== ENCOUNTER 2025-06-02 15:39 | Outpatient (CLI) | payer MEDICAID, SELFPAY ==
--- NOTE | 2025-06-02 15:46 | CTR_ITS ---
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 3D rendering (Not supervised by radiologist): MIP and/or 3D reconstructed images were created by the technologist. Radiation optimization: All CT scans at this facility use at least one of these dose optimization techniques: automated exposure control; mA and/or kV adjustment per patient size (includes targeted exams where dose is matched to clinical indication); or iterative reconstruction. Contrast material: OMNIPAQUE 350; Contrast volume: 125 ml; Contrast route: INTRAVENOUS (IV); COMPARISON: [place] [id number] 05/01/2025 10:28 PM RADIATION DOSE METRICS: Total DLP (mGy-cm): 1643.62 FINDINGS: Aorta: Aortic and coronary atherosclerosis. Celiac trunk and mesenteric arteries: No occlusion or significant stenosis. Renal arteries: No occlusion or significant stenosis. Right iliac arteries: No occlusion or significant stenosis. Right femoral/popliteal arteries: No occlusion or significant stenosis. Right infrapopliteal arteries: On the right, opacification of anterior tibial, posterior tibial and peroneal at least to the distal calf, with dominant flow to the foot via the posterior tib and plantar vessels. Poor opacification of the dorsalis pedis. Left iliac arteries: No occlusion or significant stenosis. Left femoral/popliteal arteries: On the left, proximal SFA stent occluded. Other adjacent occluded bypass grafts also noted. Left infrapopliteal arteries: Reconstitution of the tibioperoneal trunk via muscular collaterals. Shortly thereafter, occlusion of the posterior tibial though reconstitutes distally likely via muscular collaterals and the peroneal. Peroneal appears patent to the level of the ankle. Reconstitution of left anterior tibial shortly following its origin, but minimal opacification distally and virtually no contrast in the dorsalis pedis. Other arteries: Liver: No mass. Gallbladder and biliary ducts: Cholecystectomy clips. Pancreas: Unremarkable. No mass. No ductal dilation. Spleen: Probable small splenule. Adrenal glands: Normal. No mass. Kidneys and ureters: Nonspecific although commonly benign renal cysts. Nonobstructing calculus of the right kidney. Stomach and bowel: Unremarkable. No obstruction. No mucosal thickening. Appendix: No evidence of appendicitis. Urinary bladder: Unremarkable. No mass. Reproductive: Unremarkable as visualized. Intraperitoneal space: Unremarkable. No free air. No significant fluid collection. Lymph nodes: No lymphadenopathy. Bones/joints: Mild degenerative changes of the lumbar and lower thoracic vertebral bodies. Soft tissues: CT/CT angio abd aorta runof [id number] IMPRESSION: Lower extremity vasculature as follows: 1. RIGHT: Right iliac arteries: No occlusion or significant stenosis. Right femoral/popliteal arteries: No occlusion or significant stenosis. Right infrapopliteal arteries: On the right, opacification of anterior tibial, posterior tibial and peroneal at least to the distal calf, with dominant flow to the foot via the posterior tib and plantar vessels. Poor opacification of the dorsalis pedis. 2. LEFT: Left iliac arteries: No occlusion or significant stenosis. Left femoral/popliteal arteries: On the left, proximal SFA stent occluded. Other adjacent occluded bypass grafts also noted. Left infrapopliteal arteries: Reconstitution of the tibioperoneal trunk via muscular collaterals. Shortly thereafter, occlusion of the posterior tibial though reconstitutes distally likely via muscular collaterals and the peroneal. Peroneal appears patent to the level of the ankle. Reconstitution of left anterior tibial shortly following its origin, but minimal opacification distally and virtually no contrast in the dorsalis pedis.
[2025-06-02] MEDS: iohexol 350 mg/mL 500 mL Btl (per mL) IV (16:25)
== END 2025-06-02 15:40 | disposition home or self-care (01) ==
LOC: RAD 15:41
PROVIDERS: PCP Family Medicine; Visit Provider Student in an Organized Health Care Education/Training Program
DX: I70.221 Atherosclerosis of native arteries of extremities with rest pain, right leg (principal); I70.212 Atherosclerosis of native arteries of extremities with intermittent claudication, left leg; Z95.828 Presence of other vascular implants and grafts; T82.898A Other specified complication of vascular prosthetic devices, implants and grafts, initial encounter; X58.XXXA Exposure to other specified factors, initial encounter; Z96.89 Presence of other specified functional implants; N28.1 Cyst of kidney, acquired; M51.361 Other intervertebral disc degeneration, lumbar region with lower extremity pain only; I70.0 Atherosclerosis of aorta; I25.10 Atherosclerotic heart disease of native coronary artery without angina pectoris
CPT/HCPCS: 75635

== ENCOUNTER 2025-06-16 14:30 | Emergency (ER) | payer MEDICAID, SELFPAY ==
--- OUTSIDE RECORDS SUMMARY | 2025-06-16 14:34 | XMS_ITS | Clinical Summary ---
Author Organization [facility] Address [address] 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 Gender Identity Not on file Sexual Orientation Not on file Last Filed Vital Signs Vital Sign Reading Time Taken Comments Blood Pressure 124/88 11/13/2022 1:28 PM REEL SLITTER Pulse 70 11/13/2022 1:28 PM REEL SLITTER Temperature 36.3 C (97.4 F) 04/27/2022 8:00 AM CDT Respiratory Rate 20 04/27/2022 8:00 AM CDT Oxygen Saturation 96% 11/13/2022 1:28 PM REEL SLITTER Inhaled Oxygen Concentration - - Weight 84.4 kg (186 lb) 11/13/2022 1:28 PM REEL SLITTER Height 162.6 cm (5' 4 ) 11/13/2022 1:28 PM REEL SLITTER Body Mass Index 31.93 11/13/2022 1:28 PM REEL SLITTER Plan of Treatment Health Maintenance Due Date [...] 2) 2018 INFLUENZA VACCINE (#1) [address] [place] [address] [employer]AN MEDICAID Advance Directives For more information, please contact: [phone] * Full Code (Latest Code Status on File) Date Activated Date Inactivated Comments 04/26/2022 2:53 AM 04/27/2022 2:58 PM
--- OUTSIDE RECORDS SUMMARY | 2025-06-16 14:34 | XMS_ITS | Clinical Summary ---
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
[2025-06-16 14:58] VITALS: BP 128/78; PULSE 107; TEMP 36.7; O2SAT 100
--- NOTE | 2025-06-16 15:28 | CTR_ITS ---
PROCEDURE INFORMATION: Exam: CTA Left Lower Extremity With Contrast Exam date and time: 06/16/2025 4:28 PM Age: 54 years old Clinical indication: Leg pain TECHNIQUE: Imaging protocol: Computed tomographic angiography of the left lower extremity with contrast. 3D rendering (Not supervised by radiologist): MIP and/or 3D reconstructed images were created by the technologist. Radiation optimization: All CT scans at this facility use at least one of these dose optimization techniques: automated exposure control; mA and/or kV adjustment per patient size (includes targeted exams where dose is matched to clinical indication); or iterative reconstruction. Contrast material: [id number]; Contrast volume: 100 ml; Contrast route: INTRAVENOUS (IV); COMPARISON: CT angio abd aorta runof [id number] 06/02/2025 4:07 PM RADIATION DOSE METRICS: Total DLP (mGy-cm): 751.6 FINDINGS: Left femoral/popliteal arteries: The proximal SFA stent graft is occluded, unchanged. There are additional occluded bypass grafts in the anterior left thigh. The popliteal artery is not patent. These findings are unchanged compared to exam from 06/02/2025. Left infrapopliteal arteries: There is reconstitution of the tibioperoneal trunk via collaterals. The anterior tibial artery is not patent at its origin, however it does reconstitute in the proximal leg. There is gradual tapering of contrast opacification in the anterior tibial artery as it approaches the ankle. There is occlusion of the proximal posterior tibial artery with distal reconstitution in the lower leg with patency to the level of the ankle. There is minimal contrast opacification of the peroneal artery at its origin followed by occlusion. There is distal reconstitution with minimal flow which tapers out just above the ankle. These findings are not significantly changed compared to 06/02/2025. Urinary bladder: There is air in the urinary bladder. Bones/joints: No acute fracture. No dislocation. Interval resection of the mid fibula. Soft tissues: Soft tissue defects overlying the medial and lateral lower leg with overlying wound vacs. Subcutaneous stranding and edema in the left lower leg, particularly adjacent to these wound VAC sites. At the site of the fibular resection, there is soft tissue fullness in the muscles with suggestion of early rim enhancement, though evaluation for abscess is limited given early arterial phase images. In the distal medial left thigh subcutaneous tissues, there is a 2.1 x 1.4 x 3.7 cm rim enhancing fluid collection with adjacent subcutaneous stranding. [place] [id number] IMPRESSION: 1. Vascular findings are overall unchanged compared to exam from 06/02/2025. Redemonstrated occlusion of the SFA stent graft with reconstitution of the tibioperoneal trunk and detailed description of the infrapopliteal arteries as above. The posterior tibial artery is patent at the ankle. The peroneal and anterior tibial arteries gradual tapering of contrast opacification above the ankle which may be related to slow flow. 2. Interval resection of the mid fibula. There is soft tissue fullness in the muscles at the site with suggestion of early rim enhancement, concerning for abscess, though evaluation for abscess is limited given early arterial phase images. Correlate with clinical history. 3. Soft tissue defects overlying the medial and lateral lower leg with overlying wound vacs with adjacent cellulitis. 4. There is a 2.1 x 1.4 x 3.7 cm abscess in the subcutaneous tissues of the medial left thigh. 5. There is air within the urinary bladder. Recommend correlation for recent catheterization or other procedure.
--- NOTE | 2025-06-16 15:40 | W.ED.EXTPRO ---
HPI - Extremity Problem General: Chief complaint: Extremity Problem,Nontraumatic Stated complaint: post surg pain Time Seen by Provider: 06/16/25 15:14 Source: patient Mode of arrival: ambulatory Limitations: no limitations History of Present Illness: Patient is a 54-year-old female with past medical history of peripheral artery disease on anticoagulation who is presenting to the emergency department for severe pain left lower extremity. She states that she had recent vascular surgery at [facility] in [place], for the past few days has had worsening pain, coolness, swelling, and skin changes to the left foot where she is endorsing severe tenderness to palpation. States that she thinks that she is not getting any blood flow to the foot, has a history of similar presentation and states she was told to present to the emergency department due to the symptoms by her doctor. 2 wound V[address] are in place she has history of multiple previous surgeries in that leg. No chest pain or shortness of breath, states that she has been taking prescribed pain medications with no relief. MD Complaint: extremity pain, extremity swelling and cold extremity Onset (ago): day(s) Pain Consistency: constant Location: left and lower extremity Severity scale (1-10): >10 Radiation: proximal Associated symptoms: Deny chest pain, fever(s) or rash Context: recent surgery/procedure and history of peripheral vascular disease Related Data Home Medications ?Medication ?Instructions ?Recorded ?Confirmed apixaban 5 mg tablet (Eliquis) 5 mg PO BID 06/16/25 06/16/25 cyclobenzaprine 10 mg tablet 10 mg PO TID PRN pain 06/16/25 06/16/25 hydromorphone 2 mg tablet 1 mg PO Q4H PRN Pain 06/16/25 06/16/25 oxycodone 5 mg tablet 10 - 15 mg PO Q4H PRN Pain 06/16/25 06/16/25 oxycodone-acetaminophen 5 mg-325 1 tab PO Q8H PRN pain 06/16/25 06/16/25 mg tablet (Percocet) Previous Rx's ?Medication ?Instructions ?Recorded aspirin 81 mg chewable tablet 81 mg PO DAILY #90 tabs 05/20/24 gabapentin 100 mg capsule 100 mg PO TID 7 days #21 caps 04/22/25 atorvastatin 80 mg tablet See Rx Instructions .Route 05/03/25 .COMPLEX #90 tabs lisinopril 40 mg tablet See Rx Instructions .Route 05/03/25 .COMPLEX #90 tabs pantoprazole 40 mg tablet,delayed See Rx Instructions .Route 05/03/25 release .COMPLEX #90 tabs Allergies Allergy/AdvReac Type Severity Reaction Status Date / Time clopidogrel (From Plavix) Allergy hives Verified 06/16/25 15:03 fentanyl Allergy Unknown Verified 06/16/25 15:03 ketamine Allergy ADR-Anxiety Verified 06/16/25 15:03 methocarbamol Allergy ADR-Halluci Verified 06/16/25 15:03 nating methylprednisolone (From Allergy ADR-Itching Verified 06/16/25 15:03 Medrol) naproxen (From Aleve) Allergy ADR-Vomitin Verified 06/16/25 15:03 g tramadol Allergy ADR-Migrain Verified 06/16/25 15:03 e Review of Systems General: Reports: 10 or more systems reviewed and unremarkable except in HPI and below Const: Denies: fever(s) or chills Card: Denies: chest pain Resp: Denies: dyspnea or productive cough GI: Denies: abdominal pain, nausea, vomiting or diarrhea : Denies: flank pain Musc: Reports: extremity pain, extremity swelling, limited range of motion and other (Reports coolness to left lower extremity); Denies: neck pain, back pain, joint pain, joint swelling, joint redness, joint warmth or muscle weakness Skin/Breast: Reports: changes in skin color; Denies: rash Neuro: Denies: headache(s), numbness in extremities or weakness in extremities PFSH ED PFSH: Medical History Arthralgia of left temporomandibular joint Post-traumatic stress disorder, chronic PAD (peripheral artery disease) Fibromyalgia Dyslipidemia Migraine HTN (hypertension) Surgical History S/P peripheral artery angioplasty Left SFA History of laparoscopic cholecystectomy History of x2 H/O: hysterectomy Family History Family/Other Anesthesia complication Diabetes Sister CAD (coronary artery disease), Onset Age: 40 triple bypass Diabetes Father CAD (coronary artery disease), Onset Age: 50 Cancer Diabetes Stroke Mother Dementia Brother Diabetes Stroke Other Rheumatoid arthritis Denies family history of Clotting disorder Chronic kidney disease (CKD) Suicide Bleeding disorder Lung disease Social History Smoking and tobacco/nicotine status: never used tobacco/nicotine Alcohol intake: never Substance/Drug Use: never Lives independently: Yes Household members: children Housing: House Female Reproductive History: Spontaneous abortions: No Physical Exam Const: COMMON NORMALS: patient oriented x3, no limitations, alert and well nourished OTHER: In acute distress secondary to pain HENMT: COMMON NORMALS: normocephalic and atraumatic HEAD & SCALP: normocephalic and atraumatic Neck/C-Spine: COMMON NORMALS: full ROM and supple Resp: COMMON NORMALS: normal respiratory effort, No use of accessory muscles and clear to auscultation bilaterally AUSCULTATION: clear to auscultation bilaterally Cardio: COMMON NORMALS: regular rate and regular rhythm RATE: regular rate RHYTHM: regular rhythm Extremity: NARRATIVE EXTREMITY EXAM: Wound VAC x 2 present to left lower extremity. Extending senior living from the left ordonez down into the foot, there is evolving mottling, coolness, and diffuse swelling to the left lower extremity. Severe easily reproducible tenderness to palpation of the forefoot and swelling of the distal digits. No appreciable pulse with dorsalis pedis or posterior tibial. Neuro: COMMON NORMALS: patient oriented x3, moves all extremities and no focal motor deficits SENSORIUM/ORIENTATION: Yes alert Course Vital Signs: Vital signs: Vital Signs Temperature 98.1 F 06/16/25 14:58 Pulse Rate 89 06/16/25 17:42 Blood Pressure 109/80 06/16/25 17:42 Pulse Oximetry 99 06/16/25 17:42 Oxygen Delivery Me thod Room Air 06/16/25 14:58 MDM - Extremity (Nontraumatic) Medical Decision Making Patient presenting with left lower leg pain, acute on chronic, as she has history of multiple vascular procedures due to chronic limb ischemia. On exam there is difficulty palpating a pulse, coolness, and mottling. She follows up at [facility] for procedures and has been discussing amputation of the limb. Has been taking Dilaudid at home, could not get her oxycodone filled so has been taking Dilaudid only. Pain controlled here with IV Dilaudid, labs obtained and unremarkable. On CT head there is no new findings compared to prior on 06/02, she did recently undergo resection of the mid fibula and is attempts for revascularization. I spoke with [facility] vascular surgery team and they are stating that this pain and other findings on the CT such as fluid collection and possible abscess are to be expected and/or in no need of acute transfer, but they will see the patient as an outpatient later this week for further discussion and likely amputation at that time. In the meantime with the patient's pain and control, no concerns for infection, and the chronicity of her leg we will have her discharged home and to follow-up as arranged. She does agree with this plan and is comfortable with discharge home, and is given strict return precautions of which she verbalizes understanding. Preemptively heparin have been started here but discontinued upon consultation with [facility] vascular surgery. Lab Data 06/16/25 16:11 06/16/25 16:11 Radiology Impressions Lower Extremity CTA 06/16/25 15:28 IMPRESSION: 1. Vascular findings are overall unchanged compared to exam from 06/02/2025. Redemonstrated occlusion of the SFA stent graft with reconstitution of the tibioperoneal trunk and detailed description of the infrapopliteal arteries as above. The posterior tibial artery is patent at the ankle. The peroneal and anterior tibial arteries gradual tapering of contrast opacification above the ankle which may be related to slow flow. 2. Interval resection of the mid fibula. There is soft tissue fullness in the muscles at the site with suggestion of early rim enhancement, concerning for abscess, though evaluation for abscess is limited given early arterial phase images. Correlate with clinical history. 3. Soft tissue defects overlying the medial and lateral lower leg with overlying wound vacs with adjacent cellulitis. 4. There is a 2.1 x 1.4 x 3.7 cm abscess in the subcutaneous tissues of the medial left thigh. 5. There is air within the urinary bladder. Recommend correlation for recent catheterization or other procedure. Laboratory Results WBC 7.55 10^3/uL (3.29-11.43) 06/16/25 16:11 RBC 4.10 10^6/uL (3.85-5.65) 06/16/25 16:11 Hgb 12.40 g/dL (11.27-16.99) 06/16/25 16:11 Hct 38.3 % (36-47) 06/16/25 16:11 MCV 93.4 fl (85-98) 06/16/25 16:11 MCH 30.2 pg (27-33) 06/16/25 16:11 MCHC 32.4 g/dL (30-55) 06/16/25 16:11 RDW 13.8 % (12.1-15.1) 06/16/25 16:11 Plt Count 494 10^3/cmm (157-399) H 06/16/25 16:11 MPV 9.1 fL (7.4-10.4) 06/16/25 16:11 Neut % (Auto) 72.1 % 06/16/25 16:11 Lymph % (Auto) 17.2 % 06/16/25 16:11 Sibley % (Auto) 6.5 % 06/16/25 16:11 Eos % (Auto) 2.5 % 06/16/25 16:11 Baso % (Auto) 0.8 % 06/16/25 16:11 Neut # (Auto) 5.44 10^3/uL (1.8-7.7) 06/16/25 16:11 Lymph # (Auto) 1.3 10^3/uL (0.8-4.8) 06/16/25 16:11 Sibley # (Auto) 0.5 10^3/uL (0.2-0.9) 06/16/25 16:11 Eos # (Auto) 0.2 10^3/uL (0.0-0.8) 06/16/25 16:11 Baso # (Auto) 0.1 10^3/uL (0.0-0.1) 06/16/25 16:11 Nucleated RBC % (auto) 0 % 06/16/25 16:11 Nucleated RBCs # 0.0 /100WBC 06/16/25 16:11 PT 18.70 SECONDS (12.1-14.9) H 06/16/25 16:11 INR 1.46 (0.8-1.2) H 06/16/25 16:11 APTT 31.0 SECONDS (23.9-36.7) 06/16/25 16:11 Sodium 138 mmol/L (136-145) 06/16/25 16:11 Potassium 3.5 mmol/L (3.5-5.1) 06/16/25 16:11 Chloride 99 mmol/L (98-107) 06/16/25 16:11 Carbon Dioxide 25 mmol/L (22-29) 06/16/25 16:11 Anion Gap 17.5 (5-19) 06/16/25 16:11 BUN 8 mg/dL (6-20) 06/16/25 16:11 Creatinine 0.5 mg/dL (0.5-0.9) 06/16/25 16:11 GFR Calculation 127.6 mL/min (90-130) 06/16/25 16:11 Glucose 127 mg/dL (65-115) H 06/16/25 16:11 Calculated Osmolality 286 mOsm/kg (285-295) 06/16/25 16:11 Calcium 9.2 mg/dL (8.5-10.5) 06/16/25 16:11 Total Bilirubin 1.4 mg/dL (0.15-1.2) H 06/16/25 16:11 AST 16 U/L (0-32) 06/16/25 16:11 ALT 12 U/L (0-33) 06/16/25 16:11 Alkaline Phosphatase 104 U/L (35-105) 06/16/25 16:11 Total Protein 7.7 g/dL (6.6-8.7) 06/16/25 16:11 Albumin 4.0 g/dL (3.5-5.2) 06/16/25 16:11 Globulin 3.7 g/dL (1.3-4.6) 06/16/25 16:11 All radiology interpretation(s) finalized by discharge Discharge Plan Discharge Patient Disposition: Home Clinical Impression: PAD (peripheral artery disease), Ischemia of left lower extremity Condition: Stable Prescriptions: No Action gabapentin 100 mg capsule 100 mg PO TID 7 Days Qty: 21 0RF aspirin 81 mg tablet,chewable 81 mg PO DAILY Qty: 90 3RF lisinopril 40 mg tablet See Rx Instructions .ROUTE .COMPLEX Qty: 90 1RF Dose Instruction: Take 1 tablet by mouth once daily Rx Instructions: Take 1 tablet by mouth once daily atorvastatin 80 mg tablet See Rx Instructions .ROUTE .COMPLEX Qty: 90 1RF Dose Instruction: TAKE 1 TABLET BY MOUTH ONCE DAILY AT 9:00 AM Rx Instructions: TAKE 1 TABLET BY MOUTH ONCE DAILY AT 9:00 AM pantoprazole 40 mg tablet,delayed release (DR/EC) See Rx Instructions .ROUTE .COMPLEX Qty: 90 1RF Dose Instruction: Take 1 tablet by mouth once daily Rx Instructions: Take 1 tablet by mouth once daily cyclobenzaprine 10 mg tablet 10 mg PO TID PRN (Reason: pain) hydromorphone 2 mg Tablet 1 mg PO Q4H PRN (Reason: Pain) oxycodone 5 mg tablet 10 - 15 mg PO Q4H PRN (Reason: Pain) Eliquis 5 mg tablet 5 mg PO BID oxycodone-acetaminophen [Percocet] 5-325 mg tablet 1 tab PO Q8H PRN (Reason: pain) Discharge Orders: Discharge ED (Routine); Ordered 06/16/25 Ordered By: Tomasz Davila Referrals: Chuy Pulliam DO [Primary Care Provider, [facility]] Patient Instructions: Opioid Safety, Pain Management, Patient Portal & Nikhil Instructions Activity Restrictions/Additional Instructions: CLTI Discharge Instructions Discharge Instructions: Chronic Left Lower Limb Ischemia Diagnosis/Context: 54-year-old female with chronic left lower limb ischemia (CLTI), currently managed non-operatively pending vascular surgery follow-up for possible amputation. Pain regimen adjusted per vascular surgery recommendations. 1. Pain Management - Continue home pain medications as discussed with the vascular surgery team. - Analgesic therapy should include acetaminophen and, if necessary, opioids for ischemic rest pain, titrated to effect and tolerability. - Monitor for side effects of opioids (constipation, sedation, respiratory depression) and acetaminophen (hepatotoxicity at high doses). 2. Limb Monitoring and Return Precautions - Monitor the affected limb daily for new or worsening symptoms, including: - Increased pain - Change in color (pallor, cyanosis, erythema) - Swelling - New or expanding ulceration, tissue loss, or drainage - Signs of infection (fever, chills, purulent discharge, erythema, warmth) - Return immediately for any new or worsening symptoms, especially signs of infection, rapidly progressive pain, or sudden change in limb appearance. 3. Wound and Skin Care - Keep the limb clean and dry. - Avoid trauma, pressure, or constrictive dressings. - Offload pressure from areas at risk for ulceration when possible. - If open wounds are present, follow wound care instructions provided by the vascular team. - Do not attempt debridement or apply topical agents unless specifically instructed. 4. Activity and Positioning - Elevate the limb to reduce edema, but avoid prolonged elevation above heart level if it worsens pain. - Minimize ambulation if pain is severe or if there is tissue loss. - Avoid exposure to cold, which may worsen ischemia. 5. Medical Therapy and Risk Factor Modification - Continue guideline-directed medical therapy (GDMT) for PAD, including: - Antiplatelet agent (aspirin or clopidogrel) unless contraindicated - Statin therapy for lipid management - Blood pressure and glycemic control as per primary care recommendations - Smoking cessation is strongly recommended - Review all medications with the vascular team at follow-up. 6. Follow-Up - Follow up with vascular surgery as scheduled later this week to discuss definitive management, including possible amputation. - Ongoing longitudinal follow-up is recommended for assessment of limb symptoms, functional status, and risk factor management. 7. Coordination of Care - Ensure communication between vascular surgery, primary care, and other involved clinicians to optimize outcomes and comorbidity management. 8. Telehealth - Telehealth may be used for interim evaluation if in-person assessment is not feasible, but urgent symptoms require immediate in-person evaluation. Summary: This patient remains at high risk for limb loss and major adverse cardiovascular events. Timely follow-up, vigilant monitoring for complications, and adherence to medical therapy are essential for optimal outcomes. Print Language: Kazakh Coding Level of Care Code ED Manager Residential for Tayla Wooten
[2025-06-16] MEDS: HYDROmorphone 0.5 MG/0.5 ML INJ 1 MG IVP (16:16)
[2025-06-16 16:29] LABS: Hematocrit 38.3 % (36-47); Hemoglobin 12.40 g/dL (11.27-16.99); Mean Corpuscular HGB Conc 32.4 g/dL (30-55); Mean Corpuscular Hemoglobin 30.2 pg (27-33); Mean Corpuscular Volume 93.4 fl (85-98); Nucleated Red Blood Cells % 0 %; Platelet Count 494 10^3/cmm (157-399); Red Blood Count 4.10 10^6/uL (3.85-5.65); White Blood Count 7.55 10^3/uL (3.29-11.43)
[2025-06-16] MEDS: iohexol 350 mg/mL 500 mL Btl (per mL) IV (16:33)
[2025-06-16 16:42] LABS: INR 1.46 (0.8-1.2); Prothrombin Time 18.70 SECONDS (12.1-14.9)
[2025-06-16 16:43] LABS: Partial Thromboplastin Time 31.0 SECONDS (23.9-36.7)
[2025-06-16 16:50] LABS: Alanine Aminotransferase 12 U/L (0-33); Albumin Level 4.0 g/dL (3.5-5.2); Alkaline Phosphatase 104 U/L (35-105); Anion Gap 17.5 (5-19); Aspartate Amino Transferase 16 U/L (0-32); Blood Urea Nitrogen 8 mg/dL (6-20); Calcium 9.2 mg/dL (8.5-10.5); Carbon Dioxide 25 mmol/L (22-29); Chloride 99 mmol/L (98-107); Creatinine Clr Calc Pharmacy 127.9908; Globulin 3.7 g/dL (1.3-4.6); Glucose 127 mg/dL (65-115); Osmolality Calculated 286 mOsm/kg (285-295); Potassium 3.5 mmol/L (3.5-5.1); Sodium 138 mmol/L (136-145); Total Protein 7.7 g/dL (6.6-8.7)
[2025-06-16] MEDS: heparin 5,000 unit/mL INJ 1 mL IVP (17:07)
[2025-06-16] MEDS: heparin drip 25,000 UNIT/500 ML PREMIX 24 UNIT IV (17:09)
[2025-06-16 17:42] VITALS: BP 109/80; PULSE 89; O2SAT 99
[2025-06-16] MEDS: HYDROmorphone 0.5 MG/0.5 ML INJ IVP (17:53)
[2025-06-16 19:12] VITALS: BP 111/84; PULSE 95; RESP 18; O2SAT 98
[2025-06-16 19:14] VITALS: RESP 18; O2SAT 98
[2025-06-16] MEDS: morphine 4 mg/mL SDV 1 mL 2 MG IVP (19:14)
[2025-06-16] MEDS: oxyCODONE-APAP 10-325 mg Tablet 2 TAB PO (19:14)
[2025-06-16 19:25] VITALS: BP 111/84; PULSE 97; RESP 18; O2SAT 96
== END 2025-06-16 19:27 | disposition home or self-care (01) ==
PROVIDERS: Emergency Provider Physician Assistant; PCP Family Medicine
DX: I73.9 Peripheral vascular disease, unspecified (principal); Z79.82 Long term (current) use of aspirin; Z79.01 Long term (current) use of anticoagulants; E78.5 Hyperlipidemia, unspecified; I10 Essential (primary) hypertension
CPT/HCPCS: 73706; 80053; 85025; 85610; 85730; 96365; 96366; 96375; 96376; 99285; J1171; J1644; J2060; J2270; J9999

== ENCOUNTER 2025-06-27 13:25 | Emergency (ER) | payer MEDICAID, SELFPAY ==
[2025-06-27] VITALS (11 sets, daily range): BP systolic 143–188; BP diastolic 72–110; PULSE 75–115; RESP 17–20; TEMP 36.7; O2SAT 95–100
--- NOTE | 2025-06-27 13:26 | XRR_ITS ---
PROCEDURE INFORMATION: Exam: XR Left Foot Exam date and time: 06/27/2025 1:47 PM Age: 54 years old Clinical indication: Pain; Foot; Left TECHNIQUE: Imaging protocol: Radiologic exam of the left foot. Views: 3 or more views. COMPARISON: [place] [id number] 06/16/2025 4:28 PM FINDINGS: Bones/joints: No periosteal reaction or inflammatory erosions. No acute fracture. No dislocation. There is sclerosis and irregularity at the base of the 5th proximal phalanx suspected to reflect an old fracture. There are mild degenerative changes at the 1st MTP joint. There is a large posterior calcaneal enthesophyte. Probable chronic smoothly marginated tiny avulsion fracture at the tip of the fibula. The Lisfranc joint alignment is intact. No bony destruction or osteomyelitis. Soft tissues: There is no foreign body. XR/XR foot LT min 3V* [id number] IMPRESSION: No acute bony abnormality is identified.
--- OUTSIDE RECORDS SUMMARY | 2025-06-27 13:28 | XMS_ITS | Clinical Summary ---
Author Organization [facility] Address [address] Santosn: Epic Prelude ADT [place] [address] Care Team Providers Care Veneer Jointer Offbearer Name Role Phone Unavailable Primary Care Provider [...] on file Legal Sex Female 7:02 AM MANAGER SERVICING Gender Identity Not on file Sexual Orientation Not on file Last Filed Vital Signs Vital Sign Reading Time Taken Comments Blood Pressure 124/88 11/13/2022 1:28 PM MANAGER SERVICING Pulse 70 11/13/2022 1:28 PM MANAGER SERVICING Temperature 36.3 C (97.4 F) 04/27/2022 8:00 AM CDT Respiratory Rate 20 04/27/2022 8:00 AM CDT Oxygen Saturation 96% 11/13/2022 1:28 PM MANAGER SERVICING Inhaled Oxygen Concentration - - Weight 84.4 kg (186 lb) 11/13/2022 1:28 PM MANAGER SERVICING Height 162.6 cm (5' 4 ) 11/13/2022 1:28 PM MANAGER SERVICING Body Mass Index 31.93 11/13/2022 1:28 PM MANAGER SERVICING Plan of Treatment Health Maintenance Due Date [...] 2) 2018 INFLUENZA VACCINE (#1) [address] [place] [address] [employer]AN MEDICAID Advance Directives For more information, please contact: [phone] * Full Code (Latest Code Status on File) Date Activated Date Inactivated Comments 04/26/2022 2:53 AM 04/27/2022 2:58 PM
--- OUTSIDE RECORDS SUMMARY | 2025-06-27 13:28 | XMS_ITS | Clinical Summary ---
Author Organization [facility] Address [address] [address] Care Team Providers Care Ice Seller Name Role Phone Unavailable Primary Care Provider [...] 2018 INFLUENZA VACCINE (#1) 2025 Insurance MEDICAID [place] [employer]
--- NOTE | 2025-06-27 13:34 | W.ED.EXTPRO ---
HPI - Extremity Problem General: Chief complaint: Extremity Problem,Nontraumatic Stated complaint: L leg/foot pain Time Seen by Provider: 06/27/25 13:32 History of Present Illness: 54-year-old female who presents to the emergency room with complaint of left lower extremity pain. Patient has previously been seen for this as severe peripheral artery disease and she had had several abscesses she was transferred to [place] treating them there she has a wound VAC on the posterior left calf she has an open wound laterally that she has just been putting a topical bandage on. She tells me she is supposed to see the surgeon for a scheduled amputation of her left leg on the of this month. She not had any fever sweats chills but has markedly worsening pain. Associated symptoms: Deny chest pain, fever(s) or rash Related Data Home Medications ?Medication ?Instructions ?Recorded ?Confirmed apixaban 5 mg tablet (Eliquis) 5 mg PO BID 06/16/25 06/16/25 cyclobenzaprine 10 mg tablet 10 mg PO TID PRN pain 06/16/25 06/16/25 hydromorphone 2 mg tablet 1 mg PO Q4H PRN Pain 06/16/25 06/16/25 oxycodone 5 mg tablet 10 - 15 mg PO Q4H PRN Pain 06/16/25 06/16/25 oxycodone-acetaminophen 5 mg-325 1 tab PO Q8H PRN pain 06/16/25 06/16/25 mg tablet (Percocet) Previous Rx's ?Medication ?Instructions ?Recorded aspirin 81 mg chewable tablet 81 mg PO DAILY #90 tabs 05/20/24 gabapentin 100 mg capsule 100 mg PO TID 7 days #21 caps 04/22/25 atorvastatin 80 mg tablet See Rx Instructions .Route 05/03/25 .COMPLEX #90 tabs lisinopril 40 mg tablet See Rx Instructions .Route 05/03/25 .COMPLEX #90 tabs pantoprazole 40 mg tablet,delayed See Rx Instructions .Route 05/03/25 release .COMPLEX #90 tabs Allergies Allergy/AdvReac Type Severity Reaction Status Date / Time clopidogrel (From Plavix) Allergy hives Verified 06/27/25 13:31 fentanyl Allergy Unknown Verified 06/27/25 13:31 ketamine Allergy ADR-Anxiety Verified 06/27/25 13:31 methocarbamol Allergy ADR-Halluci Verified 06/27/25 13:31 nating methylprednisolone (From Allergy ADR-Itching Verified 06/27/25 13:31 Medrol) naproxen (From Aleve) Allergy ADR-Vomitin Verified 06/27/25 13:31 g tramadol Allergy ADR-Migrain Verified 06/27/25 13:31 e Review of Systems Const: Denies: fever(s) or chills Card: Denies: chest pain Resp: Denies: dyspnea GI: Denies: abdominal pain : Denies: dysuria, urinary frequency or urinary urgency Musc: Reports: extremity pain Skin/Breast: Denies: rash PFSH ED PFSH: Medical History Arthralgia of left temporomandibular joint Post-traumatic stress disorder, chronic PAD (peripheral artery disease) Fibromyalgia Dyslipidemia Migraine HTN (hypertension) Surgical History S/P peripheral artery angioplasty Left SFA History of laparoscopic cholecystectomy History of x2 H/O: hysterectomy Family History Family/Other Anesthesia complication Diabetes Sister CAD (coronary artery disease), Onset Age: 40 triple bypass Diabetes Father CAD (coronary artery disease), Onset Age: 50 Cancer Diabetes Stroke Mother Dementia Brother Diabetes Stroke Other Rheumatoid arthritis Denies family history of Clotting disorder Chronic kidney disease (CKD) Suicide Bleeding disorder Lung disease Social History Smoking and tobacco/nicotine status: never used tobacco/nicotine Alcohol intake: never Substance/Drug Use: never Lives independently: Yes Household members: children Housing: House Female Reproductive History: Spontaneous abortions: No Physical Exam Const: GENERAL APPEARANCE: cooperative ORIENTATION/CONSCIOUSNESS: Yes awake, Yes oriented to person, Yes oriented to place and Yes oriented to time HENMT: COMMON NORMALS: normocephalic, atraumatic and hearing grossly normal bilaterally HEAD & SCALP: normocephalic and atraumatic Resp: COMMON NORMALS: normal respiratory effort, No retractions, No use of accessory muscles and clear to auscultation bilaterally AUSCULTATION: clear to auscultation bilaterally Cardio: COMMON NORMALS: regular rate, regular rhythm and No murmurs present (Cardio) RATE: regular rate RHYTHM: regular rhythm GI: COMMON NORMALS: Soft to palpation and No hepatosplenomegaly present AUSCULTATION: Yes normoactive bowel sounds PALPATION: Yes Soft to palpation, No Tenderness to palpation present (GI), No Guarding due to palpation present (GI) and Yes No hepatosplenomegaly present Extremity: OTHER: Wound VAC posterior left lower leg open wound approximately 10 inches in length laterally at the left lower leg. Pain with palpation on the medial thigh in the groin. Leg is dusky and partially cyanotic. Neuro: SENSORIUM/ORIENTATION: Yes oriented to person, Yes oriented to place and Yes oriented to time Skin: COMMON NORMALS: no rashes or lesions noted GENERAL SKIN EXAM: no rashes or lesions noted Course Vital Signs: Vital signs: Vital Signs Temperature 98.1 F 06/27/25 13:27 Pulse Rate 84 06/27/25 17:02 Respiratory Rate 17 06/27/25 17:33 Blood Pressure 162/87 06/27/25 17:02 Pulse Oximetry 99 06/27/25 17:33 Oxygen Delivery Me thod Room Air 06/27/25 16:52 MDM - Extremity (Nontraumatic) Medical Decision Making CTA shows multiple abscesses reviewed as found on the chart. I called The vascular surgeon. Will await comes normal she has marked increase in pain overnight. Cultures done will start her on vancomycin. Transferred to hospitalist service at [facility] will vascular will consult. Transferring as we do not have vascular services at our facility. Medical Records I reviewed the patient's medical records. Lab Data I reviewed the patient's lab results. 06/27/25 14:09 06/27/25 14:09 Radiology Impressions Foot X-Ray 06/27/25 13:26 IMPRESSION: No acute bony abnormality is identified. Lower Extremity CTA 06/27/25 14:24 IMPRESSION: 1. No new arterial stenosis, occlusion or thrombosis. There is unchanged occlusion of the left superficial femoral artery stent graft with reconstitution the tibial peritoneal trunk. Posterior tibial artery is patent at the ankle anterior tibial artery and peroneal arteries are opacified to approximately 3 cm proximal to the ankle with gradual tapering of enhancement that may simply be due to slow flow as visualized previously. 2. There is a thick walled hyperdense well-marginated 3.0 x 2.3 x 5.6 cm fluid collection just posterior to the segmented resection of the mid shaft fibula concerning for abscess although limited since this exam is arterial phase imaging. The wall of the collection is thicker and more sharply marginated compared to the prior exam. It also appears to maybe small tract extending to a defect in the skin surface just lateral to the collection on series 6, image [id number]. 3. There is a 2nd proximal thicker walled smoothly marginated much more sharply defined medial fluid collection concerning for thick walled abscess along the fascial plane between the medial gastrocnemius and proximal soleus measuring 3.8 x 1.6 x 8.0 cm. Medial aspect of this collection appears to have a small tract extending to the wound VAC along the medial skin surface mid left leg. 4. There is a smaller (2.0 x 4.7 x 8.0 cm today compared to 3.9 x 5.8 x 10.1 cm previously) more well marginated but loculated fluid collection left groin adjacent to multiple clips that may reflect a resolving postoperative hematoma or seroma versus improving abscess. 5. The thick-walled fluid collection concerning for an abscess medial left thigh is unchanged in size and configuration measuring 3.6 x 2.0 x 1.4 cm. 6. There is air in the urinary bladder. This may reflect recent instrumentation however cystitis can not be excluded. Laboratory Results WBC 6.66 10^3/uL (3.29-11.43) 06/27/25 14:09 RBC 4.42 10^6/uL (3.85-5.65) 06/27/25 14:09 Hgb 13.20 g/dL (11.27-16.99) 06/27/25 14:09 Hct 39.9 % (36-47) 06/27/25 14:09 MCV 90.3 fl (85-98) 06/27/25 14:09 MCH 29.9 pg (27-33) 06/27/25 14:09 MCHC 33.1 g/dL (30-55) 06/27/25 14:09 RDW 13.9 % (12.1-15.1) 06/27/25 14:09 Plt Count 477 10^3/cmm (157-399) H 06/27/25 14:09 MPV 9.1 fL (7.4-10.4) 06/27/25 14:09 Neut % (Auto) 74.0 % 06/27/25 14:09 Lymph % (Auto) 18.8 % 06/27/25 14:09 [place] % (Auto) 5.4 % 06/27/25 14:09 Eos % (Auto) 0.9 % 06/27/25 14:09 Baso % (Auto) 0.6 % 06/27/25 14:09 Neut # (Auto) 4.93 10^3/uL (1.8-7.7) 06/27/25 14:09 Lymph # (Auto) 1.3 10^3/uL (0.8-4.8) 06/27/25 14:09 [place] # (Auto) 0.4 10^3/uL (0.2-0.9) 06/27/25 14:09 Eos # (Auto) 0.1 10^3/uL (0.0-0.8) 06/27/25 14:09 Baso # (Auto) 0.0 10^3/uL (0.0-0.1) 06/27/25 14:09 Nucleated RBC % (auto) 0 % 06/27/25 14:09 Nucleated RBCs # 0.0 /100WBC 06/27/25 14:09 Sodium 139 mmol/L (136-145) 06/27/25 14:09 Potassium 3.7 mmol/L (3.5-5.1) 06/27/25 14:09 Chloride 102 mmol/L (98-107) 06/27/25 14:09 Carbon Dioxide 23 mmol/L (22-29) 06/27/25 14:09 Anion Gap 17.7 (5-19) 06/27/25 14:09 BUN 12 mg/dL (6-20) 06/27/25 14:09 Creatinine 0.5 mg/dL (0.5-0.9) 06/27/25 14:09 GFR Calculation 127.6 mL/min (90-130) 06/27/25 14:09 Glucose 134 mg/dL (65-115) H 06/27/25 14:09 Calculated Osmolality 290 mOsm/kg (285-295) 06/27/25 14:09 Lactic Acid 2.2 mmol/L (0.5-2.2) 06/27/25 14:09 Lactic Acid (Sepsis) 3.0 mmol/L (0.5-2.2) H 06/27/25 17:32 Calcium 9.4 mg/dL (8.5-10.5) 06/27/25 14:09 Total Bilirubin 0.5 mg/dL (0.15-1.2) 06/27/25 14:09 AST 15 U/L (0-32) 06/27/25 14:09 ALT 8 U/L (0-33) 06/27/25 14:09 Alkaline Phosphatase 101 U/L (35-105) 06/27/25 14:09 Total Protein 7.5 g/dL (6.6-8.7) 06/27/25 14:09 Albumin 4.3 g/dL (3.5-5.2) 06/27/25 14:09 Globulin 3.2 g/dL (1.3-4.6) 06/27/25 14:09 All radiology interpretation(s) finalized by discharge Discharge Plan Discharge Patient Disposition: Xfer Short-Term Hosp Clinical Impression: PAD (peripheral artery disease), Severe claudication, Critical limb ischemia of both lower extremities, Abscess of left leg Condition: Stable Referrals: Chuy Pulliam DO [Primary Care Provider, [facility]] Patient Instructions: Opioid Safety, Pain Management, Patient Portal & [facility]il Instructions Print Language: Venezuelan Coding Level of Care Code ED [employer] 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
[2025-06-27] MEDS: morphine 4 mg/mL SDV 1 mL IVP (14:15)
[2025-06-27] MEDS: ondansetron 2 mg/ML SDV 2 mL 4 MG IVP (14:15)
[2025-06-27 14:17] LABS: Hematocrit 39.9 % (36-47); Hemoglobin 13.20 g/dL (11.27-16.99); Mean Corpuscular HGB Conc 33.1 g/dL (30-55); Mean Corpuscular Hemoglobin 29.9 pg (27-33); Mean Corpuscular Volume 90.3 fl (85-98); Nucleated Red Blood Cells % 0 %; Platelet Count 477 10^3/cmm (157-399); Red Blood Count 4.42 10^6/uL (3.85-5.65); White Blood Count 6.66 10^3/uL (3.29-11.43)
--- NOTE | 2025-06-27 14:24 | CTR_ITS ---
PROCEDURE INFORMATION: Exam: CTA Left Lower Extremity With Contrast Exam date and time: 06/27/2025 3:01 PM Age: 54 years old Clinical indication: Pain; Lower leg; Left; Additional info: Pain abscess L leg TECHNIQUE: Imaging protocol: Computed tomographic angiography of the left lower extremity with contrast. 3D rendering (Not supervised by radiologist): MIP and/or 3D reconstructed images were created by the technologist. Radiation optimization: All CT scans at this facility use at least one of these dose optimization techniques: automated exposure control; mA and/or kV adjustment per patient size (includes targeted exams where dose is matched to clinical indication); or iterative reconstruction. Contrast material: OMNI 350; Contrast volume: 100 ml; Contrast route: INTRAVENOUS (IV); COMPARISON: [place] [id number] 06/16/2025 4:28 PM RADIATION DOSE METRICS: Total DLP (mGy-cm): 705.31 FINDINGS: Left femoral/popliteal arteries: There is unchanged occlusion of the left superficial femoral artery stent graft with reconstitution the tibial peritoneal trunk. Unchanged occluded bypass grafts in the anterior left thigh. Left infrapopliteal arteries: Unchanged occlusion left popliteal artery. There is unchanged occlusion of the left tibialis anterior artery origin with reconstitution in the proximal leg with gradual tapering distally proximal to the ankle. There is unchanged occlusion of the proximal posterior tibial artery distal reconstitution with patency visualized at the ankle. There is trace contrast opacification at the left peroneal artery at its origin followed by segment of occlusion mid leg with trace distal opacification versus collateral vessel. Stomach and bowel: There is no evidence of intestinal perforation or obstruction. Moderate diverticulosis is present in the distal colon. There is no evidence of colitis/diverticulitis. Appendix: A normal appendix is identified. Urinary bladder: The bladder is normal. There is air in the urinary bladder. This may reflect recent instrumentation however cystitis can not be excluded. Bones/joints: There are postoperative clips left lower leg adjacent to a resected portion at the mid shaft left fibula. No knee joint effusion. No visualized Le's cyst dissecting from the knee joint to indicate that either fluid collection is a Le cyst. Soft tissues: There is a thick walled hyperdense well-marginated 3.0 x 2.3 x 5.6 cm fluid collection just posterior to the segmented resection of the mid shaft fibula concerning for abscess although limited since this has arterial phase imaging. There is concern for a small track dissecting laterally from this collection to the skin surface at the level of the fibula resection site. The wall of this lateral mid leg collection is thicker and more sharply marginated compared to the prior exam concerning for organizing abscess. There is a 2nd proximal thick walled smoothly marginated much more sharply defined medial fluid collection concerning for thick walled abscess along the fascial plane between the medial gastrocnemius and proximal soleus measuring 3.8 x 1.6 x 8.0 cm. Medial aspect of this collection appears to have a small tract extending to the wound VAC along the medial skin surface mid left leg. There are skin defects in the mid to lower left leg with subcutaneous edema compatible with postoperative changes and concerning for cellulitis. There is a smaller (2.0 x 4.7 x 8.0 cm today compared to 3.9 x 5.8 x 10.1 cm previously) more well marginated but loculated fluid collection left groin adjacent to multiple clips that may reflect a resolving postoperative hematoma or seroma versus improving abscess. The thick-walled fluid collection concerning for an abscess medial left thigh is unchanged in size and configuration measuring 3.6 x 2.[address]/[place] [id number] IMPRESSION: 1. No new arterial stenosis, occlusion or thrombosis. There is unchanged occlusion of the left superficial femoral artery stent graft with reconstitution the tibial peritoneal trunk. Posterior tibial artery is patent at the ankle anterior tibial artery and peroneal arteries are opacified to approximately 3 cm proximal to the ankle with gradual tapering of enhancement that may simply be due to slow flow as visualized previously. 2. There is a thick walled hyperdense well-marginated 3.0 x 2.3 x 5.6 cm fluid collection just posterior to the segmented resection of the mid shaft fibula concerning for abscess although limited since this exam is arterial phase imaging. The wall of the collection is thicker and more sharply marginated compared to the prior exam. It also appears to maybe small tract extending to a defect in the skin surface just lateral to the collection on series 6, image 658. 3. There is a 2nd proximal thicker walled smoothly marginated much more sharply defined medial fluid collection concerning for thick walled abscess along the fascial plane between the medial gastrocnemius and proximal soleus measuring 3.8 x 1.6 x 8.0 cm. Medial aspect of this collection appears to have a small tract extending to the wound VAC along the medial skin surface mid left leg. 4. There is a smaller (2.0 x 4.7 x 8.0 cm today compared to 3.9 x 5.8 x 10.1 cm previously) more well marginated but loculated fluid collection left groin adjacent to multiple clips that may reflect a resolving postoperative hematoma or seroma versus improving abscess. 5. The thick-walled fluid collection concerning for an abscess medial left thigh is unchanged in size and configuration measuring 3.6 x 2.0 x 1.4 cm. 6. There is air in the urinary bladder. This may reflect recent instrumentation however cystitis can not be excluded.
[2025-06-27 14:37] LABS: Alanine Aminotransferase 8 U/L (0-33); Albumin Level 4.3 g/dL (3.5-5.2); Alkaline Phosphatase 101 U/L (35-105); Aspartate Amino Transferase 15 U/L (0-32); Blood Urea Nitrogen 12 mg/dL (6-20); Calcium 9.4 mg/dL (8.5-10.5); Carbon Dioxide 23 mmol/L (22-29); Chloride 102 mmol/L (98-107); Creatinine Clr Calc Pharmacy 127.9908; Globulin 3.2 g/dL (1.3-4.6); Glucose 134 mg/dL (65-115); Osmolality Calculated 290 mOsm/kg (285-295); Sodium 139 mmol/L (136-145); Total Protein 7.5 g/dL (6.6-8.7)
[2025-06-27 14:38] LABS: Anion Gap 17.7 (5-19); Lactic Sepsis W/Reflex 2.2 mmol/L (0.5-2.2); Potassium 3.7 mmol/L (3.5-5.1)
[2025-06-27 14:46] LABS: Reflex Lactate Order REFLEX LACTIC ORDERD
[2025-06-27] MEDS: HYDROmorphone 0.5 MG/0.5 ML INJ IVP ×2 (14:57→16:10)
[2025-06-27] MEDS: iohexol 350 mg/mL 500 mL Btl (per mL) IV (15:39)
[2025-06-27] MEDS: morphine 4 mg/mL SDV 1 mL 2 MG IVP (17:33)
[2025-06-27 17:59] LABS: Lactic Acid level (Lactate) 3.0 mmol/L (0.5-2.2)
[2025-06-27] MEDS: HYDROmorphone 0.5 MG/0.5 ML INJ 1 MG IVP (19:13)
== END 2025-06-27 19:21 | disposition short-term general hospital (02) ==
PROVIDERS: Emergency Provider Family Medicine; PCP Family Medicine
DX: I70.223 Atherosclerosis of native arteries of extremities with rest pain, bilateral legs (principal); L02.416 Cutaneous abscess of left lower limb; E78.5 Hyperlipidemia, unspecified; I10 Essential (primary) hypertension
CPT/HCPCS: 36415; 73630; 73706; 80053; 83605; 85025; 87040; 96365; 96375; 96376; 99285; J1171; J2270; J2405; J3373; J7030; J7050

== ENCOUNTER 2025-07-06 14:48 | Outpatient (CLI) | payer MEDICAID, SELFPAY ==
[2025-07-06 16:07] LABS: Hematocrit 37.7 % (36-47); Hemoglobin 12.30 g/dL (11.27-16.99); Mean Corpuscular HGB Conc 32.6 g/dL (30-55); Mean Corpuscular Hemoglobin 29.6 pg (27-33); Mean Corpuscular Volume 90.8 fl (85-98); Nucleated Red Blood Cells % 0 %; Platelet Count 299 10^3/cmm (157-399); Red Blood Count 4.15 10^6/uL (3.85-5.65); White Blood Count 7.27 10^3/uL (3.29-11.43)
== END 2025-07-06 14:49 | disposition home or self-care (01) ==
PROVIDERS: PCP Family Medicine; Visit Provider Student in an Organized Health Care Education/Training Program
DX: Z01.818 Encounter for other preprocedural examination (principal)
CPT/HCPCS: 36415; 85025